=== PATIENT | female | born 1940 | race Caucasian/White ===

== ENCOUNTER 2020-01-09 12:31 | Emergency (ER) | payer MEDICARE, OTHER, SELFPAY ==
[2020-01-09 12:38] VITALS: BP 129/54; PULSE 81; RESP 16; TEMP 36.4; O2SAT 99
--- NOTE | 2020-01-09 12:51 | ED.NAVMDI ---
HPI - Nausea/Vomiting/Diarrhea General Chief complaint: Nausea/Vomiting/Diarrhea Stated complaint: diarrhea Time Seen by Provider: 01/09/20 12:38 Source: patient and RN notes reviewed Mode of arrival: ambulatory Limitations: no limitations History of Present Illness HPI Narrative: A 79 y/o female presents to the ED with 5 days of watery diarrhea for the past 5 days. She states that she has been having roughly 4-5 episodes a day. She reports associated sharp intermittent ABD pain. She notes that her symptoms are aggravated after she eats and that she has taken Imodium without relief. She denies any fevers, chills, N/V, or CP. MD elicited complaint: diarrhea Onset (ago): day(s) (5) Description of diarrhea: watery Associated nausea: No Associated abdominal pain: Yes Quality: sharp Exacerbating factors: eating Relieving factors: none Context: history of abdominal surgery Associated symptoms: denies other symptoms Treatment prior to arrival: immodium Related Data Home Medications Medication Instructions Recorded Confirmed acetaminophen 1,000 mg PO TID PRN 11/01/19 11/01/19 aspirin 325 mg PO DAILY 11/01/19 11/01/19 cyclobenzaprine 5 mg PO TID PRN 11/01/19 11/01/19 lisinopril 10 mg PO BID 11/01/19 11/01/19 pantoprazole 40 mg PO QAM 11/01/19 11/01/19 prednisone 20 mg PO DAILY 11/01/19 11/01/19 tramadol 50 mg PO TID PRN 11/01/19 11/01/19 aspirin [Aspir-Low] 01/09/20 citalopram mg 01/09/20 docusate sodium PO 01/09/20 metoprolol succinate PO 01/09/20 pantoprazole PO 01/09/20 rosuvastatin mg 01/09/20 Allergies Allergy/AdvReac Type Severity Reaction Status Date / Time felodipine Allergy Severe HEART Verified 01/09/20 12:51 BOUNDING metronidazole Allergy Severe Unknown Verified 01/09/20 12:51 Quinolones Allergy Severe Unknown Verified 01/09/20 12:51 atorvastatin Allergy Mild MUSCLE Verified 01/09/20 12:51 ACHES ciprofloxacin Allergy Unknown Unknown Verified 01/09/20 12:51 hydrocodone AdvReac Mild Nausea and Verified 01/09/20 12:51 Vomiting Review of Systems Review of Systems: All systems reviewed & are unremarkable except as noted in HPI and below Constitutional: Constitutional: Denies chills and Denies fever(s) Cardiovascular: Cardiovascular: Denies chest pain Gastrointestinal: Gastrointestinal: Reports abdominal pain, Reports diarrhea (watery), Denies nausea and Denies vomiting PMFSH Social History Social History Social History: She recently lost her cancer. She had 5 children. He lives home alone. She is retired from working in the school cafeteria Smoking status: Former smoker Tobacco type: cigarettes Second hand tobacco smoke exposure: No Smoking end date: 10/16/94 Alcohol intake: never Substance use: never Substance use type: does not use Gender identity (if verbalized by the patient): Female Spiritual care concerns: No Agree to blood products: Yes Exam Narrative: Exam Narrative: General appearance: Well-developed, well-nourished Skin: Normal color Head: Normocephalic, nontraumatic Eyes: Clear conjunctiva ENT: Oropharynx normal, ears normal, nose normal Neck: Supple, nontender Chest and respiratory: Airway patent, no respiratory distress, no accessory muscle use Heart: Regular rate/rhythm Abdomen: Soft, nontender, no organomegaly, quiet bowel sounds Vascular: Normal peripheral pulses, normal capillary refill. Musculoskeletal: Normal range of motion, nontender back Neurologic: Alert and oriented ?3, PRECONSTRUCTION MANAGER is normal as tested, no gross motor deficit Course Course Emergency Course: Stable Vital Signs Vital signs: Vital S
[2020-01-09 12:52] LABS: Basophils Absolute Auto 0.1 K/mm3 (0.0-0.1); Basophils Percent Auto 0.8 % (0.2-1.2); Eosinophils Absolute Auto 0.3 K/mm3 (0-0.3); Eosinophils Percent Auto 2.9 % (0-4.4); Hematocrit 33.7 % (37.0-47.0); Hemoglobin 9.8 g/dL (12.0-15.0); Immature Granulocyte Absolute 0.02 K/mm3 (0.00-0.031); Immature Granulocyte Percent A 0.2 % (0-0.5); Lymphocytes Absolute Auto 1.86 K/mm3 (0.9-3.2); Lymphocytes Percent Auto 21.3 % (18.3-44.2); Mean Corpuscular HGB Conc 29.1 g/dl (32-36); Mean Corpuscular Hemoglobin 27.1 pg (26-34); Mean Corpuscular Volume 93.4 fl (80-100); Mean Platelet Volume 10.5 fl (7.4-10.4); Monocytes Absolute Auto 0.8 K/mm3 (0.1-0.6); Monocytes Percent Auto 9.3 % (2.6-8.5); Neutrophils Absolute Auto 5.7 K/mm3 (1.3-6.7); Neutrophils Percent Auto 65.5 % (45.5-73.1); Platelet Count Result 438 k/mm3 (150-375); Red Blood Count 3.61 M/mm3 (4.2-5.4); White Blood Count 8.7 K/mm3 (4.5-10.0)
[2020-01-09 13:00] LABS: Hypochromasia 1+ (NORMAL); Ovalocytes 1+ (NORMAL); Platelet Estimate Increased (Adequate)
[2020-01-09 13:07] VITALS: BP 115/43; PULSE 69
[2020-01-09 13:07] LABS: Albumin Level 4.3 g/dL (3.5-5.1); Alkaline Phosphatase 86 U/L (38-126); Aspartate Amino Transferase 19 U/L (14-36); Bilirubin,Total 0.2 mg/dL (0.2-1.3); Blood Urea Nitrogen 21 mg/dL (7-17); Carbon Dioxide 24 mmol/L (22-30); Estimated CRCL calculation 26 ml/min; Estimated Glomerular Filt Rate 31; Glucose 96 mg/dL (65-105)
[2020-01-09 13:08] VITALS: BP 117/40; PULSE 71
[2020-01-09 13:10] VITALS: BP 90/37; PULSE 84
[2020-01-09 13:18] LABS: Alanine Aminotransferase 10 U/L (4-35); Calcium 8.7 mg/dL (8.4-10.2); Chloride 104 mmol/L (98-107); Lipase 141 U/L (23-300); Potassium 4.1 mmol/L (3.4-5.0); Sodium 137 mmol/L (137-145)
[2020-01-09] MEDS: SODIUM CHLORIDE 0.9% IV 1,000 ML 999 ML IV CONT (13:25)
[2020-01-09 13:36] LABS: Add Urine Microscopic? YES; Appearance Urine Clear (Clear); Bilirubin Urine Negative (Negative); Blood Urine 1+ (Negative); Color Urine Yellow (Yellow); Glucose Urine UA Negative (Negative); Hyaline Casts Urine 20-29 /lpf; Ketones Urine Negative (Negative); Leukocyte Esterase Ur 2+ LEU/UL (Negative); Mucus Urine Rare /lpf; Nitrate Urine Negative (Negative); Protein Urine 2+ mg/dL (Negative); Specific Grav Ur 1.014 (1.001-1.035); Squamous Epithelial Cell Urine Rare /hpf (Few); Urobilinogen Urine Negative mg/dL (<2.0)
[2020-01-09 14:13] VITALS: BP 147/56; PULSE 71; RESP 17; O2SAT 100
== END 2020-01-09 14:15 ==
PROVIDERS: Emergency Provider Emergency Medicine; PCP Internal Medicine
DX: N17.9 Acute kidney failure, unspecified (principal); R19.7 Diarrhea, unspecified; Z87.891 Personal history of nicotine dependence; R10.9 Unspecified abdominal pain
CPT/HCPCS: 36415; 80053; 81001; 83690; 85025; 87086; 87088; 96360; 99283; J7030

== ENCOUNTER 2020-09-24 14:27 | Outpatient (CLI) | payer MEDICARE, OTHER, SELFPAY ==
--- NOTE | ~2020-09-24 | MM_ITS ---
EXAMINATION: MM screening [facility] BI w cathy HISTORY: Screening TECHNIQUE: Craniocaudal and mediolateral oblique 3-D tomosynthesis images were obtained and synthetic 2-D images were generated. CAD analysis was submitted and interpreted. COMPARISON: Comparison to multiple prior studies sequentially, with oldest reviewed study dated 12/09. BREAST PARENCHYMAL COMPOSITION: There are scattered areas of fibroglandular density. FINDINGS: There is no evidence of suspicious mass, calcification, or architectural distortion to sugg est malignancy in either breast. There has been no suspicious interval change. IMPRESSION: 1. No mammographic evidence of malignancy. 2. Recommend routine screening mammography in one year. BI-RADS Category 1: Negative Reviewed, dictated and finalized at location A. WASHER
--- NOTE | ~2020-09-24 | DEXA_ITS ---
Bone Density Report Name: Debra Bueno Age: 79 Sex: Female Ethnicity: White Date of : 1940 Indication: osteopenia; monitoring treatment; parental hip fracture; prior fracture; hysterectomy; postmenopausal Referring Provider: BEBE, JACE Barros Study: Bone densitometry was performed. Exam Date: September 24, 2020 Accession number: [id number] Bone Density: Region BMD T-score Z-score Classification AP Spine (L1-L4) 0.867 -1.6 1.1 Osteopenia Femoral Neck (Right) 0.582 -2.4 -0.1 Osteopenia Total Hip (Right) 0.662 -2.3 -0.2 Osteopenia World Health Organization criteria for BMD impression classify patients as: Normal (T-score at or above -1.0), Osteopenia (T-score between -1.0 and -2.5), or Osteoporosis (T-score at or below -2.5). 10-year Fracture Risk: FRAX not reported because: Prior hip or vertebral fracture Treated for osteoporosis Previous Exams: Region Exam Age BMD T-score BMD Change BMD Change Date g/cm2 vs Baseline vs Previous AP Spine(L1-L4) 09/24/2020 79 0.867 -1.6 -0.017(-1.9%)# -0.038(-4.2%)* 01/10/2014 73 0.906 -1.3 0.021(2.4%)# 0.033(3.7%)* 10/27/2011 71 0.873 -1.6 -0.011(-1.3%)# -0.057(-6.1%)# 10/20/2009 69 0.930 -1.1 0.045(5.1%)* 0.045(5.1%)* 08/30/2007 66 0.885 -1.5 Total Hip(Right) 09/24/2020 79 0.662 -2.3 -0.095(-12.5%) -0.087(-11.6%) 01/10/2014 73 0.749 -1.6 -0.008(-1.1%)# -0.067(-8.2%)* 10/27/2011 71 0.816 -1.0 0.059(7.7%)# 0.073(9.8%)# 10/20/2009 69 0.743 -1.6 -0.014(-1.9%) -0.014(-1.9%) 08/30/2007 66 0.757 -1.5 *Denotes significance at 95% confidence level, LSC for AP Spine = 0.022 g/cm2, LSC for Total Hip = 0.027 g/cm2 Clinical Information Provided by Patient: Have had a previous hip or vertebral fracture Has had a low trauma fracture Parent has had a hip fracture Is being treated for osteoporosis Has the following medical conditions: Hysterectomy Patient maximum height was 69 No regular weight bearing exercise Drinks caffeinated beverages Onset of menses at age 13 Number of children 5 Impression: The patient has low bone mass, based on the Right Femoral Neck T-score. The patient has risk factors, including: parental hip fracture, previous fracture. The BMD for the AP Spine(L1-L4) decreased, changing by -4.2% since the last DXA exam. The BMD for the Total Hip(Right) decreased, changing by -11.6% since the last DXA exam. Discussion: SIGNIFICANT BONE LOSS OBSERVED. Adherence to therapy (including calcium and vitamin D inta
== END 2020-09-24 14:28 | disposition home or self-care (01) ==
PROVIDERS: PCP Nurse Practitioner; Visit Provider Physician Assistant
DX: Z12.31 Encounter for screening mammogram for malignant neoplasm of breast (principal); Z78.0 Asymptomatic menopausal state; M85.89 Other specified disorders of bone density and structure, multiple sites
CPT/HCPCS: 77063; 77067; 77080

== ENCOUNTER 2020-09-30 04:23 | Emergency (ER) | payer MEDICARE, OTHER, SELFPAY ==
--- NOTE | ~2020-09-30 | XR_ITS ---
EXAMINATION: XR chest 1V portable DATE: 09/30/2020 04:42 INDICATION: Shortness of breath. COVID-19 positive. TECHNIQUE: A single frontal view of the chest was obtained. COMPARISON: Chest 2 views 03/30/2018, CT abdomen and pelvis 11/04/2019 FINDINGS: There is mild scarring at the lung apices. Calcified left lung nodules and calcified left h ilar lymph nodes are consistent with old granulomatous disease. There is a diffuse interstitial patte rn in the lungs. No pleural effusion or pneumothorax. The heart size is normal. Surgical clips overli e left upper chest. IMPRESSION: 1. Diffuse interstitial pattern in the lungs, consistent with atypical pneumonia versus mild pulmonar y edema. Reviewed, dictated and finalized at location A. PING COMPOUND BLENDER IMPRESSION: 1. Diffuse interstitial pattern in the lungs, consistent with atypical pneumoni a versus mild pulmonary edema.
[2020-09-30 04:23] VITALS: BP 130/74; PULSE 81; RESP 18; TEMP 36.4; O2SAT 98
[2020-09-30 04:37] LABS: Basophils Percent Auto 0.2 % (0.2-1.2); Eosinophils Percent Auto 0.9 % (0-4.4); Hematocrit 37.4 % (37.0-47.0); Hemoglobin 11.9 g/dL (12.0-15.0); Immature Granulocyte Absolute 0.02 K/mm3 (0.00-0.031); Immature Granulocyte Percent A 0.5 % (0-0.5); Lymphocytes Absolute Auto 1.29 K/mm3 (0.9-3.2); Lymphocytes Percent Auto 29.9 % (18.3-44.2); Mean Corpuscular HGB Conc 31.8 g/dl (32-36); Mean Corpuscular Hemoglobin 29.4 pg (26-34); Mean Corpuscular Volume 92.3 fl (80-100); Mean Platelet Volume 9.9 fl (7.4-10.4); Monocytes Absolute Auto 0.7 K/mm3 (0.1-0.6); Monocytes Percent Auto 15.8 % (2.6-8.5); Neutrophils Absolute Auto 2.3 K/mm3 (1.3-6.7); Neutrophils Percent Auto 52.7 % (45.5-73.1); Platelet Count Result 286 k/mm3 (150-375); Red Blood Count 4.05 M/mm3 (4.2-5.4); Red Cell Distribution Width 13.1 % (11.5-14.5); White Blood Count 4.3 K/mm3 (4.5-10.0)
[2020-09-30 04:50] LABS: Alanine Aminotransferase 14 U/L (4-35); Albumin Level 3.6 g/dL (3.5-5.1); Alkaline Phosphatase 82 U/L (38-126); Anion Gap 8 mmol/L (8-16); Aspartate Amino Transferase 31 U/L (14-36); Bilirubin,Total 0.2 mg/dL (0.2-1.3); Blood Urea Nitrogen 25 mg/dL (7-17); Calcium 8.6 mg/dL (8.4-10.2); Carbon Dioxide 27 mmol/L (22-30); Chloride 101 mmol/L (98-107); Estimated CRCL calculation 26 ml/min; Estimated Glomerular Filt Rate 31; Glucose 109 mg/dL (65-105); Potassium 4.1 mmol/L (3.4-5.0); Sodium 136 mmol/L (137-145)
[2020-09-30] MEDS: ONDANSETRON INJ 4 MG/2 ML VIAL IV PUSH (04:55)
[2020-09-30] MEDS: SODIUM CHLORIDE 0.9% IV 1,000 ML 999 ML IV CONT (05:16)
--- NOTE | 2020-09-30 05:36 | ED.SOB ---
HPI - SOB/Dyspnea General Chief Complaint: Shortness of Breath/Dyspnea Stated Complaint: sob Time Seen by Provider: 09/30/20 04:34 History of Present Illness HPI Narrative: Patient is an 79-year-old female who presents ER with shortness of breath. She reports 2 hours prior to arrival she started to feel some mild shortness of breath. It was brief and she is no longer experiencing. Recently diagnosed with Covid. She is unsure if it is related to nerves. No racing heart or chest pain. She reports has been feeling fatigued for couple of days and not eating as well. She denies any productive cough or sinus congestion/sore throat. Patient does endorse mild nausea but no vomiting. Related Data Home Medications Medication Instructions Recorded Confirmed acetaminophen 1,000 mg PO TID PRN 11/01/19 04/16/20 cyclobenzaprine 5 mg PO TID PRN 11/01/19 04/16/20 lisinopril 10 mg PO BID 11/01/19 04/16/20 pantoprazole 40 mg PO QAM 11/01/19 04/16/20 aspirin [Aspir-Low] 01/09/20 04/16/20 citalopram mg 01/09/20 04/16/20 docusate sodium PO 01/09/20 04/16/20 metoprolol succinate PO 01/09/20 04/16/20 pantoprazole PO 01/09/20 04/16/20 rosuvastatin mg 01/09/20 04/16/20 apixaban 2.5 mg tablet 2.5 mg PO BID 04/16/20 04/16/20 Allergies Allergy/AdvReac Type Severity Reaction Status Date / Time felodipine Allergy Severe HEART Verified 01/09/20 12:51 BOUNDING metronidazole Allergy Severe Unknown Verified 01/09/20 12:51 Quinolones Allergy Severe Unknown Verified 01/09/20 12:51 atorvastatin Allergy Mild MUSCLE Verified 01/09/20 12:51 ACHES ciprofloxacin Allergy Unknown Unknown Verified 01/09/20 12:51 hydrocodone AdvReac Mild Nausea and Verified 01/09/20 12:51 Vomiting Review of Systems Review of Systems: All systems reviewed & are unremarkable except as noted in HPI and below Constitutional: Constitutional: Denies chills, Reports fatigue, Denies fever(s) and Reports weakness ENT: Denies nasal congestion and Denies sore throat Cardiovascular: Cardiovascular: Denies chest pain and Denies radiating jaw, neck or arm pain Respiratory: Respiratory: Denies cough, Reports dyspnea and Denies wheezing Gastrointestinal: Gastrointestinal: Denies abdominal pain, Reports nausea and Denies vomiting [facility] Past Medical History Medical History (Updated 09/30/20 @ 06:07 by Brando Phan MD) Abdominal aneurysm Anemia Arthritis Bilateral carpal tunnel syndrome Bronchitis Cataracts, bilateral Chronic GERD Clavicle fracture Depression Diverticulitis GERD (gastroesophageal reflux disease) H/O blood clots H/O: HTN (hypertension) History of pneumonia History of rectal polyps HTN (hypertension), malignant Hx of fracture of rib Hx: UTI (urinary tract infection) Hypercholesteremia Hypoglycemia Surgical History Surgical History AAA (abdominal aortic aneurysm) H/O bilateral cataract extraction H/O: hysterectomy History of appendectomy History of bilateral carpal tunnel release History of bladder surgery History of colon surgery History of hip replacement Left bipolar October 2019 History of left knee replacement History of local excision of skin lesion History of tonsillectomy History of total left knee replacement Hx of cardiac cath S/P carpal tunnel release S/P rotator cuff repair Bilaterally Family History Family History Mother Patient's mother is Dementia Father Patient's father is Blood clots in brain Sibling Cerebrovascular accident Social History Social History Social History: She recently lost her cancer. She had 5 children. He lives home alone. She is retired from working in the school cafeteria Smoking status: Former smoker Tobacco type: cigarettes Second hand tobacco smoke exposure: No
[2020-09-30 06:17] VITALS: BP 104/63; PULSE 91; RESP 18; TEMP 36.6; O2SAT 96
--- NOTE | 2020-09-30 09:31 | ECG_ITS ---
Measurements Intervals [place] Rate: 80 P: 84 [place]: 153 QRS: 59 QRSD: 85 T: 50 QT: 361 QTc: 416 Interpretive Statements SINUS RHYTHM BASELINE ARTIFACT- I, II, III, AVR, AVL, AVF, V1-V3 NORMAL ECG Electronically Signed On 09-30-2020 10:01:01 ASSISTANT MEDIA BUYER by Diaz Walsh D.O.
== END 2020-09-30 06:18 ==
PROVIDERS: Emergency Provider Emergency Medicine; PCP Physician Assistant
DX: U07.1 COVID-19 (principal); J12.89 Other viral pneumonia; D64.9 Anemia, unspecified; M19.90 Unspecified osteoarthritis, unspecified site; K21.9 Gastro-esophageal reflux disease without esophagitis; F32.9 Major depressive disorder, single episode, unspecified; I10 Essential (primary) hypertension; E78.5 Hyperlipidemia, unspecified
CPT/HCPCS: 36415; 71045; 80053; 85025; 93005; 96361; 96374; 99284; J2405; J7030

== ENCOUNTER 2020-10-06 04:45 | Emergency (ER) | payer MEDICARE, OTHER, SELFPAY ==
--- NOTE | ~2020-10-06 | XR_ITS ---
EXAMINATION: XR chest 1V portable INDICATION: Shortness of breath TECHNIQUE: Portable AP chest at 0512 hours COMPARISON: 09/30/2020 FINDINGS: There are surgical changes in the left upper lobe. Scarring is noted in the lung apices. A mild diffuse interstitial pattern persists without significant change. There is no pleural effusion o r pneumothorax. The cardiomediastinal silhouette is normal. IMPRESSION: 1. Mild diffuse interstitial pattern without significant change, consistent with pulmonary edema vers us atypical pneumonia. Reviewed, dictated and finalized at location A. FORM CONSULTANT IMPRESSION: 1. Mild diffuse interstitial pattern without significant change, consistent wit h pulmonary edema versus atypical pneumonia.
[2020-10-06 04:46] VITALS: BP 152/61; PULSE 81; RESP 18; TEMP 36.8; O2SAT 95
--- NOTE | 2020-10-06 04:56 | ECG_ITS ---
Measurements Intervals [place] Rate: 83 P: 75 [place]: 165 QRS: 61 QRSD: 90 T: 60 QT: 377 QTc: 444 Interpretive Statements SINUS RHYTHM BASELINE ARTIFACT- I, AVL NORMAL ECG Electronically Signed On 10-06-2020 7:48:14 IRON GUARDRAIL INSTALLER by Diaz Walsh D.O.
[2020-10-06 05:05] VITALS: PULSE 97; O2SAT 94
[2020-10-06 05:11] LABS: Basophils Percent Auto 0.1 % (0.2-1.2); Eosinophils Absolute Auto 0.1 K/mm3 (0-0.3); Eosinophils Percent Auto 0.9 % (0-4.4); Hematocrit 36.6 % (37.0-47.0); Hemoglobin 11.9 g/dL (12.0-15.0); Immature Granulocyte Absolute 0.03 K/mm3 (0.00-0.031); Immature Granulocyte Percent A 0.4 % (0-0.5); Lymphocytes Absolute Auto 1.13 K/mm3 (0.9-3.2); Lymphocytes Percent Auto 16.7 % (18.3-44.2); Mean Corpuscular HGB Conc 32.5 g/dl (32-36); Mean Corpuscular Hemoglobin 29.3 pg (26-34); Mean Corpuscular Volume 90.1 fl (80-100); Mean Platelet Volume 9.9 fl (7.4-10.4); Monocytes Absolute Auto 0.8 K/mm3 (0.1-0.6); Monocytes Percent Auto 11.5 % (2.6-8.5); Neutrophils Absolute Auto 4.8 K/mm3 (1.3-6.7); Neutrophils Percent Auto 70.4 % (45.5-73.1); Platelet Count Result 382 k/mm3 (150-375); Red Blood Count 4.06 M/mm3 (4.2-5.4); Red Cell Distribution Width 12.8 % (11.5-14.5); White Blood Count 6.8 K/mm3 (4.5-10.0)
[2020-10-06 05:24] LABS: Alanine Aminotransferase 13 U/L (4-35); Albumin Level 3.5 g/dL (3.5-5.1); Alkaline Phosphatase 95 U/L (38-126); Anion Gap 8 mmol/L (8-16); Aspartate Amino Transferase 23 U/L (14-36); Bilirubin,Total 0.4 mg/dL (0.2-1.3); Blood Urea Nitrogen 20 mg/dL (7-17); Calcium 8.7 mg/dL (8.4-10.2); Carbon Dioxide 28 mmol/L (22-30); Chloride 100 mmol/L (98-107); Estimated CRCL calculation 30 ml/min; Estimated Glomerular Filt Rate 36; Glucose 115 mg/dL (65-105); Potassium 3.8 mmol/L (3.4-5.0); Sodium 136 mmol/L (137-145)
[2020-10-06 05:32] LABS: NT Pro B Type Natriuretic Pept 657 PG/ML (5-100)
[2020-10-06 05:35] LABS: Troponin I < 0.012 ng/mL (0.000-0.034)
[2020-10-06] MEDS: SODIUM CHLORIDE 0.9% IV 1,000 ML 999 ML IV CONT (05:41)
[2020-10-06 05:45] LABS: Atypical Lymphocytes Present; Ovalocytes 1+ (NORMAL); Platelet Estimate Adequate (Adequate)
--- NOTE | 2020-10-06 05:52 | ED.GENADULT ---
HPI - General Adult General Chief complaint: Shortness of Breath/Dyspnea Stated complaint: SOB,covid + Time Seen by Provider: 10/06/20 04:56 History of Present Illness HPI narrative: Patient is a 79-year-old female who presents the emergency department with chief complaint of shortness of breath. Patient reports that she was recently diagnosed with COVID-19 and has been seen in the emergency department several times. Patient reports that tonight she was at home started getting short of breath EMS was called and by the time she arrived to the emergency department she is feeling back to normal. Patient states this time she has minimal shortness of breath denies chest pain denies fever reports has had a little bit of diarrhea with this as well. Related Data Home Medications Medication Instructions Recorded Confirmed acetaminophen 1,000 mg PO TID PRN 11/01/19 04/16/20 cyclobenzaprine 5 mg PO TID PRN 11/01/19 04/16/20 lisinopril 10 mg PO BID 11/01/19 04/16/20 pantoprazole 40 mg PO QAM 11/01/19 04/16/20 aspirin [Aspir-Low] 01/09/20 04/16/20 citalopram mg 01/09/20 04/16/20 docusate sodium PO 01/09/20 04/16/20 metoprolol succinate PO 01/09/20 04/16/20 pantoprazole PO 01/09/20 04/16/20 rosuvastatin mg 01/09/20 04/16/20 apixaban 2.5 mg tablet 2.5 mg PO BID 04/16/20 04/16/20 Allergies Allergy/AdvReac Type Severity Reaction Status Date / Time felodipine Allergy Severe HEART Verified 01/09/20 12:51 BOUNDING metronidazole Allergy Severe Unknown Verified 01/09/20 12:51 Quinolones Allergy Severe Unknown Verified 01/09/20 12:51 atorvastatin Allergy Mild MUSCLE Verified 01/09/20 12:51 ACHES ciprofloxacin Allergy Unknown Unknown Verified 01/09/20 12:51 hydrocodone AdvReac Mild Nausea and Verified 01/09/20 12:51 Vomiting Review of Systems Review of Systems: Narrative: A 10 system review of systems was completed on the patient and is negative except for what is stated in the HPI. Nursing and ancillary documentation was reviewed. REPLACED BY [facility] Past Medical History Medical History (Updated 10/06/20 @ 06:17 by Jorge Peguero MD) Abdominal aneurysm Anemia Arthritis Bilateral carpal tunnel syndrome Bronchitis Cataracts, bilateral Chronic GERD Clavicle fracture Depression Diverticulitis GERD (gastroesophageal reflux disease) H/O blood clots H/O: HTN (hypertension) History of pneumonia History of rectal polyps HTN (hypertension), malignant Hx of fracture of rib Hx: UTI (urinary tract infection) Hypercholesteremia Hypoglycemia Surgical History Surgical History AAA (abdominal aortic aneurysm) H/O bilateral cataract extraction H/O: hysterectomy History of appendectomy History of bilateral carpal tunnel release History of bladder surgery History of colon surgery History of hip replacement Left bipolar October 2019 History of left knee replacement History of local excision of skin lesion History of tonsillectomy History of total left knee replacement Hx of cardiac cath S/P carpal tunnel release S/P rotator cuff repair Bilaterally Family History Family History Mother Patient's mother is Dementia Father Patient's father is Blood clots in brain Sibling Cerebrovascular accident Social History Social History Social History: She recently lost her cancer. She had 5 children. He lives home alone. She is retired from working in the school cafeteria Smoking status: Former smoker Tobacco type: cigarettes Second hand tobacco smoke exposure: No Smoking end date: 10/16/94 Alcohol intake: never Substance use: never Substance use type: does not use Gender identity (if verbalized by the patient): Female Spiritual care concerns: No Agree to blood products:
[2020-10-06 05:53] LABS: Alveolar/Arterial O2 Gradient 49.9 mmHg; Base Excess ABG -0.2 mEq/l (+/-2.0); Fractional Inspired Oxygen 21 %; HCO3 ABG 23.2 mEq/l (22.0-26.0); Oxygen Content ABG 14.8 %vol (16.0-22.0); Oxygen Saturation ABG 92.3 % (95.0-100.0); Oxyhemoglobin 90.4 % THb (90.0-100.0); PCO2 ABG 33.6 mmHg (35.0-45.0); PO2 ABG 59.6 mmHg (80.0-100.0); PO2 FiO2 Ratio Arterial Blood 2.84 %; Total Hemoglobin 11.6 g/dL (12.0-18.0); pH ABG 7.457 (7.350-7.450)
[2020-10-06 05:54] LABS: Device ROOM AIR; Site Drawn RIGHT BRACHIAL
[2020-10-06 06:01] VITALS: BP 120/53; PULSE 81; RESP 16; O2SAT 95
--- NOTE | 2020-10-06 06:27 | PC.NURSE ---
Patient's son, Ruben, contacted for ride home.
[2020-10-06 06:36] VITALS: BP 131/60; PULSE 81; RESP 16; TEMP 36.6; O2SAT 95
== END 2020-10-06 06:59 ==
PROVIDERS: Emergency Provider Emergency Medicine; PCP Physician Assistant
DX: U07.1 COVID-19 (principal); D64.9 Anemia, unspecified; M19.90 Unspecified osteoarthritis, unspecified site; K21.9 Gastro-esophageal reflux disease without esophagitis; F32.9 Major depressive disorder, single episode, unspecified; I10 Essential (primary) hypertension; E78.5 Hyperlipidemia, unspecified
CPT/HCPCS: 36415; 36600; 71045; 80053; 82805; 83880; 84484; 85025; 93005; 96360; 99284; J7030

== ENCOUNTER 2022-06-22 12:59 | Emergency (ER) | payer MEDICARE, OTHER, SELFPAY ==
[2022-06-22] VITALS (15 sets, daily range): BP systolic 149–164; BP diastolic 76–84; PULSE 80–117; RESP 14–21; TEMP 36.7; O2SAT 96–100
--- NOTE | ~2022-06-22 | XR_ITS ---
EXAMINATION: XR chest 2V DATE: 06/22/2022 14:00 INDICATION: Chest pain. Shortness of breath. TECHNIQUE: Frontal and lateral views of the chest were obtained. COMPARISON: Chest single view 10/06/2020 FINDINGS: There is mild scarring at the lung apices. No pleural effusion or pneumothorax. The heart size is normal. There are prominent paracardial fat pads. Surgical clips overlie left chest. IMPRESSION: 1. Stable mild scarring at the lung apices. Reviewed, dictated and finalized at location A.
--- NOTE | 2022-06-22 13:20 | ECG_ITS ---
Measurements Intervals [place] Rate: 104 P: 72 NM: 166 QRS: 48 QRSD: 86 T: 27 QT: 322 QTc: 425 Interpretive Statements SINUS TACHYCARDIA POSSIBLE LEFT ATRIAL ENLARGEMENT BASELINE ARTIFACT- I, II, III, AVR, AVL, AVF BORDERLINE ECG COMPARED TO ECG 10/06/2020 04:55:30 SINUS TACHYCARDIA NOW PRESENT Electronically Signed On 06-22-2022 15:07:07 CDT by Diaz Walsh D.O.
[2022-06-22 13:43] LABS: Basophils Absolute Auto 0.1 K/mm3 (0.0-0.1); Basophils Percent Auto 0.9 % (0.2-1.2); Eosinophils Absolute Auto 0.1 K/mm3 (0-0.3); Eosinophils Percent Auto 1.3 % (0-4.4); Hematocrit 36.7 % (37.0-47.0); Hemoglobin 11.6 g/dL (12.0-15.0); Immature Granulocyte Absolute 0.14 K/mm3 (0.00-0.031); Lymphocytes Percent Auto 24.3 % (18.3-44.2); Mean Corpuscular HGB Conc 31.6 g/dl (32-36); Mean Corpuscular Hemoglobin 30.4 pg (26-34); Mean Corpuscular Volume 96.1 fl (80-100); Mean Platelet Volume 10.5 fl (7.4-10.4); Monocytes Absolute Auto 0.7 K/mm3 (0.1-0.6); Monocytes Percent Auto 9.4 % (2.6-8.5); Neutrophils Absolute Auto 4.4 K/mm3 (1.3-6.7); Neutrophils Percent Auto 62.1 % (45.5-73.1); Platelet Count Result 410 k/mm3 (150-375); Red Blood Count 3.82 M/mm3 (4.2-5.4); Red Cell Distribution Width 13.3 % (11.5-14.5)
[2022-06-22 13:52] LABS: Alanine Aminotransferase 15 U/L (6-35); Albumin Level 4.5 g/dL (3.5-5.1); Alkaline Phosphatase 89 U/L (38-126); Anion Gap 14 mmol/L (8-16); Aspartate Amino Transferase 21 U/L (14-36); Bilirubin,Total 0.2 mg/dL (0.2-1.3); Blood Urea Nitrogen 24 mg/dL (7-17); Calcium 9.6 mg/dL (8.4-10.2); Carbon Dioxide 26 mmol/L (22-30); Chloride 101 mmol/L (98-107); Estimated CRCL calculation 24 ml/min; Estimated Glomerular Filt Rate 29; Glucose 112 mg/dL (65-110); Lipase 253 U/L (23-300); Potassium 4.3 mmol/L (3.4-5.0); Sodium 141 mmol/L (137-145)
[2022-06-22 14:00] LABS: Prothrombin Time 12.3 Seconds (11.1-14.7)
[2022-06-22 14:03] LABS: Troponin I < 0.012 ng/mL (0.000-0.034)
--- NOTE | 2022-06-22 16:36 | ED.GENADULT ---
HPI - General Adult General Chief complaint: Arrhythmia/Palpitations Stated complaint: high BP, high heart rate Time Seen by Provider: 06/22/22 14:32 History of Present Illness HPI narrative: 81-year-old female presenting to the emergency department for evaluation of elevated heart rate and hypertension. Patient states Today she had a heart rate that went up to 117. Patient states that her blood pressure was 190 systolic. Upon arrival at level of anxiety. With rest patient's vitals improved. No additional medications were given. Patient was also concerned about boil on her left medial thigh that is resolving Related Data Home Medications Medication Instructions Recorded Confirmed acetaminophen 500 mg tablet 1,000 mg PO TID PRN Pain 11/01/19 04/16/20 cyclobenzaprine 5 mg tablet 5 mg PO TID PRN Muscle Spasm 11/01/19 04/16/20 lisinopril 10 mg tablet 10 mg PO BID 11/01/19 04/16/20 pantoprazole 40 mg tablet,delayed 40 mg PO QAM 11/01/19 04/16/20 release aspirin 81 mg tablet,delayed 01/09/20 04/16/20 release (Aspir-Low) citalopram 10 mg tablet mg 01/09/20 04/16/20 docusate sodium 100 mg capsule PO 01/09/20 04/16/20 metoprolol succinate 25 mg PO 01/09/20 04/16/20 tablet,extended release 24 hr pantoprazole 40 mg tablet,delayed PO 01/09/20 04/16/20 release rosuvastatin 10 mg tablet mg 01/09/20 04/16/20 apixaban 2.5 mg tablet (Eliquis) 2.5 mg PO BID 04/16/20 04/16/20 Allergies Allergy/AdvReac Type Severity Reaction Status Date / Time felodipine Allergy Severe HEART Verified 01/09/20 12:51 BOUNDING metronidazole Allergy Severe Unknown Verified 01/09/20 12:51 Quinolones Allergy Severe Unknown Verified 01/09/20 12:51 atorvastatin Allergy Mild MUSCLE Verified 01/09/20 12:51 ACHES ciprofloxacin Allergy Unknown Unknown Verified 01/09/20 12:51 clindamycin Allergy Fatigued Verified 06/22/22 13:19 doxycycline Allergy Fainting Verified 06/22/22 13:19 hydrocodone AdvReac Mild Nausea and Verified 01/09/20 12:51 Vomiting Review of Systems Review of Systems: CONSTITUTIONAL: Denies fever, chills, or sweats. EYES: Denies visual changes, redness, or discharge. ENT: Denies rhinorrhea, congestion, sore throat, or otalgia. CARDIOVASCULAR: Denies chest pain, palpitations, or edema. RESPIRATORY: Denies cough or dyspnea. GASTROINTESTINAL: Denies abdominal pain, nausea, vomiting, or diarrhea. GENITOURINARY: Denies dysuria or hematuria. SKIN: Resolving boil MUSCULOSKELETAL: Denies back pain, joint pain, or myalgia. NEUROLOGIC: Denies headache, numbness, or weakness. [facility] Past Medical History Medical History (Updated 06/23/22 @ 00:00 by Background Daemon) Abdominal aneurysm Anemia Arthritis Bilateral carpal tunnel syndrome Bronchitis Cataracts, bilateral Chronic GERD Clavicle fracture Depression Diverticulitis GERD (gastroesophageal reflux disease) H/O blood clots H/O: HTN (hypertension) History of pneumonia History of rectal polyps HTN (hypertension), malignant Hx of fracture of rib Hx: UTI (urinary tract infection) Hypercholesteremia Hypoglycemia Surgical History Surgical History AAA (abdominal aortic aneurysm) H/O bilateral cataract extraction H/O: hysterectomy History of appendectomy History of bilateral carpal tunnel release History of bladder surgery History of colon surgery History of hip replacement Left bipolar October 2019 History of left knee replacement History of local excision of skin lesion History of tonsillectomy History of total left knee replacement Hx of cardiac cath S/P carpal tunnel release S/P rotator cuff repair Bilaterally Family History Family History Mother Patient's mother is Dementia Father Patient's father is Blood clots in brain Sibling Cerebrovascular accident Social History Social Histo
[2022-06-22 17:10] LABS: Troponin I < 0.012 ng/mL (0.000-0.034)
== END 2022-06-22 16:50 | disposition home or self-care (01) ==
PROVIDERS: Emergency Provider Emergency Medicine; PCP Physician Assistant
DX: R00.0 Tachycardia, unspecified (principal); I10 Essential (primary) hypertension; L02.416 Cutaneous abscess of left lower limb; E78.00 Pure hypercholesterolemia, unspecified; D64.9 Anemia, unspecified; M19.90 Unspecified osteoarthritis, unspecified site; K21.9 Gastro-esophageal reflux disease without esophagitis; Z96.642 Presence of left artificial hip joint; Z96.652 Presence of left artificial knee joint; Z98.42 Cataract extraction status, left eye; Z98.41 Cataract extraction status, right eye; Z90.710 Acquired absence of both cervix and uterus; Z87.01 Personal history of pneumonia (recurrent); Z87.19 Personal history of other diseases of the digestive system; Z87.440 Personal history of urinary (tract) infections; Z87.891 Personal history of nicotine dependence; Z79.01 Long term (current) use of anticoagulants; R94.31 Abnormal electrocardiogram [ECG] [EKG]
CPT/HCPCS: 36415; 71046; 80053; 83690; 84484; 85025; 85610; 85730; 93005; 99284

== ENCOUNTER 2022-11-01 10:12 | Outpatient (CLI) | payer MEDICARE, OTHER, SELFPAY ==
--- NOTE | ~2022-11-01 | MM_ITS ---
EXAMINATION: MM screening [facility] BI w cathy HISTORY: Screening mammogram TECHNIQUE: Craniocaudal and mediolateral oblique 3-D tomosynthesis images were obtained and synthetic 2-D images were generated. CAD analysis was submitted and interpreted. COMPARISON: 09/24/2020, 03/21/2019, 02/26/2018 BREAST PARENCHYMAL COMPOSITION: There are scattered areas of fibroglandular density. FINDINGS: No suspicious mass, calcification, or architectural distortion are identified in either dora ast to suggest malignancy. There has been no suspicious interval change. IMPRESSION: 1. No mammographic evidence of malignancy. 2. Recommend routine screening mammography while the patient remains in good health. BI-RADS Category 1: Negative Reviewed, dictated and finalized at location A. C2 TACTICAL ANALYSIS TECHNICIAN IMPRESSION: 1. No mammographic evidence of malignancy. 2. Recommend routine screening mammography while the patient remains in good he alth. BI-RADS Category 1: Negative
--- NOTE | ~2022-11-01 | DEXA_ITS ---
Bone Density Report Name: KRISTAN VIERA Age: 82 Sex: Female Ethnicity: White Date of : 1940 Indication: osteopenia; end stage renal disease; rheumatoid arthritis; postmenopausal Referring Provider: BEBE, JACE Barros Study: Bone densitometry was performed. Exam Date: November 01, 2022 Accession number: [id number] Bone Density: Region BMD T-score Z-score Classification AP Spine(L1-L4) 0.939 -1.0 1.8 Normal Femoral Neck (Right) 0.641 -1.9 0.6 Osteopenia Total Hip (Right) 0.710 -1.9 0.3 Osteopenia World Health Organization criteria for BMD impression classify patients as: Normal (T-score at or above -1.0), Osteopenia (T-score between -1.0 and -2.5), or Osteoporosis (T-score at or below -2.5). 10-year Fracture Risk(1): Major Osteoporotic Fracture 19% Hip Fracture 6.3% Reported Risk Factors: [place] (), Neck BMD=0.641, BMI=24.8, rheumatoid arthritis (1) FRAX(R) Version 3.08. Fracture probability calculated for an untreated patient. Fracture probability may be lower if the patient has received treatment. Previous Exams: Region Exam Age BMD T-score BMD Change BMD Change Date g/cm2 vs Baseline vs Previous AP Spine (L1-L4) 11/01/2022 82 0.939 -1.0 0.071 (8.2%)# 0.071 (8.2%)# 09/24/2020 79 0.867 -1.6 Total Hip(Right) 11/01/2022 82 0.710 -1.9 0.048 (7.2%)# 0.048 (7.2%)# 09/24/2020 79 0.662 -2.3 *Denotes significance at 95% confidence level, LSC for AP Spine = 0.022 g/cm2, LSC for Total Hip = 0.027 g/cm2 # Denotes dissimilar scan types or analysis methods Clinical Information Provided by Patient: Has rheumatoid arthritis Has used the following medications: Vitamin D Has the following medical conditions: End stage renal disease Patient maximum height was 69 Drinks caffeinated beverages Onset of menses at age 14 Number of children 5 Impression: The patient has low bone mass, based on the Right Total Hip T-score. The patient has an estimated ten-year risk of hip fracture of 6.3% and an estimated ten-year risk of major fracture of 19%, based on the WHO FRAX algorithm. No significant bone loss was observed. Discussion: BONE DENSITY IS LOW AT ONE OR MORE SKELETAL SITES. THE PATIENT'S BMD AND CLINICAL RISK FACTORS CONTRIBUTE TO THIS PATIENT'S INCREASED RISK OF FRACTURE. This patient's lowest T-score is low at one or more skeletal sites. It meets the World Health Organization's (WHO) criteria for ?low bone mass? (T-score between -1.0 and -2.5). The patient's 10-year risk of hip fracture as calc
== END 2022-11-01 10:13 | disposition home or self-care (01) ==
PROVIDERS: PCP Physician Assistant; Visit Provider Physician Assistant
DX: Z12.31 Encounter for screening mammogram for malignant neoplasm of breast (principal); M81.6 Localized osteoporosis [Lequesne]; M85.851 Other specified disorders of bone density and structure, right thigh
CPT/HCPCS: 77063; 77067; 77080

== ENCOUNTER 2022-12-01 00:44 | Day surgery (SDC) | payer MEDICARE, OTHER, SELFPAY ==
[2022-11-21 13:40] VITALS: BMI 26.0
[2022-12-01 08:14] VITALS: BP 173/76; PULSE 117; RESP 20; TEMP 36.3; O2SAT 94
--- NOTE | 2022-12-01 08:17 | WPDANESEPPF ---
Anes - Initial Pre Proc Eval Procedure: Operation Date: 12/01/22 09:30 Proposed Procedures p Colonoscopy - Jaquan Serra MD Date/Time: 12/01/22 08:17 Surgeon: Jaquan Serra MD Pre Op Diagnosis: iron defic anemia, hx colon polyp Patient Data Age: 82 Gender: F Height: 1.75 m Weight: 75.8 kg Last Vital Signs Temp 36.3 C L 12/01/22 08:14 Pulse 117 H 12/01/22 08:14 Resp 20 12/01/22 08:14 BP 173/76 H 12/01/22 08:14 Pulse Ox 94 12/01/22 08:14 O2 Del Method Room Air 12/01/22 08:14 Allergies Allergy/AdvReac Type Severity Reaction Status Date / Time felodipine Allergy Severe HEART Verified 12/01/22 08:14 BOUNDING metronidazole Allergy Severe Unknown Verified 12/01/22 08:14 Quinolones Allergy Severe Unknown Verified 12/01/22 08:14 ciprofloxacin Allergy Unknown Unknown Verified 12/01/22 08:14 clindamycin Allergy Fatigued Verified 12/01/22 08:14 doxycycline Allergy Fainting Verified 12/01/22 08:14 atorvastatin AdvReac Mild MUSCLE Verified 12/01/22 08:14 ACHES hydrocodone AdvReac Mild Nausea and Verified 12/01/22 08:14 Vomiting Home Medications Medication Instructions Recorded Confirmed Type lisinopril 10 mg tablet 5 mg PO BID 11/01/19 11/21/22 History pantoprazole 40 mg tablet,delayed 40 mg PO QAM 11/01/19 11/21/22 History release aspirin 81 mg tablet,delayed 81 mg PO DAILY 01/09/20 11/21/22 History release (Aspir-Low) citalopram 10 mg tablet 5 mg PO DAILY 01/09/20 11/21/22 History allopurinol 100 mg tablet 100 mg PO DAILY 11/21/22 11/21/22 History buspirone 5 mg tablet 5 mg PO BID 11/21/22 11/21/22 History cholecalciferol (vitamin D3) 125 125 mcg PO BID 11/21/22 11/21/22 History mcg (5,000 unit) tablet (Vitamin D3) ferrous sulfate 325 mg (65 mg 325 mg PO DAILY 11/21/22 11/21/22 History iron) tablet mecobalamin (vitamin B12) 2,500 2,500 mcg PO DAILY 11/21/22 11/21/22 History mcg chewable tablet metoprolol succinate 25 mg 12.5 mg PO DAILY 11/21/22 11/21/22 History tablet,extended release 24 hr sodium,potassium,mag sulfates 17.5 See Rx Instructions .Route 11/24/22 Rx gram-3.13 gram-1.6 gram oral soln .COMPLEX #354 mL (Suprep Bowel Prep Kit) Patient hx anesthesia problems: none Family hx anesthesia problems: none Results Review: All pre-operative results and documents have been reviewed as part of the pre-operative evaluation. [facility] Past Medical History Medical History Abdominal aneurysm Anemia Arthritis Bilateral carpal tunnel syndrome Bronchitis Cataracts, bilateral Chronic GERD Clavicle fracture Depression Diverticulitis GERD (gastroesophageal reflux disease) H/O blood clots H/O: HTN (hypertension) History of pneumonia History of rectal polyps HTN (hypertension), malignant Hx of fracture of rib Hx: UTI (urinary tract infection) Hypercholesteremia Hypoglycemia Surgical History Surgical History AAA (abdominal aortic aneurysm) H/O bilateral cataract extraction H/O: hysterectomy History of appendectomy History of bilateral carpal tunnel release History of bladder surgery History of colon surgery History of hip replacement Left bipolar October 2019 History of left knee replacement History of local excision of skin lesion History of tonsillectomy History of total left knee replacement Hx of cardiac cath S/P carpal tunnel release S/P rotator cuff repair Bilaterally Family History Family History Mother Patient's mother is Dementia Father Patient's father is Blood clots in brain Sibling Cerebrovascular accident Social History Social History Social History: She recently lost her cancer. She had 5 children. He lives home alone. She is retired from
[2022-12-01] MEDS: LACTATED RINGERS 1,000 ML 150 ML IV CONT (08:36)
--- NOTE | 2022-12-01 08:47 | PM.HPGS ---
History of Present Illness History of Present Illness Consent: Risks, benefits, and alternatives have been discussed and questions answered. Patient agrees to proceed with procedure. Chief complaint: iron defic anemia, hx colon polyp Narrative: Debra Bueno is a 82 year old female Presents for colonoscopy. Patient has a history of chronic anemia. 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 reports her bowel habits are normal. She denies abdominal pain. No obvious bleeding has been reported. Because of chronic anemia follow-up colonoscopy advised. Previous colonoscopy 2016 was unremarkable. Review of Systems Review of Systems: Review of systems noncontributory. [facility] Past Medical History Medical History (Updated 12/01/22 @ 08:49 by Jaquan Serra MD) Abdominal aneurysm Anemia Arthritis Bilateral carpal tunnel syndrome Bronchitis Cataracts, bilateral Chronic GERD Clavicle fracture Depression Diverticulitis GERD (gastroesophageal reflux disease) H/O blood clots H/O: HTN (hypertension) History of pneumonia History of rectal polyps HTN (hypertension), malignant Hx of fracture of rib Hx: UTI (urinary tract infection) Hypercholesteremia Hypoglycemia Surgical History Surgical History AAA (abdominal aortic aneurysm) H/O bilateral cataract extraction H/O: hysterectomy History of appendectomy History of bilateral carpal tunnel release History of bladder surgery History of colon surgery History of hip replacement Left bipolar October 2019 History of left knee replacement History of local excision of skin lesion History of tonsillectomy History of total left knee replacement Hx of cardiac cath S/P carpal tunnel release S/P rotator cuff repair Bilaterally Family History Family History Mother Patient's mother is Dementia Father Patient's father is Blood clots in brain Sibling Cerebrovascular accident Social History Social History Social History: She recently lost her cancer. She had 5 children. He lives home alone. She is retired from working in the school cafeteria Smoking status: Former smoker Tobacco type: cigarettes Second hand tobacco smoke exposure: No Smoking end date: 10/16/94 Alcohol intake: never Substance use: never Substance use type: does not use Living arrangements: assisted living Occupation/Education: retired Gender identity (if verbalized by the patient): Female Spiritual care concerns: No Agree to blood products: Yes Meds Home Medications and Allergies Home Medications Medication Instructions Recorded Confirmed Type lisinopril 10 mg tablet 5 mg PO BID 11/01/19 11/21/22 History pantoprazole 40 mg tablet,delayed 40 mg PO QAM 11/01/19 11/21/22 History release aspirin 81 mg tablet,delayed 81 mg PO DAILY 01/09/20 11/21/22 History release (Aspir-Low) citalopram 10 mg tablet 5 mg PO DAILY 01/09/20 11/21/22 History allopurinol 100 mg tablet 100 mg PO DAILY 11/21/22 11/21/22 History buspirone 5 mg tablet 5 mg PO BID 11/21/22 11/21/22 History cholecalciferol (vitamin D3) 125 125 mcg PO BID 11/21/22 11/21/22 History mcg (5,000 unit) tablet (Vitamin D3) ferrous sulfate 325 mg (65 mg 325 mg PO DAILY 11/21/22 11/21/22 History iron) tablet mecobalamin (vitamin B12) 2,500 2,500 mcg PO DAILY 11/21/22 11/21/22 History mcg chewable tablet metoprolol succinate 25 mg 12.5 mg PO DAILY 11/21/22 11/21/22 History tablet,extended release 24 hr sodium,potassium,mag sulfates 17.5 See Rx Instructions .Route 11/24/22 Rx gram-3.13 gram-1.6 gram oral soln .COMPLEX #354 mL (Suprep Bowel Prep Kit) Allergies Allergy/AdvReac Type Severity Reaction Status Date / Time felodipine Fred
[2022-12-01 09:42] VITALS: BP 98/57; PULSE 95; RESP 24; O2SAT 96
[2022-12-01 09:52] VITALS: BP 120/69; PULSE 91; RESP 16; O2SAT 99
[2022-12-01 10:02] VITALS: BP 133/75; PULSE 90; RESP 17; O2SAT 99
== END 2022-12-01 10:08 | disposition home or self-care (01) ==
PROVIDERS: PCP Physician Assistant; Visit Provider Internal Medicine Gastroenterology
PROC: 0DJD8ZZ Inspection of Lower Intestinal Tract, Via Natural or Artificial Opening Endoscopic (ICD-10-PCS; CPT 45378; principal; 2022-12-01 09:30)
DX: D64.9 Anemia, unspecified (principal); D12.5 Benign neoplasm of sigmoid colon; K64.8 Other hemorrhoids; Z98.0 Intestinal bypass and anastomosis status; Z90.49 Acquired absence of other specified parts of digestive tract; K21.9 Gastro-esophageal reflux disease without esophagitis; F32.A Depression, unspecified; I10 Essential (primary) hypertension; E78.00 Pure hypercholesterolemia, unspecified; Z87.891 Personal history of nicotine dependence; Z79.82 Long term (current) use of aspirin
CPT/HCPCS: 45385; 88305; J2704; J7120

== ENCOUNTER 2023-01-13 11:37 | Emergency (ER) | payer MEDICARE, OTHER, SELFPAY ==
--- NOTE | ~2023-01-13 | XR_ITS ---
XR hip LT 2V w AP pelvis DATE: 01/13/2023 13:23 INDICATION: No left hip fracture. Generalized pain. TECHNIQUE: AP pelvis. AP and lateral views of left hip COMPARISON: 04/16/2020 pelvis and left hip FINDINGS: Again noted is aortic, biiliac endovascular stent. Osteopenia. Normal alignment at the pubic symphysis and sacroiliac joints. There is fracture of the left pubic bone since 04/16/2020 Initially, there is fracture of the lesser and greater trochanters, extending into the proximal left femoral shaft, new since 04/16/2020. Left bipolar hip prosthesis remains normally seated in the left acetabular fossa. Mild to moderate right hip osteoarthritis. IMPRESSION: Recent left lesser and greater trochanter and proximal left femoral shaft fracture Left pubic fractures since 04/16/2020 Left bipolar hip prosthesis Osteopenia Mild to moderate right hip osteoarthritis Aortobiiliac endovascular graft Reviewed, dictated and finalized at location B.
[2023-01-13 11:38] VITALS: BP 159/79; PULSE 106; RESP 18; TEMP 37.1; O2SAT 99
[2023-01-13] MEDS: KETOROLAC 30 MG/ML VIAL (*BKC) IM (12:42)
--- NOTE | 2023-01-13 13:24 | ED.GENADULT ---
HPI - General Adult General Chief complaint: Extremity Problem,Nontraumatic Stated complaint: bilat leg/pelvis pain Time Seen by Provider: 01/13/23 11:42 History of Present Illness HPI narrative: Patient is an 82-year-old female who presents ER with bilateral leg pain and pelvis pain. Patient reports 1 month ago she had a fall up in [place]. She had a periprosthetic fracture of her left femur. She is for transfer to [place] for further evaluation. It was decided that she would do nonoperative management and she is just now started physical therapy to bear weight again. Patient reports she rode in a transfer vehicle from her rehab to [facility] yesterday. She reports the roads were bad and she kept bouncing up and down. Today when she woke up her legs were more sore than typical. No fevers or chills or sweats. No chest pain or chest pressure. No lower extremity numbness or weakness. Pain was not controlled with her oxycodone so she thought she come here for further evaluation. Related Data Home Medications Medication Instructions Recorded Confirmed lisinopril 10 mg tablet 5 mg PO BID 11/01/19 11/21/22 pantoprazole 40 mg tablet,delayed 40 mg PO QAM 11/01/19 11/21/22 release aspirin 81 mg tablet,delayed 81 mg PO DAILY 01/09/20 11/21/22 release (Aspir-Low) citalopram 10 mg tablet 5 mg PO DAILY 01/09/20 11/21/22 allopurinol 100 mg tablet 100 mg PO DAILY 11/21/22 11/21/22 buspirone 5 mg tablet 5 mg PO BID 11/21/22 11/21/22 cholecalciferol (vitamin D3) 125 125 mcg PO BID 11/21/22 11/21/22 mcg (5,000 unit) tablet (Vitamin D3) ferrous sulfate 325 mg (65 mg 325 mg PO DAILY 11/21/22 11/21/22 iron) tablet mecobalamin (vitamin B12) 2,500 2,500 mcg PO DAILY 11/21/22 11/21/22 mcg chewable tablet metoprolol succinate 25 mg 12.5 mg PO DAILY 11/21/22 11/21/22 tablet,extended release 24 hr Allergies Allergy/AdvReac Type Severity Reaction Status Date / Time felodipine Allergy Severe HEART Verified 12/01/22 08:14 BOUNDING metronidazole Allergy Severe Unknown Verified 12/01/22 08:14 Quinolones Allergy Severe Unknown Verified 12/01/22 08:14 ciprofloxacin Allergy Unknown Unknown Verified 12/01/22 08:14 clindamycin Allergy Fatigued Verified 12/01/22 08:14 doxycycline Allergy Fainting Verified 12/01/22 08:14 atorvastatin AdvReac Mild MUSCLE Verified 12/01/22 08:14 ACHES hydrocodone AdvReac Mild Nausea and Verified 12/01/22 08:14 Vomiting Review of Systems Review of Systems: All systems reviewed & are unremarkable except as noted in HPI and below ENT: Denies nasal congestion and Denies sore throat Cardiovascular: Cardiovascular: Denies chest pain, Denies rapid heart rate and Denies radiating jaw, neck or arm pain Respiratory: Respiratory: Denies cough and Denies dyspnea Gastrointestinal: Gastrointestinal: Denies abdominal pain, Denies nausea and Denies vomiting Musculoskeletal: Musculoskeletal: Denies back pain, Reports arthralgias, Denies joint swelling and Denies muscle cramps Neurologic: Denies focal weakness and Denies numbness PMFSH Past Medical History Medical History (Updated 01/13/23 @ 14:59 by Brando Phan MD) Abdominal aneurysm Anemia Arthritis Bilateral carpal tunnel syndrome Bronchitis Cataracts, bilateral Chronic GERD Clavicle fracture Depression Diverticulitis GERD (gastroesophageal reflux disease) H/O blood clots H/O: HTN (hypertension) History of pneumonia History of rectal polyps HTN (hypertension), malignant Hx of fracture of rib Hx: UTI (urinary tract infection) Hypercholesteremia Hypoglycemia Surgical History Surgical History AAA (abdominal aortic aneurysm) H/O bilateral cataract extraction H/O: hysterectomy History of appendectomy History of bilateral carpal tunnel release History of bladder surgery History of colon surgery History of hip replacement Left bipolar October 2019 History of left knee replacemen
[2023-01-13 15:20] VITALS: BP 168/77; PULSE 98; RESP 14; O2SAT 99
[2023-01-13] MEDS: oxyCODONE/ACETAMINOPHEN (*CRX) 5-325 MG TABLET 1 TABLET PO (17:13)
== END 2023-01-13 17:25 ==
PROVIDERS: Emergency Provider Emergency Medicine; PCP Physician Assistant
DX: S72.092A Other fracture of head and neck of left femur, initial encounter for closed fracture (principal); M97.02XA Periprosthetic fracture around internal prosthetic left hip joint, initial encounter; M19.90 Unspecified osteoarthritis, unspecified site; D64.9 Anemia, unspecified; K21.9 Gastro-esophageal reflux disease without esophagitis; F32.A Depression, unspecified; I10 Essential (primary) hypertension; Z87.440 Personal history of urinary (tract) infections; W19.XXXA Unspecified fall, initial encounter
CPT/HCPCS: 73502; 96372; 99283; A9270; J1885

== ENCOUNTER 2023-01-14 09:59 | Emergency (ER) | payer MEDICARE, OTHER, SELFPAY ==
--- NOTE | ~2023-01-14 | US_ITS ---
EXAMINATION: US venous doppler [facility] DATE: 01/14/2023 12:09 INDICATION: Left lower limb pain. TECHNIQUE: Grayscale ultrasound images without and with compression and Doppler ultrasound images of the left lower extremity veins were obtained. COMPARISON: Ultrasound 04/04/2013 FINDINGS: The visualized portions of left common femoral vein, profunda (deep) femoral vein, femoral vein, popl iteal vein, peroneal veins, posterior tibial veins, and greater saphenous vein outflow are patent. IMPRESSION: 1. No deep venous thrombosis. Reviewed, dictated and finalized at location A.
[2023-01-14 10:03] VITALS: BP 106/68; PULSE 99; RESP 20; TEMP 36.4; O2SAT 98
--- NOTE | 2023-01-14 11:47 | ED.EXTPRO ---
HPI - Extremity Problem General Chief complaint: Extremity Problem,Nontraumatic Stated complaint: r/o dvt Time Seen by Provider: 01/14/23 10:18 Source: patient and old records reviewed Mode of arrival: EMS Limitations: no limitations History of Present Illness HPI Narrative: Patient is an 82-year-old female who presents the ED via EMS with report of left hip and leg pain. Patient reports she had a fall at the end of November and sustained a periprosthetic fracture of her left femur. She was seen at [facility] at that time. The fracture was determined to be nonoperative and patient is now undergoing physical therapy to begin to bear weight again as tolerated. She is mostly wheelchair-bound, but does use a walker at times. Patient states she rode in a transport vehicle to [place] for rehab 2 days ago and experienced increased discomfort in her lower extremities, particularly on the left, after the transport. She was seen in our ER yesterday and had repeat x-rays of her left hip and pelvis, which showed findings consistent with previous injuries. Patient was discharged back to custodial. Patient states she contacted her primary care doctor today and was referred to the ED for rule out of DVT. Patient does have a history of DVTs. She has been taking Eliquis 2.5 mg twice daily since her original fall in November, just over 1 month. She denies any chest pain or shortness of breath. She denies any numbness or tingling. No new injury. Patient takes [place] at home. Related Data Home Medications Medication Instructions Recorded Confirmed lisinopril 10 mg tablet 5 mg PO BID 11/01/19 11/21/22 pantoprazole 40 mg tablet,delayed 40 mg PO QAM 11/01/19 11/21/22 release aspirin 81 mg tablet,delayed 81 mg PO DAILY 01/09/20 11/21/22 release (Aspir-Low) citalopram 10 mg tablet 5 mg PO DAILY 01/09/20 11/21/22 allopurinol 100 mg tablet 100 mg PO DAILY 11/21/22 11/21/22 buspirone 5 mg tablet 5 mg PO BID 11/21/22 11/21/22 cholecalciferol (vitamin D3) 125 125 mcg PO BID 11/21/22 11/21/22 mcg (5,000 unit) tablet (Vitamin D3) ferrous sulfate 325 mg (65 mg 325 mg PO DAILY 11/21/22 11/21/22 iron) tablet mecobalamin (vitamin B12) 2,500 2,500 mcg PO DAILY 11/21/22 11/21/22 mcg chewable tablet metoprolol succinate 25 mg 12.5 mg PO DAILY 11/21/22 11/21/22 tablet,extended release 24 hr Allergies Allergy/AdvReac Type Severity Reaction Status Date / Time felodipine Allergy Severe HEART Verified 01/14/23 10:13 BOUNDING metronidazole Allergy Severe Unknown Verified 01/14/23 10:13 Quinolones Allergy Severe Unknown Verified 01/14/23 10:13 ciprofloxacin Allergy Unknown Unknown Verified 01/14/23 10:13 clindamycin Allergy Fatigued Verified 01/14/23 10:13 doxycycline Allergy Fainting Verified 01/14/23 10:13 atorvastatin AdvReac Mild MUSCLE Verified 01/14/23 10:13 ACHES hydrocodone AdvReac Mild Nausea and Verified 01/14/23 10:13 Vomiting Review of Systems Review of Systems: CONSTITUTIONAL: Denies fever, chills, or sweats. CARDIOVASCULAR: Denies chest pain, palpitations, or edema. RESPIRATORY: Denies cough or dyspnea. MUSCULOSKELETAL: See HPI. NEUROLOGIC: Denies tingling, numbness, or weakness. All systems reviewed & are unremarkable except as noted in HPI and below PMFSH Past Medical History Medical History (Updated 01/14/23 @ 13:03 by Lianna Colindres PA-C) Abdominal aneurysm Anemia Arthritis Bilateral carpal tunnel syndrome Bronchitis Cataracts, bilateral Chronic GERD Clavicle fracture Depression Diverticulitis GERD (gastroesophageal reflux disease) H/O blood clots H/O: HTN (hypertension) History of pneumonia History of rectal polyps HTN (hypertension), malignant Hx of fracture of rib Hx: UTI (urinary tract infection) Hypercholesteremia Hypoglycemia Surgical History Surgical History (Updated 01/14/23 @ 13:03 by Lianna Colindres PA-C) AAA (abdominal aortic aneurysm) H/O bilateral cataract extraction
--- NOTE | 2023-01-14 11:48 | PC.NURSE ---
pt taken to US
[2023-01-14 12:50] VITALS: BP 114/78; PULSE 89; RESP 20; O2SAT 99
[2023-01-14] MEDS: traMADol HCL (*CRX) 50 MG TABLET PO (13:11)
[2023-01-14 13:17] VITALS: BP 125/75; PULSE 92; RESP 18; O2SAT 98
[2023-01-14 14:17] VITALS: BP 129/79; PULSE 87; RESP 18; O2SAT 98
== END 2023-01-14 14:54 ==
PROVIDERS: Emergency Provider Physician Assistant; PCP Physician Assistant
DX: S72.302D Unspecified fracture of shaft of left femur, subsequent encounter for closed fracture with routine healing (principal); I10 Essential (primary) hypertension; Z87.891 Personal history of nicotine dependence; Z96.642 Presence of left artificial hip joint; W19.XXXD Unspecified fall, subsequent encounter
CPT/HCPCS: 93971; 99284; A9270

== ENCOUNTER 2023-02-09 17:08 | Emergency (ER) | payer MEDICARE, OTHER, SELFPAY ==
--- NOTE | ~2023-02-09 | CT_ITS ---
EXAMINATION: CT cervical spine wo con DATE: 02/09/2023 17:53 INDICATION: Head injury. TECHNIQUE: Computed tomography (CT) of the cervical spine was performed without intravenous contrast. Automated exposure control and iterative reconstruction technique were employed. The dose-length pro duct was 207.53 mGy-cm. COMPARISON: None FINDINGS: There is mild scarring at the lung apices. There is mild emphysema. There is mild kyphosis of cervical spine. There is mild chronic anterior wedging of C5 vertebral body. There is mildly decre ased disc height at C3-4, C4-C5, and C5-C6 and moderately decreased disc height at C6-C7. The followi ng disc levels are specifically discussed: C2-C3: There is mild bilateral uncovertebral joint osteoarthritis. There is severe right and mild lef t facet joint osteoarthritis. There is no neural foraminal stenosis. There is no central canal stenos is. C3-C4: There is mild bilateral uncovertebral joint osteoarthritis. There is severe bilateral facet meghan int osteoarthritis. There is mild right neural foraminal stenosis. There is mild central canal stenos is. C4-C5: There is mild right and severe left uncovertebral joint osteoarthritis. There is moderate righ t and severe left facet joint osteoarthritis. There is moderate left neural foraminal stenosis. There is mild central canal stenosis. C5-C6: There is moderate right and mild left uncovertebral joint osteoarthritis. There is severe bila teral facet joint osteoarthritis. There is mild bilateral neural foraminal stenosis. There is mild ce ntral canal stenosis. C6-C7: There is severe right and mild left uncovertebral joint osteoarthritis. There is severe bilate ral facet joint osteoarthritis. There is mild bilateral neural foraminal stenosis. There is mild cent ral canal stenosis. C7-T1: There is no uncovertebral joint osteoarthritis. There is moderate and severe left facet joint osteoarthritis. There is mild left neural foraminal stenosis. There is no central canal stenosis. IMPRESSION: 1. No fracture. 2. Moderate cervical spondylosis. Reviewed, dictated and finalized at location E.
--- NOTE | ~2023-02-09 | XR_ITS ---
EXAMINATION: XR elbow RT min 3V DATE: 02/09/2023 17:45 INDICATION: Right elbow pain. Fall. TECHNIQUE: 4 views of right elbow were obtained. COMPARISON: None. FINDINGS: Bone alignment is normal. No fracture. Joint spaces are well maintained. No elbow joint eff usion. IMPRESSION: 1. No fracture. Reviewed, dictated and finalized at location E. IMPRESSION: 1. No fracture.
--- NOTE | ~2023-02-09 | CT_ITS ---
EXAMINATION: CT brain wo con DATE: 02/09/2023 17:50 INDICATION: Head injury. TECHNIQUE: Computed tomography (CT) of the head was performed without intravenous contrast. The mA wa s adjusted according to patient size. Iterative reconstruction technique was employed. The dose-lengt h product was 681.00 mGy-cm. COMPARISON: None FINDINGS: There is no intracranial hemorrhage, acute infarction, or abnormal intracranial mass lesion . The ventricles are normal in size. There is mild mucosal thickening in the ethmoid sinuses. There a re likely changes of ocular lens replacement surgeries. There is mild right periorbital soft tissue s welling. The mastoid air cells are normal. IMPRESSION: 1. Normal brain. Reviewed, dictated and finalized at location E. IMPRESSION: 1. Normal brain.
[2023-02-09 17:13] VITALS: BP 159/73; PULSE 105; RESP 20; TEMP 36.4; O2SAT 100
--- NOTE | 2023-02-09 17:47 | ED.FALL ---
HPI - Fall General Chief Complaint: Fall Stated Complaint: Fall Time Seen by Provider: 02/09/23 17:21 Source: patient and old records reviewed Mode of arrival: EMS Limitations: no limitations History of Present Illness HPI Narrative: Patient is a 82-year-old female who presents to the ED via EMS with report of a fall. Per records, patient had a ground-level fall at the end of November and sustained a periprosthetic fracture of her left femur. She was seen in our ER at the beginning of this month for persistent pain in left hip. The fracture was initially thought to be nonoperative, but however since last visit here, patient has had left hip replacement surgery at [facility]. Patient is currently residing at [facility] for rehabilitation. She states she had just gotten back from therapy today and felt the need to have a bowel movement. She walked herself to the bathroom using her walker and had a normal bowel movement. While attempting to clean herself, patient leaned forward too much and fell off of the toilet, hitting her head on the ground. She denies any LOC. She sustained a contusion to her right eyebrow and did also sustain an injury to her right lateral elbow. Patient was unable to get off the ground by herself, EMS was called. She denies any injury to her hips. Denies any dizziness, lightheadedness, vision changes. She is on Eliquis. Related Data Home Medications Medication Instructions Recorded Confirmed pantoprazole 40 mg tablet,delayed 40 mg PO QAM 11/01/19 11/21/22 release aspirin 81 mg tablet,delayed 81 mg PO DAILY 01/09/20 11/21/22 release (Aspir-Low) citalopram 10 mg tablet 5 mg PO DAILY 01/09/20 11/21/22 allopurinol 100 mg tablet 100 mg PO DAILY 11/21/22 11/21/22 buspirone 5 mg tablet 5 mg PO BID 11/21/22 11/21/22 cholecalciferol (vitamin D3) 125 125 mcg PO BID 11/21/22 11/21/22 mcg (5,000 unit) tablet (Vitamin D3) ferrous sulfate 325 mg (65 mg 325 mg PO DAILY 11/21/22 11/21/22 iron) tablet mecobalamin (vitamin B12) 2,500 2,500 mcg PO DAILY 11/21/22 11/21/22 mcg chewable tablet metoprolol succinate 25 mg 12.5 mg PO DAILY 11/21/22 11/21/22 tablet,extended release 24 hr Allergies Allergy/AdvReac Type Severity Reaction Status Date / Time felodipine Allergy Severe HEART Verified 02/09/23 17:12 BOUNDING metronidazole Allergy Severe Unknown Verified 02/09/23 17:12 Quinolones Allergy Severe Unknown Verified 02/09/23 17:12 ciprofloxacin Allergy Unknown Unknown Verified 02/09/23 17:12 clindamycin Allergy Fatigued Verified 02/09/23 17:12 doxycycline Allergy Fainting Verified 02/09/23 17:12 atorvastatin AdvReac Mild MUSCLE Verified 02/09/23 17:12 ACHES hydrocodone AdvReac Mild Nausea and Verified 02/09/23 17:12 Vomiting Review of Systems Review of Systems: CONSTITUTIONAL: Denies fever, chills, or sweats. EYES: Denies visual changes. CARDIOVASCULAR: Denies chest pain. RESPIRATORY: Denies cough or dyspnea. GASTROINTESTINAL: Denies abdominal pain, nausea, vomiting. SKIN: See HPI. MUSCULOSKELETAL: See HPI. NEUROLOGIC: See HPI. All systems reviewed & are unremarkable except as noted in HPI and below PMFSH Past Medical History Medical History Abdominal aneurysm Anemia Arthritis Bilateral carpal tunnel syndrome Bronchitis Cataracts, bilateral Chronic GERD Clavicle fracture Depression Diverticulitis GERD (gastroesophageal reflux disease) H/O blood clots H/O: HTN (hypertension) History of pneumonia History of rectal polyps HTN (hypertension), malignant Hx of fracture of rib Hx: UTI (urinary tract infection) Hypercholesteremia Hypoglycemia Surgical History Surgical History AAA (abdominal aortic aneurysm) H/O bilateral cataract extraction H/O: hysterectomy History of appendectomy History of bilateral carpal tunnel release His
[2023-02-09] MEDS: ACETAMINOPHEN 500 MG TABLET 1000 MG PO (18:54)
[2023-02-09 19:26] VITALS: BP 162/79; PULSE 100; RESP 20; O2SAT 100
--- NOTE | 2023-02-09 19:28 | PC.NURSE ---
RN called Daphney to give an update on pt and to make aware pt will be returning soon. No answer by facility.
[2023-02-09 20:44] VITALS: BP 176/86; PULSE 101; RESP 15; TEMP 36.4; O2SAT 100
--- NOTE | 2023-02-09 20:47 | PC.NURSE ---
Called Katie and advised patient coming back with discharge packet.
== END 2023-02-09 20:48 ==
PROVIDERS: Emergency Provider Physician Assistant; PCP Physician Assistant
DX: S00.11XA Contusion of right eyelid and periocular area, initial encounter (principal); S50.01XA Contusion of right elbow, initial encounter; E78.00 Pure hypercholesterolemia, unspecified; I10 Essential (primary) hypertension; K21.9 Gastro-esophageal reflux disease without esophagitis; F32.A Depression, unspecified; Z96.642 Presence of left artificial hip joint; Z96.652 Presence of left artificial knee joint; Z87.19 Personal history of other diseases of the digestive system; Z87.01 Personal history of pneumonia (recurrent); Z87.440 Personal history of urinary (tract) infections; Z86.2 Personal history of diseases of the blood and blood-forming organs and certain disorders involving the immune mechanism; Z87.891 Personal history of nicotine dependence; Z98.42 Cataract extraction status, left eye; Z98.41 Cataract extraction status, right eye; Z90.710 Acquired absence of both cervix and uterus; Z79.82 Long term (current) use of aspirin; Z79.01 Long term (current) use of anticoagulants; M47.812 Spondylosis without myelopathy or radiculopathy, cervical region; W18.11XA Fall from or off toilet without subsequent striking against object, initial encounter
CPT/HCPCS: 70450; 72125; 73080; 99284; A9270

== ENCOUNTER 2023-02-14 05:28 | Emergency (ER) | payer MEDICARE, OTHER, SELFPAY ==
[2023-02-14] VITALS (31 sets, daily range): BP systolic 116–146; BP diastolic 55–79; PULSE 83–111; RESP 12–17; TEMP 36.7–37.1; O2SAT 98–100
--- NOTE | ~2023-02-14 | CT_ITS ---
CT Facial Bones and Cervical Spine Clinical Indication: Status post fall, anticoagulated Technique: Contiguous axial scans were obtained through the facial bones and cervical spine followed by coronal and sagittal reconstructions. Dose reduction technique was used on this scan by utilizing automated exposure control and iterative reconstruction technique. The dose-length product (DLP) was 271.55 mGy-cm. Findings: CT facial bones: No fractures are identified. The visualized paranasal sinuses are clear. Intraorbita l soft tissues appear normal. CT cervical spine: No fractures or subluxation. There are mild to moderate facet joint degenerative changes throughout the cervical spine. There is moderate to advanced degenerative changes reticulatio n the odontoid process with the anterior arch of C1. Intervertebral disc spaces are well preserved. T here is left neural foraminal narrowing at C4-C5. No prevertebral soft tissue swelling. Impression: No fracture is seen in the facial bones. No fracture or subluxation of the cervical spine. Mild overall degenerative spondylosis of the cervical spine, as noted above. Reviewed, dictated and finalized at [facility]. Impression: No fracture is seen in the facial bones. No fracture or subluxation of the cervical spine. Mild overall degenerative spondylosis of the cervical spine, as noted above.
--- NOTE | ~2023-02-14 | CT_ITS ---
Non-contrast Head CT History: Status post fall, anticoagulated COMPARISON: 02/09/2023 Technique: Axial non-contrast imaging of the brain was performed. Dose reduction technique was used on this scan by utilizing automated exposure control and iterative reconstruction technique. The dose -length product (DLP) was 681.00 mGy-cm. Findings: There is no evidence of intracranial hemorrhage, mass lesion, or acute infarct. Brain par enchyma appears normal. The ventricles and subarachnoid spaces are normal in size. The calvarium ap pears normal. The visualized paranasal sinuses and mastoid air cells are clear. Impression: No significant abnormality seen. Reviewed, dictated and finalized at location . Impression: No significant abnormality seen.
--- NOTE | 2023-02-14 05:40 | ECG_ITS ---
Measurements Intervals [place] Rate: 96 P: 70 MA: 170 QRS: 32 QRSD: 79 T: 14 QT: 343 QTc: 435 Interpretive Statements SINUS RHYTHM BASELINE ARTIFACT- I, III, AVR, AVL, AVF, V1-V6 NORMAL ECG COMPARED TO ECG 06/22/2022 13:25:22 SINUS RHYTHM NOW PRESENT Electronically Signed On 02-14-2023 6:45:04 CDT by Diaz Walsh D.O.
[2023-02-14 05:51] LABS: Basophils Absolute Auto 0.1 K/mm3 (0.0-0.1); Basophils Percent Auto 0.9 % (0.2-1.2); Eosinophils Absolute Auto 0.4 K/mm3 (0-0.3); Eosinophils Percent Auto 4.3 % (0-4.4); Hematocrit 29.7 % (37.0-47.0); Hemoglobin 8.8 g/dL (12.0-15.0); Immature Granulocyte Absolute 0.28 K/mm3 (0.00-0.031); Immature Granulocyte Percent A 3.2 % (0-0.5); Lymphocytes Absolute Auto 2.18 K/mm3 (0.9-3.2); Lymphocytes Percent Auto 25.1 % (18.3-44.2); Mean Corpuscular HGB Conc 29.6 g/dl (32-36); Mean Corpuscular Hemoglobin 28.1 pg (26-34); Mean Corpuscular Volume 94.9 fl (80-100); Mean Platelet Volume 10.2 fl (7.4-10.4); Monocytes Absolute Auto 1.6 K/mm3 (0.1-0.6); Monocytes Percent Auto 18.5 % (2.6-8.5); Neutrophils Absolute Auto 4.2 K/mm3 (1.3-6.7); Platelet Count Result 520 k/mm3 (150-375); Red Blood Count 3.13 M/mm3 (4.2-5.4); Red Cell Distribution Width 15.2 % (11.5-14.5); White Blood Count 8.7 K/mm3 (4.5-10.0)
[2023-02-14 06:01] LABS: Anion Gap 5 mmol/L (8-16); Blood Urea Nitrogen 26 mg/dL (7-17); Calcium 8.9 mg/dL (8.4-10.2); Carbon Dioxide 30 mmol/L (22-30); Chloride 107 mmol/L (98-107); Estimated Glomerular Filt Rate 31; Glucose 111 mg/dL (65-110); Magnesium 1.8 mg/dL (1.6-2.3); Potassium 4.2 mmol/L (3.4-5.0); Sodium 142 mmol/L (137-145)
[2023-02-14 06:03] LABS: Hypochromasia 1+ (NORMAL); Ovalocytes 1+ (NORMAL); Platelet Estimate Increased (Adequate); Schistocytes None Seen (NORMAL)
[2023-02-14] MEDS: SODIUM CHLORIDE 0.9% IV 1,000 ML 999 ML IV CONT (06:05)
[2023-02-14] MEDS: ACETAMINOPHEN 500 MG TABLET 1000 MG PO (06:05)
--- NOTE | 2023-02-14 06:50 | ED.GENADULT ---
HPI - General Adult General Chief complaint: Fall <Bj Soto MD - Last Filed: 02/14/23 06:57> Stated complaint: LEFT EYE LAC S/P FALL <Bj Soto MD - Last Filed: 02/14/23 06:57> Time Seen by Provider: 02/14/23 05:39 <Bj Soto MD - Last Filed: 02/14/23 06:57> History of Present Illness HPI narrative: This is an 82-year-old female on [facility] presenting ED after a fall snf. Patient says that she was sitting on the toilet she lost her balance and fell over and struck the left side of her face. EMS was then called who brought her to the hospital. Patient has laceration to the left side of her face. she denies any other injuries. she denies fever chills nausea vomiting diarrhea, chest pain difficulty breathing abdominal pain or urinary symptoms. <Bj Soto MD - Last Filed: 02/14/23 06:57> Related Data Home medications: Home Medications Medication Instructions Recorded Confirmed pantoprazole 40 mg tablet,delayed 40 mg PO QAM 11/01/19 11/21/22 release aspirin 81 mg tablet,delayed 81 mg PO DAILY 01/09/20 11/21/22 release (Aspir-Low) citalopram 10 mg tablet 5 mg PO DAILY 01/09/20 11/21/22 allopurinol 100 mg tablet 100 mg PO DAILY 11/21/22 11/21/22 buspirone 5 mg tablet 5 mg PO BID 11/21/22 11/21/22 cholecalciferol (vitamin D3) 125 125 mcg PO BID 11/21/22 11/21/22 mcg (5,000 unit) tablet (Vitamin D3) ferrous sulfate 325 mg (65 mg 325 mg PO DAILY 11/21/22 11/21/22 iron) tablet mecobalamin (vitamin B12) 2,500 2,500 mcg PO DAILY 11/21/22 11/21/22 mcg chewable tablet metoprolol succinate 25 mg 12.5 mg PO DAILY 11/21/22 11/21/22 tablet,extended release 24 hr <Bj Soto MD - Last Filed: 02/14/23 06:57> Allergies/adverse reactions: Allergies Allergy/AdvReac Type Severity Reaction Status Date / Time felodipine Allergy Severe HEART Verified 02/09/23 17:12 BOUNDING metronidazole Allergy Severe Unknown Verified 02/09/23 17:12 Quinolones Allergy Severe Unknown Verified 02/09/23 17:12 ciprofloxacin Allergy Unknown Unknown Verified 02/09/23 17:12 clindamycin Allergy Fatigued Verified 02/09/23 17:12 doxycycline Allergy Fainting Verified 02/09/23 17:12 atorvastatin AdvReac Mild MUSCLE Verified 02/09/23 17:12 ACHES hydrocodone AdvReac Mild Nausea and Verified 02/09/23 17:12 Vomiting <Bj Soto MD - Last Filed: 02/14/23 06:57> COUNT INCLUDES THE [facility] Past Medical History Medical History: Medical History (Updated 02/14/23 @ 06:57 by Bj Soto MD) Abdominal aneurysm Anemia Arthritis Bilateral carpal tunnel syndrome Bronchitis Cataracts, bilateral Chronic GERD Clavicle fracture Depression Diverticulitis GERD (gastroesophageal reflux disease) H/O blood clots H/O: HTN (hypertension) History of pneumonia History of rectal polyps HTN (hypertension), malignant Hx of fracture of rib Hx: UTI (urinary tract infection) Hypercholesteremia Hypoglycemia <Bj Soto MD - Last Filed: 02/14/23 06:57> Surgical History Surgical History: Surgical History AAA (abdominal aortic aneurysm) H/O bilateral cataract extraction H/O: hysterectomy History of appendectomy History of bilateral carpal tunnel release History of bladder surgery History of colon surgery History of hip replacement Left bipolar October 2019 History of left knee replacement History of local excision of skin lesion History of tonsillectomy History of total left knee replacement Hx of cardiac cath S/P carpal tunnel release S/P rotator cuff repair Bilaterally <Bj Soto MD - Last Filed: 02/14/23 06:57> Family History Family History: Family History Mother Patient's mother is Dementia Father Patient's father is Blood clots in brain Sibling Cerebrovascular accid
[2023-02-14 08:29] LABS: Appearance Urine Clear (Clear); Bacteria Urine None Seen /hpf; Bilirubin Urine Negative (Negative); Blood Urine Negative (Negative); Color Urine Yellow (Yellow); Glucose Urine UA Negative (Negative); Ketones Urine Negative (Negative); Leukocyte Esterase Ur Negative LEU/UL (Negative); Nitrate Urine Negative (Negative); Protein Urine 2+ mg/dL (Negative); RBC Urine 0-2 /hpf (0-2); Specific Grav Ur 1.013 (1.001-1.035); Squamous Epithelial Cell Urine None seen /hpf (Few); Urobilinogen Urine 0.2 mg/dL (<2.0); WBC Urine 0-5 /hpf
[2023-02-14 08:36] LABS: Add Urine Microscopic? YES
== END 2023-02-14 10:18 | disposition home or self-care (01) ==
PROVIDERS: Emergency Medicine; Emergency Provider Emergency Medicine; PCP Physician Assistant
DX: S01.81XA Laceration without foreign body of other part of head, initial encounter (principal); R29.6 Repeated falls; I10 Essential (primary) hypertension; E78.00 Pure hypercholesterolemia, unspecified; D64.9 Anemia, unspecified; M19.90 Unspecified osteoarthritis, unspecified site; K21.9 Gastro-esophageal reflux disease without esophagitis; Z87.01 Personal history of pneumonia (recurrent); Z87.19 Personal history of other diseases of the digestive system; Z87.440 Personal history of urinary (tract) infections; Z87.891 Personal history of nicotine dependence; Z98.42 Cataract extraction status, left eye; Z98.41 Cataract extraction status, right eye; Z96.642 Presence of left artificial hip joint; Z79.82 Long term (current) use of aspirin; Z79.01 Long term (current) use of anticoagulants; W18.11XA Fall from or off toilet without subsequent striking against object, initial encounter
CPT/HCPCS: 12011; 36415; 70450; 70486; 72125; 80048; 81001; 83735; 85025; 93005; 96360; 96361; 99284; A9270; J7030

== ENCOUNTER 2023-04-15 13:47 | Inpatient (IN) | payer MEDICARE, OTHER, SELFPAY ==
--- NOTE | ~2023-04-15 | US_ITS ---
EXAMINATION: US soft tissue head and neck DATE: 04/17/2023 15:36 INDICATION: Right parotid mass. TECHNIQUE: Multiple grayscale and Doppler ultrasound images of the head and neck were obtained. COMPARISON: Maxillofacial CT 02/14/2023 FINDINGS: There is a 1.1 x 0.8 x 1.0 cm mass in right parotid gland. IMPRESSION: 1. Small mass in right parotid gland, most likely a normal lymph node. Reviewed, dictated and finalized at location A.
--- NOTE | ~2023-04-15 | CT_ITS ---
EXAMINATION: CT abdomen pelvis wo con DATE: 04/16/2023 15:30 INDICATION: Abdominal pain and diarrhea. TECHNIQUE: Computed tomography (CT) of the abdomen and pelvis was performed without intravenous contr ast. Automated exposure control and iterative reconstruction technique were employed. The dose-length product was 463.46 mGy-cm. COMPARISON: 11/04/2019 FINDINGS: Mild bibasilar atelectasis. Heart size is normal. Small amount of atherosclerotic coronary artery bela cific location. No pericardial or pleural effusion. Couple small calcified gallstones at the neck of the otherwise normal-appearing gallbladder. Liver, spleen, pancreas, bilateral adrenal glands and lef t kidney are normal. 9 mm right renal cyst. Infrarenal IVC filter. Interval stenting of the previousl y seen infrarenal abdominal aortic aneurysm with significant decrease in size of the aneurysm which c urrently measures 4.1 x 3.7 cm in maximal transaxial dimensions. The stent begins at the level of the stented bilateral renal arteries and extends into the bilateral common iliac arteries to the bifurca tions. Postoperative change of prior partial right hemicolectomy with ileocolic anastomosis in the [facility] lower quadrant. No bowel obstruction. Bladder is normal. The uterus is not identified and has lik kishor been surgically resected. Small amount of free fluid at the deep pelvis. No abscess or free intra peritoneal gas. Bipolar type left hip hemiarthroplasty. Increased resorptive changes at a chronic per iprosthetic fracture at the visualized proximal left femur. The distal stem of the arthroplasty compo nent extends beyond the inferior margin of the [id number] and is unclear whether the femoral compo nent remains within the more distal nonvisualized femur. Healing minimally displaced fracture of the left pubic body. As well as increased sclerosis consistent with healing of bilateral sacral insuffici ency fractures. IMPRESSION: 1. Small amount of nonspecific free fluid in the deep pelvis. No abscess, free intraperitoneal gas or other acute intra-abdominal/pelvic process. 2. Interval stenting of an infrarenal abdominal 3. Abdominal aortic aneurysm which is decreased in size from 6.7 cm to 4.1 cm maximal diameter. 4. Status post proximal right hemicolectomy with ileocolic anastomosis. No bowel obstruction or abnor mal bowel wall thickening. 5. Increased resorptive changes at a periprosthetic fracture at the proximal femur about the femoral component of a bipolar type left hip hemiarthroplasty. Reviewed, dictated and finalized at location A. IMPRESSION: 1. Small amount of nonspecific free fluid in the deep pelvis. No abscess, free intraperitoneal gas or other acute intra-abdominal/pelvic process. 2. Interval stenting of an infrarenal abdominal 3. Abdominal aortic aneurysm which is decreased in size from 6.7 cm to 4.1 cm m aximal diameter. 4. Status post proximal right hemicolectomy with ileocolic anastomosis. No charles l obstruction or abnormal bowel wall thickening. 5. Increased resorptive changes at a periprosthetic fracture at the proximal fe mur about the femoral component of a bipolar type left hip hemiarthroplasty.
[2023-04-15 13:47] VITALS: BP 85/52; PULSE 79; RESP 22; TEMP 36.4; O2SAT 98
--- NOTE | 2023-04-15 14:08 | ED.NAVMDI ---
HPI - Nausea/Vomiting/Diarrhea General Chief complaint: Nausea/Vomiting/Diarrhea Stated complaint: episode of unresponsiveness Time Seen by Provider: 04/15/23 13:58 History of Present Illness HPI Narrative: Patient is an 82-year-old female presenting with syncope. Patient states that starting this morning she started having watery diarrhea. States that she had at least 3 episodes. States that she has been consistently nauseated and also had a large volume emesis. She then became lightheaded and was noted to have a syncopal episode at her nursing facility so EMS was called. Patient was found to be hypotensive in the low 80s over 40s. Fluids were started and Zofran was given. Currently, patient states that she still feels generally weak and a little bit nauseated. She denies chest pain, shortness of breath, cough, abdominal pain, dysuria. States that she was recently treated for a UTI. Related Data Home Medications Medication Instructions Recorded Confirmed pantoprazole 40 mg tablet,delayed 40 mg PO QAM 11/01/19 04/15/23 release citalopram 10 mg tablet 5 mg PO QAM 01/09/20 04/16/23 allopurinol 100 mg tablet 100 mg PO HS 11/21/22 04/15/23 buspirone 5 mg tablet 5 mg PO BID 11/21/22 04/15/23 cholecalciferol (vitamin D3) 125 125 mcg PO BID 11/21/22 04/15/23 mcg (5,000 unit) tablet (Vitamin D3) ferrous sulfate 325 mg (65 mg 325 mg PO EVERY OTHER DAY 11/21/22 04/15/23 iron) tablet metoprolol succinate 25 mg 12.5 mg PO QAM 11/21/22 04/15/23 tablet,extended release 24 hr acetaminophen 500 mg tablet 1,000 mg PO BID 04/15/23 04/15/23 apixaban 2.5 mg tablet (Eliquis) 2.5 mg PO BID 04/15/23 04/15/23 lisinopril 5 mg tablet 5 mg PO QAM 04/15/23 04/15/23 loratadine 10 mg tablet 10 mg PO DAILY 04/15/23 04/15/23 sennosides 8.6 mg-docusate sodium 8.6 - 50 tab-cap PO BID 07/01/23 07/01/23 50 mg tablet (Stimulant Laxative Plus) tramadol 50 mg tablet 50 mg PO Q8H PRN Pain 04/15/23 04/15/23 Allergies Allergy/AdvReac Type Severity Reaction Status Date / Time felodipine Allergy Severe HEART Verified 02/09/23 17:12 BOUNDING metronidazole Allergy Severe Unknown Verified 02/09/23 17:12 Quinolones Allergy Severe Unknown Verified 02/09/23 17:12 ciprofloxacin Allergy Unknown Unknown Verified 02/09/23 17:12 clindamycin Allergy Fatigued Verified 02/09/23 17:12 doxycycline Allergy Fainting Verified 02/09/23 17:12 atorvastatin AdvReac Mild MUSCLE Verified 02/09/23 17:12 ACHES hydrocodone AdvReac Mild Nausea and Verified 02/09/23 17:12 Vomiting Review of Systems Review of Systems: All systems reviewed & are unremarkable except as noted in HPI and below PMFSH Past Medical History Medical History (Updated 04/16/23 @ 14:39 by Angelica Elizabeth MD) Abdominal aneurysm Anemia Arthritis Bilateral carpal tunnel syndrome Bronchitis Cataracts, bilateral Chronic GERD Clavicle fracture Depression Diverticulitis GERD (gastroesophageal reflux disease) H/O blood clots H/O: HTN (hypertension) History of pneumonia History of rectal polyps HTN (hypertension), malignant Hx of fracture of rib Hx: UTI (urinary tract infection) Hypercholesteremia Hypoglycemia Surgical History Surgical History AAA (abdominal aortic aneurysm) H/O bilateral cataract extraction H/O: hysterectomy History of appendectomy History of bilateral carpal tunnel release History of bladder surgery History of colon surgery History of hip replacement Left bipolar October 2019 History of left knee replacement History of local excision of skin lesion History of tonsillectomy History of total left knee replacement Hx of cardiac cath S/P carpal tunnel release S/P rotator cuff repair Bilaterally Family History Family History Mother Patient's mother is Dementia Father Patient's father is Blood
[2023-04-15] MEDS: SODIUM CHLORIDE 0.9% IV 1,000 ML 999 ML IV CONT (14:26)
[2023-04-15 14:28] LABS: Basophils Absolute Auto 0.1 K/mm3 (0.0-0.1); Basophils Percent Auto 0.7 % (0.2-1.2); Eosinophils Absolute Auto 0.1 K/mm3 (0-0.3); Eosinophils Percent Auto 1.3 % (0-4.4); Hematocrit 30.4 % (37.0-47.0); Hemoglobin 9.6 g/dL (12.0-15.0); Immature Granulocyte Absolute 0.11 K/mm3 (0.00-0.031); Immature Granulocyte Percent A 1.3 % (0-0.5); Lymphocytes Absolute Auto 2.39 K/mm3 (0.9-3.2); Lymphocytes Percent Auto 27.5 % (18.3-44.2); Mean Corpuscular HGB Conc 31.6 g/dl (32-36); Mean Corpuscular Hemoglobin 28.6 pg (26-34); Mean Corpuscular Volume 90.5 fl (80-100); Mean Platelet Volume 10.4 fl (7.4-10.4); Monocytes Absolute Auto 0.9 K/mm3 (0.1-0.6); Monocytes Percent Auto 10.4 % (2.6-8.5); Neutrophils Absolute Auto 5.1 K/mm3 (1.3-6.7); Neutrophils Percent Auto 58.8 % (45.5-73.1); Platelet Count Result 359 k/mm3 (150-375); Red Blood Count 3.36 M/mm3 (4.2-5.4); Red Cell Distribution Width 15.9 % (11.5-14.5); White Blood Count 8.7 K/mm3 (4.5-10.0)
[2023-04-15 14:39] LABS: Alanine Aminotransferase 14 U/L (6-35); Albumin Level 3.5 g/dL (3.5-5.1); Alkaline Phosphatase 110 U/L (38-126); Anion Gap 8 mmol/L (8-16); Aspartate Amino Transferase 18 U/L (14-36); Bilirubin,Total 0.2 mg/dL (0.2-1.3); Blood Urea Nitrogen 34 mg/dL (7-17); Calcium 8.9 mg/dL (8.4-10.2); Carbon Dioxide 23 mmol/L (22-30); Chloride 106 mmol/L (98-107); Estimated CRCL calculation 22 ml/min; Estimated Glomerular Filt Rate 27; Glucose 118 mg/dL (65-110); Lactic Acid Reflex 1.9 mmol/L (0.7-2.0); Lipase 343 U/L (23-300); Potassium 4.2 mmol/L (3.4-5.0); Sodium 137 mmol/L (137-145)
--- NOTE | 2023-04-15 14:57 | ECG_ITS ---
Measurements Intervals [place] Rate: 86 P: 83 [place]: 156 QRS: 62 QRSD: 89 T: 59 QT: 371 QTc: 445 Interpretive Statements SINUS RHYTHM MINIMAL Q WAVES- ANTEROLAT/INF LEADS BASELINE ARTIFACT- I, II, III, AVR, AVL, AVF, V1 BORDERLINE ECG COMPARED TO ECG 02/14/2023 06:13:38 NO SIGNIFICANT CHANGES Electronically Signed On 04-15-2023 15:53:28 CDT by Diaz Walsh D.O.
[2023-04-15] MEDS: ONDANSETRON INJ 4 MG/2 ML VIAL IV PUSH (15:15)
[2023-04-15 15:22] LABS: Appearance Urine Clear (Clear); Bacteria Urine None Seen /hpf; Bilirubin Urine Negative (Negative); Blood Urine Negative (Negative); Color Urine Yellow (Yellow); Glucose Urine UA Negative (Negative); Hyaline Casts Urine Present /lpf; Ketones Urine Negative (Negative); Leukocyte Esterase Ur Negative LEU/UL (Negative); Nitrate Urine Negative (Negative); Protein Urine 2+ mg/dL (Negative); RBC Urine 0-2 /hpf (0-2); Specific Grav Ur 1.013 (1.001-1.035); Squamous Epithelial Cell Urine None seen /hpf (Few); Urobilinogen Urine 0.2 mg/dL (<2.0); WBC Urine 0-5 /hpf; pH Urine 5.5 (5.0-9.0)
[2023-04-15 15:24] LABS: Add Urine Microscopic? YES
[2023-04-15 16:07] VITALS: BP 119/59; PULSE 98; RESP 20; O2SAT 100
[2023-04-15 17:33] VITALS: BP 126/70; PULSE 100; RESP 23; O2SAT 100
[2023-04-15 18:45] LABS: IFOB Positive Control Positive; Immunochemical Fecal Occult Bl Negative (N)
[2023-04-15 19:20] VITALS: BP 130/73; PULSE 83; RESP 15; O2SAT 100
[2023-04-15 19:20] LABS: Toxigenic C. Diff NEGATIVE (NEGATIVE)
--- NOTE | 2023-04-15 19:21 | PM.IMHP ---
H&P: HPI History of Present Illness Date/Time: 04/15/23 19:30 Chief Complaint: Diarrhea. Narrative: This is a very pleasant 82-year-old female with hypertension, anemia, GERD, chronic anemia, and aortic aneurysm status post repair who presented to the emergency department for evaluation of diarrhea. The patient provides the following history. This morning she developed cramping in the lower abdomen followed by a massive amount of diarrhea of which she has had at least 6 episodes. With each trip to the bathroom she became increasingly more weak and she pressed her call light for staff to come help per as she was feeling lightheaded with her last bowel movement. At that time she also developed nausea and she reports having 1 large episode of emesis. Per patient report, she was told that her blood pressure was quite low and that she was nearly unconscious on their arrival. Blood pressures were reportedly in the 80s over 40s systolic. EMS was summoned and she received a 500 mL bolus of normal saline in route to the hospital with improvement her blood pressures. In the emergency department her white blood cell count was 8.7, hemoglobin 9.6, BUN 34, creatinine 1.80, lactic acid 1.9, lipase 343. She is being admitted in this setting for further hydration given ongoing diarrhea. At the time my evaluation she is feeling better after receiving IV fluids. She lives in independent living at [facility] and she reports that 1 of the residents had C diff a couple of weeks ago however they were quarantined and she had no exposure. The patient was on Macrobid last week for urinary tract infection and she completed that at least 5 days ago and she no longer has urinary symptoms. She denies recent travel. Review of Systems Review of Systems: Twelve systems were reviewed and are negative except for as per HPI. [facility] Past Medical History Medical History Abdominal aneurysm Anemia Arthritis Bilateral carpal tunnel syndrome Bronchitis Cataracts, bilateral Chronic GERD Clavicle fracture Depression Diverticulitis GERD (gastroesophageal reflux disease) H/O blood clots H/O: HTN (hypertension) History of pneumonia History of rectal polyps HTN (hypertension), malignant Hx of fracture of rib Hx: UTI (urinary tract infection) Hypercholesteremia Hypoglycemia Surgical History Surgical History AAA (abdominal aortic aneurysm) H/O bilateral cataract extraction H/O: hysterectomy History of appendectomy History of bilateral carpal tunnel release History of bladder surgery History of colon surgery History of hip replacement Left bipolar October 2019 History of left knee replacement History of local excision of skin lesion History of tonsillectomy History of total left knee replacement Hx of cardiac cath S/P carpal tunnel release S/P rotator cuff repair Bilaterally Family History Family History Mother Patient's mother is Dementia Father Patient's father is Blood clots in brain Sibling Cerebrovascular accident Social History Social History Social History: She recently lost her cancer. She had 5 children. He lives home alone. She is retired from working in the school cafeteria Smoking status: Former smoker Tobacco type: cigarettes Second hand tobacco smoke exposure: No Smoking end date: 10/16/94 Alcohol intake: former Substance use: never Substance use type: does not use Lack of Transportation: No Lack of Food: Never True Current Housing: I Have Housing Concerned About Future Housing: No Difficulty Paying Gas/Electric Bills: No Difficulty Paying for Meds: No Currently Unemployed: No Education: Don't Know Difficulty w/ Childcare o
[2023-04-15 20:00] VITALS: BMI 23.9
--- NOTE | 2023-04-15 20:54 | ADMGEN ---
This patient, Debra Bueno, was admitted to Medical Room 345-01. Patient/family oriented to hospital policies and general routines including ID bracelet, bed and alarms, visiting hours, pain management, procedures, bathroom and other care routines, personal items, smoking policy, room service/diet, and visiting hours. Information on how to activate the Rapid Response Team has been discussed. Patient/Family are encouraged to report perceived risks to care and to ask questions if they do not understand what they are told or what they should do.
[2023-04-15 22:00] VITALS: BP 124/64; PULSE 98; RESP 18; TEMP 36.2; O2SAT 95
[2023-04-16] VITALS (11 sets, daily range): BP systolic 102–151; BP diastolic 44–64; PULSE 81–132; RESP 18–20; TEMP 36–36.6; O2SAT 94–100
[2023-04-16] MEDS: ACETAMINOPHEN 500 MG TABLET 1000 MG PO ×3 (00:26→17:25)
[2023-04-16] MEDS: SODIUM CHLORIDE 0.9% IV 1,000 ML 80 ML IV CONT ×2 (00:28→15:50)
[2023-04-16] MEDS: allopurinoL 100 MG TABLET PO ×2 (01:10→21:08)
[2023-04-16] MEDS: busPIRone HCL 5 MG TABLET PO ×2 (01:10→08:43)
[2023-04-16] MEDS: CHOLECALCIFEROL 1,000 UNITS TABLET 5000 UNITS PO ×3 (01:10→17:25)
[2023-04-16 05:38] LABS: Hematocrit 29.6 % (37.0-47.0); Mean Corpuscular HGB Conc 30.4 g/dl (32-36); Mean Corpuscular Volume 91.9 fl (80-100); Mean Platelet Volume 10.3 fl (7.4-10.4); Platelet Count Result 299 k/mm3 (150-375); Red Blood Count 3.22 M/mm3 (4.2-5.4); Red Cell Distribution Width 16.1 % (11.5-14.5); White Blood Count 7.4 K/mm3 (4.5-10.0)
[2023-04-16 05:48] LABS: Anion Gap 6 mmol/L (8-16); Blood Urea Nitrogen 31 mg/dL (7-17); Calcium 8.6 mg/dL (8.4-10.2); Carbon Dioxide 26 mmol/L (22-30); Chloride 109 mmol/L (98-107); Estimated CRCL calculation 21 ml/min; Estimated Glomerular Filt Rate 25; Glucose 95 mg/dL (65-110); Magnesium 1.9 mg/dL (1.6-2.3); Potassium 4.4 mmol/L (3.4-5.0); Sodium 141 mmol/L (137-145)
[2023-04-16] MEDS: FERROUS SULFATE 324 MG TABLET PO (08:43)
[2023-04-16] MEDS: LORATADINE 10 MG TABLET PO (08:44)
[2023-04-16] MEDS: PANTOPRAZOLE 40 MG TABLET PO (08:45)
--- NOTE | 2023-04-16 09:17 | ECG_ITS ---
Measurements Intervals [place] Rate: 79 P: 79 [place]: 167 QRS: 49 QRSD: 85 T: 45 QT: 368 QTc: 422 Interpretive Statements SINUS RHYTHM BASELINE ARTIFACT- II, III AVF NORMAL ECG COMPARED TO ECG 04/15/2023 13:55:37 NO SIGNIFICANT CHANGES Electronically Signed On 04-16-2023 21:22:58 CDT by Diaz Walsh D.O.
--- NOTE | 2023-04-16 09:17 | PM.IMPN ---
Progress Note: A&P Assessment and Plan (1) Diarrhea: Code(s): R19.7 - Diarrhea, unspecified Status: Acute Assessment and Plan: -reports 6 large watery stools yesterday, none yet today -Stool culture sent and results are pending -C-diff essay was negative -Awaiting report from CT ABD/pelvis. (2) Hypotension: Code(s): I95.9 - Hypotension, unspecified Status: Acute Assessment and Plan: -BP this morning 100's/50' with HR 132. -Gave NS 1 L bolus and continue IV fluids at 80 ml per hour. -Holding home antihypertensives for now (3) Depression: Code(s): F32.9 - Major depressive disorder, single episode, unspecified Status: Acute Assessment and Plan: -continue home medications. Changed her buspiar from 5mg BID to 10mg once at night because she says it makes her drowsy during the day -restarted prn valium for anxiety. She admits that part of her tachycardic episode was likely related to a small panic attack. (4) HTN (hypertension), malignant: Code(s): I10 - Essential (primary) hypertension Status: Acute Assessment and Plan: -holding anti-hypertensives as she has had soft blood pressures. (5) Aftercare following left hip joint replacement surgery: Code(s): Z47.1 - Aftercare following joint replacement surgery; Z96.642 - Presence of left artificial hip joint Status: Acute Assessment and Plan: -WBAT. She has a left hip binder/renetta wrap that she has been wearing for comfort. (6) Dehydration: Code(s): E86.0 - Dehydration Status: Acute Assessment and Plan: Continue IV fluid and electrolyte replacement as necessary. Subjective Date/time seen: 04/16/23 09:17 Interval history: This is an 82 year old female patient with a PMH of HTN, anemia, GERD, depression, anxiety, and aortic aneurysm who presents to the ED with complaints of diarrhea. Yesterday she was having large amounts of watery stools, mild abdominal cramping, and nausea. The diarrhea was so bad that she had to come to the hospital for dehydration and weakness. She does not report eating anything new or unusual or eating out recently. There was a recent c-diff infection at her assisted living but c-diff assay was negative. She denies abdominal pain today as well as nausea and vomiting and has not had any diarrhea since admission. She also complains of a new nonproductive cough, rhinorrhea, and right neck swelling. She denies fever, chills, and body aches. Stool sent for culture and is pending. Will obtain CT of abdomen and pelvis today. She does have history of diverticulosis which is less commonly presents with diarrhea. Possibly could be a viral enteritis. She had an episode of tachycardia heart rate was in the 130s blood pressure was 102/53. I gave her a L of NS which resolved her heart rate. She continues on NS at 80 mL an hour. Review of Systems Review of Systems: All systems reviewed & are unremarkable except as noted in HPI and below Exam Narrative: General: well-nourished, well-appearing 82-year-old female, sitting up in chair, comfortable, NARD Neuro: awake, alert and oriented x4, speech clear, no focal neuro deficits noted HEENMT: normocephalic, atraumatic, EOMI, sclerae anicteric, moist oral mucosa. Subtle swelling to right neck without palpation of lymph nodes. Respiratory: Clear to auscultation bilaterally without crackles, rhonchi or wheezes, nonlabored breathing Cardio: regular rate, regular rhythm with S1-S2 Abdomen: nondistended, normoactive bowel sounds, soft, nontender to palpation Extremities: no edema, erythema, or tenderness to palpation, DP pulses 2+ bilaterally Skin: no rashes or lesions, warm and dry Psych: appropriate mood and affect, judgment and insight intact Objective Data Vital Signs Vital Signs: Vital Signs - 24 hr 04/15/23 13:47 04/15/23 16:07 04/15/23 17:33 Temperature 97.6 F Pulse Rate 79 98 100 Re
[2023-04-16] MEDS: CITALOPRAM HYDROBROMIDE 5 MG TABLET PO (09:43)
[2023-04-16] MEDS: SODIUM CHLORIDE 0.9% IV 1,000 ML 999 ML IV CONT (09:44)
[2023-04-16 10:10] LABS: Lactic Acid Reflex 1.1 mmol/L (0.7-2.0)
--- NOTE | 2023-04-16 16:48 | PC.NURSE ---
at approx 0905 DIGITAL PUBLISHING SPECIALIST informs this nurse that pt feels like her heart was pounding and she was SOB. DIGITAL PUBLISHING SPECIALIST takes a set of vitals and it was found that pt was 130s heart rate and b/p low, but O2 sats normal. pt tells nurse this all started when she was trying to use the bedpan. nurse asked pt if she was feeling any chest pressure, pain, any feelings of pain radiating, and any nausea or indigestion. pt denied all stated symptoms. pt states it feels like a panic attack. I called hospitalist at 0914 and was informed that she will be up to see pt. Hospitalist also asked nurse to give pt bolus of fluids and to be put on a tele monitor, which was then completed. Monitored pt and she did comment that the panic attack has subsided. Pt remains anxious in room but not having having symptoms of a panic attack. Will monitor for any further incidences.
[2023-04-16] MEDS: busPIRone HCL 5 MG TABLET 10 MG PO (21:07)
[2023-04-17] VITALS (14 sets, daily range): BP systolic 100–169; BP diastolic 52–82; PULSE 74–99; RESP 18–20; TEMP 36.4–36.8; O2SAT 94–100
[2023-04-17] MEDS: SODIUM CHLORIDE 0.9% IV 1,000 ML 80 ML IV CONT (05:07)
[2023-04-17 06:04] LABS: Basophils Absolute Auto 0.1 K/mm3 (0.0-0.1); Basophils Percent Auto 0.8 % (0.2-1.2); Eosinophils Absolute Auto 0.2 K/mm3 (0-0.3); Hematocrit 30.5 % (37.0-47.0); Hemoglobin 9.1 g/dL (12.0-15.0); Immature Granulocyte Absolute 0.12 K/mm3 (0.00-0.031); Immature Granulocyte Percent A 1.9 % (0-0.5); Lymphocytes Absolute Auto 1.58 K/mm3 (0.9-3.2); Lymphocytes Percent Auto 24.5 % (18.3-44.2); Mean Corpuscular HGB Conc 29.8 g/dl (32-36); Mean Corpuscular Hemoglobin 27.9 pg (26-34); Mean Corpuscular Volume 93.6 fl (80-100); Mean Platelet Volume 10.9 fl (7.4-10.4); Monocytes Absolute Auto 0.9 K/mm3 (0.1-0.6); Monocytes Percent Auto 14.4 % (2.6-8.5); Neutrophils Absolute Auto 3.6 K/mm3 (1.3-6.7); Neutrophils Percent Auto 55.4 % (45.5-73.1); Platelet Count Result 277 k/mm3 (150-375); Red Blood Count 3.26 M/mm3 (4.2-5.4); Red Cell Distribution Width 15.9 % (11.5-14.5); White Blood Count 6.4 K/mm3 (4.5-10.0)
[2023-04-17 06:20] LABS: Anion Gap 6 mmol/L (8-16); Blood Urea Nitrogen 24 mg/dL (7-17); Calcium 8.6 mg/dL (8.4-10.2); Carbon Dioxide 24 mmol/L (22-30); Chloride 113 mmol/L (98-107); Estimated CRCL calculation 24 ml/min; Estimated Glomerular Filt Rate 29; Glucose 87 mg/dL (65-110); Lipase 256 U/L (23-300); Magnesium 1.6 mg/dL (1.6-2.3); Potassium 3.6 mmol/L (3.4-5.0); Sodium 143 mmol/L (137-145)
[2023-04-17 07:05] LABS: Anisocytosis 1+ (NORMAL)
[2023-04-17 07:06] LABS: Ovalocytes 1+ (NORMAL); Schistocytes None Seen (NORMAL)
[2023-04-17] MEDS: LORATADINE 10 MG TABLET PO (08:24)
[2023-04-17] MEDS: PANTOPRAZOLE 40 MG TABLET PO (08:24)
[2023-04-17] MEDS: ACETAMINOPHEN 500 MG TABLET 1000 MG PO ×2 (08:24→16:34)
[2023-04-17] MEDS: CHOLECALCIFEROL 1,000 UNITS TABLET 5000 UNITS PO ×2 (08:25→16:35)
[2023-04-17 10:52] LABS: Platelet Estimate Adequate (Adequate)
[2023-04-17] MEDS: CITALOPRAM HYDROBROMIDE 5 MG TABLET PO (12:08)
--- NOTE | 2023-04-17 12:11 | PC.NURSE ---
Celexa 5mg 0900 dose would not scan giving message medication has been discontinued . Funeral Service Practitioner/Embalmer contacted pharmacy and they sent a new medication which still would not scan. Pharmacist, Ed, was at bedside and couldnt get medication to scan. He verified it was the correct medication and it was documented without a barcode.
--- NOTE | 2023-04-17 14:10 | PM.IMPN ---
Progress Note: A&P Assessment and Plan (1) Diarrhea: Code(s): R19.7 - Diarrhea, unspecified Status: Acute Assessment and Plan: Resolved. Initially she was having 5-6 bowel movements a day. Last bowel movement now was 7 1. She is rehydrated with IV fluids and her creatinine has returned to baseline of 1.7. Tolerating diet. Stool culture still pending. (2) Dehydration: Code(s): E86.0 - Dehydration Status: Acute (3) Swelling: Code(s): R60.9 - Edema, unspecified Status: Acute Assessment and Plan: - Swelling to her right neck was noted yesterday. No palpable lymph nodes. Today the swelling appears slightly worse and she is now reporting pain with chewing. There is some warmth and erythema noted. Will obtain ultrasound of her right neck to inspect parotid gland. Subjective Date/time seen: 04/17/23 14:10 Interval history: This is an 82 year old female patient with a PMH of HTN, anemia, GERD, depression, anxiety, and aortic aneurysm who presents to the ED with complaints of diarrhea. Yesterday she was having large amounts of watery stools, mild abdominal cramping, and nausea. The diarrhea was so bad that she had to come to the hospital for dehydration and weakness. She does not report eating anything new or unusual or eating out recently. There was a recent c-diff infection at her assisted living but c-diff assay was negative. She denies abdominal pain today as well as nausea and vomiting and has not had any diarrhea since admission. She also complains of a new nonproductive cough, rhinorrhea, and right neck swelling. She denies fever, chills, and body aches. Stool sent for culture and is pending. Will obtain CT of abdomen and pelvis today. She does have history of diverticulosis which is less commonly presents with diarrhea. Possibly could be a viral enteritis. She had an episode of tachycardia heart rate was in the 130s blood pressure was 102/53. I gave her a L of NS which resolved her heart rate. She continues on NS at 80 mL an hour. 04/17: Patient is seen today sitting up in chair looking well. She has not had any diarrhea since admission. Her biggest complaint today is continued right neck swelling, warmth and pain with chewing. The swelling does appear slightly more today than it was yesterday. she is concerned she has a sinus infection however she only has clear nasal drainage and sinus cavities are nontender to palpation. We did restart her allergy medicines so hoping that helps some. Will get an ultrasound of her right parotid gland to rule out stones. Her creatinine is 1.7 today which per her chart review is back to baseline. Will stop IV fluids as she is tolerating regular diet. Anticipate discharge back to facility tomorrow sssuming workup of parotid glands negative. Review of Systems Review of Systems: Twelve systems were reviewed and are negative except for as per HPI. All systems reviewed & are unremarkable except as noted in HPI and below Exam Narrative: General: well-nourished, well-appearing 82-year-old female, sitting up in chair, comfortable, NARD Neuro: awake, alert and oriented x4, speech clear, no focal neuro deficits noted HEENMT: normocephalic, atraumatic, EOMI, sclerae anicteric, moist oral mucosa. Subtle swelling to right neck without palpation of lymph nodes. Respiratory: Clear to auscultation bilaterally without crackles, rhonchi or wheezes, nonlabored breathing Cardio: regular rate, regular rhythm with S1-S2 Abdomen: nondistended, normoactive bowel sounds, soft, nontender to palpation Extremities: no edema, erythema, or tenderness to palpation, DP pulses 2+ bilaterally Skin: no rashes or lesions, warm and dry Psych: appropriate mood and affect, judgment and insight intact Objective Data Vital Signs Vital Signs: Vital Signs - 24 hr 04/16/23 16:00 04/16/23 20:00 04/16/23 20:41 Temperature 97.8 F 97.8 F Pulse Rate 8
[2023-04-17] MEDS: busPIRone HCL 5 MG TABLET 10 MG PO (20:44)
[2023-04-17] MEDS: allopurinoL 100 MG TABLET PO (20:44)
[2023-04-18] VITALS (7 sets, daily range): BP systolic 115–123; BP diastolic 53–57; PULSE 80–102; RESP 20; TEMP 36.5–36.6; O2SAT 99–100
[2023-04-18] MEDS: traMADol HCL (*CRX) 50 MG TABLET PO (01:17)
[2023-04-18 05:50] LABS: Basophils Absolute Auto 0.1 K/mm3 (0.0-0.1); Basophils Percent Auto 0.8 % (0.2-1.2); Eosinophils Absolute Auto 0.2 K/mm3 (0-0.3); Eosinophils Percent Auto 2.5 % (0-4.4); Hematocrit 30.5 % (37.0-47.0); Hemoglobin 9.3 g/dL (12.0-15.0); Immature Granulocyte Absolute 0.13 K/mm3 (0.00-0.031); Immature Granulocyte Percent A 1.8 % (0-0.5); Lymphocytes Absolute Auto 2.03 K/mm3 (0.9-3.2); Lymphocytes Percent Auto 27.9 % (18.3-44.2); Mean Corpuscular HGB Conc 30.5 g/dl (32-36); Mean Corpuscular Hemoglobin 27.6 pg (26-34); Mean Corpuscular Volume 90.5 fl (80-100); Mean Platelet Volume 11.1 fl (7.4-10.4); Monocytes Percent Auto 13.5 % (2.6-8.5); Neutrophils Absolute Auto 3.9 K/mm3 (1.3-6.7); Neutrophils Percent Auto 53.5 % (45.5-73.1); Platelet Count Result 314 k/mm3 (150-375); Red Blood Count 3.37 M/mm3 (4.2-5.4); Red Cell Distribution Width 15.8 % (11.5-14.5); White Blood Count 7.3 K/mm3 (4.5-10.0)
[2023-04-18 05:55] LABS: Anion Gap 7 mmol/L (8-16); Blood Urea Nitrogen 23 mg/dL (7-17); Calcium 8.8 mg/dL (8.4-10.2); Carbon Dioxide 26 mmol/L (22-30); Chloride 108 mmol/L (98-107); Estimated CRCL calculation 25 ml/min; Estimated Glomerular Filt Rate 31; Glucose 87 mg/dL (65-110); Potassium 3.6 mmol/L (3.4-5.0); Sodium 141 mmol/L (137-145)
[2023-04-18] MEDS: ACETAMINOPHEN 500 MG TABLET 1000 MG PO (08:09)
[2023-04-18] MEDS: FERROUS SULFATE 324 MG TABLET PO (08:09)
[2023-04-18] MEDS: PANTOPRAZOLE 40 MG TABLET PO (08:10)
[2023-04-18] MEDS: CITALOPRAM HYDROBROMIDE 5 MG TABLET PO (08:10)
[2023-04-18] MEDS: LORATADINE 10 MG TABLET PO (08:10)
[2023-04-18] MEDS: CHOLECALCIFEROL 1,000 UNITS TABLET 5000 UNITS PO (08:10)
--- NOTE | 2023-04-18 09:31 | PM.DS ---
DS: Admitting Diagnosis Discharge Date April 18 Admitting Diagnosis Dehydration DS: Discharge Diagnosis Discharge Diagnosis (1) Diarrhea: Code(s): R19.7 - Diarrhea, unspecified Status: Acute Assessment and Plan: Resolved. Initially she was having 5-6 bowel movements a day. Last bowel movement now was 7 1. She is rehydrated with IV fluids and her creatinine has returned to baseline of 1.7. Tolerating diet. Stool culture still pending. (2) Dehydration: Code(s): E86.0 - Dehydration Status: Acute (3) Swelling: Code(s): R60.9 - Edema, unspecified Status: Acute Assessment and Plan: - Swelling to her right neck was noted yesterday. No palpable lymph nodes. Today the swelling appears slightly worse and she is now reporting pain with chewing. There is some warmth and erythema noted. Will obtain ultrasound of her right neck to inspect parotid gland. 04/18: US just showed what looks to be a lymph node in the parotid gland. Today the swelling is much better. The swelling was not seen on her CT from a month ago. Expected this is likely reactive from recent viral illness which is what we think contributed to her diarrhea. DS: Summary Hospital Course Hospital Course: This is an 82 year old female patient with a PMH of HTN, anemia, GERD, depression, anxiety, and aortic aneurysm who presents to the ED with complaints of diarrhea. Yesterday she was having large amounts of watery stools, mild abdominal cramping, and nausea. The diarrhea was so bad that she had to come to the hospital for dehydration and weakness. She does not report eating anything new or unusual or eating out recently. There was a recent c-diff infection at her assisted living but c-diff assay was negative. She denies abdominal pain today as well as nausea and vomiting and has not had any diarrhea since admission.? She also complains of a new? nonproductive cough, rhinorrhea, and right neck swelling. She denies fever, chills, and body aches. ? Stool sent for culture and is pending.? Will obtain CT of abdomen and pelvis today. ? She does have history of diverticulosis? which is less commonly presents with diarrhea.? Possibly could be a viral enteritis. ? She had an episode of tachycardia heart rate was in the 130s blood pressure was 102/53.? I gave her a L of NS which resolved her heart rate.? She continues on NS at 80 mL an hour. 04/17: ? Patient is seen today sitting up in chair looking well.? She has not had any diarrhea since admission.? Her biggest complaint today is continued right neck swelling, warmth and pain with chewing.? The swelling does appear slightly more today than it was yesterday.? she is concerned she has a sinus infection however she only has clear nasal drainage and sinus cavities are nontender to palpation.? We did restart her allergy medicines so hoping that helps some. ? Will get an ultrasound of her right parotid gland to rule out stones. ? Her creatinine is 1.7 today which per her chart review is back to baseline.? Will stop IV fluids as she is tolerating regular diet. ? Anticipate discharge back to facility tomorrow sssuming workup of parotid glands negative. Time Spent with Patient Time attestation: Total time spent providing and/or coordinating discharge services:32 Exam Narrative: General: well-nourished, well-appearing 82-year-old female, sitting up in chair, comfortable, NARD Neuro: awake, alert and oriented x4, speech clear, no focal neuro deficits noted HEENMT: normocephalic, atraumatic, EOMI, sclerae anicteric, moist oral mucosa. Subtle swelling to right neck without palpation of lymph nodes. Respiratory: Clear to auscultation bilaterally without crackles, rhonchi or wheezes, nonlabored breathing Cardio: regular rate, regular rhythm with S1-S2 Abdomen: nondistended, normoactive bowel sounds, soft, nontender to palpation Extremities: no edema, erythema, or tenderness to palpation, POOJA baig
[2023-04-18 10:11] LABS: CRP 0.8 mg/dL (<1.0)
[2023-04-18 11:46] LABS: Erythrocyte Sedimentation Rate 55 mm/hr (0-20)
== END 2023-04-18 15:00 | disposition home or self-care (01) | DRG 641 ==
LOC: ANHED 14:28 → ANH3MED 19:40
PROVIDERS: Physician Assistant; Admitting Provider Chiropractor; Emergency Provider Emergency Medicine; PCP Physician Assistant; Visit Provider Nurse Practitioner Acute Care
DX: E86.0 Dehydration (principal); R19.7 Diarrhea, unspecified; I10 Essential (primary) hypertension; K21.9 Gastro-esophageal reflux disease without esophagitis; K57.30 Diverticulosis of large intestine without perforation or abscess without bleeding; E78.00 Pure hypercholesterolemia, unspecified; M19.90 Unspecified osteoarthritis, unspecified site; R22.1 Localized swelling, mass and lump, neck; F32.A Depression, unspecified; Z96.642 Presence of left artificial hip joint; Z96.652 Presence of left artificial knee joint; Z79.01 Long term (current) use of anticoagulants; Z87.19 Personal history of other diseases of the digestive system
CPT/HCPCS: 36415; 74176; 76536; 80048; 80053; 81001; 82274; 83605; 83690; 83735; 85025; 85027; 85652; 86140; 87045; 87177; 87209; 87269; 87272; 87427; 87493; 89055; 93005; 96361; 96374; 99285; A9270; G0378; J2405; J7030

== ENCOUNTER 2023-09-02 13:59 | Emergency (ER) | payer MEDICARE, OTHER, SELFPAY ==
[2023-09-02] VITALS (50 sets, daily range): BP systolic 79–193; BP diastolic 48–128; PULSE 70–112; RESP 13–31; TEMP 36.3–36.4; O2SAT 85–100
--- NOTE | ~2023-09-02 | XR_ITS ---
EXAM: XR hip LT 2V w AP pelvis DATE: 09/02/2023 14:44 HISTORY: heard a pop; + rotation . COMPARISON: None available. FINDINGS: IVC filter. Numerous arterial stents. Bipolar revision arthroplasty hardware on the left w hich is displaced superiorly, by at least 9 cm. Old lesser and greater trochanteric fracture fragment s remain at the level of the joint. Otherwise, there is likely significant femoral shortening. Old he aling/healed left pubic bone fracture. A left acetabular fracture is not definitively identified but certainly may be present. IMPRESSION: Superior dislocation of the left bipolar revision arthroplasty. Reviewed, dictated and finalized at location K. ETING COMMUNICATIONS MANAGER
--- NOTE | ~2023-09-02 | XR_ITS ---
EXAM: XR hip LT 1V DATE: 09/02/2023 17:25 HISTORY: reduction . COMPARISON: Same date at 2:25 PM. FINDINGS/IMPRESSION: The acetabular cup is situated at the level of the superior acetabular rim, julianne cating improving alignment, but with persistent superior dislocation. No intervening osseous fragment detected. Reviewed, dictated and finalized at location K. HER AIDE CLERICAL
--- NOTE | 2023-09-02 14:43 | ED.GENADULT ---
HPI - General Adult General Chief complaint: Unspecified Stated complaint: HIP DISLOCATION Time Seen by Provider: 09/02/23 14:04 History of Present Illness HPI narrative: Patient is an 82-year-old female who presents ER with left hip discomfort. Patient was going from sitting to standing using a walker after being on the phone when she felt a pop inset bite down into the sofa. She had sudden-onset pain. Did not strike her head or lose consciousness. She is no longer on Eliquis. She has no numbness or tingling to the leg. No additional injury. Related Data Home Medications Medication Instructions Recorded Confirmed pantoprazole 40 mg tablet,delayed 40 mg PO QAM 11/01/19 04/15/23 release citalopram 10 mg tablet 5 mg PO QAM 01/09/20 04/16/23 allopurinol 100 mg tablet 100 mg PO HS 11/21/22 04/15/23 buspirone 5 mg tablet 5 mg PO BID 11/21/22 04/15/23 cholecalciferol (vitamin D3) 125 125 mcg PO BID 11/21/22 04/15/23 mcg (5,000 unit) tablet (Vitamin D3) ferrous sulfate 325 mg (65 mg 325 mg PO EVERY OTHER DAY 11/21/22 04/15/23 iron) tablet metoprolol succinate 25 mg 12.5 mg PO QAM 11/21/22 04/15/23 tablet,extended release 24 hr acetaminophen 500 mg tablet 1,000 mg PO BID 04/15/23 04/15/23 apixaban 2.5 mg tablet (Eliquis) 2.5 mg PO BID 04/15/23 04/15/23 lisinopril 5 mg tablet 5 mg PO QAM 04/15/23 04/15/23 loratadine 10 mg tablet 10 mg PO DAILY 04/15/23 04/15/23 sennosides 8.6 mg-docusate sodium 8.6 - 50 tab-cap PO BID 04/15/23 04/15/23 50 mg tablet (Stimulant Laxative Plus) tramadol 50 mg tablet 50 mg PO Q8H PRN Pain 04/15/23 04/15/23 Allergies Allergy/AdvReac Type Severity Reaction Status Date / Time felodipine Allergy Severe HEART Verified 09/02/23 14:07 BOUNDING metronidazole Allergy Severe Unknown Verified 09/02/23 14:07 Quinolones Allergy Severe Unknown Verified 09/02/23 14:07 ciprofloxacin Allergy Unknown Unknown Verified 09/02/23 14:07 clindamycin Allergy Fatigued Verified 09/02/23 14:07 doxycycline Allergy Fainting Verified 09/02/23 14:07 atorvastatin AdvReac Mild MUSCLE Verified 09/02/23 14:07 ACHES hydrocodone AdvReac Mild Nausea and Verified 09/02/23 14:07 Vomiting Review of Systems Review of Systems: All systems reviewed & are unremarkable except as noted in HPI and below Cardiovascular: Cardiovascular: Reports no additional cardiovascular complaints Respiratory: Respiratory: Reports no additional respiratory complaints Gastrointestinal: Gastrointestinal: Reports no additional gastrointestinal complaints Musculoskeletal: Musculoskeletal: Reports arthralgias, Reports limited range of motion, Reports muscle cramps and Denies numbness Neurologic: Reports system reviewed and no additional complaints, except as documented PMF Past Medical History Medical History (Updated 09/02/23 @ 17:46 by Brando Phan MD) Abdominal aneurysm Anemia Arthritis Bilateral carpal tunnel syndrome Bronchitis Cataracts, bilateral Chronic GERD Clavicle fracture Depression Diverticulitis GERD (gastroesophageal reflux disease) H/O blood clots H/O: HTN (hypertension) History of pneumonia History of rectal polyps HTN (hypertension), malignant Hx of fracture of rib Hx: UTI (urinary tract infection) Hypercholesteremia Hypoglycemia Surgical History Surgical History AAA (abdominal aortic aneurysm) H/O bilateral cataract extraction H/O: hysterectomy History of appendectomy History of bilateral carpal tunnel release History of bladder surgery History of colon surgery History of hip replacement Left bipolar October 2019 History of left knee replacement History of local excision of skin lesion History of tonsillectomy History of total left knee replacement Hx of cardiac cath S/P carpal tunnel release S/P rotator cuff repair Bilaterally Family History Family History
[2023-09-02] MEDS: MORPHINE SULFATE (*CRX) 4 MG/ML INJ IV PUSH (14:57)
[2023-09-02] MEDS: HYDROmorphone HCL INJ (*CRX) 1 MG/ML SYR 0.5 MG IV PUSH (15:32)
--- NOTE | 2023-09-04 10:21 | PC.NURSE ---
Late entry; 09/02/23 1710 Propofol 50mg given for Mod sedation for left hip dislocation 09/02/23 1715 15mg of Propofol given 09/02/23 1716 15mg of Propofol given 09/02/23 1720 20 mg of Propofol given
== END 2023-09-02 18:44 | disposition short-term general hospital (02) ==
PROVIDERS: Emergency Provider Emergency Medicine; PCP Physician Assistant
DX: T84.021A Dislocation of internal left hip prosthesis, initial encounter (principal); I10 Essential (primary) hypertension; E78.00 Pure hypercholesterolemia, unspecified; K21.9 Gastro-esophageal reflux disease without esophagitis; F32.A Depression, unspecified; Z87.01 Personal history of pneumonia (recurrent); Z87.440 Personal history of urinary (tract) infections; Z86.2 Personal history of diseases of the blood and blood-forming organs and certain disorders involving the immune mechanism; Z98.42 Cataract extraction status, left eye; Z98.41 Cataract extraction status, right eye; Z96.642 Presence of left artificial hip joint; Z96.652 Presence of left artificial knee joint; Z87.891 Personal history of nicotine dependence; Z90.710 Acquired absence of both cervix and uterus; Y79.2 Prosthetic and other implants, materials and accessory orthopedic devices associated with adverse incidents
CPT/HCPCS: 27265; 73501; 73502; 96374; 96375; 99285; J1170; J2270; J2704

== ENCOUNTER 2023-11-04 10:05 | Inpatient (IN) | payer MEDICARE, OTHER, SELFPAY ==
[2023-11-04] VITALS (15 sets, daily range): BP systolic 128–176; BP diastolic 58–95; PULSE 83–108; RESP 13–40; TEMP 36.6–36.7; O2SAT 95–100
--- NOTE | ~2023-11-04 | US_ITS ---
US venous doppler [facility] DATE: 11/04/2023 11:52 INDICATION: Deep venous thrombosis TECHNIQUE: Real-time and color flow imaging and Doppler analysis of the veins of the left lower extre mity COMPARISON: None FINDINGS: There is intraluminal thrombus at the great saphenous vein at the junction with the common femoral vein and complete deep venous thrombosis of the left femoral and popliteal veins. The posteri or tibial and peroneal veins are not visualized. IMPRESSION: Virtually complete deep venous thrombosis of the left lower leg Reviewed, dictated and finalized at [facility]. Reviewed, dictated and finalized at location A. [employer]
--- NOTE | ~2023-11-04 | CT_ITS ---
EXAMINATION: CTA chest PE protocol DATE: 11/04/2023 13:27 INDICATION: Extensive deep venous thrombosis of left lower extremity TECHNIQUE: Computed tomography angiography (CTA) of the chest was performed with 100 mL Omnipaque-350 intravenous contrast timed to evaluate the pulmonary arteries. Coronal maximum intensity projection 3D-reconstructions were created by the technologist. Automated exposure control and iterative reconst ruction technique were employed. Exam dose: 405.13 mGy-cm total exam DLP. COMPARISON: 2 view chest FINDINGS: There is diagnostic contrast enhancement of the pulmonary arteries and no evidence of pulmo nary embolism. Heart size is within normal range. No pericardial or pleural effusion. There is thoracic aortic and great vessel and coronary artery calcification. No thoracic aortic aneur ysm or dissection. No hilar or mediastinal mass lesion or lymphadenopathy. Normal morphology of the adrenal glands. Mild bilateral apical scarring. Mild atelectasis at the dependent lower lung bases. Mild emphysemat ous changes. No pulmonary consolidation. No pleural effusion or pneumothorax. 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 IMPRESSION: No evidence of pulmonary embolism. Reviewed, dictated and finalized at [facility]. Reviewed, dictated and finalized at location A. [employer]
--- NOTE | 2023-11-04 11:37 | ED.EXTPRO ---
HPI - Extremity Problem General Chief complaint: Extremity Problem,Nontraumatic Stated complaint: DVT Time Seen by Provider: 11/04/23 10:17 History of Present Illness HPI Narrative: patient with extensive personal and family history of blood clots presents here after being diagnosed with left lower extremity blood clot 5 days ago, and despite being on blood thinners since then, has had increasing pain and swelling to the point where she is unable to wear her leg cast. She had had a recent hip injury and consequently has not been out of bed and thinks this may be why she developed a blood clot. Related Data Home Medications Medication Instructions Recorded Confirmed pantoprazole 40 mg tablet,delayed 40 mg PO QAM 11/01/19 10/04/23 release citalopram 10 mg tablet 5 mg PO QAM 01/09/20 10/04/23 allopurinol 100 mg tablet 100 mg PO HS 11/21/22 10/04/23 buspirone 5 mg tablet 5 mg PO BID 11/21/22 10/04/23 cholecalciferol (vitamin D3) 125 125 mcg PO BID 11/21/22 10/04/23 mcg (5,000 unit) tablet (Vitamin D3) ferrous sulfate 325 mg (65 mg 325 mg PO EVERY OTHER DAY 11/21/22 10/04/23 iron) tablet metoprolol succinate 25 mg 12.5 mg PO QAM 11/21/22 10/04/23 tablet,extended release 24 hr lisinopril 5 mg tablet 5 mg PO QAM 04/15/23 10/04/23 aspirin 81 mg tablet,delayed 81 mg PO DAILY 10/04/23 10/04/23 release (Adult Low Dose Aspirin) mecobalamin (vitamin B12) 2,500 mcg PO 10/04/23 10/04/23 mcg chewable tablet Allergies Allergy/AdvReac Type Severity Reaction Status Date / Time felodipine Allergy Severe HEART Verified 11/04/23 10:21 BOUNDING metronidazole Allergy Severe Unknown Verified 11/04/23 10:21 Quinolones Allergy Severe Unknown Verified 11/04/23 10:21 ciprofloxacin Allergy Unknown Unknown Verified 11/04/23 10:21 triamterene Allergy Unknown Unknown Verified 11/04/23 10:21 clindamycin Allergy Fatigued Verified 11/04/23 10:21 doxycycline Allergy Fainting Verified 11/04/23 10:21 atorvastatin AdvReac Mild MUSCLE Verified 11/04/23 10:21 ACHES hydrocodone AdvReac Mild Nausea and Verified 11/04/23 10:21 Vomiting Review of Systems Review of Systems: CONST: No fever. HEENT: No sore throat C/V: No chest pain RESP: No cough GI: Abdominal pain : No dysuria. M/S: left lower leg pain and swelling SKIN: thickened skin: Left lower extremity NEURO: [No headache or focal numbness or weakness] PSYCH: [No depression] [facility] Past Medical History Medical History (Updated 11/04/23 @ 14:12 by Dorie Castro MD) Abdominal aneurysm Anemia Arthritis Bilateral carpal tunnel syndrome Bronchitis Cataracts, bilateral Chronic GERD Clavicle fracture Depression Diverticulitis GERD (gastroesophageal reflux disease) H/O blood clots H/O: HTN (hypertension) History of pneumonia History of rectal polyps HTN (hypertension), malignant Hx of fracture of rib Hx: UTI (urinary tract infection) Hypercholesteremia Hypoglycemia Kidney disorder Surgical History Surgical History AAA (abdominal aortic aneurysm) H/O bilateral cataract extraction H/O: hysterectomy History of appendectomy History of bilateral carpal tunnel release History of bladder surgery History of colon surgery History of hip replacement Left bipolar October 2019 History of left knee replacement History of local excision of skin lesion History of tonsillectomy History of total left knee replacement Hx of cardiac cath S/P carpal tunnel release S/P rotator cuff repair Bilaterally Family History Family History Mother Patient's mother is Dementia Father Patient's father is Blood clots in brain Sibling Cerebrovascular accident Social History Social History (Updated 10/04/23 @ 09:20 by Ayaka Ordonez CMA) Social History: She recently lost her cancer. She dejesus
[2023-11-04 12:08] LABS: Basophils Percent Auto 0.6 % (0.2-1.2); Eosinophils Absolute Auto 0.1 K/mm3 (0-0.3); Eosinophils Percent Auto 1.7 % (0-4.4); Hematocrit 30.1 % (37.0-47.0); Hemoglobin 9.3 g/dL (12.0-15.0); Immature Granulocyte Absolute 0.37 K/mm3 (0.00-0.031); Immature Granulocyte Percent A 5.6 % (0-0.5); Lymphocytes Absolute Auto 1.11 K/mm3 (0.9-3.2); Lymphocytes Percent Auto 16.9 % (18.3-44.2); Mean Corpuscular HGB Conc 30.9 g/dl (32-36); Mean Corpuscular Volume 97.1 fl (80-100); Mean Platelet Volume 10.2 fl (7.4-10.4); Monocytes Absolute Auto 0.6 K/mm3 (0.1-0.6); Monocytes Percent Auto 9.8 % (2.6-8.5); Neutrophils Absolute Auto 4.3 K/mm3 (1.3-6.7); Neutrophils Percent Auto 65.4 % (45.5-73.1); Platelet Count Result 399 k/mm3 (150-375); Red Cell Distribution Width 13.6 % (11.5-14.5); White Blood Count 6.6 K/mm3 (4.5-10.0)
[2023-11-04 12:19] LABS: Anion Gap 5 mmol/L (8-16); Blood Urea Nitrogen 27 mg/dL (7-17); Calcium 9.8 mg/dL (8.4-10.2); Carbon Dioxide 28 mmol/L (22-30); Chloride 105 mmol/L (98-107); Estimated Glomerular Filt Rate 25; Glucose 99 mg/dL (65-110); Potassium 4.8 mmol/L (3.4-5.0); Sodium 138 mmol/L (137-145)
[2023-11-04] MEDS: HEPARIN SODIUM 5,000 UNITS/ML VIAL 6000 UNITS IV PUSH (12:35)
[2023-11-04] MEDS: HEPARIN SOD/D5W 100 UNITS/ML 25,000 UNITS/250 ML BAG 13 UNITS IV CONT (12:37)
[2023-11-04 13:06] LABS: INR 2.2; Prothrombin Time 25.5 Seconds (11.1-14.7)
[2023-11-04 13:36] LABS: Partial Thromboplastin Time > 200.0 SECONDS (22.3-36.8)
--- NOTE | 2023-11-04 14:13 | PC.NURSE ---
Pt son states pt claims to have kidney problems but there has not been any dx of this.
--- NOTE | 2023-11-04 14:15 | PC.NURSE ---
Pt states she is wearing a brace to keep her left hip from dislocating.
--- NOTE | 2023-11-04 15:41 | PM.IMHP ---
H&P: HPI History of Present Illness Date/Time: 11/04/23 15:41 Chief Complaint: Leg Pain and Swelling Narrative: 83 y/o F presents here with known DVT to her LLE with increased pressure and swelling with PMH of abdominal anuerysm, anemia, GERD, depression blood clots, HTN, hypercholesterolemia, and kidney disorder. Patient presents here with known DVT to her LLE that was diagnosed 5d ago by her PCP. Placed on Eliquis 10 mg BID. Patient has a personal history of blood clots and family history of blood clots (sons and father). Patient was recently evaluated at [place] ED for left hip discomfort on 09/02/2023, patient was going from sitting to standing when she felt a pop with subsequent sharp/sudden pain. XR of hip/pelvis showed superior dislocation of the left prepatellar revision arthroplasty. ED unsuccessful in closed reduction, patient transferred to [facility] ER for further orthopedic care. Reduced by orthopedic surgeon in ED, recommended posterior hip precautions with abduction brace to be worn at all times, WBAT LLE with brace only, and use of abduction pillow while in bed. Patient had outpatient follow-up on where repeat imaging showed good alignment and good position of the proximal femoral replacement. Plan to continue brace for 6 weeks. LLE was moderately swollen around time of follow-up on 10/04, symptom was deemed an expected finding. Did report some increased weakness to her LLE that she noticed this morning. Last blood clot was a PE in 2012 following hip replacement post-fall secondary to low blood pressure. Heparin gtt and transitioned Eliquis for 3 months, has not required medication again. No other complaints or concerns. [facility] Past Medical History Medical History (Updated 11/04/23 @ 16:55 by Claudette Britt APRN) Abdominal aneurysm Anemia Arthritis Bilateral carpal tunnel syndrome Bronchitis Cataracts, bilateral Chronic GERD Clavicle fracture Depression Diverticulitis GERD (gastroesophageal reflux disease) H/O blood clots H/O: HTN (hypertension) History of pneumonia History of rectal polyps HTN (hypertension), malignant Hx of fracture of rib Hx: UTI (urinary tract infection) Hypercholesteremia Hypoglycemia Kidney disorder Surgical History Surgical History AAA (abdominal aortic aneurysm) H/O bilateral cataract extraction H/O: hysterectomy History of appendectomy History of bilateral carpal tunnel release History of bladder surgery History of colon surgery History of hip replacement Left bipolar October 2019 History of left knee replacement History of local excision of skin lesion History of tonsillectomy History of total left knee replacement Hx of cardiac cath S/P carpal tunnel release S/P rotator cuff repair Bilaterally Family History Family History Mother Patient's mother is Dementia Father Patient's father is Blood clots in brain Sibling Cerebrovascular accident Social History Social History (Updated 10/04/23 @ 09:20 by Ayaka Ordonez CMA) Social History: She recently lost her cancer. She had 5 children. He lives home alone. She is retired from working in the school cafeteria Smoking status: Former smoker Second hand tobacco smoke exposure: No Alcohol intake: former Substance use: never Substance use type: does not use Do You Feel Safe in your Home?: Yes Lack of Transportation: No Lack of Food: Never True Current Housing: I Have Housing Concerned About Future Housing: No Difficulty Paying Gas/Electric Bills: No Difficulty Paying for Meds: No Currently Unemployed: No Education: High School Diploma/GED Difficulty w/ Childcare or Family Care: No Living arrangements: assisted living Additional living arrangements comments: currently living [facility] Occupation/Education
--- NOTE | 2023-11-04 15:59 | ADMGEN ---
This patient, Debra Bueno, was admitted to Medical Room 346-01. Patient/family oriented to hospital policies and general routines including ID bracelet, bed and alarms, visiting hours, pain management, procedures, bathroom and other care routines, personal items, smoking policy, room service/diet, and visiting hours. Information on how to activate the Rapid Response Team has been discussed. Patient/Family are encouraged to report perceived risks to care and to ask questions if they do not understand what they are told or what they should do.
[2023-11-04] MEDS: LACTATED RINGERS 1,000 ML 999 ML IV CONT (17:03)
[2023-11-04] MEDS: CHOLECALCIFEROL 1,000 UNITS TABLET 5000 UNITS PO (17:27)
[2023-11-04] MEDS: CYANOCOBALAMIN 1,000 MCG TABLET 1000 MCG PO (17:27)
[2023-11-04] MEDS: busPIRone HCL 5 MG TABLET PO (17:27)
[2023-11-04 18:40] LABS: Partial Thromboplastin Time 159.8 SECONDS (22.3-36.8)
[2023-11-04] MEDS: ACETAMINOPHEN 500 MG TABLET 1000 MG PO (20:39)
[2023-11-04] MEDS: allopurinoL 100 MG TABLET PO (20:40)
[2023-11-05 04:04] VITALS: BP 155/68; PULSE 91; RESP 18; TEMP 36.4; O2SAT 97
[2023-11-05 05:53] LABS: Hemoglobin 9.9 g/dL (12.0-15.0); Mean Corpuscular HGB Conc 30.9 g/dl (32-36); Mean Platelet Volume 10.6 fl (7.4-10.4); Platelet Count Result 437 k/mm3 (150-375); Red Cell Distribution Width 13.8 % (11.5-14.5); White Blood Count 7.1 K/mm3 (4.5-10.0)
[2023-11-05 06:03] LABS: Partial Thromboplastin Time 78.4 SECONDS (22.3-36.8)
[2023-11-05 06:08] LABS: Anion Gap 6 mmol/L (8-16); Blood Urea Nitrogen 25 mg/dL (7-17); Calcium 9.3 mg/dL (8.4-10.2); Carbon Dioxide 29 mmol/L (22-30); Chloride 105 mmol/L (98-107); Estimated Glomerular Filt Rate 29; Glucose 100 mg/dL (65-110); Potassium 4.2 mmol/L (3.4-5.0); Sodium 140 mmol/L (137-145)
[2023-11-05] MEDS: ACETAMINOPHEN 500 MG TABLET 1000 MG PO (06:38)
[2023-11-05] MEDS: CHOLECALCIFEROL 1,000 UNITS TABLET 5000 UNITS PO ×2 (09:02→17:46)
[2023-11-05] MEDS: CYANOCOBALAMIN 1,000 MCG TABLET 1000 MCG PO ×2 (09:02→17:47)
[2023-11-05] MEDS: busPIRone HCL 5 MG TABLET PO ×2 (09:02→17:46)
[2023-11-05 09:03] VITALS: PULSE 100
[2023-11-05] MEDS: PANTOPRAZOLE 40 MG TABLET PO (09:03)
[2023-11-05] MEDS: METOPROLOL SUCCINATE EXT REL 12.5 MG TABCR PO (09:03)
[2023-11-05] MEDS: FERROUS SULFATE 325 MG TABLET DR PO (09:03)
[2023-11-05] MEDS: ASPIRIN 81 MG ENTERIC TABLET PO (09:03)
[2023-11-05] MEDS: CITALOPRAM HYDROBROMIDE 5 MG TABLET PO (09:09)
[2023-11-05 11:46] LABS: Partial Thromboplastin Time 83.7 SECONDS (22.3-36.8)
--- NOTE | 2023-11-05 12:44 | PM.IMPN ---
Progress Note: A&P Assessment and Plan (1) DVT (deep venous thrombosis): Qualifiers: Affected thrombotic vein of extremity: other lower extremity vein Chronicity: acute DVT location: lower extremity Laterality: left Qualified Code(s): I82.492 - Acute embolism and thrombosis of other specified deep vein of left lower extremity Code(s): I82.409 - Acute embolism and thrombosis of unspecified deep veins of unspecified lower extremity Status: Acute Assessment and Plan: Patient sustained a left hip prosthetic dislocation that was reduced successfully. She is now wearing a brace. She noted left leg swelling and had doppler performed about 5 days ago showing LLE DVT. She was started on Eliquis. She has been compliant. Patient has hx of transient provoking risk factor (brace/immobilization of LLE) with no known persistent risk factors but consider family hx She has not elevated the leg at home much. She has been mostly in the wheel chair. Despite Eliquis, her left leg became more enlarged and firm prompting this ED visit. LLE Doppler showing virtually complete deep venous thrombosis of the left lower leg. CTA chest showing no PE. Heparin gtt started with protocol Continue neurovasc checks QShift Bedrest with bathroom privileges while wearing brace Continue brace with weight bearing/ambulation Heme/Onc consult Elevate LLE (2) Dislocation of internal left hip prosthesis: Qualifiers: Encounter type: sequela Qualified Code(s): T84.021S - Dislocation of internal left hip prosthesis, sequela Code(s): T84.021A - Dislocation of internal left hip prosthesis, initial encounter Status: Acute Assessment and Plan: As above. Continue posterior hip precautions with abduction brace to be worn at all times. WBAT LLE with brace only. Use of abduction pillow while in bed - patient does not like, requests to wear brace while in bed. plan as of 10/04 - continue brace for 6 weeks and f/u with ortho outpatient. PT/OT when able (3) CKD (chronic kidney disease): Code(s): N18.9 - Chronic kidney disease, unspecified Status: Acute Assessment and Plan: Baseline Cr 1.6-1.9. Creatinine within her baseline. Follow Plan Diet: Renal GI Prophylaxis: Continue home pantoprazole DVT Prophylaxis: SCD to right lower extremity, heparin drip Code Status: Full Code Subjective Date/time seen: 11/05/23 12:44 Interval history: 83yo female with HTN, CKD, hx of PE and recently diagnosed LLE DVT on Eliquis here for increasing LLE swelling. Left leg feels better. Pressure has decreased. She has had a PE in the past but no DVTs. Two of her sons with VTE. No CP or SOB. No n/v. Eating well. Exam Narrative: AF 97.6 155/68 100 18 97% ra Gen - NARD Chest - CTA bilaterally, nml RR CV - RRR S1/S2 Abd - Soft, NT/ND, Positive BS Ext - marked LLE pedal edema. Left hip brace in place Psych - Nml mood and affect Skin - Warm and dry Objective Data Vital Signs Vital Signs: Vital Signs - 24 hr 11/04/23 13:00 11/04/23 13:29 11/04/23 13:30 Temperature Pulse Rate 92 101 H 108 H Respiratory Rate 17 27 H 40 H Blood Pressure Pulse Oximetry 99 Oxygen Delivery 11/04/23 13:43 11/04/23 13:46 11/04/23 14:01 Temperature Pulse Rate 96 98 95 Respiratory Rate 22 H 16 13 Blood Pressure 176/75 H 164/80 H 172/80 H Pulse Oximetry Oxygen Delivery 11/04/23 15:00 11/04/23 18:09 11/04/23 20:05 Temperature 97.9 F Pulse Rate 105 H 94 Respiratory Rate 18 18 Blood Pressure 150/70 H Pulse Oximetry 95 97 Oxygen Delivery Room Air 11/04/23 20:50 11/05/23 04:04 11/05/23 09:03 Temperature 97.6 F Pulse Rate 91 100 Respiratory Rate 18 Blood Pressure 155/68 H Pulse Oximetry 97 Oxygen Delivery Room Air 11/05/23 08:00 Temperature Pulse Rate Respiratory Rate Blood Pressure Pulse Oximetry Oxygen Delivery Room Air Intake
[2023-11-05 14:00] VITALS: BP 140/58; PULSE 86; RESP 14; TEMP 37; O2SAT 99
[2023-11-05 16:21] VITALS: O2SAT 94
[2023-11-05] MEDS: HEPARIN SOD/D5W 100 UNITS/ML 25,000 UNITS/250 ML BAG 9 UNITS IV CONT (17:50)
[2023-11-05 20:00] VITALS: PULSE 89; RESP 18; O2SAT 96
[2023-11-05] MEDS: allopurinoL 100 MG TABLET PO (20:21)
[2023-11-05] MEDS: ACETAMINOPHEN 325 MG TABLET 650 MG PO (20:21)
[2023-11-05 20:31] VITALS: BP 125/48; PULSE 89; RESP 18; TEMP 36.7; O2SAT 96
[2023-11-06 04:52] VITALS: BP 141/55; PULSE 87; RESP 16; TEMP 36.6; O2SAT 94
[2023-11-06 05:32] LABS: Basophils Absolute Auto 0.1 K/mm3 (0.0-0.1); Basophils Percent Auto 0.8 % (0.2-1.2); Eosinophils Absolute Auto 0.3 K/mm3 (0-0.3); Eosinophils Percent Auto 4.4 % (0-4.4); Hematocrit 29.4 % (37.0-47.0); Hemoglobin 8.8 g/dL (12.0-15.0); Immature Granulocyte Absolute 0.21 K/mm3 (0.00-0.031); Immature Granulocyte Percent A 3.4 % (0-0.5); Lymphocytes Absolute Auto 1.37 K/mm3 (0.9-3.2); Lymphocytes Percent Auto 22.3 % (18.3-44.2); Mean Corpuscular HGB Conc 29.9 g/dl (32-36); Mean Corpuscular Hemoglobin 29.6 pg (26-34); Mean Platelet Volume 10.7 fl (7.4-10.4); Monocytes Absolute Auto 0.8 K/mm3 (0.1-0.6); Monocytes Percent Auto 12.5 % (2.6-8.5); Neutrophils Absolute Auto 3.5 K/mm3 (1.3-6.7); Neutrophils Percent Auto 56.6 % (45.5-73.1); Platelet Count Result 436 k/mm3 (150-375); Red Blood Count 2.97 M/mm3 (4.2-5.4); Red Cell Distribution Width 13.9 % (11.5-14.5); White Blood Count 6.1 K/mm3 (4.5-10.0)
[2023-11-06 05:44] LABS: Partial Thromboplastin Time 85.5 SECONDS (22.3-36.8)
[2023-11-06 05:45] LABS: Albumin Level 3.6 g/dL (3.5-5.1); Anion Gap 6 mmol/L (8-16); Blood Urea Nitrogen 22 mg/dL (7-17); Calcium 8.9 mg/dL (8.4-10.2); Carbon Dioxide 30 mmol/L (22-30); Chloride 104 mmol/L (98-107); Estimated Glomerular Filt Rate 27; Glucose 98 mg/dL (65-110); Phosphorus 4.2 mg/dL (2.5-4.5); Sodium 140 mmol/L (137-145)
[2023-11-06 07:32] LABS: Anisocytosis 1+ (NORMAL); Hypochromasia 1+ (NORMAL); Ovalocytes 1+ (NORMAL); Platelet Estimate Increased (Adequate); Schistocytes None Seen (NORMAL)
[2023-11-06] MEDS: ASPIRIN 81 MG ENTERIC TABLET PO (08:38)
[2023-11-06] MEDS: CYANOCOBALAMIN 1,000 MCG TABLET 1000 MCG PO ×2 (08:39→16:32)
[2023-11-06] MEDS: CHOLECALCIFEROL 1,000 UNITS TABLET 5000 UNITS PO ×2 (08:39→16:32)
[2023-11-06] MEDS: ACETAMINOPHEN 325 MG TABLET 650 MG PO ×2 (08:39→20:53)
[2023-11-06] MEDS: busPIRone HCL 5 MG TABLET PO ×2 (08:39→16:32)
[2023-11-06] MEDS: PANTOPRAZOLE 40 MG TABLET PO (08:39)
[2023-11-06] MEDS: CITALOPRAM HYDROBROMIDE 5 MG TABLET PO (08:39)
[2023-11-06 08:40] VITALS: PULSE 96
[2023-11-06] MEDS: METOPROLOL SUCCINATE EXT REL 12.5 MG TABCR PO (08:40)
[2023-11-06 13:34] VITALS: BP 133/62; PULSE 92; RESP 18; TEMP 37; O2SAT 95
--- NOTE | 2023-11-06 13:55 | PM.IMPN ---
Progress Note: A&P Assessment and Plan (1) DVT (deep venous thrombosis): Qualifiers: Affected thrombotic vein of extremity: other lower extremity vein Chronicity: acute DVT location: lower extremity Laterality: left Qualified Code(s): I82.492 - Acute embolism and thrombosis of other specified deep vein of left lower extremity Code(s): I82.409 - Acute embolism and thrombosis of unspecified deep veins of unspecified lower extremity Status: Acute Assessment and Plan: Patient sustained a left hip prosthetic dislocation that was reduced successfully. She is now wearing a brace. She noted left leg swelling and had doppler performed about 5 days ago showing LLE DVT. She was started on Eliquis. She has been compliant. Patient has hx of transient provoking risk factor (brace/immobilization of LLE) with no known persistent risk factors but consider family hx She has not elevated the leg at home much. She has been mostly in the wheel chair. Despite Eliquis, her left leg became more enlarged and firm prompting this ED visit. Brace may be contributing to the increased edema LLE Doppler showing virtually complete deep venous thrombosis of the left lower leg. CTA chest showing no PE. Heparin gtt started with protocol Continue neurovasc checks Bedrest with bathroom privileges while wearing brace Continue brace with weight bearing/ambulation Heme/Onc consult Elevate LLE (2) Dislocation of internal left hip prosthesis: Qualifiers: Encounter type: sequela Qualified Code(s): T84.021S - Dislocation of internal left hip prosthesis, sequela Code(s): T84.021A - Dislocation of internal left hip prosthesis, initial encounter Status: Acute Assessment and Plan: As above. Continue posterior hip precautions with abduction brace to be worn at all times. WBAT LLE with brace only. Use of abduction pillow while in bed - patient does not like, requests to wear brace while in bed. plan as of 10/04 - continue brace for 6 weeks and f/u with ortho outpatient. PT/OT when able (3) CKD (chronic kidney disease): Code(s): N18.9 - Chronic kidney disease, unspecified Status: Acute Assessment and Plan: Baseline Cr 1.6-1.9. Creatinine within her baseline. Follow Plan Diet: Renal GI Prophylaxis: Continue home pantoprazole DVT Prophylaxis: SCD to right lower extremity, heparin drip Code Status: Full Code Subjective Date/time seen: 11/06/23 13:55 Interval history: 83yo female with HTN, CKD, hx of PE and recently diagnosed LLE DVT on Eliquis here for increasing LLE swelling. Patient's left foot became numb yesterday she thinks was related to anxiety. Symptoms resolved on their own. No chest pain or shortness of breath. Left leg still feels ?heavy? without change. Exam Narrative: AF 98.6 133/62 92 18 95% ra Gen - NARD Chest - CTA bilaterally, nml RR CV - RRR S1/S2 Abd - Soft, NT/ND, Positive BS Ext - LLE leg edema improved. Left hip brace in place. 2+ DP Psych - Nml mood and affect Skin - LLE apepars flushed Objective Data Vital Signs Vital Signs: Vital Signs - 24 hr 11/05/23 14:00 11/05/23 16:21 11/05/23 20:31 Temperature 98.6 F 98.1 F Pulse Rate 86 89 Respiratory Rate 14 18 Blood Pressure 140/58 L 125/48 L Pulse Oximetry 99 94 96 Oxygen Delivery 11/05/23 20:00 11/06/23 04:52 11/06/23 08:40 Temperature 97.9 F Pulse Rate 89 87 96 Respiratory Rate 18 16 Blood Pressure 141/55 H Pulse Oximetry 96 94 Oxygen Delivery Room Air 11/06/23 08:00 11/06/23 13:34 Temperature 98.6 F Pulse Rate 92 Respiratory Rate 18 Blood Pressure 133/62 Pulse Oximetry 95 Oxygen Delivery Room Air Intake/Output Intake/Output: Intake & Output 11/03/23 11/04/23 11/05/23 11/06/23 23:59 23:59 23:59 23:59 Intake Total 1480 1410 510 Balance 1480 1410 510 Meds/Results Medications: Active Medications Generic Name Dose R
[2023-11-06 20:00] VITALS: PULSE 92; RESP 18; O2SAT 95
[2023-11-06] MEDS: allopurinoL 100 MG TABLET PO (20:53)
[2023-11-06] MEDS: HEPARIN SOD/D5W 100 UNITS/ML 25,000 UNITS/250 ML BAG 9 UNITS IV CONT (20:54)
[2023-11-06 22:03] VITALS: BP 135/51; PULSE 97; RESP 18; TEMP 36.9; O2SAT 96
[2023-11-07 05:48] LABS: Basophils Absolute Auto 0.1 K/mm3 (0.0-0.1); Basophils Percent Auto 0.7 % (0.2-1.2); Eosinophils Absolute Auto 0.3 K/mm3 (0-0.3); Eosinophils Percent Auto 3.5 % (0-4.4); Hematocrit 29.5 % (37.0-47.0); Hemoglobin 8.9 g/dL (12.0-15.0); Immature Granulocyte Absolute 0.56 K/mm3 (0.00-0.031); Immature Granulocyte Percent A 6.4 % (0-0.5); Lymphocytes Absolute Auto 1.26 K/mm3 (0.9-3.2); Lymphocytes Percent Auto 14.4 % (18.3-44.2); Mean Corpuscular HGB Conc 30.2 g/dl (32-36); Mean Corpuscular Hemoglobin 29.8 pg (26-34); Mean Corpuscular Volume 98.7 fl (80-100); Mean Platelet Volume 10.8 fl (7.4-10.4); Monocytes Absolute Auto 1.4 K/mm3 (0.1-0.6); Monocytes Percent Auto 15.4 % (2.6-8.5); Neutrophils Absolute Auto 5.2 K/mm3 (1.3-6.7); Neutrophils Percent Auto 59.6 % (45.5-73.1); Platelet Count Result 399 k/mm3 (150-375); Red Blood Count 2.99 M/mm3 (4.2-5.4); White Blood Count 8.7 K/mm3 (4.5-10.0)
[2023-11-07 05:58] LABS: Partial Thromboplastin Time 61.5 SECONDS (22.3-36.8)
[2023-11-07 06:00] VITALS: BP 150/60; PULSE 97; RESP 18; TEMP 36.7; O2SAT 95
[2023-11-07 06:00] LABS: Albumin Level 3.5 g/dL (3.5-5.1); Anion Gap 7 mmol/L (8-16); Blood Urea Nitrogen 21 mg/dL (7-17); Calcium 8.7 mg/dL (8.4-10.2); Carbon Dioxide 28 mmol/L (22-30); Chloride 104 mmol/L (98-107); Estimated Glomerular Filt Rate 29; Glucose 96 mg/dL (65-110); Magnesium 1.6 mg/dL (1.6-2.3); Phosphorus 3.7 mg/dL (2.5-4.5); Potassium 3.9 mmol/L (3.4-5.0); Sodium 139 mmol/L (137-145)
[2023-11-07] MEDS: HEPARIN SODIUM 5,000 UNITS/ML VIAL 3000 UNITS IV PUSH (06:12)
[2023-11-07 06:13] LABS: Iron 44 ug/dL (37-170)
[2023-11-07 06:23] LABS: Percent Iron Saturation 17 % (20-50)
[2023-11-07 07:10] LABS: Folic Acid 8.5 ng/mL (2.76->20); Vitamin B12 > 1000.0 pg/mL (239-931)
[2023-11-07] MEDS: FERROUS SULFATE 325 MG TABLET DR PO (09:01)
[2023-11-07] MEDS: busPIRone HCL 5 MG TABLET PO ×2 (09:01→17:18)
[2023-11-07] MEDS: ACETAMINOPHEN 325 MG TABLET 650 MG PO ×2 (09:01→20:04)
[2023-11-07] MEDS: SENNA/DOCUSATE SODIUM TABLET 1 TAB PO (09:01)
[2023-11-07] MEDS: CYANOCOBALAMIN 1,000 MCG TABLET 1000 MCG PO ×2 (09:01→17:19)
[2023-11-07] MEDS: ASPIRIN 81 MG ENTERIC TABLET PO (09:01)
[2023-11-07 09:02] VITALS: PULSE 99
[2023-11-07] MEDS: METOPROLOL SUCCINATE EXT REL 12.5 MG TABCR PO (09:02)
[2023-11-07] MEDS: CITALOPRAM HYDROBROMIDE 5 MG TABLET PO (09:02)
[2023-11-07] MEDS: CHOLECALCIFEROL 1,000 UNITS TABLET 5000 UNITS PO ×2 (09:02→17:18)
[2023-11-07] MEDS: PANTOPRAZOLE 40 MG TABLET PO (09:05)
--- NOTE | 2023-11-07 10:17 | PM.IMPN ---
Progress Note: A&P Assessment and Plan (1) DVT (deep venous thrombosis): Qualifiers: Affected thrombotic vein of extremity: other lower extremity vein Chronicity: acute DVT location: lower extremity Laterality: left Qualified Code(s): I82.492 - Acute embolism and thrombosis of other specified deep vein of left lower extremity Code(s): I82.409 - Acute embolism and thrombosis of unspecified deep veins of unspecified lower extremity Status: Acute Assessment and Plan: Patient sustained a left hip prosthetic dislocation that was reduced successfully. She is now wearing a brace. She noted left leg swelling and had doppler performed about 5 days ago showing LLE DVT. She was started on Eliquis. She has been compliant. Patient has hx of transient provoking risk factor (brace/immobilization of LLE) with no known persistent risk factors but consider family hx She has not elevated the leg at home much. She has been mostly in the wheel chair. Despite Eliquis, her left leg became more enlarged and firm prompting this ED visit. LLE Doppler showing virtually complete deep venous thrombosis of the left lower leg. CTA chest showing no PE. Heparin gtt started per protocol Okay to stop neurovasc checks Bedrest with bathroom privileges while wearing brace Continue brace with weight bearing/ambulation but off in bed to improve edema(might be acting like a tourniquet) Heme/Onc consulted Continue heparin drip with transition to oral medications when okay with heme Onc. Continue to elevate left lower extremity while bed Increase activity. Request old report of original doppler. (2) Dislocation of internal left hip prosthesis: Qualifiers: Encounter type: sequela Qualified Code(s): T84.021S - Dislocation of internal left hip prosthesis, sequela Code(s): T84.021A - Dislocation of internal left hip prosthesis, initial encounter Status: Acute Assessment and Plan: As above. Continue posterior hip precautions with abduction brace to be worn at all times. WBAT LLE with brace only. Use of abduction pillow while in bed - patient does not like, requests to wear brace while in bed. plan as of 10/04 - continue brace for 6 weeks and f/u with ortho outpatient. PT/OT when able (3) CKD (chronic kidney disease): Code(s): N18.9 - Chronic kidney disease, unspecified Status: Acute Assessment and Plan: Baseline Cr 1.6-1.9. Creatinine within her baseline. Follow (4) Anemia: Code(s): D64.9 - Anemia, unspecified Status: Acute Assessment and Plan: Patient has a chronic anemia with hgb running mostly in the 9 range last year. Hgb stable here in the 8-9 range. Iron studies consistent with mild iron deficiency. TSat 17%. Ferritin 137. B12/folate normal. Replace iron. Plan DVT Prophylaxis: heparin drip Code Status: Full Code Subjective Date/time seen: 11/07/23 10:17 Interval history: 83yo female with HTN, CKD, hx of PE and recently diagnosed LLE DVT on Eliquis here for increasing LLE swelling. Leg feels better. No CP or SOB. +BMs. No melena or hematochezia. Exam Narrative: AF 98.0 150/60 99 18 95% ra Gen - NARD Chest - CTA bilaterally, nml RR CV - RRR S1/S2 Abd - Soft, NT/ND, Positive BS Ext - decreased LLE edema. left hip brace in place but the left leg strap off. Psych - Nml mood and affect Skin - LLE still appears flushed but less so. Objective Data Vital Signs Vital Signs: Vital Signs - 24 hr 11/06/23 13:34 11/06/23 20:00 11/06/23 22:03 Temperature 98.6 F 98.4 F Pulse Rate 92 92 97 Respiratory Rate 18 18 18 Blood Pressure 133/62 135/51 L Pulse Oximetry 95 95 96 Oxygen Delivery Room Air 11/07/23 06:00 11/07/23 09:02 Temperature 98.0 F Pulse Rate 97 99 Respiratory Rate 18 Blood Pressure 150/60 H Pulse Oximetry 95 Oxygen Delivery Intake/Output Intake/Output: Intake & Output 11/04/23
[2023-11-07 12:32] LABS: Partial Thromboplastin Time 80.5 SECONDS (22.3-36.8)
[2023-11-07] MEDS: IRON SUCROSE COMPLEX 100 MG in SODIUM CHLORIDE 0.9% IV 50 ML 220 MG IVPB (13:04)
[2023-11-07 14:20] VITALS: BP 100/58; PULSE 88; RESP 18; TEMP 37; O2SAT 98
--- NOTE | 2023-11-07 18:37 | PDONCCN ---
HPI - Date of Consult Date/Time: 11/07/23 18:37 Requesting Physician: Kel Hernandez MD Primary Care Provider: Roopa Dover, PA - Consult Narrative Reason for consult: Hypercoagulable state and anemia Narrative: Debra Bueno is a 83 year old female with history of pulmonary embolism diagnosed 3 years ago as well as history of partial colon resection 24 years ago for precancerous condition came into the hospital with significant left lower extremity edema. She has the [place] assisted living resident. Patient has a family history of blood clot in father and 2 children's. Patient also has a history of fall is status post left hip fracture and arthroplasty. She felt a recent follow-up with sudden onset of pain was going to start physical therapy recently. Subsequently she developed left lower extremity edema. She was started on Eliquis 10 mg b.i.d. by the primary care physician 3-4 days prior to the admission to the hospital. Lower extremity Doppler study showed virtually complete DVT of the left lower extremity. CTA chest showed no evidence of pulmonary embolism. Labs showed anemia with hemoglobin of 8.9 with elevated platelet count. According the patient she always been anemic. She denies any previous gastric bypass surgery. She denies any bleeding including melena hematochezia. Her last colonoscopy was in November of 2022. Colonoscopy at that time showed sigmoid colon polyps and internal hemorrhoids. Complain of tiredness and fatigue. Review of Systems - Review of Systems All systems reviewed & are unremarkable except as noted in [facility] Medical History: Medical History (Last Updated 11/05/23 @ 12:57 by Jorge Bradford MD) Abdominal aneurysm Anemia Arthritis Bilateral carpal tunnel syndrome Bronchitis Cataracts, bilateral Chronic GERD CKD (chronic kidney disease) Clavicle fracture Depression Diverticulitis GERD (gastroesophageal reflux disease) H/O blood clots H/O: HTN (hypertension) History of pneumonia History of rectal polyps HTN (hypertension), malignant Hx of fracture of rib Hx: UTI (urinary tract infection) Hypercholesteremia Hypoglycemia Kidney disorder Surgical History: Surgical History (Last Reviewed 10/04/23 @ 09:19 by Ayaka Ordonez CMA) AAA (abdominal aortic aneurysm) H/O bilateral cataract extraction H/O: hysterectomy History of appendectomy History of bilateral carpal tunnel release History of bladder surgery History of colon surgery History of hip replacement Left bipolar October 2019 History of left knee replacement History of local excision of skin lesion History of tonsillectomy History of total left knee replacement Hx of cardiac cath S/P carpal tunnel release S/P rotator cuff repair Bilaterally Family History: Family History (Last Reviewed 10/04/23 @ 09:19 by Ayaka Ordonez CMA) Mother Patient's mother is Dementia Father Patient's father is Blood clots in brain Sibling Cerebrovascular accident - Social History Social History: Social History (Last Updated 10/04/23 @ 09:20 by Ayaka Ordonez CMA) Gender Identity: Gender identity (if verbalized by the patient): Female Alcohol Use: Alcohol intake: former Substance Use: Substance use: never Substance use type: does not use Others: Spiritual care concerns: Yes Spiritual care concerns comment: zoroastrian Agree to blood products: Yes Living Arrangements: Living arrangements: assisted living Oppucation/Education: Occupation/Education: retired Smoking Status: Smoking status: Former smoker Second hand tobacco smoke exposure: No Social Determinants of Health: Do You Feel Safe in your Home?: Yes Has the Lack of Transportation Kept You From Medical Appointments or From Getting Medications?: No Within the Past 12 Months, Were You Worried Whether Your F
[2023-11-07 19:33] LABS: Partial Thromboplastin Time 107.8 SECONDS (22.3-36.8)
[2023-11-07] MEDS: allopurinoL 100 MG TABLET PO (20:04)
[2023-11-07 21:45] VITALS: BP 132/46; PULSE 79; RESP 18; TEMP 36.9; O2SAT 97
[2023-11-07] MEDS: HEPARIN SOD/D5W 100 UNITS/ML 25,000 UNITS/250 ML BAG 9 UNITS IV CONT (23:29)
[2023-11-08 02:23] LABS: Hematocrit 28.8 % (37.0-47.0); Hemoglobin 8.9 g/dL (12.0-15.0); Mean Corpuscular HGB Conc 30.9 g/dl (32-36); Mean Corpuscular Hemoglobin 29.8 pg (26-34); Mean Corpuscular Volume 96.3 fl (80-100); Mean Platelet Volume 10.7 fl (7.4-10.4); Platelet Count Result 393 k/mm3 (150-375); Red Blood Count 2.99 M/mm3 (4.2-5.4); White Blood Count 7.1 K/mm3 (4.5-10.0)
[2023-11-08 02:41] LABS: Anion Gap 7 mmol/L (8-16); Blood Urea Nitrogen 23 mg/dL (7-17); Calcium 8.7 mg/dL (8.4-10.2); Carbon Dioxide 30 mmol/L (22-30); Chloride 102 mmol/L (98-107); Estimated Glomerular Filt Rate 27; Glucose 95 mg/dL (65-110); Potassium 3.8 mmol/L (3.4-5.0); Sodium 139 mmol/L (137-145)
[2023-11-08 02:44] LABS: Partial Thromboplastin Time 90.8 SECONDS (22.3-36.8)
[2023-11-08 03:57] VITALS: BP 154/69; PULSE 86; RESP 18; TEMP 36.4; O2SAT 96
--- NOTE | 2023-11-08 07:08 | PM.IMPN ---
Progress Note: A&P Assessment and Plan (1) DVT (deep venous thrombosis): Qualifiers: Affected thrombotic vein of extremity: other lower extremity vein Chronicity: acute DVT location: lower extremity Laterality: left Qualified Code(s): I82.492 - Acute embolism and thrombosis of other specified deep vein of left lower extremity Code(s): I82.409 - Acute embolism and thrombosis of unspecified deep veins of unspecified lower extremity Status: Acute Assessment and Plan: Patient sustained a left hip prosthetic dislocation that was reduced successfully. She is now wearing a brace. She noted left leg swelling and had doppler performed about 5 days ago showing LLE DVT. She was started on Eliquis. She has been compliant. Patient has hx of transient provoking risk factor (brace/immobilization of LLE) with no known persistent risk factors but consider family hx She has not elevated the leg at home much. She has been mostly in the wheel chair. Despite Eliquis, her left leg became more enlarged and firm prompting this ED visit. LLE Doppler showing virtually complete deep venous thrombosis of the left lower leg. CTA chest showing no PE. Heparin gtt started per protocol Bedrest with bathroom privileges while wearing brace Continue brace with weight bearing/ambulation but off in bed to improve edema(might be acting like a tourniquet) Heme/Onc consulted Continue heparin drip with transition to oral medications when okay with heme Onc. Continue to elevate left lower extremity while bed Increase activity. Request old report of original doppler. History of pulmonary embolism 3 years ago treated with Eliquis History blood clot in father and 2 children will switfch to eliquis full dose today (2) Dislocation of internal left hip prosthesis: Qualifiers: Encounter type: sequela Qualified Code(s): T84.021S - Dislocation of internal left hip prosthesis, sequela Code(s): T84.021A - Dislocation of internal left hip prosthesis, initial encounter Status: Acute Assessment and Plan: As above. Continue posterior hip precautions with abduction brace to be worn at all times. WBAT LLE with brace only. Use of abduction pillow while in bed - patient does not like, requests to wear brace while in bed. plan as of 10/04 - continue brace for 6 weeks and f/u with ortho outpatient. PT/OT when able (3) CKD (chronic kidney disease): Code(s): N18.9 - Chronic kidney disease, unspecified Status: Acute Assessment and Plan: Baseline Cr 1.6-1.9. Creatinine within her baseline. Follow (4) Anemia: Code(s): D64.9 - Anemia, unspecified Status: Acute Assessment and Plan: Patient has a chronic anemia with hgb running mostly in the 9 range last year. Hgb stable here in the 8-9 range. Iron studies consistent with mild iron deficiency. TSat 17%. Ferritin 137. B12/folate normal. Replace iron. Plan DVT Prophylaxis: heparin drip Code Status: Full Code Subjective Date/time seen: 11/08/23 07:08 Interval history: 83yo female with HTN, CKD, hx of PE and recently diagnosed LLE DVT on Eliquis here for increasing LLE swelling.leg swelling i smuch better. no fever, chils. pain is better Review of Systems Review of Systems: All systems reviewed & are unremarkable except as noted in HPI and below Exam Narrative: Gen - NARD Chest - CTA bilaterally, nml RR CV - RRR S1/S2 Abd - Soft, NT/ND, Positive BS Ext - decreased LLE edema. left hip brace in place but the left leg strap off. Psych - Nml mood and affect Skin - LLE still appears flushed but less so. Objective Data Vital Signs Vital Signs: Vital Signs - 24 hr 11/07/23 09:02 11/07/23 08:00 11/07/23 14:20 Temperature 98.6 F Pulse Rate 99 88 Respiratory Rate 18 Blood Pressure 100/58 L Pulse Oximetry 98 Oxygen Delivery Room Air 11/07/23 15:32 11/07/23 21:45 11/07/23 20:00 Gautam
[2023-11-08 08:03] LABS: Partial Thromboplastin Time 58.8 SECONDS (22.3-36.8)
[2023-11-08 09:38] VITALS: PULSE 86
[2023-11-08] MEDS: CITALOPRAM HYDROBROMIDE 5 MG TABLET PO (09:38)
[2023-11-08] MEDS: METOPROLOL SUCCINATE EXT REL 12.5 MG TABCR PO (09:38)
[2023-11-08] MEDS: PANTOPRAZOLE 40 MG TABLET PO (09:38)
[2023-11-08] MEDS: CYANOCOBALAMIN 1,000 MCG TABLET 1000 MCG PO ×2 (09:38→16:48)
[2023-11-08] MEDS: busPIRone HCL 5 MG TABLET PO ×2 (09:39→16:49)
[2023-11-08] MEDS: ACETAMINOPHEN 325 MG TABLET 650 MG PO ×2 (09:39→20:10)
[2023-11-08] MEDS: ASPIRIN 81 MG ENTERIC TABLET PO (09:39)
[2023-11-08] MEDS: CHOLECALCIFEROL 1,000 UNITS TABLET 5000 UNITS PO ×2 (09:39→16:48)
[2023-11-08] MEDS: SENNA/DOCUSATE SODIUM TABLET 1 TAB PO (09:39)
[2023-11-08] MEDS: IRON SUCROSE COMPLEX 100 MG in SODIUM CHLORIDE 0.9% IV 50 ML 220 MG IVPB (09:39)
[2023-11-08] MEDS: HEPARIN SODIUM 5,000 UNITS/ML VIAL 3000 UNITS IV PUSH (10:22)
[2023-11-08 14:00] VITALS: BP 126/71; PULSE 84; RESP 16; TEMP 36.6; O2SAT 96
[2023-11-08 15:34] LABS: Partial Thromboplastin Time 118.2 SECONDS (22.3-36.8)
[2023-11-08] MEDS: APIXABAN 5 MG TABLET 10 MG PO (16:49)
[2023-11-08 20:02] VITALS: BP 114/56; PULSE 86; RESP 18; TEMP 36.3; O2SAT 94
[2023-11-08] MEDS: allopurinoL 100 MG TABLET PO (20:10)
[2023-11-09 04:07] VITALS: BP 138/72; PULSE 90; RESP 18; TEMP 36.5; O2SAT 95
[2023-11-09 05:51] LABS: Basophils Percent Auto 0.6 % (0.2-1.2); Eosinophils Absolute Auto 0.3 K/mm3 (0-0.3); Hematocrit 31.1 % (37.0-47.0); Hemoglobin 9.7 g/dL (12.0-15.0); Immature Granulocyte Absolute 0.43 K/mm3 (0.00-0.031); Lymphocytes Absolute Auto 1.22 K/mm3 (0.9-3.2); Lymphocytes Percent Auto 16.9 % (18.3-44.2); Mean Corpuscular HGB Conc 31.2 g/dl (32-36); Mean Corpuscular Hemoglobin 30.4 pg (26-34); Mean Corpuscular Volume 97.5 fl (80-100); Mean Platelet Volume 10.4 fl (7.4-10.4); Monocytes Absolute Auto 1.2 K/mm3 (0.1-0.6); Monocytes Percent Auto 16.9 % (2.6-8.5); Neutrophils Percent Auto 55.6 % (45.5-73.1); Platelet Count Result 432 k/mm3 (150-375); Red Blood Count 3.19 M/mm3 (4.2-5.4); Red Cell Distribution Width 13.9 % (11.5-14.5); White Blood Count 7.2 K/mm3 (4.5-10.0)
[2023-11-09 06:05] LABS: Alanine Aminotransferase 15 U/L (6-35); Albumin Level 3.7 g/dL (3.5-5.1); Alkaline Phosphatase 109 U/L (38-126); Anion Gap 6 mmol/L (8-16); Aspartate Amino Transferase 22 U/L (14-36); Bilirubin,Total 0.3 mg/dL (0.2-1.3); Blood Urea Nitrogen 21 mg/dL (7-17); Calcium 9.1 mg/dL (8.4-10.2); Carbon Dioxide 30 mmol/L (22-30); Chloride 103 mmol/L (98-107); Estimated Glomerular Filt Rate 27; Glucose 98 mg/dL (65-110); Magnesium 1.8 mg/dL (1.6-2.3); Potassium 4.1 mmol/L (3.4-5.0); Sodium 139 mmol/L (137-145)
[2023-11-09 06:16] LABS: Platelet Estimate Adequate (Adequate)
[2023-11-09 06:17] LABS: Anisocytosis 1+ (NORMAL); Atypical Lymphocytes Present; Hypochromasia 1+ (NORMAL); Ovalocytes 1+ (NORMAL); Schistocytes Rare (NORMAL)
[2023-11-09 08:58] VITALS: O2SAT 98
[2023-11-09] MEDS: CHOLECALCIFEROL 1,000 UNITS TABLET 5000 UNITS PO (09:04)
[2023-11-09] MEDS: APIXABAN 5 MG TABLET 10 MG PO (09:04)
[2023-11-09] MEDS: PANTOPRAZOLE 40 MG TABLET PO (09:04)
[2023-11-09] MEDS: CYANOCOBALAMIN 1,000 MCG TABLET 1000 MCG PO (09:05)
[2023-11-09] MEDS: FERROUS SULFATE 325 MG TABLET DR PO (09:05)
[2023-11-09] MEDS: busPIRone HCL 5 MG TABLET PO (09:05)
[2023-11-09] MEDS: ACETAMINOPHEN 325 MG TABLET 650 MG PO (09:05)
[2023-11-09] MEDS: CITALOPRAM HYDROBROMIDE 5 MG TABLET PO (09:05)
[2023-11-09] MEDS: ASPIRIN 81 MG ENTERIC TABLET PO (09:05)
[2023-11-09 09:06] VITALS: PULSE 107
[2023-11-09] MEDS: METOPROLOL SUCCINATE EXT REL 12.5 MG TABCR PO (09:06)
[2023-11-09] MEDS: IRON SUCROSE COMPLEX 100 MG in SODIUM CHLORIDE 0.9% IV 50 ML 220 MG IVPB (09:19)
--- NOTE | 2023-11-09 12:15 | PM.DS ---
DS: Admitting Diagnosis Discharge Date 11/09/23 Admitting Diagnosis DVT DS: Discharge Diagnosis Discharge Diagnosis (1) DVT (deep venous thrombosis): Qualifiers: Affected thrombotic vein of extremity: other lower extremity vein Chronicity: acute DVT location: lower extremity Laterality: left Qualified Code(s): I82.492 - Acute embolism and thrombosis of other specified deep vein of left lower extremity Code(s): I82.409 - Acute embolism and thrombosis of unspecified deep veins of unspecified lower extremity Status: Acute (2) Dislocation of internal left hip prosthesis: Qualifiers: Encounter type: sequela Qualified Code(s): T84.021S - Dislocation of internal left hip prosthesis, sequela Code(s): T84.021A - Dislocation of internal left hip prosthesis, initial encounter Status: Acute DS: Summary Hospital Course Hospital Course: 83-year-old female with history of prior PE, recently diagnosed DVT to lower left extremity, abdominal aneurysm, iron deficiency anemia, GERD, depression, hypertension, hypercholesterolemia, CKD, presents with increasing left lower extremity edema. Approximately 1 month prior she had a dislocation of prior prosthesis to the left extremity. She presented to [facility] and was subsequently transferred to [facility] ER where there was a successful reduction of dislocation. She was sent back to her assisted living facility with an abduction brace. One week prior to admission she developed on and off swelling of the left lower extremity and it got worse enough for her to come in. She was diagnosed with DVT by outpatient physician and started on Eliquis 3 days prior to admission. During her admission her left lower extremity edema improved greatly and she is mobile with therapy. She did receive a course of heparin GTT. Oncology consulted and they recommended discharging on Eliquis for 10 mg b.i.d. for 7 days and then 5 mg b.i.d.. She has family history of clots and a prior PE herself. She may need to be on thinner indefinitely. The patient is amenable to this plan and will return to assisted living with weight-bearing as tolerated with the abduction brace and abduction pillow while in bed, continue therapy and follow-up with orthopedic outpatient. She understands to notify and nursing staff for further evaluation if she experiences significant pain or increased swelling or increased erythema in the left leg. The patient was DNR during her admission. Time Spent with Patient Time attestation: Total time spent providing and/or coordinating discharge services: Exam Const: General: comfortable and no acute distress Eyes: Pupils: Equal, round and reactive pupils present Neck: Neck: supple Resp: Effort & Inspection: normal respiratory effort Auscultation: clear to auscultation bilaterally, no crackles, no rales and no rhonchi Cardio: Rate: regular rate Rhythm: regular rhythm Heart sounds: no gallops, no murmurs and no rubs GI: GI Palp: Yes Soft to palpation and No Tenderness to palpation present (GI) Extrem: General: edema (Left lower extremity edematous and erythematous, improved. No TTP) DS: Data Data Completed and Pending Labs on day of discharge: Labs from last 24 hours 11/09/23 11/08/23 05:38 15:02 WBC 7.2 RBC 3.19 L Hgb 9.7 L Hct 31.1 L MCV 97.5 MCH 30.4 MCHC 31.2 L RDW 13.9 Plt Count 432 H MPV 10.4 Immature Gran % (Auto) 6.0 H Neut % (Auto) 55.6 Lymph % (Auto) 16.9 L [place] % (Auto) 16.9 H Eos % (Auto) 4.0 Baso % (Auto) 0.6 Lymph # (Auto) 1.22 [place] # (Auto) 1.2 H Eos # (Auto) 0.3 Baso # (Auto) 0.0 Abs Immat Gran (auto) 0.43 H Absolute Neuts (auto) 4.0 Absolute Nucleated RBC 0.0 Nucleated RBC % 0.0 Atypical Lymphocytes Present Platelet Estimate Adequate Hypochromasia 1+ Anisocytosis 1+ Ovalocytes 1+ Schistocytes Rare APTT 118.2 H Sodium 139 Potassium 4.1 C
--- NOTE | 2023-11-09 14:44 | PC.NURSE ---
Pt dc'ing on eliquis. Lengthy conversation had with pt on what dose and how long she needs to be on 10mg BID. Pt verbalizes understanding of when to switch over to 5mg BID. Pt understands to call if she has any questions.
== END 2023-11-09 14:35 | DRG 301 ==
LOC: ANHED 14:12 → ANH3MED 14:55
PROVIDERS: Internal Medicine; Student in an Organized Health Care Education/Training Program; Admitting Provider Hospitalist; Emergency Provider Emergency Medicine; PCP Physician Assistant; Visit Provider General Practice
DX: I82.492 Acute embolism and thrombosis of other specified deep vein of left lower extremity (principal); I12.9 Hypertensive chronic kidney disease with stage 1 through stage 4 chronic kidney disease, or unspecified chronic kidney disease; N18.9 Chronic kidney disease, unspecified; D64.9 Anemia, unspecified; K21.9 Gastro-esophageal reflux disease without esophagitis; K57.30 Diverticulosis of large intestine without perforation or abscess without bleeding; E78.00 Pure hypercholesterolemia, unspecified; M19.90 Unspecified osteoarthritis, unspecified site; F32.A Depression, unspecified; T84.021D Dislocation of internal left hip prosthesis, subsequent encounter; Z96.642 Presence of left artificial hip joint; Z96.652 Presence of left artificial knee joint; Z87.19 Personal history of other diseases of the digestive system; Z79.82 Long term (current) use of aspirin
CPT/HCPCS: 36415; 71275; 80048; 80053; 80069; 82607; 82728; 82746; 83540; 83550; 83735; 85025; 85027; 85610; 85730; 93971; 96365; 96366; 97161; 97165; 97530; 97535; 99285; A9270; G0378; J1644; J1756; J7120; Q9967

== ENCOUNTER 2024-01-02 14:18 | Outpatient (CLI) | payer MEDICARE, OTHER, SELFPAY ==
[2024-01-02 14:38] LABS: Hematocrit 32.1 % (37.0-47.0); Hemoglobin 9.9 g/dL (12.0-15.0); Mean Corpuscular HGB Conc 30.8 g/dl (32-36); Mean Corpuscular Hemoglobin 30.3 pg (26-34); Mean Corpuscular Volume 98.2 fl (80-100); Mean Platelet Volume 9.9 fl (7.4-10.4); Platelet Count Result 403 k/mm3 (150-375); Red Blood Count 3.27 M/mm3 (4.2-5.4); Red Cell Distribution Width 14.3 % (11.5-14.5); White Blood Count 8.7 K/mm3 (4.5-10.0)
[2024-01-02 16:47] LABS: Iron 55 ug/dL (37-170)
[2024-01-02 16:57] LABS: Percent Iron Saturation 18 % (20-50)
[2024-01-02 17:22] LABS: Anion Gap 8 mmol/L (8-16); Blood Urea Nitrogen 34 mg/dL (7-17); Calcium 9.7 mg/dL (8.4-10.2); Carbon Dioxide 28 mmol/L (22-30); Chloride 103 mmol/L (98-107); Estimated Glomerular Filt Rate 22; Glucose 100 mg/dL (65-110); Potassium 4.7 mmol/L (3.4-5.0); Sodium 139 mmol/L (137-145)
[2024-01-02 18:12] LABS: Vitamin B12 > 1000.0 pg/mL (239-931)
== END 2024-01-02 14:19 | disposition home or self-care (01) ==
LOC: ANHLAB 14:23
PROVIDERS: PCP Physician Assistant; Visit Provider Internal Medicine Hematology & Oncology
DX: D64.9 Anemia, unspecified (principal)
CPT/HCPCS: 36415; 80048; 82607; 82728; 83540; 83550; 85027

== ENCOUNTER 2024-01-09 13:06 | Outpatient (CLI) | payer MEDICARE, OTHER, SELFPAY ==
--- NOTE | ~2024-01-09 | US_ITS ---
EXAMINATION:US venous doppler LE LT INDICATION:Extensive DVT of the left lower extremity on prior examination TECHNIQUE: Multiple grayscale, color flow and Doppler images of the left lower extremity deep venous systems were obtained and reviewed. COMPARISON:11/04/2023 FINDINGS: There is persistent deep venous thrombosis of the left femoral, popliteal and gastrocnemius veins. The remainder of the left lower extremity veins are patent. IMPRESSION: 1: Persistent deep venous thrombosis of the left femoral, popliteal and gastrocnemius veins. Reviewed, dictated and finalized at location L. IMPRESSION: 1: Persistent deep venous thrombosis of the left femoral, popliteal and gastroc nemius veins.
== END 2024-01-09 13:07 | disposition home or self-care (01) ==
PROVIDERS: PCP Physician Assistant; Visit Provider Internal Medicine Hematology & Oncology
DX: I82.462 Acute embolism and thrombosis of left calf muscular vein (principal); I82.432 Acute embolism and thrombosis of left popliteal vein; I82.412 Acute embolism and thrombosis of left femoral vein
CPT/HCPCS: 93971

== ENCOUNTER 2024-04-23 14:33 | Outpatient (CLI) | payer MEDICARE, OTHER, SELFPAY ==
[2024-04-23 14:47] LABS: Basophils Percent Auto 0.4 % (0.2-1.2); Eosinophils Absolute Auto 0.2 K/mm3 (0-0.3); Eosinophils Percent Auto 2.4 % (0-4.4); Hematocrit 32.8 % (37.0-47.0); Hemoglobin 10.2 g/dL (12.0-15.0); Immature Granulocyte Absolute 0.28 K/mm3 (0.00-0.031); Immature Granulocyte Percent A 3.7 % (0-0.5); Lymphocytes Absolute Auto 1.86 K/mm3 (0.9-3.2); Lymphocytes Percent Auto 24.9 % (18.3-44.2); Mean Corpuscular HGB Conc 31.1 g/dl (32-36); Mean Corpuscular Hemoglobin 30.4 pg (26-34); Mean Corpuscular Volume 97.9 fl (80-100); Mean Platelet Volume 10.2 fl (7.4-10.4); Monocytes Percent Auto 13.2 % (2.6-8.5); Neutrophils Absolute Auto 4.1 K/mm3 (1.3-6.7); Neutrophils Percent Auto 55.4 % (45.5-73.1); Platelet Count Result 297 k/mm3 (150-375); Red Blood Count 3.35 M/mm3 (4.2-5.4); Red Cell Distribution Width 14.5 % (11.5-14.5); White Blood Count 7.5 K/mm3 (4.5-10.0)
[2024-04-23 16:50] LABS: Anion Gap 12 mmol/L (4-12); Blood Urea Nitrogen 35 mg/dL (7-17); Carbon Dioxide 25 mmol/L (22-30); Chloride 105 mmol/L (98-107); Estimated Glomerular Filt Rate 21; Glucose 120 mg/dL (65-110); Potassium 4.5 mmol/L (3.4-5.0); Sodium 142 mmol/L (137-145)
[2024-04-23 17:07] LABS: Iron 47 ug/dL (37-170)
[2024-04-23 17:16] LABS: Percent Iron Saturation 16 % (20-50)
[2024-04-23 17:38] LABS: Vitamin B12 > 1000.0 pg/mL (239-931)
== END 2024-04-23 14:34 | disposition home or self-care (01) ==
LOC: ANHLAB 14:36
PROVIDERS: Visit Provider Internal Medicine Hematology & Oncology
DX: D64.9 Anemia, unspecified (principal)
CPT/HCPCS: 36415; 80048; 82607; 82728; 83540; 83550; 85025

== ENCOUNTER 2024-05-12 19:23 | Emergency (ER) | payer MEDICARE, OTHER, SELFPAY ==
[2024-05-12] VITALS (17 sets, daily range): BP systolic 172–227; BP diastolic 80–113; PULSE 69–92; RESP 11–31; TEMP 36.6; O2SAT 93–100
--- NOTE | ~2024-05-12 | CT_ITS ---
CT brain wo con Ordering provider: Eric Nix APRN History: 83 years Female with . headache, HTN . Comparison: None. Technique: CT of the head without contrast. The dose-length product was 681 mGy-cm. FINDINGS: BRAIN PARENCHYMA AND CSF SPACES: Mild leukoaraiosis and diffuse cortical atrophy. Mild atheromatous d isease. No midline shift, mass effect or hemorrhage. The brain parenchyma and CSF spaces are otherwi se normal. VISUALIZED PARANASAL SINUSES: Well aerated. MASTOIDS: Well aerated. BONES: The bones appear intact. SOFT TISSUES: Visualized nasopharynx is normal. Superficial soft tissues are normal. IMPRESSION: No acute intracranial findings. Reviewed, dictated and finalized at location A.
--- NOTE | ~2024-05-12 | XR_ITS ---
XR chest 1V portable Ordering provider: Eric Nix APRN History: 83 years Female with . headache, htn . Comparison: June 22, 2022 FINDINGS: MEDIASTINUM: The cardiac silhouette is not enlarged. Prominent both wanda. LUNGS: No infiltrates, effusions or pneumothorax. Multiple granulomas in the left lung. Fibrotic changes of the lung bases. OTHER: No free air under the diaphragm. Degenerative changes of the spine. IMPRESSION: No acute cardiopulmonary pathology. Reviewed, dictated and finalized at location A.
--- NOTE | 2024-05-12 19:25 | ED.RECABL ---
HPI - Recheck/Abnormal Lab/Rx General Chief Complaint: Recheck/Abnormal Lab/Rx Stated Complaint: HTN Time Seen by Provider: 05/12/24 19:26 Source: patient Mode of arrival: ambulatory Limitations: no limitations History of Present Illness HPI narrative: Debra is an 83-year-old female patient presenting to the emergency room today with complaints of high blood pressure and dull headache for the past couple days. She reports that they have been checking her blood pressure at facility that she is staying at and today her blood pressure was systolic 180s over diastolic 100s. Patient denies any visual changes or dizziness. Does report some feeling at time that she cannot catch her breath. History of hypertension in the past but is not currently taking any medications for hypertension as her blood pressure has been fairly low so her primary care doctor discontinued her blood pressure medications. She was seen by Dr. Molina in prescribed prednisone 5 days ago for rotator cuff inflammation. States that her shoulders are now feeling better. Also reports that she is urinating frequently Related Data Home Medications Medication Instructions Recorded Confirmed pantoprazole 40 mg tablet,delayed 40 mg PO QAM 11/01/19 03/28/24 release citalopram 10 mg tablet 5 mg PO QAM 01/09/20 03/28/24 allopurinol 100 mg tablet 100 mg PO HS 11/21/22 03/28/24 buspirone 5 mg tablet 5 mg PO BID 11/21/22 03/28/24 cholecalciferol (vitamin D3) 125 125 mcg PO BID 11/21/22 03/28/24 mcg (5,000 unit) tablet (Vitamin D3) ferrous sulfate 325 mg (65 mg 325 mg PO EVERY OTHER DAY 11/21/22 03/28/24 iron) tablet metoprolol succinate 25 mg 12.5 mg PO QAM 11/21/22 03/28/24 tablet,extended release 24 hr aspirin 81 mg tablet,delayed 81 mg PO DAILY 10/04/23 03/28/24 release (Adult Low Dose Aspirin) mecobalamin (vitamin B12) 2,500 1,000 mcg PO BID 10/04/23 03/28/24 mcg chewable tablet sennosides 8.6 mg-docusate sodium 1 tab-cap PO QHS 11/14/23 03/28/24 50 mg capsule (Senna Plus) Allergies Allergy/AdvReac Type Severity Reaction Status Date / Time felodipine Allergy Severe HEART Verified 03/28/24 11:18 BOUNDING metronidazole Allergy Severe Unknown Verified 03/28/24 11:18 Quinolones Allergy Severe Unknown Verified 03/28/24 11:18 ciprofloxacin Allergy Unknown Unknown Verified 03/28/24 11:18 triamterene Allergy Unknown Unknown Verified 03/28/24 11:18 clindamycin Allergy Fatigued Verified 03/28/24 11:18 doxycycline Allergy Fainting Verified 03/28/24 11:18 atorvastatin AdvReac Mild MUSCLE Verified 03/28/24 11:18 ACHES hydrocodone AdvReac Mild Nausea and Verified 03/28/24 11:18 Vomiting Review of Systems Review of Systems: Pertinent positives per HPI. Patient denies any fever, chills, rash, headache, visual changes, dizziness, cough, runny nose, sore throat, shortness of breath, chest pain, palpitations, nausea, vomiting, diarrhea, constipation, abdominal pain, or any urinary issues. PMFSH Past Medical History Medical History Abdominal aneurysm Anemia Arthritis Bilateral carpal tunnel syndrome Bronchitis Cataracts, bilateral Chronic GERD CKD (chronic kidney disease) Clavicle fracture Depression Diverticulitis GERD (gastroesophageal reflux disease) H/O blood clots H/O: HTN (hypertension) History of pneumonia History of rectal polyps HTN (hypertension), malignant Hx of fracture of rib Hx: UTI (urinary tract infection) Hypercholesteremia Hypoglycemia Kidney disorder Surgical History Surgical History AAA (abdominal aortic aneurysm) H/O bilateral cataract extraction H/O: hysterectomy History of appendectomy History of bilateral carpal tunnel release History of bladder surgery History of colon surgery History of hip replacement Left bipolar October 2019 History of left knee replacement History of local e
--- NOTE | 2024-05-12 19:28 | ECG_ITS ---
Test Date: 2024-05-12 19:30:17 Measurements Intervals [place] Rate: 81 P: 60 NC: 173 QRS: 21 QRSD: 89 T: 30 QT: 363 QTc: 424 Interpretive Statements SINUS RHYTHM POSSIBLE LEFT ATRIAL ENLARGEMENT BASELINE ARTIFACT- I, II, III, AVR, AVL, AVF, V4-V6 BORDERLINE ECG No previous ECG available for comparison Electronically Signed On 05-12-2024 21:10:17 CDT by Diaz Walsh D.O.
[2024-05-12 19:45] LABS: Basophils Percent Auto 0.3 % (0.2-1.2); Eosinophils Percent Auto 0.2 % (0-4.4); Hematocrit 34.6 % (37.0-47.0); Hemoglobin 10.9 g/dL (12.0-15.0); Immature Granulocyte Absolute 0.56 K/mm3 (0.00-0.031); Immature Granulocyte Percent A 4.7 % (0-0.5); Lymphocytes Absolute Auto 1.87 K/mm3 (0.9-3.2); Lymphocytes Percent Auto 15.7 % (18.3-44.2); Mean Corpuscular HGB Conc 31.5 g/dl (32-36); Mean Corpuscular Hemoglobin 30.4 pg (26-34); Mean Corpuscular Volume 96.6 fl (80-100); Mean Platelet Volume 11.1 fl (7.4-10.4); Monocytes Absolute Auto 1.1 K/mm3 (0.1-0.6); Monocytes Percent Auto 9.1 % (2.6-8.5); Neutrophils Absolute Auto 8.3 K/mm3 (1.3-6.7); Platelet Count Result 412 k/mm3 (150-375); Red Blood Count 3.58 M/mm3 (4.2-5.4); Red Cell Distribution Width 14.2 % (11.5-14.5); White Blood Count 11.9 K/mm3 (4.5-10.0)
[2024-05-12 19:56] LABS: Prothrombin Time 13.4 Seconds (11.1-14.7)
[2024-05-12 19:57] LABS: Partial Thromboplastin Time 29.2 Seconds (22.3-36.8)
[2024-05-12 20:03] LABS: Alanine Aminotransferase 14 U/L (6-35); Albumin Level 4.5 g/dL (3.5-5.1); Alkaline Phosphatase 99 U/L (38-126); Anion Gap 11 mmol/L (4-12); Aspartate Amino Transferase 18 U/L (14-36); Bilirubin,Total 0.3 mg/dL (0.2-1.3); Blood Urea Nitrogen 48 mg/dL (7-17); Calcium 9.3 mg/dL (8.4-10.2); Carbon Dioxide 27 mmol/L (22-30); Chloride 101 mmol/L (98-107); Estimated CRCL calculation 19 ml/min; Estimated Glomerular Filt Rate 22; Glucose 117 mg/dL (65-110); Potassium 4.5 mmol/L (3.4-5.0); Sodium 139 mmol/L (137-145)
[2024-05-12 20:05] LABS: Appearance Urine Clear (Clear); Bacteria Urine None Seen /hpf; Bilirubin Urine Negative (Negative); Blood Urine Negative (Negative); Color Urine Yellow (Yellow); Glucose Urine UA Negative (Negative); Ketones Urine Negative (Negative); Leukocyte Esterase Ur Negative LEU/UL (Negative); Nitrate Urine Negative (Negative); Non Pathogenic Casts 0-2; Protein Urine 3+ mg/dL (Negative); RBC Urine 0-2 /hpf (0-2); Specific Grav Ur 1.007 (1.001-1.035); Squamous Epithelial Cell Urine None Seen /hpf (Few); Urobilinogen Urine 0.2 mg/dL (<2.0); WBC Urine 0-5 /hpf (0-3); pH Urine 6.5 (5.0-9.0)
[2024-05-12 20:07] LABS: Add Urine Microscopic? YES
[2024-05-12 20:18] LABS: NT Pro B Type Natriuretic Pept 2200 pg/mL (19.9-100); Troponin I < 0.012 ng/mL (0.000-0.034)
--- NOTE | 2024-05-12 20:52 | PC.NURSE ---
this rn spoke with Jayy pt son to give an update on patient condition.
[2024-05-12] MEDS: METOPROLOL TARTRATE INJ 5 MG/5 ML VIAL IV PUSH ×2 (21:52→22:55)
--- NOTE | 2024-05-12 22:42 | ECG_ITS ---
Test Date: 2024-05-12 22:49:08 Measurements Intervals [place] Rate: 78 P: 68 NM: 187 QRS: 28 QRSD: 84 T: 34 QT: 363 QTc: 414 Interpretive Statements SINUS RHYTHM MINIMAL Q WAVES- ANTEROLATERAL LEADS BASELINE ARTIFACT- I, II, III, AVR, AVL, AVF, 4-V6 BORDERLINE ECG Compared to ECG 05/12/2024 19:30:17 No significant changes Electronically Signed On 05-13-2024 06:11:11 CDT by Diaz Walsh D.O.
--- NOTE | 2024-05-12 22:49 | PC.NURSE ---
per edp Eric patient to receive an additional 5mg of metoprolol iv push. this rn used closed loop communication to confirm route/ dose/ time/ patient/ medication. DANAE Reyes confirmed.
[2024-05-12 23:23] LABS: Troponin I < 0.012 ng/mL (0.000-0.034)
[2024-05-13 00:01] VITALS: BP 179/57; PULSE 65; RESP 12; O2SAT 96
[2024-05-13 00:16] VITALS: BP 175/66; PULSE 68; RESP 11; O2SAT 96
== END 2024-05-13 01:20 ==
PROVIDERS: Emergency Provider Nurse Practitioner Family
DX: I12.9 Hypertensive chronic kidney disease with stage 1 through stage 4 chronic kidney disease, or unspecified chronic kidney disease (principal); N18.9 Chronic kidney disease, unspecified; I16.9 Hypertensive crisis, unspecified; R94.09 Abnormal results of other function studies of central nervous system; D64.9 Anemia, unspecified; M19.90 Unspecified osteoarthritis, unspecified site; K21.9 Gastro-esophageal reflux disease without esophagitis; Z87.440 Personal history of urinary (tract) infections; R06.02 Shortness of breath
CPT/HCPCS: 36415; 70450; 71045; 80053; 81001; 83880; 84484; 85025; 85610; 85730; 93005; 96374; 96376; 99284

== ENCOUNTER 2024-11-29 17:55 | Inpatient (IN) | payer MEDICARE, OTHER, SELFPAY ==
[2024-11-29] VITALS (9 sets, daily range): BP systolic 105–143; BP diastolic 7–61; PULSE 90–98; RESP 16–23; TEMP 36.6–37.1; O2SAT 92–100
--- NOTE | ~2024-11-29 | US_ITS ---
EXAMINATION: US renal BI DATE: 12/03/2024 08:34 INDICATION: Acute on chronic kidney disease. TECHNIQUE: Multiple ultrasound grayscale images of the kidneys were obtained. COMPARISON: CT abdomen and pelvis 04/16/2023 FINDINGS: The right kidney measures 8.8 x 4.9 x 5.2 cm. The left kidney measures 8.5 x 5.2 x 4.7 cm. The kidney s demonstrate normal parenchymal echogenicity. There are cysts in the kidneys measuring up to 16 mm o n the right. There is no hydronephrosis. The bladder is normal. IMPRESSION: 1. Mild atrophy of the kidneys. No hydronephrosis. Reviewed, dictated and finalized at location A. OR NET PROGRAMMER
--- NOTE | ~2024-11-29 | XR_ITS ---
CHEST RADIOGRAPH CLINICAL HISTORY: SOB . COMPARISON: 05/12/2024 TECHNIQUE: Single portable view of the chest. FINDINGS The cardiomediastinal silhouette is unremarkable. Multiple calcified granulomas within the left hemithorax. Postoperative change within the left upper lobe. The remainder of the lungs are clear. IMPRESSION: No focal infiltrate or effusion. Reviewed, dictated and finalized at location A. OR DIRECTOR OF GLOBAL [employer] TECH[employer]UT[employer]
--- OUTSIDE RECORDS SUMMARY | 2024-11-29 17:57 | XMS_ITS | Clinical Summary ---
Author Organization [facility] Address [address] [place] [address] Phone Care Team Providers Care Warehouse Supervisor Name Role Phone Unavailable Primary Care Provider Unavailabl e Allergies Active Allergy Reactions Criticality Noted Date Comments Atorvastatin Rash,Unknown Low 10/03/2019 Doxycycline Syncope High 04/09/2020 Felodipine Unknown 10/03/2019 Gemfibrozil Unknown 12/12/2019 Hydrocodone Unknown 10/03/2019 Hydrocodone-Acetaminophen Unknown 12/12/2019 Metronidazole Unknown 10/03/2019 Quinolones Unknown 10/03/2019 Sulfa (Sulfonamide Antibiotics) Nausea and Vomiting Low 11/02/2022 Medications allopurinoL (ZYLOPRIM) 100 mg tablet Take 1 Tablet by mouth daily. 11/20/2023 Active apixaban (ELIQUIS) 5 mg tablet Take 5 mg by mouth 2 times daily. 11/09/2023 Active aspirin (ECOTRIN EC) 81 mg Tablet, Delayed Release (E.C.) Take 81 mg by mouth daily. Active busPIRone (BUSPAR) 5 mg tablet Take 5 mg by mouth 2 times daily. 10/20/2023 Active cholecalciferol , Vitamin D3, 125 mcg (5,000 unit) Capsule Take 1 Capsule by mouth daily. 11/21/2023 Active citalopram (CeleXA) 10 mg tablet Take 10 mg by mouth daily. 11/16/2022 Active cyanocobalamin, vitamin B-12, 2,500 mcg Tablet, Chewable Take by mouth daily. Active metoprolol succinate (TOPROL XL) 25 mg Extended Release 24 hour tablet TAKE 1/2 TABLET(12.5 MG) BY MOUTH DAILY 02/03/2023 Active pantoprazole (PROTONIX) 40 mg Tablet, Delayed Release (E.C.) Take 40 mg by mouth daily. 10/20/2023 Active acetaminophen (TYLENOL) 500 mg Capsule Take 1,000 mg by mouth every 6 hours. 12/15/2022 Active ferrous sulfate 325 mg (65 mg iron) tablet Take 325 mg by mouth daily. Active sennosides/docu sate sodium (SENNA PLUS ORAL) Take by mouth. Active METOPROLOL TARTRATE ORAL Take 12.5 mg by mouth daily. Active Active Problems No known active problems Encounters Date Type Department Care Team Description 11/12/2024 External Device Data [facility] ABSTRACTION Provider, Abstract 11/06/2024 External Device Data [facility] ABSTRACTION Provider, Abstract 11/05/2024 External Device Data [facility] ABSTRACTION Provider, Abstract 09/03/2024 2:15 PM HEALTH EDUCATION ASSISTANT Office Visit [facility] Oncology and Hematology [facility] [address] [place] [address] Nilson Edmonds MD Chronic anemia (Primary Dx) 09/03/2024 Orders Only [facility] Oncology and Hematology [facility] [address] [place] [address] Scanning, Provider 09/02/2024 Telephone [facility] Oncology and Hematology [facility] [address] [place] [address] Nilson Edmonds MD blood work for appointment from Last 3 Months Family History Medical History Relation Name Comments Heart Disease Brother Diabetes Daughter Heart Disease Father Cancer Son 1 Diabetes Son 2 Diabetes Son 3 Relation Name Status Comments Brother Alive Daughter Alive Father Mother Son 1 Son 2 Alive Son 3 Alive Son 4 Alive Social History Tobacco Use Types Packs/Day Years Used Date Smoking Tobacco: Former Cigarettes Smokeless Tobacco: Never Alcohol Use Standard Drinks/Week Comments Not Currently 0 (1 standard drink = 0.6 oz pur e alcohol) Comments Unknown Sex and Gender Information Value Date Recorded Sex Assigned at Not on file Legal Sex Female 12:58 PM HEALTH EDUCATION ASSISTANT Gender Identity Not on file Sexual Orientation Not on file Last Filed Vital Signs Vital Sign Reading Time Taken Comments Blood Pressure 121/69 09/03/2024 2:04 PM HEALTH EDUCATION ASSISTANT Pulse 99 09/03/2024 2:04 PM HEALTH EDUCATION ASSISTANT Temperature 36.7 C (98 F) 09/03/2024 2:04 PM HEALTH EDUCATION ASSISTANT Respiratory Rate 14 09/03/2024 2:04 PM HEALTH EDUCATION ASSISTANT Oxygen Saturation 94% 09/03/2024 2:04 PM HEALTH EDUCATION ASSISTANT Inhaled Oxygen Concentration - - Weight 83.5 kg (184 lb) 09/03/2024 2:04 PM HEALTH EDUCATION ASSISTANT Height 175.3 cm (5' 9 ) 01/02/2024 1:23 PM CDT Body Mass Index 27.17 01/02/2024 1:23 PM CDT Plan of Treatment Upcoming Encounters Date Type Department Care Team (Late st Contact Info) Description 03/04/2025 1:15 PM CDT Office Visit [facility] Oncology and Hematology - [place] [address] [facility] [address] [place] [address] Nilson Edmonds MD [address] [facility] [address] [place] [address] Health Maintenance Due Date Last Done Comments DTAP/TDAP/TD VACCINES (1 - Tdap) 1959 ZOSTER VACCINE (1 of 2) 1959 RSV VACCINE (60+ or ) (1 - 1-dose 75+ series) 2014 PNEUMOCOCCAL VACCINE 65+ YEA RS (2 of 2 - PPSV23) 10/08/2020 08/13/2020 COVID-19 Vaccine (3 - Pfizer risk series) 01/12/2021 12/15/2020, 11/24/2020 INFLUENZA VACCINE (#1) 2024 07/12/2021, 2012 OSTEOPOROSIS SCREENING Completed 3, 11/01/2022, 11/01/2022, Additional history exists Insurance MEDICARE PART A AND B [facility] [id number]
--- OUTSIDE RECORDS SUMMARY | 2024-11-29 17:57 | XMS_ITS | Encounter Summary ---
Author Organization [facility] Address [facility] [place] [address] Care Team Providers Care Fishing Tool Operator Name Role Phone Malik Nieves MD Unavailable [phone] Roopa [place] Primary Care Provider [phone] Encounter Details Date Type Department Care Team (Late st Contact Info) Description 03/31/2023 Medication Management [facility] Family & Internal Medicine [facility] [address] [place] [address] [place] [address] [place] [address] Social History Tobacco Use Types Packs/Day Years Used Date Smoking Tobacco: Former Cigarettes 1 20 Smokeless Tobacco: Never Comments:quit 25 years ago Alcohol Use Standard Drinks/Week Comments No 0 (1 standard drink = 0.6 oz pur e alcohol) AUDIT-C Answer Date Recorded Frequency of Alcohol Consumption Never 10/03/2019 Average Number of Drinks Not on file 019 Frequency of Binge Drinking Not on file 09/15 PHQ-2 Answer Date Recorded Patient Health Questionnaire-2 Score 0 01/05/2023 Comments No Sex and Gender Information Value Date Recorded Sex Assigned at Not on file Legal Sex Female 6:13 PM CDT Gender Identity Not on file Sexual Orientation Not on file documented as of this encounter Functional Status * RETIRED Are you deaf or do you have serious difficulty hearing Answer Date of Assessment Author Status No 10/03/2019 7:03 PM MANAGER FOOD BEVERAGE Activ e documented as of this encounter Plan of Treatment Upcoming Encounters Date Type Department Care Team (Late st Contact Info) Description 12/12/2024 10:00 AM MANAGER FOOD BEVERAGE Appointment [facility] Ultrasound [address] [place] [address] Reema Rachel FNP [address] [facility] [address] [place] [address] 12/24/2024 10:00 AM CDT Office Visit [facility] Family & Internal Medicine - [place] [address] [place] [address] [place] [address] [place], [place] [id number] 01/30/2025 11:30 AM CDT Office Visit [facility] [address] [place] [phone] Malik Nieves MD Three [facility]. [address] [place] [address] 03/06/2025 2:00 PM CDT Office Visit [facility] - [facility] [address] [facility], [address] [place] [id number] Linus Conn MD 3 [facility], [address] [place] [address] documented as of this encounter Visit Diagnoses Diagnosis Acute cystitis without hematuria- Primary Acute cystitis documented in this encounter Additional Health Concerns Assessment Noted Time PHQ-9 Depression Total Score: 0 11/08/19 12:30 PM MANAGER FOOD BEVERAGE documented as of this encounter Care Teams Fishing Tool Operator Relationship Specialty [place] [address] [place], [place] [id number] PCP - General PHYSICIAN BUILDING CONSTRUCTION ENGINEER 08/13/20 Malik Nieves MD Three [facility]. [address] [address] [place] Manager Information CARDIOVASCULAR DISEASE 10/28/19 documented as of this encounter
--- OUTSIDE RECORDS SUMMARY | 2024-11-29 17:57 | XMS_ITS | Clinical Summary ---
Author Organization [facility] [place] [address] Address [address] [place] [address] Care Team Providers Care Acid Maker Name Role Phone Linus Conn MD Unavailable [phone] Roopa Dover Primary Care Provider Мария Palmer MD Unavailable [phone] Connor Baxter MD Unavailable [phone] Allergies Active Allergy Reactions Criticality Noted Date Comments Atorvastatin Ciprofloxacin Doxycycline Syncope High 04/09/2020 Gemfibrozil Unknown 12/12/2019 Hydrocodone Hydrocodone-Acetaminophen Unknown 12/12/2019 Metronidazole Felodipine Unknown 04/09/[address] (PROTONIX) 40 mg EC tablet pantoprazole 40 mg tablet,delayed release 0 Active citalopram (CeleXA) 10 mg tablet Take 0.5 tablets (5 mg total) by mouth daily Active busPIRone (BUSPAR) 5 mg tablet Take 1 tablet (5 mg total) by mouth nightly 1 Active cholecalciferol (VITAMIN D-3) 5,000 unit tablet Take 1 tablet (5,000 Units total) by mouth 2 (two) times a day Active allopurinoL (ZYLOPRIM) 100 mg tablet Take 1 tablet (100 mg total) by mouth nightly 2 Active traMADoL (ULTRAM) 50 mg tablet Take 1 tablet (50 mg total) by mouth every 8 (eight) hours as needed for pain 42 tablet 3 Active Additional Information Patient not taking.Reported on 06/26/2024 acetaminophen 500 mg capsuleIndicati ons:Pain Take 2 capsules (1,000 mg total) by mouth every 8 (eight) hours 90 tablet 3 Active cyanocobalamin (Vitamin B-12) 1,000 mcg tabletIndicatio ns:Prevention of Vitamin B12 Deficiency Take 2.5 tablets (2,500 mcg total) by mouth 2 (two) times a day Active aspirin 81 mg enteric coated tablet Take 1 tablet (81 mg total) by mouth daily Active cyclobenzaprine (FLEXERIL) 5 mg tablet Take 1 tablet (5 mg total) by mouth 2 (two) times a day as needed for muscle spasms 3 Active lidocaine (LIDODERM) 5 % Place 1 patch on the skin daily Remove & discard patch within 12 hours or as directed by MD. 3 Active Eliquis 5 mg tablet Take 1 tablet (5 mg total) by mouth every 12 (twelve) hours 4 Active Active Problems Problem Noted Date Diagnosed Date Hypoxia 09/04/2023 Assessment & Plan (09/05/2023 12:25 PM VICE PRESIDENT UNDERWRITING): Weaned to 2L NC since hypoxia during sedation for reduction. CXR w/ atelectasis and possible pulmonary edema. Appears euvolemic on exam. -pulmonary hygiene: OOBTC, IS -wean O2 as tolerated Dislocation of hip joint prosthesis, initial enc ounter 09/03/2023 Assessment & Plan (09/05/2023 12:23 PM VICE PRESIDENT UNDERWRITING): Hx of TANYA c/b periprosthetic fracture s/p revision 01/2023. Presented with non-traumatic hip dislocation s/p reduction in ED. CT showed inferior rotation w/o acute fracture -Ortho c/s: WBAT in brace, brace at all times, abduction pillow while in bed -PT/OT rec: inpatient rehab -Patient prefers to follow-up with local orthopedic surgeon she previously established with Acute on chronic kidney failure 09/03/2023 Assessment & Plan (09/05/2023 12:24 PM VICE PRESIDENT UNDERWRITING): Cr 2.38 on admit from [facility] ~1.3-1.8. F/b renal at [facility], attributed to chronic HTN/nsaid use Suspected hypovolemia; possible component of CKD progression; less likely related to AAA repair/renal stents. CXR suggestive of possible pulmonary edema but appears hypovolemic on exam and ED POCUS with collapsible IVC/hyperdynamic LVSF -s/p IVF in ED, trend Is/Os Cr 2.11 (09/03), Cr prior to admission 2.11 (08/31), likely at baseline of CKD4 -Most recent Cr 2.01 -Avoid renal toxins, renally dose meds High serum lactic acid 09/03/2023 Assessment & Plan (09/04/2023 5:19 PM VICE PRESIDENT UNDERWRITING): RESOVLED Mildly elevated at 2.3 with mildly low blood pressure initially, improved with IVF and repositioning cuff to R arm (lower on left per pt since AAA repair). Asymptomatic/no other acute symptoms, normalized on repeat after IVF Suspected component of hypovolemia -Low suspicion for sepsis/infection, hold further abx (s/p vanc/cefe in ED) -CTM BP Adjustment reaction with anxiety and depression 09/02/2023 Assessment & Plan (09/03/2023 3:42 AM VICE PRESIDENT UNDERWRITING): -Continue home buspar, celexa Periprosthetic hip fracture, sequela 01/16/2023 Critical polytrauma 12/11/2022 Agata-prosthetic subtrochanteric femur fracture 0 12/10/2022 Overview (12/11/2022): Added automatically from request for surgery [id number] Albuminuria 12/21/2021 CKD (chronic kidney disease) stage 4, GFR 15-29 ml/min ([facility]) 12/21/2021 [place]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 Plan: Continue Khann recommendations as per primary care provider. Assessment & Plan (01/14/2021 10:25 AM CDT): Impression: Stable chronic hyperlipidemia. Plan: Medications reviewed I recommend continuing daily statin regimen as directed by patient's primary care physician. Stage 3b chronic kidney disease 01/05/2021 Arthropathy of hand 12/12/2019 Acquired trigger finger 12/12/2019 Degenerative joint disease of hand 12/12/2019 Disorder of bursae of shoulder region 12/12/2019 Enthesopathy of hip region 12/12/2019 Hand joint pain 12/12/2019 Primary localized osteoarthrosis of shoulder reg ion 12/12/2019 Juxtarenal abdominal aortic aneurysm (AAA) witho ut rupture 12/09/2019 Assessment & Plan (06/26/2024 11:26 AM CDT): Impression: Status post EVAR with bilateral renal snorkel stents. She remains asymptomatic. Patent endograft repair with aneurysm sac measuring 4.0 cm and patent renal stents. No endoleaks seen. Plan: Continue ongoing risk factor modifications. - Continue ASA and eliquis - follow up in 1 year for re-evaluation with renal and abdominal aortic duplex. Assessment & Plan (06/15/2023 12:03 PM CDT): Impression: Patient is status post endovascular repair of an infrarenal abdominal aortic aneurysms with bilateral renal snorkel stents. She remains asymptomatic. Abdominal aortic aneurysms is stable measuring 4.6 cm with no endoleak seen. Endograft repair and bilateral renal stents are patent. Plan: Continue ongoing risk factor modifications. -patient to follow-up in 1 year for re-evaluation with repeat renal and aortic duplex. Assessment & Plan (01/14/2022 3:31 PM CDT): Impression: Patient is status post endovascular repair of an infrarenal abdominal aortic aneurysm. Patient is asymptomatic. Aortic duplex revealed a patent endo repair with no endoleak. Abdominal aortic aneurysm sac continues to decrease in size and is currently measuring approximately 4.6 cm from 4.9 cm. Plan: Recommend ongoing risk factor modifications. Patient to follow-up in 1 year for re-evaluation with repeat aortic duplex. Assessment & Plan (01/14/2021 11:08 AM CDT): Impression: Patient continues do well status post endovascular repair of a large infrarenal abdominal aortic aneurysm. Surveillance CTA abdomen pelvis revealed widely intact endo repair with no evidence of endoleak and a kenaitze aneurysm sac that continues to decrease in size. Plan: Recommend ongoing risk factor modifications and follow-up in 1 year for re-evaluation with aortic duplex surveillance. Assessment & Plan (12/17/2019 6:52 PM VICE PRESIDENT UNDERWRITING): Impression: Patient recovering well status post endovascular repair of her infrarenal AAA. She also had exposure of her left axillary artery during the procedure in which her surgical wound has healed well. Hunter removed in office without any complications, patient tolerated well. Plan: Patient follow-up in 1 month for re-evaluation. She is to have baseline CTA abdomen pelvis performed in the interim and will discussed test results during her next visit. Deep vein thrombosis (DVT) w ith pulmonary embolism present on admission ([facility]) 12/09/2019 Gastroesophageal reflux disease with stricture 0 12/09/2019 Assessment & Plan (09/03/2023 3:40 AM VICE PRESIDENT UNDERWRITING): -PPI History of removal of joint prosthesis of left hip due to infection 12/09/2019 Other acute postprocedural pain 12/09/2019 Renal insufficiency 12/09/2019 Sinus tachycardia 12/09/2019 Primary hypertension 12/09/2019 Assessment & Plan (06/26/2024 11:23 AM CDT): Impression: Elevated blood pressure this visit. She remains asymptomatic. Plan: Patient taken off of antihypertensive medications. Recommend monitoring blood pressure and notify PCP of elevated pressures for further recommendations. Assessment & Plan (09/05/2023 12:23 PM VICE PRESIDENT UNDERWRITING): -Hold lisinopril & metoprolol in setting of KAHLIL on CKD & soft BP Assessment & Plan (06/15/2023 12:03 PM CDT): Impression: Chronic and stable. Plan: Continue lisinopril and metoprolol Assessment & Plan (01/14/2022 3:34 PM CDT): Impression: Chronic stable hypertension, controlled medications. Blood pressure stable this office visit. Plan: Medications reviewed, no changes made. Continue blood pressure management as per primary care provider. Assessment & Plan (01/14/2021 10:24 AM CDT): Impression: Stable chronic hypertension. Plan: Medications reviewed and recommend continuing daily antihypertensive regimen as directed by patient's primary care physician. Resolved Problems Problem Noted Date Diagnosed Date Resolved Date Well child examination 12/09/201909/03 Immunizations Name Administration Dates Next Due Influenza, Trivalent, IM (MDV) 07/30/2013 Influenza, Unspecified 07/12/2021,08/21/2020, Pfizer SARS-CoV-2 Monovalent Vaccination (12+ Yrs) PURPLE 12/15/2020,11/24/2020 Pneumococcal Conjugate PCV 13 08/13/2020 Surgical History Surgery Date Site/Laterality Comments KNEE SURGERY 10/16/2006 - 10/15/2007 Left Knee Surgery ABDOMINAL AORTIC ANEURYSM REPAIR 11/18/2019 placement proximal endoprosthesis aortic extension; bilateral renal artery stent; IVC filter insertion COLONOSCOPY hx of polyps VAGINAL DELIVERY x 5 HYSTERECTOMY SHOULDER SURGERY FLUORO GUIDED ASPIRATION OR INJECTION LARGE JOINT LEFT 01/17/2023 Left Medical History Medical History Date Comments Hypertension Hypertension Anemia Anxiety Chronic kidney disease PONV (postoperative nausea and vomiting) Family History Medical History Relation Name Comments Heart attack Mother's Brother 1 1 Myocardia l Infarction; Cause of : Myocardial Infarction Heart attack Mother's Brother 2 2 Myocardia l Infarction; Cause of : Myocardial Infarction Heart attack Mother's Brother 3 3 Myocardia l Infarction; Cause of : Myocardial Infarction Heart attack Mother's Brother 4 4 Myocardia l Infarction; Cause of : Myocardial Infarction Anesthesia problems Neg Hx Relation Name Status Comments Mother's Brother 1 1 Mother's Brother 2 2 Mother's Brother 3 3 Mother's Brother 4 4 Social History Tobacco Use Types Packs/Day Years Used Date Smoking Tobacco: Former Cigarettes 0.5 50 1 1989 Smokeless Tobacco: Never Tobacco Cessation:Counseling Given: Not Answered Comments:Thirty-five pack-year history of tobacco use, quit several years ago Alcohol Use Standard Drinks/Week Comments No 0 (1 standard drink = 0.6 oz pur e alcohol) AUDIT-C Answer Date Recorded Q1: How often do you have a drink containing alc ohol? Never 01/21/2023 Average Number of Drinks Not on file 023 Frequency of Binge Drinking Not on file 05/2023 Personal Safety Answer Date Recorded Have you ever been in or are you currently in a harmful physical or emotional relationship or is someone making you feel afraid or unsafe? Denies 09/03/2023 Comments No Sex and Gender Information Value Date Recorded Sex Assigned at Not on file Legal Sex Female 2:56 AM VICE PRESIDENT UNDERWRITING Gender Identity Not on file Sexual Orientation Not on file Obstetrics History Last Filed Vital Signs Vital Sign Reading Time Taken Comments Blood Pressure 182/77 06/26/2024 9:35 AM CDT Pulse 98 06/26/2024 9:35 AM CDT Temperature 36.7 C (98.1 F) 09/05/2023 1:05 PM VICE PRESIDENT UNDERWRITING Respiratory Rate 18 09/05/2023 1:05 PM VICE PRESIDENT UNDERWRITING Oxygen Saturation 95% 09/05/2023 1:05 PM VICE PRESIDENT UNDERWRITING Inhaled Oxygen Concentration - - Weight 76.7 kg (169 lb) 06/26/2024 9:35 AM CDT Height 175.3 cm (5' 9 ) 06/26/2024 9:35 AM CDT Body Mass Index 24.96 06/26/2024 9:35 AM CDT Plan of Treatment Health Maintenance Due Date Last Done Comments Depression Screening 1940 Osteoporosis Screening-Bone Density Scan 1940 DTaP/Tdap/Td Vaccine (1 - Tdap) 1950 Hepatitis B Screening 1957 Zoster Vaccine (1 of 2) 1989 Well Visit 65+ 2004 Pneumococcal vaccine 65+ (2 of 2 - PPSV23 or PCV20) 08/13/2021 08/13/2020 Covid-19 Vaccine (3 - 2023-2 5 season) 2024 12/15/2020, 11/24/2020 Influenza Vaccine (#1) 2024 , 07/12/2021, 08/21/2020, Additional history exists Fall Risk Assessment 09/05/2024 09/05/2023 Medical Devices Implanted Type Area Engine Builder Device Identifier Shelf Expiration Date Model / Serial / Lot Ball Socket-Joint Left: Hip [employer] Gmrs 50mm Knee Extension Femoral Cocr 6495-6-050 - [id number] Implanted:Qty: 1 on 01/21/2023 by Ramon Mcknight MD at [facility] Left: Hip [employer] [id number] 09/08/2026 6495-6-05 0 / / [id number] [employer]/Or tho Prep-Im Plug [place] Sponge Suction Hip Kit Thr Latex Free [id number] - [id number] Implanted:Qty: 1 on 01/21/2023 by Ramon Mcknight MD at [facility] Left: Hip [employer]/Or tho [id number] 07/18/2032 [id number] / / [id number] [employer] Simplex P Full Dose Radiopaque Preblend Cement Bone Tobramycin 6197-9-001 - [id number] Implanted:Qty: 2 on 01/21/2023 by Ramon Mcknight MD at [facility] Left: Hip [employer] [id number] 07/15/2024 6197-9-00 1 / / [id number] [employer] Uhr 50mm 28mm Hip [place] Head Bipolar Cocr Uhmwpe Uh1-50-28 - [id number] Implanted:Qty: 1 on 01/21/2023 by Ramon Mcknight MD at [facility] Left: Hip [employer] [id number] 09/12/2026 UH1-50-28 / / [id number] [employer] Mrs 11mm 127mm Cemented Body Section Knee Standard Straight Stem 6485-3-011 - [id number] Implanted:Qty: 1 on 01/21/2023 by Ramon Mcknight MD at [facility] Left: Hip [employer] [id number] 11/07/2026 6485-3-01 1 / / [id number] [employer] V40 Lfit 28mm Hip +0mm Offset Head Femoral Cocr 6260-9-128 - [id number] Implanted:Qty: 1 on 01/21/2023 by Ramon Mcknight MD at [facility] Left: Hip [employer] [id number] 12/08/2026 6260-9-12 8 / [id number] [employer] Gmrs Hip Standard Neutral Component Femoral Cocr 6495-1-001 - [id number] Implanted:Qty: 1 on 01/21/2023 by Ramon Mcknight MD at [facility] Left: Hip [employer] [id number] 08/12/2027 6495-1-00 1 / / [id number] Explanted Type Area Engine Builder Device Identifier Shelf Expiration Date Model / Serial / Lot [employer] [facility] 2mm Set Hip Cable/Sleeve Orthopedic [employer] 6704-0-510 - [id number] Explanted:Qty: 2 on 01/21/2023 by Ramon Mcknight MD at [facility] Left: Hip [employer] [id number] 07/30/2026 6704-0-51 0 / [id number] [employer] Ringloc Bio-[place] Ii 50mm 28mm 2 Articulate Surface Lock - [id number] Explanted:Qty: 1 on 01/21/2023 by Ramon Mcknight MD at [facility] Left: Hip [employer] [id number] 08/24/2027 / [id number] [employer] G7 28mm Type 1 Hip Standard Offset Head Femoral Cocr [id number] - [id number] Explanted:Qty: 1 on 01/21/2023 by Ramon Mcknight MD at [facility] Left: Hip [employer] [id number] 09/22/2032 [id number] / / [id number] Insurance MEDICARE [facility] [employer] PLAN MEDICARE [facility] HEALTH PLAN MEDICARE [facility] PLAN [facility] HMO/PPO Address: [address] [place] [address] [facility] Advance Directives For more information, please contact: [phone] Documents on File Type Date Recorded Patient Glass Cut Off Tender Expl anation ADVANCE DIRECTIVE 12/11/2022 1:43 AM POWER OF SAFETY ADVISOR-MEDICAL * Full Code (Latest Code Status on File) Date Activated Date Inactivated Comments 09/03/2023 5:50 AM 09/05/2023 10:29 PM * Full Code Date Activated Date Inactivated Comments 01/21/2023 4:37 PM 01/25/2023 7:01 PM * Full Code Date Activated Date Inactivated Comments 01/16/2023 10:23 PM 01/21/2023 4:37 PM * LIMITED - No CPR Date Activated Date Inactivated Comments 12/11/2022 8:18 PM 12/15/2022 9:11 PM Question Answer Comments Provide aggressive medical m anagement before a full cardiopulmonary arrest occurs. Use antibiotics, IV Fluids, and medical treatment unless specifically selected below: No intubationNo cardioversionNo internal / external pacemaker Discussed with the following attending physician: Dr. Connor Hartman * Full Code Date Activated Date Inactivated Comments 12/11/2022 7:32 AM 12/11/2022 8:18 PM Care Teams Acid Maker Relationship Specialty Start Date End Date Roopa Dover PA PCP - General Physician Ink Maker 07/21/21 Linus Conn MD Consulting Physician Nephrology 06/30/21 Мария Palmer MD [address] [place] [address] Referring Physician Plastic Surgery 12/15/22 Connor Baxter MD [address] [facility] [address] [address] Surgeon Vascular Surgery 01/17/23
--- OUTSIDE RECORDS SUMMARY | 2024-11-29 17:57 | XMS_ITS | Clinical Summary ---
Author Organization [facility] Address [address] [place] [address] Care Team Providers Care Machine Baster Name Role Phone Malik Nieves MD Unavailable [phone] Roopa Dover Primary Care Provider [phone] Allergies Active Allergy Reactions Criticality Noted Date Comments Atorvastatin Unknown,Rash Low 10/03/2019 Ciprofloxacin Unknown 10/03/2019 Doxycycline Syncope High 04/09/2020 Felodipine Unknown 10/03/2019 Gemfibrozil Unknown 12/12/2019 Hydrocodone Unknown 10/03/2019 Metronidazole Unknown 10/03/2019 Quinolones Unknown 10/03/2019 Sulfa Antibiotics Nausea and Vomiting 3 Hydrocodone-Acetaminophen Unknown 09/08/2021 Medications ferrous sulfate CR 140 (45 Fe) MG tabletIndications :Iron deficiency anemia, unspecified iron deficiency anemia type Take 1 tablet (140 mg total) by mouth daily. 90 tablet 021 Active Additional Information Patient taking differently:140 mg OralEvery other day, Reported on 09/05/2024 mupirocin (BACTROBAN) 2 % ointment 022 Active Cyanocobalamin (HM SUPER VITAMIN B12) 2500 MCG Chew Tab Chew by mouth daily. Active Acetaminophen 500 MG Cap Take 1,000 mg by mouth every 6 (six) hours. 023 Active senna-docusate (SENOKOT-S) 8.6-50 MG tablet Take 2 tablets by mouth as needed. 023 Active Elastic Bandages & Supports (GNP SUPPORT STOCKINGS UNISEX) MiscIndications:G eneralized edema 1 Device by Does not apply route daily. Wear as much as possible when swollen 2 each 023 Active loratadine (CLARITIN) 10 MG tabletIndications :Seasonal allergies TAKE 1 TABLET BY MOUTH NEEDED 90 tablet 024 Active aspirin EC (ECOTRIN) 81 MG tablet Take 1 tablet (81 mg total) by mouth daily. Active benzonatate (TESSALON PERLES) 100 MG capsuleIndication s:Bronchitis Take 1 capsule (100 mg total) by mouth 3 (three) times daily as needed for Cough. 40 capsule 024 Active dextromethorphan ER (DELSYM) 30 MG/5ML liquidIndications :Acute cough Take 10 mLs (60 mg total) by mouth every 12 (twelve) hours as needed for Cough. 148 mL 024 Active Inositol Niacinate (EQL NIACIN FLUSH FREE) 500 MG CapIndications:Hy perlipidemia, unspecified hyperlipidemia type Take 1 capsule by mouth 2 (two) times daily. 180 capsule 024 Active allopurinol (ZYLOPRIM) 100 MG tabletIndications :Hyperuricemia TAKE 1 TABLET BY MOUTH DAILY 90 tablet 3 024 Active [place]-3 Fatty Acids (FISH OIL) 500 MG capsule Take 1,500 mg by mouth daily. Active pantoprazole EC (PROTONIX) 40 MG tabletIndications :Gastroesophageal reflux disease, unspecified whether esophagitis present TAKE 1 TABLET(40 MG) BY MOUTH DAILY 90 tablet 1 024 Active busPIRone (BUSPAR) 5 MG tabletIndications :Anxiety TAKE 1 TABLET(5 MG) BY MOUTH TWICE DAILY 180 tablet 024 Active dextromethorphan ER (DELSYM) 30 MG/5ML liquidIndications :Bronchitis Take 1.3 mLs (7.8 mg total) by mouth every 12 (twelve) hours as needed for Cough. 280 mL 025 Active metoprolol succinate ER (TOPROL-XL) 25 MG 24 hr tabletIndications :Essential hypertension TAKE 1/2 TABLET(12.5 MG) BY MOUTH DAILY 45 tablet 2 025 Active vitamin D3, cholecalciferol, 125 mcg capsuleIndication s:Vitamin D deficiency TAKE 1 CAPSULE BY MOUTH EVERY DAY 90 capsule 1 025 Active citalopram (CELEXA) 10 MG tabletIndications :Reactive depression TAKE 1 TABLET(10 MG) BY MOUTH DAILY 90 tablet 025 Active ELIQUIS 5 MG tabletIndications :DVT of deep femoral vein, left ([facility]) TAKE 1 TABLET BY MOUTH EVERY 12 HOURS 180 tablet 025 Active metoprolol succinate ER (TOPROL-XL) 25 MG 24 hr tabletIndications :Essential hypertension Take 0.5 tablets (12.5 mg total) by mouth daily. 45 tablet 2 024 2024 Discontinued vitamin D3, cholecalciferol, 125 mcg capsuleIndication s:Vitamin D deficiency take 1 capsule by mouth every day 90 capsule 1 024 2024 Discontinued citalopram (CELEXA) 10 MG tabletIndications :Reactive depression TAKE 1 TABLET(10 MG) BY MOUTH DAILY 90 tablet 024 2024 Discontinued ELIQUIS 5 MG tabletIndications :DVT of deep femoral vein, left ([facility]) TAKE 1 TABLET BY MOUTH EVERY 12 HOURS 180 tablet 024 2024 Discontinued Active Problems Problem Noted Date Diagnosed Date Adjustment reaction with anxiety and depression 09/02/2023 History of pulmonary embolism 02/23/2023 CKD (chronic kidney disease) stage 4, GFR 15-29 ml/min ([facility]) 12/21/2021 Albuminuria 12/21/2021 H/O proteinuria syndrome 06/23/2021 Enhaut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[facility]) 06/23/2021 Hyperkalemia 04/07/2021 Hyperuricemia 04/07/2021 Acquired trigger finger 12/12/2019 Arthropathy of hand 12/12/2019 Degenerative joint disease of hand 12/12/2019 Disorder of bursae of shoulder region 12/12/2019 Enthesopathy of hip region 12/12/2019 Hand joint pain 12/12/2019 Primary localized osteoarthrosis of shoulder reg ion 12/12/2019 History of removal of joint prosthesis of left hip due to infection 12/09/2019 Other acute postprocedural pain 12/09/2019 Renal insufficiency syndrome 12/09/2019 Sinus tachycardia 12/09/2019 Gastroesophageal reflux disease with stricture 0 12/09/2019 Abdominal aortic aneurysm (AAA) without rupture 12/09/2019 Overview (09/11/2020): Last Assessment & Plan: Impression: Patient recovering well status post endovascular [...] discussed test results during her next visit. Abdominal aortic aneurysm (AAA) without rupture 12/09/2019 Overview (03/09/2021): Last Assessment & Plan: Impression: Patient continues do well status post endovascular repair of a large infrarenal abdominal aortic aneurysm. Surveillance CTA abdomen pelvis revealed widely intact endo repair with no evidence of endoleak and a [place] aneurysm sac that continues to decrease in size. Plan: Recommend ongoing risk factor modifications and follow-up in 1 year for re-evaluation with aortic duplex surveillance. S/p left hip fracture 11/28/2019 Other constipation 11/15/2019 Anxiety 10/21/2019 Left hip pain 10/21/2019 Orthostatic hypotension 10/12/2019 Abdominal aortic aneurysm without rupture 2018 History of falling 10/10/2019 Essential hypertension 10/04/2019 Gastroesophageal reflux disease without esophagi tis 10/04/2019 Syncope and collapse 10/03/2019 Near syncope 10/03/2019 Resolved Problems Problem Noted Date Diagnosed Date Resolved Date Stage 3b chronic kidney dise ase ([facility]) 01/05/2021 05/11/2023 Well child examination 12/09/201906/26 Deep vein thrombosis (DVT) w ith pulmonary embolism present on admission ([facility]) 12/09/2019 05/24/2022 Uncontrolled stage 2 hypertension 12/09/2019 11/03/2022 Uncontrolled stage 2 hypertension 12/09/2019 11/03/2022 Overview (03/09/2021): Last Assessment & Plan: Impression: Stable chronic hypertension. Plan: Medications reviewed and recommend continuing daily antihypertensive regimen as directed by patient's primary care physician. Acute pulmonary embolism ([facility]) 11/28/2019 05/24/2022 Encounters Date Type Department Care Team Description 11/26/2024 Orders Only [facility] [address] [address] Roopa [place] 10/21/2024 Orders Only [facility] Internal [address] [address] [place]opa [place] 10/21/[address] [address] Roopa [place], [place] Advice 10/19/2024 Orders Only [facility] [address] [address] [place]opa [place] 09/24/2024 Scan [employer] INFO SRVCS Scanned, [facility] 09/05/2024 2:40 PM SHAFT REPAIRER Office Visit [facility] - [address] [address] Linus Conn MD Chronic Kidney Disease 09/02/2024 Telephone [facility] [address] [address] Linus Conn MD Orders from Last 3 Months Immunizations Name Administration Dates Next Due Fluzone High Dose - >Age 65 (Prefilled Syringe) 07/12/2021 Influenza (Generic) 07/12/2021,08/21/2020,2012 Influenza Adult (Generic) 08/30/2023,07/30/2013 PFIZER COVID-19 (ORIGINAL FO RMULATION, PURPLE CAP) mRNA, LNP-S, PF, 30 MCG/0.3 ML DOSE 12/15/2020,11/24/2020 Pneumococcal (Prevnar 13) 08/13/2020 Family History Medical History Relation Comments Aneurysm Father Pancreas Disease Son Relation Status Comments Father Son Social History Tobacco Use Types Packs/Day Years Used Date Smoking Tobacco: Former Cigarettes 1 20 Passive Smoke Exposure: Past Smokeless Tobacco: Never Tobacco Cessation:Counseling Given: No Comments:quit 25 years ago Alcohol Use Standard Drinks/Week Comments No 0 (1 standard drink = 0.6 oz pur e alcohol) AUDIT-C Answer Date Recorded Frequency of Alcohol Consumption Never 10/03/2019 Average Number of Drinks Not on file 019 Frequency of Binge Drinking Not on file 09/15 PHQ-2 Answer Date Recorded Patient Health Questionnaire-2 Score 1 03/07/2024 Comments No Sex and Gender Information Value Date Recorded Sex Assigned at Not on file Legal Sex Female 6:13 PM CDT Gender Identity Not on file Sexual Orientation Not on file Last Filed Vital Signs Vital Sign Reading Time Taken Comments Blood Pressure 158/77 09/05/2024 3:11 PM SHAFT REPAIRER Pulse 86 09/05/2024 3:11 PM SHAFT REPAIRER Temperature 36.2 C (97.2 F) 09/05/2024 3:11 PM SHAFT REPAIRER Respiratory Rate 18 07/23/2024 1:12 PM CDT Oxygen Saturation 96% 09/05/2024 3:11 PM SHAFT REPAIRER Inhaled Oxygen Concentration - - Weight 83.5 kg (184 lb) 09/05/2024 3:11 PM SHAFT REPAIRER Height 175.3 cm (5' 9 ) 09/05/2024 3:11 PM SHAFT REPAIRER Body Mass Index 27.17 09/05/2024 3:11 PM SHAFT REPAIRER Plan of Treatment Upcoming Encounters Date Type Department Care Team (Late st Contact Info) Description 12/12/2024 10:00 AM SHAFT REPAIRER Appointment [facility] [address] [place] [address] Reema Rachel FNP [address] [address] 12/24/2024 10:00 AM CDT Office Visit [facility] Family & Internal Medicine [facility] [address] [place] [phone] Roopa Dover, [place] [address] [place], [place] [phone] 01/30/2025 11:30 AM CDT Office Visit [facility] [address] [place] [phone] Malik Nieves MD [facility]. [address] [place] [address] 03/06/2025 2:00 PM CDT Office Visit [facility] Multispecialty Care - [facility] [address] [facility], [address] [place] [address] Linus Conn MD 3 [facility], [address] [place] [address] Health Maintenance Due Date Last Done Comments DTaP, Tdap and Td Vaccines (1 - Tdap) 1958 Zoster Vaccines (1 of 2) 1989 Annual Medicare Wellness Visit 2004 RSV Immunization or 60+ Years (1 - 1-dose 75+ series) 2014 Pneumococcal Vaccine: 65+ Years (2 of 2 - PPSV23 or PCV20) 10/08/2020 08/13/2020 COVID-19 Vaccine (3 - 2023- season) 2024 12/15/2020, 11/24/2020 Influenza Adult (#1) 2024 08/30/2023, 07/12/2021, 07/12/2021, Additional history exists PHQ-2 (Physician Stebbins) 10/16/2024 03/07/2024 Meningococcal B Vaccine Aged Out No l onger eligible based on patient's age to complete this topic Meningococcal Vaccine Aged Out No brian kendal eligible based on patient's age to complete this topic RSV Immunizations Under 20 Months Aged Out No longer eligible based on patient's age to complete this topic Insurance MEDICARE [facility] MEDICARE Advance Directives Documents on File Type Date Recorded Patient Ingredient Handler Expl anation Power of [place] 04/13/2023 9:52 AM MARLA ADAMS * Full Code (Latest Code Status on File) Date Activated Date Inactivated Comments 10/03/2019 9:15 PM 10/08/2019 4:04 PM Care Teams Machine Baster Relationship Specialty [place] [address] [place] [address] PCP - General PHYSICIAN DEPUTY DIRECTOR OF FINANCE 08/13/20 Malik Nieves MD [facility]. [address] [place] [address] [place] Site Identification Specialist CARDIOVASCULAR DISEASE 10/28/19
--- OUTSIDE RECORDS SUMMARY | 2024-11-29 17:57 | XMS_ITS | Referral Summary ---
Author Organization [facility] [place] [address] Address [address] [place] [address] Care Team Providers Care Striker Off Name Role Phone Linus Conn MD Unavailable [phone] Roopa Dover Primary Care Provider Мария Palmer MD Unavailable [phone] Connor Baxter MD Unavailable [phone] Allergies Active Allergy Reactions Criticality Noted Date [...] 09/04/2023 Assessment & Plan (09/05/2023 12:25 PM ENGINEER PROCESS): Weaned to 2L NC since hypoxia during sedation for reduction. CXR w/ atelectasis and possible pulmonary edema. Appears euvolemic on exam. -pulmonary hygiene: OOBTC, IS -wean O2 as tolerated Dislocation of hip joint prosthesis, initial enc ounter 09/03/2023 Assessment & Plan (09/05/2023 12:23 PM ENGINEER PROCESS): Hx of TANYA c/b periprosthetic fracture s/p [...] 09/03/2023 Assessment & Plan (09/05/2023 12:24 PM ENGINEER PROCESS): Cr 2.38 on admit from [facility] ~1.3-1.8. F/b renal at [facility], attributed to chronic HTN/nsaid use Suspected hypovolemia; [...] 09/03/2023 Assessment & Plan (09/04/2023 5:19 PM ENGINEER PROCESS): RESOVLED Mildly elevated at 2.3 with mildly [...] 09/02/2023 Assessment & Plan (09/03/2023 3:42 AM ENGINEER PROCESS): -Continue home buspar, celexa Periprosthetic hip fracture, sequela 01/16/2023 Critical polytrauma 12/11/2022 Agata-prosthetic subtrochanteric femur fracture 0 12/10/2022 Overview (12/11/2022): Added automatically from request for surgery [id number] Albuminuria 12/21/2021 CKD (chronic kidney disease) stage 4, GFR 15-29 ml/min ([facility]) 12/21/2021 [place]an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 07/09/2021 H/O proteinuria syndrome 06/23/2021 Hyperkalemia 04/07/2021 Assessment & Plan (09/05/2023 12:24 PM ENGINEER PROCESS): Mild, pt reports increased fruit intake recently [...] with no evidence of endoleak and a [place] aneurysm sac that continues to decrease in size. Plan: Recommend ongoing risk factor modifications and follow-up in 1 year for re-evaluation with aortic duplex surveillance. Assessment & Plan (12/17/2019 6:52 PM ENGINEER PROCESS): Impression: Patient recovering well status post endovascular [...] w ith pulmonary embolism present on admission ([facility]) 12/09/2019 Gastroesophageal reflux disease with stricture 0 12/09/2019 Assessment & Plan (09/03/2023 3:40 AM ENGINEER PROCESS): -PPI History of removal of joint prosthesis [...] recommendations. Assessment & Plan (09/05/2023 12:23 PM ENGINEER PROCESS): -Hold lisinopril & metoprolol in setting of [...] PURPLE 12/15/2020,11/24/2020 Pneumococcal Conjugate PCV 13 08/13/2020 Social History Tobacco Use Types Packs/Day Years Used Date Smoking Tobacco: Former Cigarettes 0.5 50 1 940 - 1990 Smokeless Tobacco: Never Tobacco Cessation:Counseling Given: Not [...] on file Legal Sex Female 2:56 AM ENGINEER PROCESS Gender Identity Not on file Sexual Orientation Not on file Last Filed Vital Signs Vital Sign Reading Time Taken Comments Blood Pressure 182/77 06/26/2024 9:35 AM CDT Pulse 98 06/26/2024 9:35 AM CDT Temperature 36.7 C (98.1 F) 09/05/2023 1:05 PM ENGINEER PROCESS Respiratory Rate 18 09/05/2023 1:05 PM ENGINEER PROCESS Oxygen Saturation 95% 09/05/2023 1:05 PM ENGINEER PROCESS Inhaled Oxygen Concentration - - Weight 76.7 kg (169 lb) 06/26/2024 9:35 AM CDT Height 175.3 cm (5' 9 ) 06/26/2024 9:35 AM CDT Body Mass Index 24.96 06/26/2024 9:35 AM CDT Plan of Treatment Not on file Medical Devices Implanted Type Area Retail Representative Device Identifier Shelf Expiration Date Model / Serial / Lot Ball Socket-Joint Left: Hip [employer] Gmrs 50mm Knee Extension Femoral Cocr 6495-6-050 - [id number] Implanted:Qty: 1 on 01/21/2023 by Ramon Mcknight MD at [facility] Left: Hip [employer] [id number] 09/08/2026 6495-6-05 0 / / [id number] [employer] Nep[employer]/Or tho Prep-Im Plug Kiana Sponge Suction Hip Kit Thr Latex Free 602423 - [id number] Implanted:Qty: 1 on 01/21/2023 by Ramon Mcknight MD at [facility] Left: Hip [employer]/Or tho [id number] 07/18/2032 633179 / / [id number] [employer] Simplex P Full Dose Radiopaque Preblend Cement Bone Tobramycin 6197-9-001 - [id number] Implanted:Qty: 2 on 01/21/2023 by Ramon Mcknight MD at [facility] Left: Hip [employer] [id number] 07/15/2024 6197-9-00 1 / / [id number] [employer] Uhr 50mm 28mm Hip [place] Head Bipolar Cocr Uhmwpe Uh1-50-28 - [id number] Implanted:Qty: 1 on 01/21/2023 by Ramon Mcknight MD at [facility] Left: Hip [employer] [id number] 09/12/2026 UH1-50-28 / / [id number] [employer] Mrs 11mm 127mm Cemented Body Section Knee Standard Straight Stem 6485-3-011 - [id number] Implanted:Qty: 1 on 01/21/2023 by Ramon Mcknight MD at [facility] Left: Hip [employer] [id number] 11/07/2026 6485-3-01 1 [id number] [employer] V40 Lfit 28mm Hip +0mm Offset Head Femoral Cocr 6260-9-128 - [id number] Implanted:Qty: 1 on 01/21/2023 by Ramon Mcknight MD at [facility] Left: Hip [employer] [id number] 12/08/2026 6260-9-12 8 [id number] [employer] Gmrs Hip Standard Neutral Component Femoral Cocr 6495-1-001 - [id number] Implanted:Qty: 1 on 01/21/2023 by Ramon Mcknight MD at [facility] Left: Hip [employer] [id number] 08/12/2027 6495-1-00 1 / / [id number] Explanted Type Area Retail Representative Device Identifier Shelf Expiration Date Model / Serial / Lot [employer] Freda-Lorenzo 2mm Set Hip Cable/Sleeve Orthopedic Vitallium 6704-0-510 - [id number] Explanted:Qty: 2 on 01/21/2023 by Ramon Mcknight MD at [facility] Left: Hip [employer] [id number] 07/30/2026 6704-0-51 0 / [id number] [employer] Ringloc Bio-[place] Ii 50mm 28mm 2 Articulate Surface Lock [id number] - [id number] Explanted:Qty: 1 on 01/21/2023 by Ramon Mcknight MD at [facility] Left: Hip [employer] [id number] 08/24/2027 [id number] / / [id number] [employer] G7 28mm Type 1 Hip Standard Offset Head Femoral Cocr [id number] - [id number] Explanted:Qty: 1 on 01/21/2023 by Ramon Mcknight MD at [facility] Left: Hip [employer] [id number] 09/22/2032 [id number] / / [id number] Insurance MEDICARE [facility]AN MEDICARE [facility]AN MEDICARE [facility] PLAN [facility] Advance Directives For more information, please contact: [phone] Documents on File Type Date Recorded Patient Dramatic Teacher Expl anation ADVANCE DIRECTIVE 12/11/2022 1:43 AM POWER OF COMMUNITY OUTREACH COORDINATOR-MEDICAL * Full Code (Latest Code Status on [...] 7:32 AM 12/11/2022 8:18 PM Care Teams Striker Off Relationship Specialty Start Date End Date Roopa Dover PA PCP - General Physician Rhia 07/21/21 Linus Conn MD Consulting Physician Nephrology 06/30/21 Мария Palmer MD [address] [place] [address] Referring Physician Plastic Surgery 12/15/22 Connor Baxter MD [facility] [address] [place] [address] [address] Surgeon Vascular Surgery 01/17/23
--- OUTSIDE RECORDS SUMMARY | 2024-11-29 17:57 | XMS_ITS | Data Portability ---
Author Organization [place] - [email or web address], Main Office Address [address] [place] [address] Care Team Providers Care Hearing Healthcare Practitioner Name Role Phone GROVER GOMEZ Primary Care Provider GROVER GOMEZ Referring Provider [phone] Assessment Encounter Date Assessment Date Assessment LastModified by Organization Details LastModified Time 03/09/2023 03/09/2023 Patient returns status post periprosthetic fracture left for sure which she has had a proximal femoral replacement. Overall she is doing okay. Told her she just needs to wait out the time before she can advance to full weight-bearing for her doctors recommendation. The overall alignment of the prosthesis looks good on x-ray. As far as her wrist fracture ago she is doing okay really not having much pain and moving it well. I told her I would like see her back in 6 weeks she is just to be careful in the interim and will progress her with weight-bearing as tolerated. [email or web address] Not available 03/09/2023 11:19:07 04/25/2023 04/25/2023 Patient returns status post proximal femoral replacement for a comminuted hip fracture left. The hip appears to be stable she is walking well. She states she can get out of the brace on April 22 and is out of the brace at this time her x-rays look good. She also at this I told her at this point she seems to be following a normal course and everything looks fine. I think she can be released at this point to more normal activity. If but she needs to check with [facility] to make sure and she needs does not need to do anything else. Patient is a wrist pain for the most part is resolved as well she had a comminuted fracture with mild displacement which is healed and she has to using it normally. [email or web address] Not available 04/25/2023 15:00:46 Plan of Treatment Reminders Order Date Submit Date Provider Last Modified By Organization Details Last Modified Time Details Appointments None recorded. Lab None recorded. Referral None recorded. Procedures None recorded. Surgeries None recorded. Imaging XR, hip + pelvis, unilateral, 2 or 3 view 2022 023 [email or web address] [facility] [place], [address], [place], [address], 3 15:51:04 XR, wrist 2022 023 [email or web address] [facility] [place], [address], [place], [address], 3 15:06:29 XR, hip, unilateral 2022 023 [email or web address] 158 [facility] [place], [address], [place], [address], 3 11:19:49 XR, wrist 2022 023 [email or web address] 158 [facility] [place], [address], [place], [address], 3 11:19:22 Medication Orders None recorded. Patient TargetsNo targets recorded. Patient InstructionsNo instructions recorded. Reason for Referral None Reported. Results Created Date Observation Date Name Description Value Unit Range Abnormal Flag Note LastModifiedBy Organization Detail LastModifiedTime 08/24/20 21 XR, shoul jessica No observ ation record ed. [id number] [facility] [place] [address], [place], [address], 12/14/2022 07:01:32 08/24/20 21 XR, knee, 3 view No observ ation record ed. [id number] [facility] [place] [address], [place], [address], 12/14/2022 07:01:32 08/24/20 21 XR, hip + pelvi s, unila teral , 2 or 3 view No observ ation record ed. [id number] [facility] [place] [address], [place], [address], 12/14/2022 07:01:32 03/09/20 23 XR, wrist No observ ation record ed. [email or web address] [facility] [place] [address], [place], [address], 03/09/2023 11:19:21 03/09/20 23 XR, hip, unila teral No observ ation record ed. [email or web address] [facility] [place] [address], [place], [address], 03/09/2023 11:19:48 04/25/20 23 XR, hip + pelvi s, unila teral , 2 or 3 view No observ ation record ed. [email or web address] [facility] [place] [address], [place], [address], 04/25/2023 15:51:04 04/25/20 23 XR, wrist No observ ation record ed. [email or web address] [facility] [place] [address], [place], [address], 04/25/2023 15:01:20 Result Notes None recorded. Problems Name Problem SNOMED Code Status Onset Date Resolution Date Notes Provider Name and Address Organization Details Recorded Time Disorder of shoulder 755913625 Active Not Available [facility] 3 06:56:57 Density outside reference range 816382859 Active Not Available [facility] 3 06:56:57 Acquired trigger finger 1221126 Active Not Available [facility] 3 06:56:57 Localized, primary osteoarthr itis of the shoulder region 767803766 Active Not Available [facility] 3 06:56:57 Hand joint pain 858964456 Active Not Available [facility] 3 06:56:57 Degenerati ve joint disease of hand 97919619 Active Not Available [facility] 3 06:56:57 Shoulder joint pain 577639593 Active Not Available [facility] 3 06:56:57 Enthesopat hy of hip region 92982417 Active Not Available [facility] 3 06:56:57 Arthropath y of joint of hand 901319467 Active Not Available [facility] 3 06:56:57 Disorder of bursa of shoulder region 51552837 Active Not Available [facility] 3 06:56:57 Pain of left wrist 8162981755583 02 Active 2022 WOLF [place] [facility] 3 10:35:30 Pain of left hip joint 9677257448080 00 Active 2022 WOLF [place] [facility] [employer] [facility] 3 10:35:41 Problem Notes None recorded. Procedures Surgical History Date Name Laterality Status Provider Name and Address Organization Details Recorded Time 3 Hip surgery completed Chayito Paiz [place] [employer] [facility] 03/09/2023 10:34:58 wrist repair completed Chayito Paiz CNA [place] [facility] 03/09/2023 10:35:10 Imaging Results Imaging Date Name Status [facility]Modified by [facility] Details LastModified Time 08/24/2021 XR, shoulder completed [id number] [facility] [place] [address], [place], [address], 12/14/2022 07:01:32 08/24/2021 XR, knee, 3 view completed [id number] [facility] [place] [address], [address], 12/14/2022 07:01:32 08/24/2021 XR, hip + pelvis, unilateral, 2 or 3 view completed [id number] [facility] [place] [address], [address], 12/14/2022 07:01:32 03/09/2023 XR, wrist completed [email or web address] [facility] [place] [address], [address], 03/09/2023 11:19:21 03/09/2023 XR, hip, unilateral completed [email or web address] [facility] [place] [address], [address], 03/09/2023 11:19:48 04/25/2023 XR, hip + pelvis, unilateral, 2 or 3 view completed [email or web address] [facility] [place] [address], [address], 04/25/2023 15:51:04 04/25/2023 XR, wrist completed [id number] [facility] [place] [address], [address], 04/25/2023 15:01:20 Procedure Notes None recorded. Medical Equipment None Reported. Allergies Allergen ID Allergen Name Allergen Category Reaction Reaction Severity Criticality Documentation Date Start Date Code Code System Note Provider Name and Address Organization Details Recorded Time 26507 acetamino phen / hydrocodo ne medicatio n Not available Not available Not available 12/14/2022 32083 2 RxNorm Not Available [facility] 07:01:25 65140 Lopid medicatio n Not available Not available Not available 12/14/2022 87567 9 RxNorm Not Available [facility] 3 07:01:25 29538 Lipitor medicatio n Not available Not available Not available 12/14/2022 57675 5 RxNorm Not Available [facility] 3 07:01:25 24552 Flagyl medicatio n Not available Not available Not available 12/14/2022 98165 6 RxNorm Not Available [facility] 3 07:01:25 90400 Cipro medicatio n Not available Not available Not available 12/14/202223392 3 RxNorm Not Available [facility] 3 07:01:25 Medications Name Sig Start Date Stop Date Status Note LastModified by Organization Details LastModified Time amoxicillin 500 mg capsule 02/18 completed Not Available Not Available Not Available methocarbam ol 500 mg tablet TAKE 1 TABLET BY MOUTH THREE TIMES DAILY active Not Available Not Available No t Available buspirone 5 mg tablet active Not Available Not Available No t Available carvedilol 6.25 mg tablet 02/10 completed Not Available Not Available Not Available prednisone 10 mg tablet 03/09 completed Not Available Not Available Not Available doxycycline hyclate 100 mg capsule 02/18 completed Not Available Not Available Not Available trazodone 50 mg tablet TAKE 1 TABLET BY MOUTH EVERY NIGHT AT BEDTIME 03/09 completed Not Available Not Available Not Available azithromyci n 250 mg tablet TK 2 TS PO ON DAY 1, THEN TK 1 T PO D FOR 4 DAYS 08/24 completed Not Available Not Available Not Available benzonatate 200 mg capsule 02/18 completed Not Available Not Available Not Available metoprolol succinate ER 50 mg tablet,exte nded release 24 hr TAKE 1/2 TABLET BY MOUTH DAILY 08/24 completed Not Available Not Available Not Available citalopram 10 mg tablet TAKE 1 TABLET BY MOUTH DAILY active Not Available Not Available No t Available lisinopril 20 mg tablet 08/24 completed Not Available Not Available Not Available prednisone 20 mg tablet 02/10 completed Not Available Not Available Not Available alendronate 70 mg tablet 02/10 completed Not Available Not Available Not Available allopurinol 100 mg tablet TAKE 1 TABLET BY MOUTH DAILY active Not Available Not Available No t Available sulfamethox azole 800 mg-trimetho prim 160 mg tablet TAKE 1 TABLET BY MOUTH TWICE DAILY FOR 5 DAYS 03/09 completed Not Available Not Available Not Available peg-electro lyte solution 420 gram oral solution 02/10 completed Not Available Not Available Not Available doxycycline monohydrate 100 mg tablet TK 1 T PO QD 08/24 completed Not Available Not Available Not Available tramadol 50 mg tablet TAKE 1 TABLET BY MOUTH 30 MINUTES BEFORE BONE MARROW BIOPSY. active Not Available Not Available No t Available amoxicillin 500 mg tablet TAKE 4 TABLETS BY MOUTH 1 HOUR PRIOR TO APPOINTME NT 08/24 completed Not Available Not Available Not Available prednisone 10 mg tablets in a dose pack Take 1 tab by mouth, 3 times a day for 3 daysTake 1 tab by mouth 2 times a day for 2 daysTake 1 tab by mouth once a day for 1 day 03/09 completed Not Available Not Available Not Available potassium chloride ER 20 mEq tablet,exte nded release(par t/cryst) 02/10 completed Not Available Not Available Not Available lorazepam 0.5 mg tablet TAKE 1 TABLET BY MOUTH 30 MINUTES BEFORE BONE MARROW BIOPSY. 08/24 completed Not Available Not Available Not Available Kenalog 10 mg/mL suspension for injection In office injection administe red by the provider 03/09 completed [facility] [place]: 0003- 0494- 20 Not Available Not Available Not Available meclizine 25 mg tablet 02/18 completed Not Available Not Available Not Available benzonatate 100 mg capsule 03/09 completed Not Available Not Available Not Available gemfibrozil 600 mg tablet 02/18 completed Not Available Not Available Not Available pantoprazol e 40 mg tablet,tarun yed release TK 1 T PO QD active Not Available Not Available No t Available neomycin-po lymyxin-dex ameth 3.5 mg/mL-10,00 0 unit/mL-0.1 % eye drops 08/24 completed Not Available Not Available Not Available lisinopril 10 mg tablet TAKE ONE-HALF TABLET BY MOUTH TWICE DAILY active Not Available Not Available No t Available montelukast 10 mg tablet 02/18 completed Not Available Not Available Not Available hydrocodone 5 mg-acetamin ophen 500 mg tablet 02/10 completed Not Available Not Available Not Available lisinopril 5 mg tablet TAKE 2 TABLETS BY MOUTH EVERY MORNING AND 1 TABLET BY MOUTH EVERY EVENING active Not Available Not Available No t Available mupirocin 2 % topical ointment APPLY TOPICALLY TO THE AFFECTED AREA THREE TIMES DAILY active Not Available Not Available No t Available furosemide 20 mg tablet 02/10 completed Not Available Not Available Not Available metoprolol succinate ER 25 mg tablet,exte nded release 24 hr active Not Available Not Available Not Available ergocalcife rol (vitamin D2) 1,250 mcg (50,000 unit) capsule 08/24 completed Not Available Not Available Not Available methylpredn isolone 4 mg tablets in a dose pack active Not Available Not Available Not Available albuterol sulfate HFA 90 mcg/actuati on aerosol inhaler INHALE 2 PUFFS BY MOUTH FOUR TIMES DAILY NEEDED FOR SHORTNESS OF BREATH OR WHEEZING active Not Available Not Available No t Available lisinopril 40 mg tablet 02/10 completed Not Available Not Available Not Available fluticasone propionate 50 mcg/actuati on nasal spray,suspe nsion 02/18 completed Not Available Not Available Not Available acetaminoph en 500 mg capsule Take 2 capsules every 8 hours by oral route. active Not Available Not Available No t Available cholecalcif niles (vitamin D3) 125 mcg (5,000 unit) capsule TAKE 1 TABLET BY MOUTH TWICE DAILY 03/09 completed Not Available Not Available Not Available loratadine 10 mg tablet TAKE 1 TABLET BY MOUTH DAILY NEEDED active Not Available Not Available No t Available diazepam 5 mg tablet TAKE 1 TABLET BY MOUTH EVERY 6 HOURS NEEDED FOR ANXIETY active Not Available Not Available No t Available amoxicillin 875 mg-potfaviolaiu m clavulanate 125 mg tablet 02/18 completed Not Available Not Available Not Available oxycodone 5 mg tablet TAKE 1 TABLET BY MOUTH EVERY 4 HOURS NEEDED FOR SEVERE PAIN 03/09 completed Not Available Not Available Not Available cyclobenzap rine 5 mg tablet TAKE 1 TABLET BY MOUTH TWICE DAILY NEEDED FOR MUSCLE SPASMS active Not Available Not Available No t Available rosuvastati n 10 mg tablet TK 1 T PO QD 08/24 completed Not Available Not Available Not Available nitrofurant oin monohydrate /macrocryst als 100 mg capsule active Not Available Not Available Not Available lidocaine (PF) 10 mg/mL (1 %) injection solution In office injection administe red by the provider 03/09 completed [facility] [place]: 0409- [phone]- 17 Not Available Not Available Not Available FeroSul 325 mg (65 mg iron) tablet TAKE 1 TABLET BY MOUTH EVERY OTHER DAY active Not Available Not Available No t Available cholecalcif niles (vitamin D3) 125 mcg (5,000 unit) tablet TAKE 1 TABLET BY MOUTH TWICE DAILY active Not Available Not Available No t Available Halflytely- Bisacodyl w-Flavor Pack 5 mg-210 gram oral kit active Not Available Not Available Not Available sodium,pota ssium,mag sulfates 17.5 gram-3.13 gram-1.6 gram oral soln TAKE BY MOUTH DIRECTED BY [employer]ORS [employer]I [employer]NS 03/09 completed Not Available Not Available Not Available Slow Release Iron 140 mg (45 mg iron) tablet,exte nded release 03/09 completed Not Available Not Available Not Available apixaban 2.5 mg tablet Take 1 tablet twice a day by oral route. active Not Available Not Available No t Available Stimulant Laxative Plus 8.6 mg-50 mg tablet TAKE 2 TABLETS BY MOUTH TWICE DAILY active Not Available Not Available No t Available oxycodone ER 10 mg tablet,parth h resistant,e xtended release 12 hr TAKE 1 TABLET BY MOUTH EVERY 12 HOURS 03/09 completed Not Available Not Available Not Available ascorbic acid (vitamin C) 1,000 mg capsule Take 1 capsule every day by oral route. active Not Available Not Available No t Available Vitals Date Recorded Body mass index (BMI) Body height Body weight Provider Name and Address Organization Details Last Updated DateTime 12/14/2022 25.1 kg/m2 175.26 cm 03701.7 g Not Available [employer] 12/14/2022 06:55:35 Date Recorded Body height Body mass index (BMI) Body weight Provider Name and Address Organization Details Last Updated DateTime 03/09/2023 175.26 cm 25.1 kg/m2 50083.7 g Chayito Paiz CNA [email or web address] [facility] 03/09/2023 10:27:05 Date Recorded Body height Provider Name an d Address Organization Details Last Updated DateTime 04/25/2023 175.26 cm [facility] 04/25/2023 14:13:46 Social History Question Answer Notes LastModified by Organizat ion Details LastModified Time Tobacco Smoking Status Never Smoker Not Available [facility] 12/14/2022 06:54:16 What Is Your Level Of Alcohol Consumption? None [email or web address] Information not available 03/09/2023 Sex: Unknown Functional Status None recorded. Mental Status None recorded. Family History Relationship Description Onset Age of this Age Resolved Age Notes LastModified by Organization Details LastModified Time Father Heart disease [email or web address] Not available 2022 10:34:19 Paternal Uncle Heart disease [email or web address] Not available 2022 10:34:19 Maternal Aunt Family history of malignant neoplasm [email or web address] Not available 2022 10:34:35 Son Family history of malignant neoplasm [email or web address] Not available 2022 10:34:35 Medical History Condition Response BLINDNESS N KIDNEY STONES N MRSA N CARPAL TUNNEL SYNDROME N LUNG DISEASE/DISORDER N HISTORY OF DRUG ABUSE N COPD N RADIATION / CHEMOTHERAPY N SPORTS INJURY N ANKLE PAIN N BLOOD DISEASES N SCHIZOPHRENIA N SHINGLES N BOWEL PROBLEMS N SHOULDER PAIN N DEPRESSION (INCLUDING POST ) N STROKE/TIA N KNEE PAIN N ULCERS N BENIGN PROSTATIC HYPERPLASIA N OBESITY N GERD/NAUSEA N ANEURYSM N URINARY/BLADDER/KIDNEY PROBLEMS N CORONARY ARTERY DISEASE (CAD) N ADDICTION CONCERNS N USE OF BLOOD THINNERS N SKIN PROBLEMS N EMPHYSEMA N MUSCLE,JOINT OR BONE PROBLEMS N DVT N STOMACH ULCERS N BLOOD CLOTS N USE OF NSAIDS N CONCUSSION OR SPINAL TRAUMA N NEUROPATHY N AIDS/HIV N FRACTURES N ELBOW PAIN N HYPERTENSION N TOURETTE'S N ANXIETY DISORDER N Metal allergy N BLOOD TRANSFUSION N ANEMIA/BLOOD DISORDER N BIPOLAR DISORDER N BRONCHITIS N OSTEOARTHRITIS N TUBERCULOSIS N FOOT PROBLEM N HEART VALVE DISORDERS N ALLERGIES/HAYFEVER N SOFT TISSUE INJURY N INFECTIOUS DISEASE N HEART ARRHYTHMIA N INSOMNIA N RHEUMATOID ARTHRITIS N HIGH CHOLESTEROL / HYPERLIPIDEMIA N EDEMA N CHRONIC PAIN SYNDROME N CAROTID BLOCKAGE N BACK / NECK PROBLEMS N HAVE YOU BEEN HOSPITALIZED OR SEEN IN [facility] IN THE PAST YEAR ? N BURSITIS N HERNIATED DISC N DIALYSIS N FIBROMYALGIA N OSTEOPOROSIS N ARTHRITIS N NO SIGNIFICANT PAST MEDICAL HISTORY N PERIPHERAL NEUROPATHY N DIABETES, TYPE N HEARTBURN / REFLUX N HEPATITIS / LIVER DISEASE N GOUT N SLEEP DISORDER N ALZHEIMER'S DISEASE N HERPES N SEIZURES/EPILEPSY N HEADACHES/MIGRAINES N VASCULAR DISEASE N HIP PAIN N Blood Disorder N DIZZINESS N HEAD TRAUMA OR INJURY N HEART DISEASE/HEART PROBLEMS N MULTIPLE SCLEROSIS N CARDIAC ARRHYTHMIA N CANCER: SPECIFY N ANESTHESIA COMPLICATIONS N ATRIAL FIBRILLATION N AUTOIMMUNE DISEASE N Gynecological HistoryNo gynecological history recorded. Obstetrics History GPAL:G 0 P 0 0 0 0 Past Encounters Encounter ID Performer Location Encounter Start Date Encounter Closed Date Diagnosis/Indication Diagnosis SNOMED-CT Code Diagnosis ICD10 Code Diagnosis Note [id number] [facility] [place] [address] [place] [address] 08/24/2021 00:00:00 08/24/2021 15:57:55 [id number] Phillip Molina MD [facility] [place] [address] [place] [address] 03/09/2023 10:15:53 03/09/2023 11:13:26 Pain of left wrist 6229414000 08830 M25.532 Pain of le ft hip joint 3019623615 93772 M25.552 History of total replacement of left hip joint 7095517853 455563 Z96.642 [id number] Phillip Molina MD [facility] [place] [address] [place] [address] 04/25/2023 14:06:41 04/25/2023 15:06:29 History of total replacement of left hip joint 3576405130 967644 Z96.642 Pain of left wrist 66205 86982 84618 M25.532 Health Concerns Section Related Observation LastModified by Organization Detai ls LastModified Time None Recorded Concern Status LastModified by Organization Details LastModified Time None Recorded Advance Directives Directive None Recorded Payers Encounter Date Sequence Insurance Name Policy Number Policy García Covered Member ID García Member ID Guarantor Name 03/09/2023 1 [place] Debra Bueno [id number] Debra Bueno 03/09/2023 2 [employer] HEALTH PLAN (MEDICARE SUPPLEMENT) [id number] Micheal Bueno [id number] Debra Bueno 04/25/2023 1 [place] Debra Bueno [id number] Debra Bueno 04/25/2023 2 [employer] HEALTH PLAN (MEDICARE SUPPLEMENT) [id number] Micheal Bueno [id number] Debra Bueno Notes Date Note Type Note Provider Name and Address Organization Details Recorded Time 03/09/2023 text/html Patient returns for status 0 postop after a fall. She had proximal femoral placement done because she had for periprosthetic fracture that apparently destroyed much of the proximal femur. She also had a wrist fracture she was treated conservatively for. This happened about 6 weeks ago and she is doing okay she has an abduction guide brace to make sure she does not dislocate her hip. She would like to follow-up here for most of this as she does not wish to go to [place]. Phillip Molina MD [address], [place], [address], [facility] 03/09/2023 11:21:03 04/25/2023 text/html Patient returns for status 0 postop after a fall. She had proximal femoral placement done because she had for periprosthetic fracture that apparently destroyed much of the proximal femur. She also had a wrist fracture she was treated conservatively for. This happened about 6 weeks ago and she is doing okay she has an abduction guide brace to make sure she does not dislocate her hip. She would like to follow-up here for most of this as she does not wish to go to [place]. Phillip Molina MD [address], [place], [address], [facility] 04/25/2023 15:51:15 OBGyn Episode No OBEpisode recorded.
--- OUTSIDE RECORDS SUMMARY | 2024-11-29 17:57 | XMS_ITS | Encounter Summary ---
Author Organization [facility] Address [facility] [place] [address] Care Team Providers Care Director Ship Name Role Phone Malik Nieves MD Unavailable [phone] Verena Allred NP Primary Care Provider Roopa Roque Primary Care Provider [phone] Encounter Details Date Type Department Care Team (Late st Contact Info) Description 06/09/2020 Abstract [facility], [address] [address] Baljit Brewster MA Social History Tobacco Use Types Packs/Day Years Used Date Smoking Tobacco: Former Cigarettes Smokeless Tobacco: Never Comments:quit 25 years ago Alcohol Use Standard Drinks/Week Comments No 0 (1 standard drink = 0.6 oz pur e alcohol) AUDIT-C Answer Date Recorded Frequency of Alcohol Consumption Never 10/03/2019 Average Number of Drinks Not on file 019 Frequency of Binge Drinking Not on file 09/15 Comments No Sex and Gender Information Value Date Recorded Sex Assigned at Not on file Legal Sex Female 6:13 PM CDT Gender Identity Not on file Sexual Orientation Not on file COVID-19 Exposure Response Date Recorded In the last month, have you been in contact with someone who was confirmed or suspected to have Coronavirus / COVID-19? Unable to assess 06/08/2020 2:04 PM CDT documented as of this encounter Functional Status * RETIRED Are you deaf or do you have serious difficulty hearing Answer Date of Assessment Author Status No 10/03/2019 7:03 PM INSULATION INSPECTOR Activ e documented as of this encounter Plan of Treatment Upcoming Encounters Date Type Department Care Team (Late st Contact Info) Description 12/12/2024 10:00 AM INSULATION INSPECTOR Appointment [facility] [address] [place] [address] Reema Rachel FNP [address] [facility] [address] [place] [address] 12/24/2024 10:00 AM CDT Office Visit [facility] [place] [address] [place] [address] [place] [address] [place], [place] [id number] 01/30/2025 11:30 AM CDT [facility] [address] [place] [id number] Malik Nieves MD [facility]. [address] [place] [address] 03/06/2025 2:00 PM CDT Office Visit [facility], [address] [place] [id number] Linus Conn MD [address] [facility] [address] [place] [address] documented as of this encounter Procedures Procedure Name Priority Date/Time Associated Diagnosis Comments CBC (OUTSIDE LAB) Routine 02/21/2020 BASIC METABOLIC PANEL Routine 02/21/2020 LIPID PANEL Routine 02/21/2020 documented in this encounter Results * CBC (OUTSIDE LAB) (02/21/2020) WBC 8.4 HGB 10.1 HCT 30.4 PLT 406 02/21/2020 us [facility] Abstract LAB-OUTSIDE/ABSTRACTED Final Result * LIPID PANEL (02/21/2020) Pathologist [facility] CHOLESTEROL 120 HDL 47.8 TRIGLYCERIDES 77 NON HDL CHOLESTEROL 72.2 LDL (CALCULATED) 57 02/21/2020 us [facility] Abstract LABORATORY Final Result * (ABNORMAL) BASIC METABOLIC PANEL (02/21/2020) Pathologist [facility] SODIUM S/P/B 138 POTASSIUM S/P/B 4.6 CO2 25.3 CHLORIDE S/P/B 103 GLUCOSE 99 mg/dL CALCIUM S/P/B 9.1 BUN 26 CREATININE S/P/B 1.4(A) 0.5 - 1.0 EGFR AFR. AMER. 44 <=90 EGFR NON-AFR. AMER. 36 <=90 02/21/2020 us Doc [facility] Abstract LABORATORY Final Result documented in this encounter Visit Diagnoses Not on filedocumented in this encounter Care Teams Director Ship Relationship Specialty Start Date End Date Verena Allred NP [facility]. [address] [address] PCP - General NURSE PRACTITIONER 04/21/20 08/12/20 [place] [address] [place] [address] PCP - General PHYSICIAN VERIFICATION REP 08/13/20 Malik Nieves MD [facility]. [facility] [address] [place] [address] Brent Scrap Carrier CARDIOVASCULAR DISEASE 10/28/19 documented as of this encounter
--- OUTSIDE RECORDS SUMMARY | 2024-11-29 17:57 | XMS_ITS | Continuity of Care Document ---
Author Organization [facility] Address [address] [place] [address] Phone Care Team Providers Care Traveling Construction Superintendent Name Role Phone Gerard Holder Unavailable Unavailable Procedures Procedure Date Office/outpatient Visit, Est Post-op Follow-up Visit Post-op Follow-up Visit Post-op Follow-up Visit Post-op Follow-up Visit Refraction Vision Svcs Frames Purchases BF Polycarb Sphcyl [place] To +/-4d .12-2d Frames Deluxe Scratch Resistant Coating Post-op Follow-up Visit Post-op Follow-up Visit Post-op Follow-up Visit Remove Cataract, Insert Lens PreOp Assessment Performed Post-op Follow-up Visit [facility] Post-op Follow-up Visit Remove Cataract, Insert Lens PreOp Assessment Performed Eye Exam, New Patient [facility] Advance Directives Directive Yes / No Effective Date File Name No Information Encounters Encounter Description Practice Location Reason(s) For Visit Diagnoses Date Provider Providers Copied on Encounter Office/outpat ient Visit, Est [facility], [address], [place], [place], [id number], [place] tel:[phone] [facility] No Information 8-201 0 Doisy Edward. [address], [place], [place], [place], [place]. tel:[phone] [facility] [place], [address], [place], [place], [address], [place] tel:[phone] [facility] [place] No Information May-0 2-201 0 Krishnasamy Stephen. [address], [place], [address], [place]. tel:[phone] [facility] [place], [address], [place], [place], [address], [place] tel:[phone] [facility] No Information 4-201 0 Doisy Edward. [address] , [address], [place], [place], [place], [place]. tel:[phone] [facility] [place], [address], [place], [place], [address], [place] tel:[phone] [facility] No Information 6-201 0 Li Palak. [address] , [address], [place], [place], [place]. tel:[phone] [facility] [place], [address], [place], [place], [address], [place] tel:[phone] [facility] No Information 6-201 0 Doisy Edward. [address] , [address], [place], [place], [place]. tel:[phone] [facility] [place], [address], [place], [place], [address], [place] tel:[phone] [facility] No Information 6-201 0 [facility]. [address] [facility], [address], [place], [place], [address], [place]. tel:[phone] Referring Provider: Gerard Balderas, [address], [place], [place], [place]. tel:[phone] [facility] [place], [address], [place], [place], [address], [place] tel:[phone] [facility] No Information Guille-0 2-201 0 Doilouis Edmichael. [address] , [address], [place], [place], [place], [place]. tel:[phone] [facility] [place], [address] [place] [address] [address], [place], [place], [address], [place] tel:[phone] [facility] No Information May-2 6-201 0 Gallo Gee. [address] [facility] , [address], [place], [place], [place]. tel:[phone] [facility] [place], [address], [place], [place], [address], [place] tel:[phone] [facility] No Information May-1 9-201 0 Gallo Gee. [address] , [address], [place], [place], [place]. tel:[phone] [facility], [address], [place], [place], [address], [place] tel:[phone] [facility] No Information May-1 8-201 0 Doisy Edmichael. [address] , [address], [place], [address], [place]. tel:[phone] [facility] [place], [address], [place], [place], [address], [place] tel:[phone] [facility] No Information Apr-2 8-201 0 Doilouis Edmichael. [address] , [address], [place], [place], . tel:[phone] Referring Provider: Inderjit Benavidez [address], [place], [place], [place]. tel:[phone] [facility] [place], [address] [facility] [address], [place], [place], [address], tel:[phone] [facility] No Information 4-201 0 Gallo Gee. [address] [place] [address] [address], [address], [place], [place], [place], . tel:[phone] [facility], [address] [place] [address] [address], [place], [place], [address], tel:[phone] [facility] No Information 3-201 0 Gallo Gee. [address] [place] [address] [address], [address], [place], [place], [place], . tel:[phone] [facility], [address] [place] [address] [address], [place], [place], [address], tel:[phone] [facility] No Information 5-201 0 Gallo Gee. [address] [place] [address] [address], [address], [place], [place], [place], . tel:[phone] Referring Provider: [facility] [address], [place], [place], [place]. tel:[phone] Family History Family Member Type Diagnosis Age At Onset No Information Payers Payer name Insurance type Covered republican ID Authoriza tion(s) [place] [id number] [facility] [id number] Social History Type Description Quantity Date Captured Comments Sex Female Smoking Status No Information Chief Complaint And Reason For Visit No Information Reason For Referral Reason For Referral No Information History Of Present Illness Encounter Date Complaint History Of Prese nt Illness No Information Functional Status Date Functional Assessmen t No Information Instructions Date Instruction Additional Infor mation No Information Assessments Type Assessment Date No Information Patient Care Teams Name Effective Dates (start - stop) Status Members No Information
--- NOTE | 2024-11-29 18:24 | ECG_ITS ---
Test Date: 2024-11-29 18:24:29 Measurements Intervals [place] Rate: 93 P: 65 NM: 167 QRS: 51 QRSD: 85 T: 52 QT: 348 QTc: 433 Interpretive Statements SINUS RHYTHM MINIMAL Q WAVES- INF/LAT LEADS BASELINE ARTIFACT- I, II, III, AVR, AVL BORDERLINE ECG Compared to ECG 05/12/2024 22:49:08 No significant changes Electronically Signed On 11-30-2024 07:50:[address] REPORTER by Diaz Walsh D.O.
--- NOTE | 2024-11-29 18:30 | ED.GENADULT ---
HPI - General Adult General Chief complaint: Weakness Stated complaint: flu like Time Seen by Provider: 11/29/24 18:27 History of Present Illness HPI narrative: 84-year-old female present to the emergency department for evaluation for cough congestion and diarrhea. Patient states she started developing cough and congestion yesterday developed the diarrhea today. Upon arrival emergency department patient did have a syncopal episode. Patient was brought back to the room and patient was alert appropriate at her baseline. Patient did have an O2 requirement and was saturating at 90% on room air. Patient was placed 2 L of oxygen by nasal cannula. Related Data Home Medications ?Medication ?Instructions ?Recorded ?Confirmed ?Last Taken ?Type pantoprazole 40 mg tablet,delayed 40 mg PO QAM 11/01/19 11/14/24 Unknown History release citalopram 10 mg tablet 5 mg PO QAM 01/09/20 11/14/24 Unknown History allopurinol 100 mg tablet 100 mg PO HS 11/21/22 11/14/24 Unknown History buspirone 5 mg tablet 5 mg PO BID 11/21/22 11/14/24 Unknown History cholecalciferol (vitamin D3) 125 125 mcg PO BID 11/21/22 11/14/24 Unknown History mcg (5,000 unit) tablet (Vitamin D3) ferrous sulfate 325 mg (65 mg 325 mg PO EVERY OTHER DAY 11/21/22 11/14/24 Unknown History iron) tablet metoprolol succinate 25 mg 12.5 mg PO QAM 11/21/22 11/14/24 Unknown History tablet,extended release 24 hr mecobalamin (vitamin B12) 2,500 1,000 mcg PO BID 10/04/23 11/14/24 Unknown History mcg chewable tablet sennosides 8.6 mg-docusate sodium 1 tab-cap PO QHS 11/14/23 07/09/24 Unknown History 50 mg capsule (Senna Plus) omega-3 fatty acids-fish oil 360 1 cap PO DAILY 11/14/24 11/14/24 Unknown History mg-1,200 mg capsule (Fish Oil) Allergies Allergy/AdvReac Type Severity Reaction Status Date / Time felodipine Allergy Severe HEART Verified 11/14/24 07:21 BOUNDING metronidazole Allergy Severe Unknown Verified 11/14/24 07:21 Quinolones Allergy Severe Unknown Verified 11/14/24 07:21 ciprofloxacin Allergy Unknown Unknown Verified 11/14/24 07:21 triamterene Allergy Unknown Unknown Verified 11/14/24 07:21 clindamycin Allergy Fatigued Verified 11/14/24 07:21 doxycycline Allergy Fainting Verified 11/14/24 07:21 atorvastatin AdvReac Mild MUSCLE Verified 11/14/24 07:21 ACHES hydrocodone AdvReac Mild Nausea and Verified 11/14/24 07:21 Vomiting prednisone Allergy Severe Hypertensio Uncoded 11/14/24 07:21 n Review of Systems Review of Systems: All systems reviewed & are unremarkable except as noted in HPI and below PMFSH Past Medical History Medical History CKD (chronic kidney disease) Kidney disorder Abdominal aneurysm H/O blood clots Anemia Hypoglycemia Hx of fracture of rib Bilateral carpal tunnel syndrome Hx: UTI (urinary tract infection) Arthritis GERD (gastroesophageal reflux disease) History of rectal polyps Diverticulitis History of pneumonia Bronchitis H/O: HTN (hypertension) Hypercholesteremia Cataracts, bilateral Clavicle fracture Chronic GERD Depression HTN (hypertension), malignant Surgical History Surgical History History of colon surgery History of local excision of skin lesion History of left knee replacement History of bilateral carpal tunnel release History of bladder surgery History of appendectomy Hx of cardiac cath History of tonsillectomy History of hip replacement Left bipolar October 2019 AAA (abdominal aortic aneurysm) H/O: hysterectomy S/P carpal tunnel release S/P rotator cuff repair Bilaterally H/O bilateral cataract extraction History of total left knee replacement Family History Family History Mother Patient's mother is Dementia Father Patient's father is Blood clots in brain Sibling Cerebrovascular accident Social History Social History Social History: She recently lost her cancer. She had 5 children. He lives home alone. She is retired from working in the school cafeteria Smoking status: Former smoker Second hand tobacco smoke exposure: No Alcohol intake: former Substance use: never Substance use type: does not use Do You Feel Safe in your Home?: Yes Lack of Transportation: No Lack of Food: Never True Current Housing: I Have Housing Concerned About Future Housing: No Difficulty Paying Gas/Electric Bills: No Difficulty Paying for Meds: No Currently Unemployed: No Education: High School Diploma/GED Difficulty w/ Childcare or Family Care: No Living arrangements: assisted living Additional living arrangements comments: currently living [place] Occupation/Education: retired 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 Gender identity (if verbalized by the patient): Female Spiritual care concerns: Yes (church) Agree to blood products: Yes Exam Narrative: APPEARANCE: Ill-appearing HEAD: normocephalic, atraumatic. EYES: PERRLA/EOMI, conjunctivae clear. NOSE: Normal no drainage EARS:TMS clear with good light reflex. THROAT: Pharynx clear, no exudate. NECK: Supple. No adenopathy, no masses. RESPIRATORY: Cough and congested lung sounds bowel CARDIOVASCULAR: Regular rate and rhythm without murmurs rubs or gallops. ABDOMINAL: Soft, nontender, nondistended, normal bowel sounds MUSCULOSKELETAL: Moves all extremities. Strength/ROM intact, No edema, No calf tenderness. NEURO: Alert. Cranial nerves II through XII intact. Good gait. Good coordination SKIN: Warm, dry. Normal Color Course Vital Signs Vital signs: Vital Signs Temperature 98.6 F 11/29/24 17:55 Pulse Rate 95 11/29/24 17:55 Respiratory Rate 16 11/29/24 17:55 Blood Pressure 143/61 H 11/29/24 17:55 Pulse Oximetry 96 11/29/24 17:55 Temperature 98.2 F 11/29/24 19:18 Pulse Rate 94 11/29/24 19:18 Respiratory Rate 23 H 11/29/24 19:18 Blood Pressure 122/55 L 11/29/24 19:18 Pulse Oximetry 99 11/29/24 19:19 Oxygen Delivery Nasal Cannula 11/29/24 19:19 Oxygen Flow Rate 3 11/29/24 19:19 Medical Decision Making [facility] Narrative Medical decision making narrative: 84-year-old female presented emergency department for evaluation for nausea vomiting and increased shortness of breath. Patient also had a near syncopal episode in the waiting room. Patient is afebrile but does have a leukocytosis of 22.8 with hemoglobin 11.4, patient does have history of chronic kidney disease and patient's creatinine today is 2.43 which is mildly elevated than her baseline. Patient's BUN is similar to her baseline. Patient was positive for RSV. Chest x-ray shows no acute cardiopulmonary abnormality. Patient does have a new O2 requirement and patient was saturating at 89% room air at rest. Patient did improve on 2 L of oxygenation and patient was treated nebulized albuterol. Differential Diagnosis Differential Diagnosis: COVID, RSV, influenza, pneumonia, aspiration pneumonia, dehydration, COPD Vital Signs Vital Signs: Vital Signs Temperature 98.6 F 11/29/24 17:55 Pulse Rate 95 11/29/24 17:55 Respiratory Rate 16 11/29/24 17:55 Blood Pressure 143/61 H 11/29/24 17:55 Pulse Oximetry 96 11/29/24 17:55 Temperature 98.2 F 11/29/24 19:18 Pulse Rate 94 11/29/24 19:18 Respiratory Rate 23 H 11/29/24 19:18 Blood Pressure 122/55 L 11/29/24 19:18 Pulse Oximetry 99 11/29/24 19:19 Oxygen Delivery Nasal Cannula 11/29/24 19:19 Oxygen Flow Rate 3 11/29/24 19:19 Lab Data Lab results reviewed: Yes I reviewed the patient's lab results. 11/29/24 18:32 11/29/24 18:32 Labs: Lab Results 11/29/24 11/29/24 11/29/24 Range/Units 18:31 18:32 19:32 WBC 22.8 H (4.5-10.0) K/mm3 RBC 3.61 L (4.2-5.4) M/mm3 Hgb 11.4 L (12.0-15.0) g/dL Hct 35.9 L (37.0-47.0) % MCV 99.4 (80-100) fl MCH 31.6 (26-34) pg MCHC 31.8 L (32-36) g/dl RDW 13.6 (11.5-14.5) % Plt Count 293 (150-375) k/mm3 MPV 11.4 H (7.4-10.4) fl Immature Gran % (Auto) Not Reportable Neut % (Auto) Not Reportable Lymph % (Auto) Not Reportable [place] % (Auto) Not Reportable Eos % (Auto) Not Reportable Baso % (Auto) Not Reportable Lymph # (Auto) Not Reportable [place] # (Auto) Not Reportable Eos # (Auto) Not Reportable Baso # (Auto) Not Reportable Abs Immat Gran (auto) Not Reportable Absolute Neuts (auto) Not Reportable Absolute Nucleated RBC Not Reportable Total Counted 100 Neutrophils % (Manual) 76 H (46-73) % Band Neutrophils % 6 (0-6) % Lymphocytes % (Manual) 10.0 L (18-44) % Monocytes % (Manual) 7 (3-9) % Basophils % (Manual) 1 (0-1) % Nucleated RBC % Not Reportable Abs Neuts (Manual) 18.69 H (1.7-7.2) K/mm3 Abs Lymphs (Manual) 2.28 (1.1-4.5) K/mm3 Abs Monocytes (Manual) 1.59 H (0.1-0.90) K/mm3 Abs Basophils (Manual) 0.22 H (0.0-0.1) K/mm3 Platelet Estimate Adequate (Adequate) Clumped Platelets Present Hypochromasia 1+ Schistocytes Rare PT 14.9 H (11.1-14.7) Seconds INR 1.1 APTT 31.5 (22.3-36.8) Seconds Sodium 139 (137-145) mmol/L Potassium 4.0 (3.4-5.0) mmol/L Chloride 103 (98-107) mmol/L Carbon Dioxide 22 (22-30) mmol/L Anion Gap 14 H (4-12) mmol/L BUN 39 H (7-17) mg/dL Creatinine 2.43 H (0.7-1.0) mg/dL Estim Creat Clear Calc 16 ml/min Estimated GFR 19 L (59 - ) Glucose 132 H (65-110) mg/dL Lactic Acid 1.4 (0.7-2.0) mmol/L Calcium 10.0 (8.4-10.2) mg/dL Magnesium 2.0 (1.6-2.3) mg/dL Total Bilirubin 0.4 (0.2-1.3) mg/dL AST 20 (14-36) U/L ALT 15 (6-35) U/L Alkaline Phosphatase 104 (38-126) U/L Total Protein 8.0 (6.3-8.2) g/dL Albumin 4.1 (3.5-5.1) g/dL Urine Color Yellow (Yellow) Urine Appearance Cloudy H (Clear) Urine pH 5.0 (5.0-9.0) Ur Specific [place] 1.023 (1.001-1.035) Urine Protein 4+ H (Negative) mg/dL Urine Glucose (UA) Negative (Negative) mg/dL Urine Ketones Trace H (Negative) mg/dL Ur Blood (Man) Negative (Negative) Urine Nitrate Negative (Negative) Urine Bilirubin Negative (Negative) Urine Urobilinogen 0.2 (<2.0) mg/dL Leukocyte Esterase Rfl Negative (Negative) BEN/UL Urine RBC 0-2 (0-2) /hpf Urine WBC 0-5 (0-3) /hpf Ur Squamous Epith Cells None seen (Few) /hpf Urine Bacteria 1+ H /hpf Urine Casts >20 Granular Casts Present (None) /lpf Urine Mucus Present /lpf Influenza A (RT-PCR) Negative (Negative) Influenza B (RT-PCR) Negative (Negative) RSV (RT-PCR) Positive A (Negative) SARS-CoV-2 RNA (RT-PCR) Negative (Negative) Imaging Data Radiologist's impression: Impressions Chest X-Ray 11/29/24 18:57 IMPRESSION: No focal infiltrate or effusion. Discharge Plan Discharge Clinical Impression: Hypoxia, RSV infection Patient Disposition: Still a Patient Condition: Serious
[2024-11-29] MEDS: ALBUTEROL SULFATE NEB 2.5 MG/3 ML INH INHALATION (18:35)
[2024-11-29 18:39] LABS: Hematocrit 35.9 % (37.0-47.0); Hemoglobin 11.4 g/dL (12.0-15.0); Mean Corpuscular HGB Conc 31.8 g/dl (32-36); Mean Corpuscular Hemoglobin 31.6 pg (26-34); Mean Corpuscular Volume 99.4 fl (80-100); Mean Platelet Volume 11.4 fl (7.4-10.4); Platelet Count Result 293 k/mm3 (150-375); Red Blood Count 3.61 M/mm3 (4.2-5.4); Red Cell Distribution Width 13.6 % (11.5-14.5); White Blood Count 22.8 K/mm3 (4.5-10.0)
--- OUTSIDE RECORDS SUMMARY | 2024-11-29 18:41 | XMS_ITS | Encounter Summary ---
Author Organization [facility] Address Formerly [facility] [place] [address] Care Team Providers Care Purchasing And Fiscal Clerk Name Role Phone Malik Nieves MD Unavailable [phone] Roopa Dover Primary Care Provider [phone] Encounter Details Date Type Department Care Team (Late st Contact Info) Description 03/31/2023 Medication Management [facility] Family & Internal Medicine [facility] [address] [place] [address] [place] [address] [place] [address] Social History Tobacco Use Types [...] Assessment Author Status No 10/03/2019 7:03 PM GASOLINE TRUCK CRANE OPERATOR Activ e documented as of this encounter Plan of Treatment Upcoming Encounters Date Type Department Care Team (Late st Contact Info) Description 12/12/2024 10:00 AM GASOLINE TRUCK CRANE OPERATOR Appointment [facility] Ultrasound [address] [place] [address] Reema Rachel FNP 3 [facility] [address] [place] [address] 12/24/2024 10:00 AM CDT Office Visit [facility] Family & Internal Medicine - [place] [address] [place] [address] [place] [address] [place], [place] [phone] 01/30/2025 11:30 AM CDT Office Visit [facility] [address] [place] [address] Malik Nieves MD Three [facility]. [address] [place] [address] 03/06/2025 2:00 PM CDT Office Visit [facility] 3 [facility], [address] [place] [address] Linus Conn MD 3 [facility], [address] [place] [address] documented as of this encounter Visit Diagnoses Diagnosis Acute cystitis without hematuria- Primary Acute cystitis documented in this encounter Additional Health Concerns Assessment Noted Time PHQ-9 Depression Total Score: 0 11/08/19 12:30 PM GASOLINE TRUCK CRANE OPERATOR documented as of this encounter Care Teams Purchasing And Fiscal Clerk Relationship Specialty [place] [address] [place], [place] [id number] PCP - General PHYSICIAN BLACK TOP SPREADER MACHINE OPERATOR 08/13/20 Malik Nieves MD [facility]. [address] [address] Brent Metal Pattern Maker CARDIOVASCULAR DISEASE 10/28/19 documented as of this encounter
--- OUTSIDE RECORDS SUMMARY | 2024-11-29 18:41 | XMS_ITS | Encounter Summary ---
Author Organization [facility] Address Formerly [facility] [place] [address] Care Team Providers Care Card Grader Name Role Phone Malik Nieves MD Unavailable [phone] Verena Allred NP Primary Care Provider Roopa Roque Primary Care Provider [phone] Encounter Details Date Type Department Care Team (Late st Contact Info) Description 06/09/2020 Abstract [facility], [address] [address] Baljit Brewster MA Social History Tobacco Use [...] Assessment Author Status No 10/03/2019 7:03 PM TRANSPORTATION MAINTENANCE OPERATOR Activ e documented as of this encounter Plan of Treatment Upcoming Encounters Date Type Department Care Team (Late st Contact Info) Description 12/12/2024 10:00 AM TRANSPORTATION MAINTENANCE OPERATOR Appointment [facility] [address] [place] [address] Reema Rachel FNP [address] [facility] [address] [place] [address] 12/24/2024 10:00 AM CDT Office Visit [facility] Medicine - [place] [address] [place] [address] [place] [address] [place], [place] [phone] 01/30/2025 11:30 AM CDT [facility] [address] [place] [address] Malik Nieves MD Three [facility]. [address] [place] [address] 03/06/2025 2:00 PM CDT Office Visit [facility], [address] [place] [address] Linus Conn MD [address] [facility] [address] [place] [address] documented as of this encounter Procedures Procedure Name Priority Date/Time Associated Diagnosis Comments CBC (OUTSIDE LAB) Routine 02/21/2020 BASIC METABOLIC PANEL Routine 02/21/2020 LIPID PANEL Routine 02/21/2020 documented in this encounter Results * CBC (OUTSIDE LAB) (02/21/2020) WBC 8.4 HGB 10.1 HCT 30.4 PLT 406 02/21/2020 us Doc [facility] Abstract LAB-OUTSIDE/ABSTRACTED Final Result * LIPID PANEL (02/21/2020) Pathologist [facility] CHOLESTEROL 120 HDL 47.8 TRIGLYCERIDES 77 NON HDL CHOLESTEROL 72.2 LDL (CALCULATED) 57 02/21/2020 us Doc [facility] Abstract LABORATORY Final Result * (ABNORMAL) BASIC METABOLIC PANEL (02/21/2020) Pathologist [facility] SODIUM S/P/B 138 POTASSIUM S/P/B 4.6 CO2 25.3 CHLORIDE S/P/B 103 GLUCOSE 99 mg/dL CALCIUM S/P/B 9.1 BUN 26 CREATININE S/P/B 1.4(A) 0.5 - 1.0 EGFR AFR. AMER. 44 <=90 EGFR NON-AFR. AMER. 36 <=90 02/21/2020 us Doc [facility] Abstract LABORATORY Final Result documented in this encounter Visit Diagnoses Not on filedocumented in this encounter Care Teams Card Grader Relationship Specialty Start Date End Date Verena Allred NP [facility]. [address] [address] PCP - General NURSE PRACTITIONER 04/21/20 08/12/20 [place] [address] [place] [address] PCP - General PHYSICIAN GREY IRON MOLDER 08/13/20 Malik Nieves MD [facility]. [facility] [address] [place] [address] Brent Associate Relations Specialist CARDIOVASCULAR DISEASE 10/28/19 documented as of this encounter
--- OUTSIDE RECORDS SUMMARY | 2024-11-29 18:42 | XMS_ITS | Clinical Summary ---
Author Organization [facility] Address [address] [place] [address] Phone Care Team Providers Care Special Education Supervisor Name Role Phone Unavailable Primary Care [...] STL ABSTRACTION Provider, Abstract 09/03/2024 2:15 PM SITE SURVEYOR Office Visit [facility] Oncology and Hematology [facility] [address] [place] [address] Nilson Edmonds MD Chronic anemia (Primary Dx) 09/03/2024 Orders Only [facility] Oncology and Hematology [facility] [address] [place] [address] Scanning, Provider 09/02/2024 Telephone [facility] Oncology and Hematology [facility] [address] [place] [address] Nilson Edmonds MD blood work for appointment [...] on file Legal Sex Female 12:58 PM SITE SURVEYOR Gender Identity Not on file Sexual Orientation Not on file Last Filed Vital Signs Vital Sign Reading Time Taken Comments Blood Pressure 121/69 09/03/2024 2:04 PM SITE SURVEYOR Pulse 99 09/03/2024 2:04 PM SITE SURVEYOR Temperature 36.7 C (98 F) 09/03/2024 2:04 PM SITE SURVEYOR Respiratory Rate 14 09/03/2024 2:04 PM SITE SURVEYOR Oxygen Saturation 94% 09/03/2024 2:04 PM SITE SURVEYOR Inhaled Oxygen Concentration - - Weight 83.5 kg (184 lb) 09/03/2024 2:04 PM SITE SURVEYOR Height 175.3 cm (5' 9 ) 01/02/2024 1:23 PM CDT Body Mass Index 27.17 01/02/2024 1:23 PM CDT Plan of Treatment Upcoming Encounters Date Type Department Care Team (Late st Contact Info) Description 03/04/2025 1:15 PM CDT Office Visit [facility] Oncology and Hematology - [place] [address] [facility] [address] [place] [address] Nilson Edmonds MD [address] [facility] [address] [place] [address] Health Maintenance Due Date Last [...] exists Insurance MEDICARE PART A AND B [facility] [id number]
--- OUTSIDE RECORDS SUMMARY | 2024-11-29 18:42 | XMS_ITS | Clinical Summary ---
Author Organization [facility] [address] Address [address] [place] [address] Care Team Providers Care Assistant Broker Name Role Phone Linus Conn MD Unavailable [phone] Roopa Dover Primary Care Provider Мария Palmer MD Unavailable [phone] Connor Baxter MD Unavailable [phone] Allergies Active Allergy Reactions Criticality Noted Date [...] 09/04/2023 Assessment & Plan (09/05/2023 12:25 PM CLEAN UP SUPERVISOR): Weaned to 2L NC since hypoxia during sedation for reduction. CXR w/ atelectasis and possible pulmonary edema. Appears euvolemic on exam. -pulmonary hygiene: OOBTC, IS -wean O2 as tolerated Dislocation of hip joint prosthesis, initial enc ounter 09/03/2023 Assessment & Plan (09/05/2023 12:23 PM CLEAN UP SUPERVISOR): Hx of TANYA c/b periprosthetic fracture s/p [...] 09/03/2023 Assessment & Plan (09/05/2023 12:24 PM CLEAN UP SUPERVISOR): Cr 2.38 on admit from [facility] ~1.3-1.8. F/b renal at [facility], attributed to chronic HTN/nsaid use Suspected hypovolemia; [...] 09/03/2023 Assessment & Plan (09/04/2023 5:19 PM CLEAN UP SUPERVISOR): RESOVLED Mildly elevated at 2.3 with mildly [...] 09/02/2023 Assessment & Plan (09/03/2023 3:42 AM CLEAN UP SUPERVISOR): -Continue home buspar, celexa Periprosthetic hip fracture, sequela 01/16/2023 Critical polytrauma 12/11/2022 Agata-prosthetic subtrochanteric femur fracture 0 12/10/2022 Overview (12/11/2022): Added automatically from request for surgery [id number] Albuminuria 12/21/2021 CKD (chronic kidney disease) stage 4, GFR 15-29 ml/min ([facility]) 12/21/2021 [place]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 Plan: Recommend ongoing risk factor modifications and follow-up in 1 year for re-evaluation with aortic duplex surveillance. Assessment & Plan (12/17/2019 6:52 PM CLEAN UP SUPERVISOR): Impression: Patient recovering well status post endovascular [...] w ith pulmonary embolism present on admission ([facility]) 12/09/2019 Gastroesophageal reflux disease with stricture 0 12/09/2019 Assessment & Plan (09/03/2023 3:40 AM CLEAN UP SUPERVISOR): -PPI History of removal of joint prosthesis [...] recommendations. Assessment & Plan (09/05/2023 12:23 PM CLEAN UP SUPERVISOR): -Hold lisinopril & metoprolol in setting of [...] on file Legal Sex Female 2:56 AM CLEAN UP SUPERVISOR Gender Identity Not on file Sexual Orientation Not on file Obstetrics History Last Filed Vital Signs Vital Sign Reading Time Taken Comments Blood Pressure 182/77 06/26/2024 9:35 AM CDT Pulse 98 06/26/2024 9:35 AM CDT Temperature 36.7 C (98.1 F) 09/05/2023 1:05 PM CLEAN UP SUPERVISOR Respiratory Rate 18 09/05/2023 1:05 PM CLEAN UP SUPERVISOR Oxygen Saturation 95% 09/05/2023 1:05 PM CLEAN UP SUPERVISOR Inhaled Oxygen Concentration - - Weight 76.7 [...] 09/05/2024 09/05/2023 Medical Devices Implanted Type Area Hand Tube Winder Device Identifier Shelf Expiration Date Model / Serial / Lot Ball Socket-Joint Left: Hip [employer] Gmrs 50mm Knee Extension Femoral Cocr 6495-6-050 - [id number] Implanted:Qty: 1 on 01/21/2023 by Ramon Mcknight MD at [facility] Left: Hip [employer] [id number] 09/08/2026 6495-6-05 0 / / [id number] Cm [employer] Nephew/Rich[employer]/Or tho Prep-Im Plug [place] Sponge Suction Hip Kit Thr Latex Free 874857 - [id number] Implanted:Qty: 1 on 01/21/2023 by Ramon Mcknight MD at [facility] Left: Hip [employer]/Rich[employer]/Or tho [id number] 07/18/2032 080619 / / [id number] [employer] Simplex P Full Dose Radiopaque Preblend Cement Bone Tobramycin 6197-9-001 - [id number] Implanted:Qty: 2 on 01/21/2023 by Ramon Mcknight MD at [facility] Left: Hip [employer] [id number] 07/15/2024 6197-9-00 1 / / [id number] [employer] Uhr 50mm 28mm Hip [place] Head Bipolar Cocr Uhmwpe Uh1-50-28 - [id number] Implanted:Qty: 1 on 01/21/2023 by Ramon Mcknight MD at [facility] Left: Hip [employer] [id number] 09/12/2026 UH1-50-28 / / [id number] [employer] Mrs 11mm 127mm Cemented Body Section Knee Standard Straight Stem 6485-3-011 - [id number] Implanted:Qty: 1 on 01/21/2023 by Ramon Mcknight MD at [facility] Left: Hip [employer] [id number] 11/07/2026 6485-3-01 1 / / [id number] [employer] V40 Lfit 28mm Hip +0mm Offset Head Femoral Cocr 6260-9-128 - [id number] Implanted:Qty: 1 on 01/21/2023 by Ramon Mcknight MD at [facility] Left: Hip [employer] [id number] 12/08/2026 6260-9-12 8 / [id number] [employer] Gmrs Hip Standard Neutral Component Femoral Cocr 6495-1-001 - [id number] Implanted:Qty: 1 on 01/21/2023 by Ramon Mcknight MD at [facility] Left: Hip [employer] [id number] 08/12/2027 6495-1-00 1 / / [id number] Explanted Type Area Hand Tube Winder Device Identifier Shelf Expiration Date Model / Serial / Lot [employer] [facility] 2mm Set Hip Cable/Sleeve Orthopedic Vit[employer]ium 6704-0-510 - [id number] Explanted:Qty: 2 on 01/21/2023 by Ramon Mcknight MD at [facility] Left: Hip [employer] [id number] 07/30/2026 6704-0-51 0 / [id number] [employer] Ringloc Bio-Badillo Ii 50mm 28mm 2 Articulate Surface Lock - [id number] Explanted:Qty: 1 on 01/21/2023 by Ramon Mcknight MD at [facility] Left: Hip [employer] [id number] 08/24/2027 / [id number] [employer] G7 28mm Type 1 Hip Standard Offset Head Femoral Cocr 468302 - [id number] Explanted:Qty: 1 on 01/21/2023 by Ramon Mcknight MD at [facility] Left: Hip [employer] [id number] 09/22/2032 260082 / / [id number] Insurance MEDICARE [facility] [employer] PLAN MEDICARE [facility] HEALTH PLAN MEDICARE [facility] PLAN [facility] HMO/PPO Address: [address] [place] [address] [facility] Advance Directives For more information, please contact: [phone] Documents on File Type Date Recorded Patient New Product Trainer Expl anation ADVANCE DIRECTIVE 12/11/2022 1:43 AM POWER OF INSPECTOR WIRE PRODUCTS-MEDICAL * Full Code (Latest Code Status on [...] 7:32 AM 12/11/2022 8:18 PM Care Teams Assistant Broker Relationship Specialty Start Date End Date Roopa Dover PA PCP - General Physician Tripe Washer 07/21/21 Linus Conn MD Consulting Physician Nephrology 06/30/21 Мария Palmer MD [address] [place] [address] Referring Physician Plastic Surgery 12/15/22 Connor Baxter MD [address] [facility] [address] [address] Surgeon Vascular Surgery 01/17/23
--- OUTSIDE RECORDS SUMMARY | 2024-11-29 18:42 | XMS_ITS | Referral Summary ---
Author Organization [facility] [address] Address [address] [place] [address] Care Team Providers Care Public Address System Mechanic Name Role Phone Linus Conn MD Unavailable [phone] Roopa Dover Primary Care Provider Мария Palmer MD Unavailable [phone] Connor Baxter MD Unavailable [phone] Allergies Active Allergy Reactions Criticality Noted Date [...] 09/04/2023 Assessment & Plan (09/05/2023 12:25 PM FLARE BREAKER): Weaned to 2L NC since hypoxia during sedation for reduction. CXR w/ atelectasis and possible pulmonary edema. Appears euvolemic on exam. -pulmonary hygiene: OOBTC, IS -wean O2 as tolerated Dislocation of hip joint prosthesis, initial enc ounter 09/03/2023 Assessment & Plan (09/05/2023 12:23 PM FLARE BREAKER): Hx of TANYA c/b periprosthetic fracture s/p [...] 09/03/2023 Assessment & Plan (09/05/2023 12:24 PM FLARE BREAKER): Cr 2.38 on admit from [facility] ~1.3-1.8. F/b renal at [facility], attributed to chronic HTN/nsaid use [...] 09/03/2023 Assessment & Plan (09/04/2023 5:19 PM FLARE BREAKER): RESOVLED Mildly elevated at 2.3 with mildly [...] 09/02/2023 Assessment & Plan (09/03/2023 3:42 AM FLARE BREAKER): -Continue home buspar, celexa Periprosthetic hip fracture, sequela 01/16/2023 Critical polytrauma 12/11/2022 Agata-prosthetic subtrochanteric femur fracture 0 12/10/2022 Overview (12/11/2022): Added automatically from request for surgery [id number] Albuminuria 12/21/2021 CKD (chronic kidney disease) stage 4, GFR 15-29 ml/min (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 Plan: Recommend ongoing risk factor modifications and follow-up in 1 year for re-evaluation with aortic duplex surveillance. Assessment & Plan (12/17/2019 6:52 PM FLARE BREAKER): Impression: Patient recovering well status post endovascular [...] w ith pulmonary embolism present on admission ([facility]) 12/09/2019 Gastroesophageal reflux disease with stricture 0 12/09/2019 Assessment & Plan (09/03/2023 3:40 AM FLARE BREAKER): -PPI History of removal of joint prosthesis [...] recommendations. Assessment & Plan (09/05/2023 12:23 PM FLARE BREAKER): -Hold lisinopril & metoprolol in setting of [...] on file Legal Sex Female 2:56 AM FLARE BREAKER Gender Identity Not on file Sexual Orientation Not on file Last Filed Vital Signs Vital Sign Reading Time Taken Comments Blood Pressure 182/77 06/26/2024 9:35 AM CDT Pulse 98 06/26/2024 9:35 AM CDT Temperature 36.7 C (98.1 F) 09/05/2023 1:05 PM FLARE BREAKER Respiratory Rate 18 09/05/2023 1:05 PM FLARE BREAKER Oxygen Saturation 95% 09/05/2023 1:05 PM FLARE BREAKER Inhaled Oxygen Concentration - - Weight 76.7 kg (169 lb) 06/26/2024 9:35 AM CDT Height 175.3 cm (5' 9 ) 06/26/2024 9:35 AM CDT Body Mass Index 24.96 06/26/2024 9:35 AM CDT Plan of Treatment Not on file Medical Devices Implanted Type Area Emergency Response Officer Device Identifier Shelf Expiration Date Model / Serial / Lot Ball Socket-Joint Left: Hip [employer] Gmrs 50mm Knee Extension Femoral Cocr 6495-6-050 - [id number] Implanted:Qty: 1 on 01/21/2023 by Ramon Mcknight MD at [facility] Left: Hip [employer] [id number] 09/08/2026 6495-6-05 0 / / [id number] [employer]/Or tho Prep-Im Plug [place] Sponge Suction Hip Kit Thr Latex Free 118024 - [id number] Implanted:Qty: 1 on 01/21/2023 by Ramon Mcknight MD at [facility] Left: Hip [employer]/Or tho [id number] 07/18/2032 122090 / / [id number] [employer] Simplex P Full Dose Radiopaque Preblend Cement Bone Tobramycin 6197-9-001 - [id number] Implanted:Qty: 2 on 01/21/2023 by Ramon Mcknight MD at [facility] Left: Hip [employer] [id number] 07/15/2024 6197-9-00 1 / / [id number] [employer] Uhr 50mm 28mm Hip [place] Head Bipolar Cocr Uhmwpe Uh1-50-28 - [id number] Implanted:Qty: 1 on 01/21/2023 by Ramon Mcknight MD at [facility] Left: Hip [employer] [id number] 09/12/2026 UH1-50-28 / / [id number] [employer] Mrs 11mm 127mm Cemented Body Section Knee Standard Straight Stem 6485-3-011 - [id number] Implanted:Qty: 1 on 01/21/2023 by Ramon Mcknight MD at [facility] Left: Hip [employer] [id number] 11/07/2026 6485-3-01 1 [id number] [employer] V40 Lfit 28mm Hip +0mm Offset Head Femoral Cocr 6260-9-128 - [id number] Implanted:Qty: 1 on 01/21/2023 by Ramon Mcknight MD at [facility] Left: Hip [employer] [id number] 12/08/2026 6260-9-12 8 [id number] [employer] Gmrs Hip Standard Neutral Component Femoral Cocr 6495-1-001 - [id number] Implanted:Qty: 1 on 01/21/2023 by Ramon Mcknight MD at [facility] Left: Hip [employer] [id number] 08/12/2027 6495-1-00 1 / / [id number] Explanted Type Area Emergency Response Officer Device Identifier Shelf Expiration Date Model / Serial / Lot [employer] Freda-Lorenzo 2mm Set Hip Cable/Sleeve [employer] 6704-0-510 - [id number] Explanted:Qty: 2 on 01/21/2023 by Ramon Mcknight MD at [facility] Left: Hip [employer] [id number] 07/30/2026 6704-0-51 0 / [id number] [employer] Ringloc Bio-Badillo Ii 50mm 28mm 2 Articulate Surface Lock 11-561110 - [id number] Explanted:Qty: 1 on 01/21/2023 by Ramon Mcknight MD at [facility] Left: Hip [employer] [id number] 08/24/2027 [facility]901089 / / [id number] [employer] G7 28mm Type 1 Hip Standard Offset Head Femoral Cocr 015122 - [id number] Explanted:Qty: 1 on 01/21/2023 by Ramon Mcknight MD at [facility] Left: Hip [employer] [id number] 09/22/2032 975624 / / [id number] Insurance MEDICARE [facility] MEDICARE [facility] PL[facility] MEDICARE [facility] PLAN [facility] HMO/PPO Address: [facility] [address] [place] [address] Advance Directives For more information, please contact: [phone] Documents on File Type Date Recorded Patient Car Whacker Expl anation ADVANCE DIRECTIVE 12/11/2022 1:43 AM POWER OF COMPUTER LABORATORY TECHNICIAN-MEDICAL * Full Code (Latest Code Status on [...] 7:32 AM 12/11/2022 8:18 PM Care Teams Public Address System Mechanic Relationship Specialty Start Date End Date Roopa Dover PA PCP - General Physician Special Education Classroom Aide 07/21/21 Linus Conn MD Consulting Physician Nephrology 06/30/21 Мария Palmer MD [address] [place] [address] Referring Physician Plastic Surgery 12/15/22 Connor Baxter MD [facility] [address] [place] [address] [address] Surgeon Vascular Surgery 01/17/23
--- OUTSIDE RECORDS SUMMARY | 2024-11-29 18:42 | XMS_ITS | Continuity of Care Document ---
Author Organization [facility] Address [address] [place] [address] Phone Care Team Providers Care Resident Surgeon Name Role Phone Gerard Holder Unavailable Unavailable Procedures Procedure Date Office/outpatient Visit, Est Post-op Follow-up Visit Post-op Follow-up Visit Post-op Follow-up Visit Post-op Follow-up Visit Refraction Vision Svcs Frames Purchases BF Polycarb Sphcyl Corinne To +/-4d .12-2d Frames Deluxe Scratch Resistant [...] Copied on Encounter Office/outpat ient Visit, Est [facility], [address], [place], [place], [address], [place] tel:[phone] [facility] No Information 8-201 0 Doisy Edward. [address], [place], [place], [facility], [place]. tel:[phone] [facility], [address], [place], [place], [address], [place] tel:[phone] SEC [facility] [place] No Information May-0 2-201 0 Krishnasamy Stephen. [address], [place], [address], [place]. tel:[phone] [facility], [address], [place], [place], [address], [place] tel:[phone] [facility] No Information 4-201 0 Doisy Edward. [address] , [address], [place], [facility], [place]. tel:[phone] [facility], [address], [place], [place], [address], [place] tel:[phone] [facility] No Information 6-201 0 Li Palak. [address] , [address], [place], [facility], [place]. tel:[phone] [facility], [address], [place], [place], [address], [place] tel:[phone] [facility] No Information 6-201 0 Doisy Edward. [address] , [address], [place], [facility], [place]. tel:[phone] [facility], [address], [place], [place], [address], [place] tel:[phone] [facility] No Information 6-201 0 [employer]. [address], [address], [place], [place], [address], [place]. tel:[phone] Referring Provider: Gerard Balderas, [address], [place], [facility]. tel:[phone] [facility], [address], [place], [place], [address], [place] tel:[phone] [facility] No Information Guille-0 2-201 0 Doilouis Edmichael. [address] , [address], [place], [facility], [place]. tel:[phone] [facility], [address] [place] [address] [address], [place], [place], [address], [place] tel:[phone] [facility] No Information May-2 6-201 0 Gallo Gee. [address] [facility] , [address], [place], [facility], [place]. tel:[phone] [facility], [address], [place], [place], [address], [place] tel:[phone] [facility] No Information May-1 9-201 0 Gallo Gee. [address], [place], [facility], [place]. tel:[phone] [facility], [address], [place], [place], [address], [place] tel:[phone] [facility] No Information May-1 8-201 0 Doisy Edmichael. [address] , [address], [place], [address], [place]. tel:[phone] [facility], [address], [place], [place], [address], [place] tel:[phone] [facility] No Information Apr-2 8-201 0 Doilouis Edmichael. [address], [place], [facility], . tel:[phone] Referring Provider: Inderjit Benavidez [facility] [address], [place], [facility]. tel:[phone] [facility], [address] [facility] [place] [address], [place], [place], [address], tel:[phone] [facility] No Information 4-201 0 Gallo Gee. [address] [place] [address] [address], [address], [place], [facility], . tel:[phone] [facility], [address] [place] [address] [address], [place], [place], [address], tel:[phone] [facility] No Information 3-201 0 Gallo Gee. [address] [place] [address] [address], [address], [place], [facility], . tel:[phone] [facility], [address] [place] [address] [address], [place], [place], [address], tel:[phone] [facility] No Information 5-201 0 Gallo Gee. [address] [place] [address] [address], [address], [place], [facility], . tel:[phone] Referring Provider: [facility]as [facility] [address], [place], [facility]. tel:[phone] Family History Family Member Type Diagnosis Age At Onset No Information Payers Payer name Insurance type Covered alliance party ID Authoriza tion(s) [place] [id number] [facility] [id number] Social History Type Description Quantity Date Captured [...]
--- OUTSIDE RECORDS SUMMARY | 2024-11-29 18:42 | XMS_ITS | Clinical Summary ---
Author Organization [facility] Address [address] [place] [address] Care Team Providers Care Deaf/Hard Of Hearing Specialist Name Role Phone Malik Nieves MD Unavailable [phone] Roopa Dover Primary Care Provider [phone] Allergies Active Allergy Reactions Criticality Noted Date [...] MOUTH DAILY 90 tablet 3 024 Active Bayard-3 Fatty Acids (FISH OIL) 500 MG capsule [...] tabletIndications :DVT of deep femoral vein, left ([facility]) TAKE 1 TABLET BY MOUTH EVERY 12 [...] tabletIndications :DVT of deep femoral vein, left ([facility]) TAKE 1 TABLET BY MOUTH EVERY 12 HOURS 180 tablet 024 2024 Discontinued Active Problems Problem Noted Date Diagnosed Date Adjustment reaction with anxiety and depression 09/02/2023 History of pulmonary embolism 02/23/2023 CKD (chronic kidney disease) stage 4, GFR 15-29 ml/min ([facility]) 12/21/2021 Albuminuria 12/21/2021 H/O proteinuria syndrome 06/23/2021 [place]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[facility]) 06/23/2021 Hyperkalemia 04/07/2021 Hyperuricemia 04/07/2021 Acquired trigger [...] with no evidence of endoleak and a redding aneurysm sac that continues to decrease in [...] Date Stage 3b chronic kidney dise ase ([facility]) 01/05/2021 05/11/2023 Well child examination 12/09/201906/26 Deep vein thrombosis (DVT) w ith pulmonary embolism present on admission ([facility]) 12/09/2019 05/24/2022 Uncontrolled stage 2 hypertension 12/09/2019 11/03/2022 Uncontrolled stage 2 hypertension 12/09/2019 11/03/2022 Overview (03/09/2021): Last Assessment & Plan: Impression: Stable chronic hypertension. Plan: Medications reviewed and recommend continuing daily antihypertensive regimen as directed by patient's primary care physician. Acute pulmonary embolism ([facility]) 11/28/2019 05/24/2022 Encounters Date Type Department Care Team Description 11/26/2024 Orders Only [facility] Family & Internal [address] [address] Roopa [place] 10/21/2024 Orders Only [facility] Internal [address] [address] [place] 10/21/[address] [address] Ro[place] Advice 10/19/2024 Orders Only [facility] Internal [address] [address] [place]opa [place] 09/24/2024 Scan [employer] INFO SRVCS Scanned, [facility] 09/05/2024 2:40 PM TRANSFER AGENT Office Visit [facility] Multispecialty Care - [address] [address] Linus Conn MD Chronic Kidney Disease 09/02/2024 Telephone [facility] [address] [address] Linus Conn MD Orders [...] Comments Blood Pressure 158/77 09/05/2024 3:11 PM TRANSFER AGENT Pulse 86 09/05/2024 3:11 PM TRANSFER AGENT Temperature 36.2 C (97.2 F) 09/05/2024 3:11 PM TRANSFER AGENT Respiratory Rate 18 07/23/2024 1:12 PM CDT Oxygen Saturation 96% 09/05/2024 3:11 PM TRANSFER AGENT Inhaled Oxygen Concentration - - Weight 83.5 kg (184 lb) 09/05/2024 3:11 PM TRANSFER AGENT Height 175.3 cm (5' 9 ) 09/05/2024 3:11 PM TRANSFER AGENT Body Mass Index 27.17 09/05/2024 3:11 PM TRANSFER AGENT Plan of Treatment Upcoming Encounters Date Type Department Care Team (Late st Contact Info) Description 12/12/2024 10:00 AM TRANSFER AGENT Appointment [facility] [address] [place] [address] Reema Rachel FNP [address] [address] 12/24/2024 10:00 AM CDT Office Visit [facility] Family & Internal Medicine [facility] [address] [place] [phone] Ropoa [place], [place] [address] [place], [place] [phone] 01/30/2025 11:30 AM CDT Office Visit [facility] [address] [place] [phone] Malik Nieves MD [facility]. [address] [place] [address] 03/06/2025 2:00 PM CDT Office Visit [facility] Multispecialty Care - [facility], [address] [place] [address] Linus Conn MD 3 [facility], [address] [place] [address] Health Maintenance Due Date Last Done Comments [...] 07/12/2021, 07/12/2021, Additional history exists PHQ-2 (Physician [place]) 10/16/2024 03/07/2024 Meningococcal B Vaccine Aged Out No l onger eligible based on patient's age to complete this topic Meningococcal Vaccine Aged Out No brian kendal eligible based on patient's age to complete this topic RSV Immunizations Under 20 Months Aged Out No longer eligible based on patient's age to complete this topic Insurance MEDICARE [facility] MEDICARE Advance Directives Documents on File Type Date Recorded Patient Vertical Roll Operator Expl anation Power of Winding Inspector And Tester 04/13/2023 9:52 AM MARLA ADAMS * Full Code (Latest Code Status on File) Date Activated Date Inactivated Comments 10/03/2019 9:15 PM 10/08/2019 4:04 PM Care Teams Deaf/Hard Of Hearing Specialist Relationship Specialty [place] [address] [place] [address] PCP - General PHYSICIAN CLOTH CALENDER 08/13/20 Malik Nieves MD [facility]. [address] [place] [address] [place] Card Game Operator CARDIOVASCULAR DISEASE 10/28/19
[2024-11-29 18:48] LABS: Alanine Aminotransferase 15 U/L (6-35); Albumin Level 4.1 g/dL (3.5-5.1); Alkaline Phosphatase 104 U/L (38-126); Anion Gap 14 mmol/L (4-12); Aspartate Amino Transferase 20 U/L (14-36); Bilirubin,Total 0.4 mg/dL (0.2-1.3); Blood Urea Nitrogen 39 mg/dL (7-17); Carbon Dioxide 22 mmol/L (22-30); Chloride 103 mmol/L (98-107); Estimated CRCL calculation 16 ml/min; Estimated Glomerular Filt Rate 19; Glucose 132 mg/dL (65-110); Sodium 139 mmol/L (137-145)
[2024-11-29 18:50] LABS: Lactic Acid Reflex 1.4 mmol/L (0.7-2.0)
[2024-11-29 18:53] LABS: INR 1.1; Prothrombin Time 14.9 Seconds (11.1-14.7)
[2024-11-29] MEDS: ONDANSETRON INJ 4 MG/2 ML VIAL IV PUSH (18:53)
[2024-11-29 18:54] LABS: Partial Thromboplastin Time 31.5 Seconds (22.3-36.8)
[2024-11-29 19:03] LABS: Band Neutrophils Percent 6 % (0-6); Basophils Absolute Manual 0.22 K/mm3 (0.0-0.1); Basophils Percent Manual 1 % (0-1); Lymphocytes Absolute Manual 2.28 K/mm3 (1.1-4.5); Monocytes Absolute Manual 1.59 K/mm3 (0.1-0.90); Monocytes Percent Manual 7 % (3-9); Neutrophils Absolute Manual 18.69 K/mm3 (1.7-7.2); Neutrophils Percent Manual 76 % (46-73); Platelet Clumps Present; Platelet Estimate Adequate (Adequate); Total Cells Counted 100
[2024-11-29 19:04] LABS: Hypochromasia 1+
[2024-11-29 19:05] LABS: Schistocytes Rare
[2024-11-29 19:15] LABS: Influenza A QL RT-PCR Negative (Negative); Influenza B QL RT-PCR Negative (Negative); RSV RNA, RT-PCR Positive (Negative); SARS-CoV-2 RNA PCR Negative (Negative)
[2024-11-29] MEDS: SODIUM CHLORIDE 0.9% IV 1,000 ML 999 ML IV CONT (19:36)
--- NOTE | 2024-11-29 19:49 | PC.NURSE ---
Upon entering the patient's room the patient was on oxygen at 2L/min via NC. Patient states that she normally does not wear oxygen. A room air SPO2 was obtained of low 80s. Patient placed on 3 L/min via NC and a new SPO2 of 99% was obtained.
[2024-11-29 19:51] LABS: Add Urine Microscopic? YES; Appearance Urine Cloudy (Clear); Bacteria Urine 1+ /hpf; Bilirubin Urine Negative (Negative); Blood Urine Negative (Negative); Color Urine Yellow (Yellow); Glucose Urine UA Negative (Negative); Granular Casts Urine Present /lpf; Ketones Urine Trace mg/dL (Negative); Leukocyte Esterase Ur Negative LEU/UL (Negative); Mucus Urine Present /lpf; Nitrate Urine Negative (Negative); Non Pathogenic Casts >20; Protein Urine 4+ mg/dL (Negative); RBC Urine 0-2 /hpf (0-2); Specific Grav Ur 1.023 (1.001-1.035); Squamous Epithelial Cell Urine None Seen /hpf (Few); Urobilinogen Urine 0.2 mg/dL (<2.0); WBC Urine 0-5 /hpf (0-3)
[2024-11-29] MEDS: AZITHROMYCIN 500 MG/NS 250 ML 500 MG/250 ML BAG 250 MG IVPB (20:53)
--- OUTSIDE RECORDS SUMMARY | 2024-11-29 23:51 | XMS_ITS | Clinical Summary ---
Author Organization [facility] [address] Address [address] [place] [address] Care Team Providers Care Professor Of Environmental Engineering Name Role Phone Linus Conn MD Unavailable [phone] Roopa [place] Primary Care Provider [phone] Мария Palmer MD Unavailable [phone] Connor Baxter MD Unavailable [phone] Allergies Active Allergy Reactions Criticality Noted Date [...] 09/04/2023 Assessment & Plan (09/05/2023 12:25 PM SUPERVISOR SANDBLASTER): Weaned to 2L NC since hypoxia during sedation for reduction. CXR w/ atelectasis and possible pulmonary edema. Appears euvolemic on exam. -pulmonary hygiene: OOBTC, IS -wean O2 as tolerated Dislocation of hip joint prosthesis, initial enc ounter 09/03/2023 Assessment & Plan (09/05/2023 12:23 PM SUPERVISOR SANDBLASTER): Hx of TANYA c/b periprosthetic fracture s/p [...] 09/03/2023 Assessment & Plan (09/05/2023 12:24 PM SUPERVISOR SANDBLASTER): Cr 2.38 on admit from [facility] ~1.3-1.8. F/b renal at [facility], attributed to chronic HTN/nsaid use [...] 09/03/2023 Assessment & Plan (09/04/2023 5:19 PM SUPERVISOR SANDBLASTER): RESOVLED Mildly elevated at 2.3 with mildly [...] 09/02/2023 Assessment & Plan (09/03/2023 3:42 AM SUPERVISOR SANDBLASTER): -Continue home buspar, celexa Periprosthetic hip fracture, sequela 01/16/2023 Critical polytrauma 12/11/2022 Agata-prosthetic subtrochanteric femur fracture 0 12/10/2022 Overview (12/11/2022): Added automatically from request for surgery [id number] Albuminuria 12/21/2021 CKD (chronic kidney disease) stage 4, GFR 15-29 ml/min (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 Plan: Recommend ongoing risk factor modifications and follow-up in 1 year for re-evaluation with aortic duplex surveillance. Assessment & Plan (12/17/2019 6:52 PM SUPERVISOR SANDBLASTER): Impression: Patient recovering well status post endovascular [...] w ith pulmonary embolism present on admission ([facility]) 12/09/2019 Gastroesophageal reflux disease with stricture 0 12/09/2019 Assessment & Plan (09/03/2023 3:40 AM SUPERVISOR SANDBLASTER): -PPI History of removal of joint prosthesis [...] recommendations. Assessment & Plan (09/05/2023 12:23 PM SUPERVISOR SANDBLASTER): -Hold lisinopril & metoprolol in setting of [...] on file Legal Sex Female 2:56 AM SUPERVISOR SANDBLASTER Gender Identity Not on file Sexual Orientation Not on file Obstetrics History Last Filed Vital Signs Vital Sign Reading Time Taken Comments Blood Pressure 182/77 06/26/2024 9:35 AM CDT Pulse 98 06/26/2024 9:35 AM CDT Temperature 36.7 C (98.1 F) 09/05/2023 1:05 PM SUPERVISOR SANDBLASTER Respiratory Rate 18 09/05/2023 1:05 PM SUPERVISOR SANDBLASTER Oxygen Saturation 95% 09/05/2023 1:05 PM SUPERVISOR SANDBLASTER Inhaled Oxygen Concentration - - Weight 76.7 [...] 09/05/2024 09/05/2023 Medical Devices Implanted Type Area Risk Management Intern Device Identifier Shelf Expiration Date Model / Serial / Lot Ball Socket-Joint Left: Hip [employer] Gmrs 50mm Knee Extension Femoral Cocr 6495-6-050 - [id number] Implanted:Qty: 1 on 01/21/2023 by Ramon Mcknight MD at [facility] Left: Hip [employer] [id number] 09/08/2026 6495-6-05 0 / / [id number] Cm [employer] Nephew[employer]/Or tho Prep-Im Plug [place] [employer] Sponge Suction Hip Kit Thr Latex Free [id number] - [id number] Implanted:Qty: 1 on 01/21/2023 by Ramon Mcknight MD at [facility] Left: Hip [employer]/Or tho [id number] 07/18/2032 [id number] / / [id number] [employer] Simplex P Full Dose Radiopaque Preblend Cement Bone Tobramycin 6197-9-001 - [id number] Implanted:Qty: 2 on 01/21/2023 by Ramon Mcknight MD at [facility] Left: Hip [employer] [id number] 07/15/2024 6197-9-00 1 / / [id number] [employer] Uhr 50mm 28mm Hip [place] Head Bipolar Cocr Uhmwpe Uh1-50-28 - [id number] Implanted:Qty: 1 on 01/21/2023 by Ramon Mcknight MD at [facility] Left: Hip [employer] [id number] 09/12/2026 UH1-50-28 / / [id number] [employer] Mrs 11mm 127mm Cemented Body Section Knee Standard Straight Stem 6485-3-011 - [id number] Implanted:Qty: 1 on 01/21/2023 by Ramon Mcknight MD at [facility] Left: Hip [employer] [id number] 11/07/2026 6485-3-01 1 / / [id number] [employer] V40 Lfit 28mm Hip +0mm Offset Head Femoral Cocr 6260-9-128 - [id number] Implanted:Qty: 1 on 01/21/2023 by Ramon Mcknight MD at [facility] Left: Hip [employer] [id number] 12/08/2026 6260-9-12 8 / [id number] [employer] Gmrs Hip Standard Neutral Component Femoral Cocr 6495-1-001 - [id number] Implanted:Qty: 1 on 01/21/2023 by Ramon Mcknight MD at [facility] Left: Hip [employer] [id number] 08/12/2027 6495-1-00 1 / / [id number] Explanted Type Area Risk Management Intern Device Identifier Shelf Expiration Date Model / Serial / Lot [employer] [facility] 2mm Set Hip Cable/Sleeve Orthopedic Vitallium 6704-0-510 - [id number] Explanted:Qty: 2 on 01/21/2023 by Ramon Mcknight MD at [facility] Left: Hip [employer] [id number] 07/30/2026 6704-0-51 0 / [id number] [employer] Ring[employer] Bio-[place] Ii 50mm 28mm 2 Articulate Surface Lock - [id number] Explanted:Qty: 1 on 01/21/2023 by Ramon Mcknight MD at [facility] Left: Hip [employer] [id number] 08/24/2027 / [id number] [employer] G7 28mm Type 1 Hip Standard Offset Head Femoral Cocr 825978 - [id number] Explanted:Qty: 1 on 01/21/2023 by Ramon Mcknight MD at [facility] Left: Hip [employer] [id number] 09/22/2032 671644 / / [id number] Insurance MEDICARE [facility] [employer] PLAN MEDICARE [facility] HEALTH PLAN MEDICARE [facility] PLAN [facility] Advance Directives For more information, please contact: [phone] Documents on File Type Date Recorded Patient Cake Icer Expl anation ADVANCE DIRECTIVE 12/11/2022 1:43 AM POWER OF HARDENER HELPER-MEDICAL * Full Code (Latest Code Status on [...] 7:32 AM 12/11/2022 8:18 PM Care Teams Professor Of Environmental Engineering Relationship Specialty Start Date End Date Roopa Dover PA PCP - General Physician Melt Room Operator 07/21/21 Linus Conn MD Consulting Physician Nephrology 06/30/21 Мария Palmer MD [address] [place] [address] Referring Physician Plastic Surgery 12/15/22 Connor Baxter MD [address] [facility] [address] [address] Surgeon Vascular Surgery 01/17/23
--- OUTSIDE RECORDS SUMMARY | 2024-11-29 23:51 | XMS_ITS | Referral Summary ---
Author Organization [facility] [address] Address [address] [place] [address] Care Team Providers Care Director Of Strategic Alliances Name Role Phone Linus Conn MD Unavailable [phone] Roopa Dover Primary Care Provider Мария Palmer MD Unavailable [phone] Connor Baxter MD Unavailable [phone] Allergies Active Allergy Reactions Criticality Noted Date [...] 09/04/2023 Assessment & Plan (09/05/2023 12:25 PM CARE PROGRAM DIRECTOR): Weaned to 2L NC since hypoxia during sedation for reduction. CXR w/ atelectasis and possible pulmonary edema. Appears euvolemic on exam. -pulmonary hygiene: OOBTC, IS -wean O2 as tolerated Dislocation of hip joint prosthesis, initial enc ounter 09/03/2023 Assessment & Plan (09/05/2023 12:23 PM CARE PROGRAM DIRECTOR): Hx of TANYA c/b periprosthetic fracture s/p [...] 09/03/2023 Assessment & Plan (09/05/2023 12:24 PM CARE PROGRAM DIRECTOR): Cr 2.38 on admit from [facility] ~1.3-1.8. F/b renal at [facility], attributed to chronic HTN/nsaid use Suspected [...] 09/03/2023 Assessment & Plan (09/04/2023 5:19 PM CARE PROGRAM DIRECTOR): RESOVLED Mildly elevated at 2.3 with mildly [...] 09/02/2023 Assessment & Plan (09/03/2023 3:42 AM CARE PROGRAM DIRECTOR): -Continue home buspar, celexa Periprosthetic hip fracture, sequela 01/16/2023 Critical polytrauma 12/11/2022 Agata-prosthetic subtrochanteric femur fracture 0 12/10/2022 Overview (12/11/2022): Added automatically from request for surgery [id number] Albuminuria 12/21/2021 CKD (chronic kidney disease) stage 4, GFR 15-29 ml/min (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 Plan: Recommend ongoing risk factor modifications and follow-up in 1 year for re-evaluation with aortic duplex surveillance. Assessment & Plan (12/17/2019 6:52 PM CARE PROGRAM DIRECTOR): Impression: Patient recovering well status post endovascular [...] w ith pulmonary embolism present on admission ([facility]) 12/09/2019 Gastroesophageal reflux disease with stricture 0 12/09/2019 Assessment & Plan (09/03/2023 3:40 AM CARE PROGRAM DIRECTOR): -PPI History of removal of joint prosthesis [...] recommendations. Assessment & Plan (09/05/2023 12:23 PM CARE PROGRAM DIRECTOR): -Hold lisinopril & metoprolol in setting of [...] on file Legal Sex Female 2:56 AM CARE PROGRAM DIRECTOR Gender Identity Not on file Sexual Orientation Not on file Last Filed Vital Signs Vital Sign Reading Time Taken Comments Blood Pressure 182/77 06/26/2024 9:35 AM CDT Pulse 98 06/26/2024 9:35 AM CDT Temperature 36.7 C (98.1 F) 09/05/2023 1:05 PM CARE PROGRAM DIRECTOR Respiratory Rate 18 09/05/2023 1:05 PM CARE PROGRAM DIRECTOR Oxygen Saturation 95% 09/05/2023 1:05 PM CARE PROGRAM DIRECTOR Inhaled Oxygen Concentration - - Weight 76.7 kg (169 lb) 06/26/2024 9:35 AM CDT Height 175.3 cm (5' 9 ) 06/26/2024 9:35 AM CDT Body Mass Index 24.96 06/26/2024 9:35 AM CDT Plan of Treatment Not on file Medical Devices Implanted Type Area Marketing Liaison Device Identifier Shelf Expiration Date Model / Serial / Lot Ball Socket-Joint Left: Hip [employer] Gmrs 50mm Knee Extension Femoral Cocr 6495-6-050 - [id number] Implanted:Qty: 1 on 01/21/2023 by Ramon Mcknight MD at [facility] Left: Hip [employer] [id number] 09/08/2026 6495-6-05 0 / / [id number] Cm [employer] Nephew/Rich[employer]/Or tho Prep-Im Plug Tobias Sponge Suction Hip Kit Thr Latex Free [id number] - [id number] Implanted:Qty: 1 on 01/21/2023 by Ramon Mcknight MD at [facility] Left: Hip [employer]/Or tho [id number] 07/18/2032 [id number] / / [id number] [employer] Simplex P Full Dose Radiopaque Preblend Cement Bone Tobramycin 6197-9-001 - [id number] Implanted:Qty: 2 on 01/21/2023 by Ramon Mcknight MD at [facility] Left: Hip [employer] [id number] 07/15/2024 6197-9-00 1 / / [id number] [employer] Uhr 50mm 28mm Hip [place] Head Bipolar Cocr Uhmwpe Uh1-50-28 - [id number] Implanted:Qty: 1 on 01/21/2023 by Ramon Mcknight MD at [facility] Left: Hip [employer] [id number] 09/12/2026 UH1-50-28 / / [id number] [employer] Mrs 11mm 127mm Cemented Body Section Knee Standard Straight Stem 6485-3-011 - [id number] Implanted:Qty: 1 on 01/21/2023 by Ramon Mcknight MD at [facility] Left: Hip [employer] [id number] 11/07/2026 6485-3-01 1 [id number] [employer] V40 Lfit 28mm Hip +0mm Offset Head Femoral Cocr 6260-9-128 - [id number] Implanted:Qty: 1 on 01/21/2023 by Ramon Mcknight MD at [facility] Left: Hip [employer] [id number] 12/08/2026 6260-9-12 8 [id number] [employer] Gmrs Hip Standard Neutral Component Femoral Cocr 6495-1-001 - [id number] Implanted:Qty: 1 on 01/21/2023 by Ramon Mcknight MD at [facility] Left: Hip [employer] [id number] 08/12/2027 6495-1-00 1 / / [id number] Explanted Type Area Marketing Liaison Device Identifier Shelf Expiration Date Model / Serial / Lot [employer] Freda-Lorenzo 2mm Set Hip Cable/Sleeve Orthopedic Vitallium 6704-0-510 - [id number] Explanted:Qty: 2 on 01/21/2023 by Ramon Mcknight MD at [facility] Left: Hip [employer] [id number] 07/30/2026 6704-0-51 0 / [id number] [employer] Ringloc Bio-Badillo Ii 50mm 28mm 2 Articulate Surface Lock 11-181712 - [id number] Explanted:Qty: 1 on 01/21/2023 by Ramon Mcknight MD at [facility] Left: Hip [employer] [id number] 08/24/2027 [facility]443689 / / [id number] [employer] G7 28mm Type 1 Hip Standard Offset Head Femoral Cocr 237881 - [id number] Explanted:Qty: 1 on 01/21/2023 by Ramon Mcknight MD at [facility] Left: Hip [employer] [id number] 09/22/2032 627033 / / [id number] Insurance MEDICARE [facility] HMO/PPO Address: [facility] [address] [place] [address] Advance Directives For more information, please contact: [phone] Documents on File Type Date Recorded Patient Miner Helper Expl anation ADVANCE DIRECTIVE 12/11/2022 1:43 AM POWER OF UNDERWATER TRAPPER-MEDICAL * Full Code (Latest Code Status on [...] 7:32 AM 12/11/2022 8:18 PM Care Teams Director Of Strategic Alliances Relationship Specialty Start Date End Date Roopa Dover PA PCP - General Physician Department Traffic Freight Router 07/21/21 Linus Conn MD Consulting Physician Nephrology 06/30/21 Мария Palmer MD [address] [place] [address] Referring Physician Plastic Surgery 12/15/22 Connor Baxter MD [facility] [address] [place] [address] [address] Surgeon Vascular Surgery 01/17/23
--- OUTSIDE RECORDS SUMMARY | 2024-11-29 23:51 | XMS_ITS | Clinical Summary ---
Author Organization [facility] Address [address] [place] [address] Phone Care Team Providers Care Predictive Maintenance Specialist Name Role Phone Unavailable Primary Care Provider [...] STL ABSTRACTION Provider, Abstract 09/03/2024 2:15 PM SAND CUTTER Office Visit [facility] Oncology and Hematology [facility] [address] [place] [address] Nilson Edmonds MD Chronic anemia (Primary Dx) 09/03/2024 Orders Only [facility] Oncology and Hematology [facility] [address] [place] [address] Scanning, Provider 09/02/2024 Telephone [facility] Oncology and Hematology [facility] [address] [place] [address] Nilson Edmonds MD blood work for appointment [...] on file Legal Sex Female 12:58 PM SAND CUTTER Gender Identity Not on file Sexual Orientation Not on file Last Filed Vital Signs Vital Sign Reading Time Taken Comments Blood Pressure 121/69 09/03/2024 2:04 PM SAND CUTTER Pulse 99 09/03/2024 2:04 PM SAND CUTTER Temperature 36.7 C (98 F) 09/03/2024 2:04 PM SAND CUTTER Respiratory Rate 14 09/03/2024 2:04 PM SAND CUTTER Oxygen Saturation 94% 09/03/2024 2:04 PM SAND CUTTER Inhaled Oxygen Concentration - - Weight 83.5 kg (184 lb) 09/03/2024 2:04 PM SAND CUTTER Height 175.3 cm (5' 9 ) 01/02/2024 1:23 PM CDT Body Mass Index 27.17 01/02/2024 1:23 PM CDT Plan of Treatment Upcoming Encounters Date Type Department Care Team (Late st Contact Info) Description 03/04/2025 1:15 PM CDT Office Visit [facility] Oncology and Hematology - [place] [address] [facility] [address] [place] [address] Nilson Edmonds MD [address] [facility] [address] [place] [address] Health Maintenance Due Date Last [...] exists Insurance [facility] [id number]
--- OUTSIDE RECORDS SUMMARY | 2024-11-29 23:51 | XMS_ITS | Clinical Summary ---
Author Organization [facility] Address [address] [place] [address] Care Team Providers Care Drapery Inspector Name Role Phone Malik Nieves MD Unavailable [phone] Roopa Dover Primary Care Provider [phone] Allergies Active Allergy Reactions Criticality Noted Date [...] MOUTH DAILY 90 tablet 3 024 Active Aultman-3 Fatty Acids (FISH OIL) 500 MG capsule [...] [facility]) TAKE 1 TABLET BY MOUTH EVERY [...] tabletIndications :DVT of deep femoral vein, left ([facility]) TAKE 1 TABLET BY MOUTH EVERY 12 HOURS 180 tablet 024 2024 Discontinued Active Problems Problem Noted Date Diagnosed Date Adjustment reaction with anxiety and depression 09/02/2023 History of pulmonary embolism 02/23/2023 CKD (chronic kidney disease) stage 4, GFR 15-29 ml/min ([facility]) 12/21/2021 Albuminuria 12/21/2021 H/O proteinuria syndrome 06/23/2021 [place]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[facility]) 06/23/2021 Hyperkalemia 04/07/2021 Hyperuricemia 04/07/2021 Acquired [...] with no evidence of endoleak and a ekuk aneurysm sac that 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 Plan: Medications reviewed and recommend continuing daily antihypertensive regimen as directed by patient's primary care physician. Acute pulmonary embolism ([facility]) 11/28/2019 05/24/2022 Encounters Date Type Department Care Team Description 11/26/2024 Orders Only [facility] Family & Internal [address] [address] Roopa Dover, [place] 10/21/2024 Orders Only [facility] Internal [address] [address] Roopa [place], [place] 10/21/[address] [address] Roopa [place], [place] Advice 10/19/2024 Orders Only [facility] Internal [address] [address] Roopa [place], [place] 09/24/2024 Scan [employer] INFO SRVCS Scanned, [facility] 09/05/2024 2:40 PM FIELD ARTILLERY CANNONEER Office Visit [facility] Multispecialty Care - [address] [address] Linus Conn MD Chronic Kidney Disease 09/02/2024 Telephone [facility] [address] [address] Linus Conn MD Orders from [...] Comments Blood Pressure 158/77 09/05/2024 3:11 PM FIELD ARTILLERY CANNONEER Pulse 86 09/05/2024 3:11 PM FIELD ARTILLERY CANNONEER Temperature 36.2 C (97.2 F) 09/05/2024 3:11 PM FIELD ARTILLERY CANNONEER Respiratory Rate 18 07/23/2024 1:12 PM CDT Oxygen Saturation 96% 09/05/2024 3:11 PM FIELD ARTILLERY CANNONEER Inhaled Oxygen Concentration - - Weight 83.5 kg (184 lb) 09/05/2024 3:11 PM FIELD ARTILLERY CANNONEER Height 175.3 cm (5' 9 ) 09/05/2024 3:11 PM FIELD ARTILLERY CANNONEER Body Mass Index 27.17 09/05/2024 3:11 PM FIELD ARTILLERY CANNONEER Plan of Treatment Upcoming Encounters Date Type Department Care Team (Late st Contact Info) Description 12/12/2024 10:00 AM FIELD ARTILLERY CANNONEER Appointment [facility] [address] [place] [address] Reema Rachel FNP [address] [address] 12/24/2024 10:00 AM CDT Office Visit [facility] Family & Internal Medicine [facility] [address] [place] [phone] Roopa Dover, [place] [address] [place], [place] [phone] 01/30/2025 11:30 AM CDT Office Visit [facility] [address] [place] [address] Malik Nieves MD Three [facility]. [address] [place] [address] 03/06/2025 2:00 PM CDT Office Visit [facility] Group Multispecialty Care - [facility] 3 [facility], [address] [place] [address] Linus Conn MD 3 [facility], [address] [place] [address] Health Maintenance Due Date Last Done Comments [...] 07/12/2021, 07/12/2021, Additional history exists PHQ-2 (Physician [place]) 10/16/2024 03/07/2024 Meningococcal B Vaccine Aged Out No l onger eligible based on patient's age to complete this topic Meningococcal Vaccine Aged Out No brian kendal eligible based on patient's age to complete this topic RSV Immunizations Under 20 Months Aged Out No longer eligible based on patient's age to complete this topic Insurance MEDICARE [facility] MEDICARE Advance Directives Documents on File Type Date Recorded Patient Valuation Manager Expl anation Power of Talent Development Analyst 04/13/2023 9:52 AM MARLA ADAMS * Full Code (Latest Code Status on File) Date Activated Date Inactivated Comments 10/03/2019 9:15 PM 10/08/2019 4:04 PM Care Teams Drapery Inspector Relationship Specialty [place] [address] [place] [address] PCP - General PHYSICIAN WASTE DISPOSAL LEAKAGE TESTER 08/13/20 Malik Nieves MD [facility]. [address] [place] [address] [place] Pharmaceutical Operator CARDIOVASCULAR DISEASE 10/28/19
--- OUTSIDE RECORDS SUMMARY | 2024-11-29 23:51 | XMS_ITS | Encounter Summary ---
Author Organization [facility] Address [facility] [place] [address] Care Team Providers Care Director Of Securities And Real Estate Name Role Phone Malik Nieves MD Unavailable Verena Allred NP Primary Care Provider Roopa Roque Primary Care Provider [phone] Encounter Details Date Type Department Care Team (Late st Contact Info) Description 06/09/2020 Abstract [facility], [address] [address] Baljit Brewster MA Social History Tobacco Use [...] Assessment Author Status No 10/03/2019 7:03 PM ANGER CONTROL COUNSELOR Activ e documented as of this encounter Plan of Treatment Upcoming Encounters Date Type Department Care Team (Late st Contact Info) Description 12/12/2024 10:00 AM ANGER CONTROL COUNSELOR Appointment [facility] [address] [place] [address] Reema Rachel FNP [facility] [address] [place] [address] 12/24/2024 10:00 AM CDT Office Visit [facility] Family & Internal Medicine - [place] [address] [place] [address] [place] [address] [place], [place] [phone] 01/30/2025 11:30 AM CDT [facility] [address] [place] [address] Malik Nieves MD Three [facility]. [address] [place] [address] 03/06/2025 2:00 PM CDT Office Visit [facility] Mult[facility]pecialty Care - [place] [address] [facility], [address] [place] [address] Linus Conn MD 3 [facility] [address] [place] [address] documented as of this encounter Procedures Procedure Name Priority Date/Time Associated Diagnosis Comments CBC (OUTSIDE LAB) Routine 02/21/2020 BASIC METABOLIC PANEL Routine 02/21/2020 LIPID PANEL Routine 02/21/2020 documented in this encounter Results * CBC (OUTSIDE LAB) (02/21/2020) WBC 8.4 HGB 10.1 HCT 30.4 PLT 406 02/21/2020 us Doc [facility] Abstract LAB-OUTSIDE/ABSTRACTED Final Result * LIPID PANEL (02/21/2020) Pathologist [facility] CHOLESTEROL 120 HDL 47.8 TRIGLYCERIDES 77 NON HDL CHOLESTEROL 72.2 LDL (CALCULATED) 57 02/21/2020 us Doc [facility] Abstract LABORATORY Final Result * (ABNORMAL) BASIC METABOLIC PANEL (02/21/2020) Pathologist [facility] SODIUM S/P/B 138 POTASSIUM S/P/B 4.6 CO2 25.3 CHLORIDE S/P/B 103 GLUCOSE 99 mg/dL CALCIUM S/P/B 9.1 BUN 26 CREATININE S/P/B 1.4(A) 0.5 - 1.0 EGFR AFR. AMER. 44 <=90 EGFR NON-AFR. AMER. 36 <=90 02/21/2020 us Doc [facility] Abstract LABORATORY Final Result documented in this encounter Visit Diagnoses Not on filedocumented in this encounter Care Teams Director Of Securities And Real Estate Relationship Specialty Start Date End Date Verena Allred NP [facility]. [address] [address] PCP - General NURSE PRACTITIONER 04/21/20 08/12/20 [place] [address] [place] [address] PCP - General PHYSICIAN AIR TURNING MACHINE FEEDER 08/13/20 Malik Nieves MD [facility]. [address] [place] [address] [place] Human Resources Training Manager CARDIOVASCULAR DISEASE 10/28/19 documented as of this encounter
--- OUTSIDE RECORDS SUMMARY | 2024-11-29 23:51 | XMS_ITS | Encounter Summary ---
Author Organization [facility] Address [facility] [place] [address] Care Team Providers Care Jumpbasting Machine Operator Name Role Phone Malik Nieves MD Unavailable [phone] Roopa Dover Primary Care Provider [phone] Encounter Details Date Type Department Care Team (Late st Contact Info) Description 03/31/2023 Medication Management [facility] Family & Internal Medicine [facility] [address] [place] [address] [place] [address] [place] [address] Social History Tobacco Use Types [...] Assessment Author Status No 10/03/2019 7:03 PM COMMUNITY ASSISTANT Activ e documented as of this encounter Plan of Treatment Upcoming Encounters Date Type Department Care Team (Late st Contact Info) Description 12/12/2024 10:00 AM COMMUNITY ASSISTANT Appointment [facility] [address] [place] [address] Reema Rachel FNP 3 [facility] [address] [place] [address] 12/24/2024 10:00 AM CDT Office Visit [facility] Family & [facility] [place] [address] [place] [address] [place] [address] [place], [place] [phone] 01/30/2025 11:30 AM CDT Office Visit [facility] [address] [place] [address] Malik Nieves MD Three [facility]. [address] [place] [address] 03/06/2025 2:00 PM CDT Office Visit [facility] Multispecialty Care - [facility] 3 [facility], [address] [place] [address] Linus Conn MD 3 [facility], [address] [place] [address] documented as of this encounter Visit Diagnoses Diagnosis Acute cystitis without hematuria- Primary Acute cystitis documented in this encounter Additional Health Concerns Assessment Noted Time PHQ-9 Depression Total Score: 0 11/08/19 12:30 PM COMMUNITY ASSISTANT documented as of this encounter Care Teams Jumpbasting Machine Operator Relationship Specialty [place] [address] [place], [place] [id number] PCP - General PHYSICIAN CSR 08/13/20 Malik Nieves MD Three [facility]. [address] [address] [place] Bench Press Operator CARDIOVASCULAR DISEASE 10/28/19 documented as of this encounter
--- OUTSIDE RECORDS SUMMARY | 2024-11-29 23:51 | XMS_ITS | Continuity of Care Document ---
Author Organization [facility] Address [address] [place] [address] Phone Care Team Providers Care Metal Spray Operator Name Role Phone Gerard Holder Unavailable Unavailable Procedures Procedure Date Office/outpatient Visit, Est Post-op Follow-up Visit Post-op Follow-up Visit Post-op Follow-up Visit Post-op Follow-up Visit Refraction Vision Svcs Frames Purchases BF Polycarb Sphcyl [place] To +/-4d .12-2d Frames Deluxe Scratch Resistant [...] Copied on Encounter Office/outpat ient Visit, Est [facility], [address], [place], [place], [address], [place] tel:[phone] [facility] No Information 8-201 0 Doisy Edward. [address] , [address], [place], [place], [facility], [place]. tel:[phone] [facility], [address], [place], [place], [address], [place] tel:[phone] [facility] No Information May-0 2-201 0 Krishnasamy Stephen. [address], [place], [address], [place]. tel:[phone] [facility], [address], [place], [place], [address], [place] tel:[phone] [facility] No Information 4-201 0 Doisy Edward. [address] , [address], [place], [facility], [place]. tel:[phone] [facility], [address], [place], [place], [address], [place] tel:[phone] [facility] No Information 6-201 0 Li Palak. [address] , [address], [place], [facility], [place]. tel:[phone] [facility], [address], [place], [place], [address], [place] tel:[phone] [facility] No Information 6-201 0 Doisy Edward. [address] , [address], [place], [facility], [place]. tel:[phone] [facility], [address], [place], [place], [address], [place] tel:[phone] [facility] No Information 6-201 0 [employer]. [address] [facility], [address], [place], [place], [address], [place]. tel:[phone] Referring Provider: Gerard Balderas, [address], [place], [facility]. tel:[phone] [facility], [address], [place], [place], [address], [place] tel:[phone] [facility] No Information Guille-0 2-201 0 Doilouis Edmichael. [address] , [address], [place], [facility], [place]. tel:[phone] [facility], [address] [place] [address] [address], [place], [place], [address], [place] tel:[phone] [facility] No Information May-2 6-201 0 Gallo Gee. [address] [facility] , [address], [place], [facility], [place]. tel:[phone] [facility], [address], [place], [place], [address], [place] tel:[phone] [facility] No Information May-1 9-201 0 Gallo Gee. [address] , [address], [place], [facility], [place]. tel:[phone] [facility], [address], [place], [place], [address], [place] tel:[phone] [facility] No Information May-1 8-201 0 Doisy Edmichael. [address] , [address], [place], [address], [place]. tel:[phone] [facility], [address], [place], [place], [address], [place] tel:[phone] [facility] No Information Apr-2 8-201 0 Doilouis Edmichael. [address] , [address], [place], [facility], . tel:[phone] Referring Provider: Inderjit Benavidez [facility] [address], [place], [facility]. tel:[phone] [facility], [address], [place], [place], [address], tel:[phone] [facility] No Information 4-201 0 Gallo Gee. [address] [place] [address] [address], [address], [place], [facility], . tel:[phone] [facility], [address] [place] [address] [address], [place], [place], [address], tel:[phone] [facility] No Information 3-201 0 Gallo Gee. [address] [place] [address] [address], [address], [place], [facility], . tel:[phone] [facility], [address] [place] [address] [address], [place], [place], [address], tel:[phone] [facility] No Information 5-201 0 Gallo Gee. [address] [place] [address] [address], [address], [place], [facility], . tel:[phone] Referring Provider: [facility]as [facility] [address], [place], [facility]. tel:[phone] Family History Family Member Type Diagnosis Age At Onset No Information Payers Payer name Insurance type Covered constitution party ID Authoriza tion(s) [place] [id number] [facility] [id number] Social History Type Description Quantity Date Captured [...]
[2024-11-30] VITALS (16 sets, daily range): BP systolic 105–135; BP diastolic 48–60; PULSE 94–107; RESP 16–20; TEMP 36.6–37.1; O2SAT 94–99; BMI 27.3
--- NOTE | 2024-11-30 00:11 | PC.NURSE ---
This nurse now aware that patient has a bed
--- NOTE | 2024-11-30 06:42 | PCRCNOTE ---
Window of time for administration has passed. See next scheduled administration.
[2024-11-30 09:44] LABS: Basophils Percent Auto 0.3 % (0.2-1.2); Eosinophils Absolute Auto 0.1 K/mm3 (0-0.3); Eosinophils Percent Auto 0.8 % (0-4.4); Hematocrit 34.8 % (37.0-47.0); Hemoglobin 10.6 g/dL (12.0-15.0); Immature Granulocyte Absolute 0.51 K/mm3 (0.00-0.031); Immature Granulocyte Percent A 5.5 % (0-0.5); Lymphocytes Absolute Auto 0.66 K/mm3 (0.9-3.2); Lymphocytes Percent Auto 7.1 % (18.3-44.2); Mean Corpuscular HGB Conc 30.5 g/dl (32-36); Mean Corpuscular Volume 101.8 fl (80-100); Mean Platelet Volume 11.8 fl (7.4-10.4); Monocytes Absolute Auto 0.7 K/mm3 (0.1-0.6); Monocytes Percent Auto 7.8 % (2.6-8.5); Neutrophils Absolute Auto 7.3 K/mm3 (1.3-6.7); Neutrophils Percent Auto 78.5 % (45.5-73.1); Platelet Count Result 260 k/mm3 (150-375); Red Blood Count 3.42 M/mm3 (4.2-5.4); Red Cell Distribution Width 13.7 % (11.5-14.5); White Blood Count 9.3 K/mm3 (4.5-10.0)
[2024-11-30] MEDS: APIXABAN 5 MG TABLET PO ×2 (09:45→20:19)
[2024-11-30] MEDS: CHOLECALCIFEROL 5,000 UNITS TABLET 5000 UNITS BY MOUTH ×2 (09:45→16:39)
[2024-11-30] MEDS: ASPIRIN 81 MG ENTERIC TABLET PO (09:45)
[2024-11-30] MEDS: busPIRone HCL 5 MG TABLET PO ×2 (09:45→16:39)
[2024-11-30 09:46] LABS: Alanine Aminotransferase 15 U/L (6-35); Albumin Level 3.9 g/dL (3.5-5.1); Alkaline Phosphatase 91 U/L (38-126); Anion Gap 10 mmol/L (4-12); Aspartate Amino Transferase 21 U/L (14-36); Bilirubin,Total 0.3 mg/dL (0.2-1.3); Blood Urea Nitrogen 34 mg/dL (7-17); Carbon Dioxide 25 mmol/L (22-30); Chloride 108 mmol/L (98-107); Estimated CRCL calculation 16 ml/min; Estimated Glomerular Filt Rate 19; Glucose 114 mg/dL (65-110); Magnesium 1.7 mg/dL (1.6-2.3); Potassium 4.4 mmol/L (3.4-5.0); Sodium 143 mmol/L (137-145)
[2024-11-30] MEDS: CITALOPRAM HYDROBROMIDE 5 MG TABLET PO (09:46)
[2024-11-30] MEDS: ALBUTEROL SULFATE NEB 2.5 MG/3 ML INH INHALATION ×2 (10:10→14:48)
[2024-11-30] MEDS: IPRATROPIUM BR 0.02% INH SOLN 0.5 MG/2.5 ML VIAL INHALATION ×2 (10:10→14:48)
--- NOTE | 2024-11-30 10:54 | P.HP_ITS ---
H&P: HPI History of Present Illness Date/Time: 11/30/24 10:54 Chief Complaint: Weakness Narrative: Patient is an 84 year old female that presented to the ER with weakness and flu like symptoms. Patient reports not feeling well with a cough, congestion, and diarrhea. Patient has been having lower back pain for about a week that she rates a 4 , frequent, and aching. Respiratory panel showed patient was positive for RSV. Patient did have an O2 requirement and was saturating at 90% on room air in the emergency department. Patient was placed 2 L of oxygen by nasal cannula. WBC 22.8, Creatinine 2.43. Urine cloudy, 4+ protein, Trace ketones, 1+ bacteria. Emergency department noted that patient had a near syncopal episode in the waiting room. EKG SR 93 with QTc 433. Chest X-ray: FINDINGS The cardiomediastinal silhouette is unremarkable. Multiple calcified granulomas within the left hemithorax. Postoperative change within the left upper lobe. The remainder of the lungs are clear. IMPRESSION: No focal infiltrate or effusion Review of Systems Review of Systems: All systems reviewed & are unremarkable except as noted in HPI and below PMFSH Past Medical History Medical History CKD (chronic kidney disease) Kidney disorder Abdominal aneurysm H/O blood clots Anemia Hypoglycemia Hx of fracture of rib Bilateral carpal tunnel syndrome Hx: UTI (urinary tract infection) Arthritis GERD (gastroesophageal reflux disease) History of rectal polyps Diverticulitis History of pneumonia Bronchitis H/O: HTN (hypertension) Hypercholesteremia Cataracts, bilateral Clavicle fracture Chronic GERD Depression HTN (hypertension), malignant Surgical History Surgical History History of colon surgery History of local excision of skin lesion History of left knee replacement History of bilateral carpal tunnel release History of bladder surgery History of appendectomy Hx of cardiac cath History of tonsillectomy History of hip replacement Left bipolar October 2019 AAA (abdominal aortic aneurysm) H/O: hysterectomy S/P carpal tunnel release S/P rotator cuff repair Bilaterally H/O bilateral cataract extraction History of total left knee replacement Family History Family History Mother Patient's mother is Dementia Father Patient's father is Blood clots in brain Sibling Cerebrovascular accident Social History Social History Social History: She recently lost her cancer. She had 5 children. He lives home alone. She is retired from working in the school cafeteria Smoking status: Former smoker Second hand tobacco smoke exposure: No Alcohol intake: never Substance use: never Substance use type: does not use Do You Feel Safe in your Home?: Yes Lack of Transportation: No Lack of Food: Never True Current Housing: I Have Housing Concerned About Future Housing: No Difficulty Paying Gas/Electric Bills: No Difficulty Paying for Meds: No Currently Unemployed: No Education: High School Diploma/GED Difficulty w/ Childcare or Family Care: No Living arrangements: assisted living Additional living arrangements comments: currently living [place] Occupation/Education: retired 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 Gender identity (if verbalized by the patient): Female Spiritual care concerns: No Agree to blood products: Yes Meds Home Medications and Allergies Home Medications ?Medication ?Instructions ?Recorded ?Confirmed ?Type citalopram 10 mg tablet 5 mg PO QAM 01/09/20 11/30/24 History allopurinol 100 mg tablet 100 mg PO HS 11/21/22 11/30/24 History buspirone 5 mg tablet 5 mg PO BID 11/21/22 11/30/24 History cholecalciferol (vitamin D3) 125 125 mcg PO BID 11/21/22 11/30/24 History mcg (5,000 unit) tablet (Vitamin D3) apixaban 5 mg tablet (Eliquis) 5 mg PO Q12HR #180 tabs 11/09/23 11/30/24 Rx aspirin 81 mg tablet,delayed 81 mg PO DAILY 11/30/24 11/30/24 History release (Adult Low Dose Aspirin) metoprolol succinate 25 mg 12.5 mg PO DAILY 11/30/24 11/30/24 History tablet,extended release 24 hr pantoprazole 40 mg tablet,delayed 40 mg PO DAILY 11/30/24 11/30/24 History release Allergies Allergy/AdvReac Type Severity Reaction Status Date / Time felodipine Allergy Severe HEART Verified 11/14/24 07:21 BOUNDING metronidazole Allergy Severe Unknown Verified 11/14/24 07:21 Quinolones Allergy Severe Unknown Verified 11/14/24 07:21 ciprofloxacin Allergy Unknown Unknown Verified 11/14/24 07:21 triamterene Allergy Unknown Unknown Verified 11/14/24 07:21 clindamycin Allergy Fatigued Verified 11/14/24 07:21 doxycycline Allergy Fainting Verified 11/14/24 07:21 atorvastatin AdvReac Mild MUSCLE Verified 11/14/24 07:21 ACHES hydrocodone AdvReac Mild Nausea and Verified 11/14/24 07:21 Vomiting prednisone Allergy Severe Hypertensio Uncoded 11/14/24 07:21 n Vital Signs Vital Signs - 24 hr 11/29/24 17:55 11/29/24 18:36 11/29/24 18:44 Temperature 98.6 F Pulse Rate 95 90 94 Respiratory Rate 16 20 18 Blood Pressure 143/61 H Pulse Oximetry 96 Oxygen Delivery Oxygen Flow Rate 11/29/24 19:17 11/29/24 19:18 11/29/24 19:18 Temperature 98.2 F Pulse Rate 92 94 Respiratory Rate 23 H Blood Pressure 122/55 L Pulse Oximetry 92 99 Oxygen Delivery Nasal Cannula Oxygen Flow Rate 2 11/29/24 19:19 11/29/24 20:30 11/29/24 21:00 Temperature 98.7 F Pulse Rate 98 Respiratory Rate 17 Blood Pressure 105/52 L Pulse Oximetry 99 96 100 Oxygen Delivery Nasal Cannula Nasal Cannula Oxygen Flow Rate 3 3 11/29/24 23:00 11/30/24 00:46 11/30/24 00:50 Temperature 97.8 F 98.3 F Pulse Rate 98 102 H Respiratory Rate 16 20 Blood Pressure 113/7 L 105/48 L Pulse Oximetry 100 94 94 Oxygen Delivery Nasal Cannula Oxygen Flow Rate 3 11/30/24 04:00 11/30/24 05:25 11/30/24 10:10 Temperature 98.0 F Pulse Rate 102 H 104 H 94 Respiratory Rate 16 18 Blood Pressure 123/50 L Pulse Oximetry 99 Oxygen Delivery Oxygen Flow Rate 11/30/24 10:10 11/30/24 10:23 Temperature Pulse Rate 99 Respiratory Rate 18 Blood Pressure Pulse Oximetry 94 Oxygen Delivery Nasal Cannula Oxygen Flow Rate 3 Exam 2 Const: General: no acute distress and uncomfortable Eyes: Sclera: sclerae normal Pupils: Equal, round and reactive pupils present Neck: Neck: supple Resp: Effort & Inspection: normal respiratory effort Auscultation: diminished lung sounds Cardio: Rate: regular rate Rhythm: regular rhythm Other: Telemetry SR 99. GI: GI Palp: Yes Soft to palpation Auscultation: normal bowel sounds Skin: General skin exam: no rashes or lesions noted Neuro: Speech: normal speech Extrem: General: no pedal edema Psych: Mental Status: mental status grossly normal Affect: normal affect H&P: Results Labs Labs: Short CBC 11/29/24 11/30/24 Range/Units 18:32 09:04 WBC 22.8 H 9.3 (4.5-10.0) K/mm3 Hgb 11.4 L 10.6 L (12.0-15.0) g/dL Hct 35.9 L 34.8 L (37.0-47.0) % Plt Count 293 260 (150-375) k/mm3 BMP 11/29/24 11/30/24 18:32 09:03 Sodium 139 143 Potassium 4.0 4.4 Chloride 103 108 H Carbon Dioxide 22 25 BUN 39 H 34 H Creatinine 2.43 H 2.39 H Glucose 132 H 114 H Calcium 10.0 9.0 Liver Function 11/29/24 11/30/24 Range/Units 18:32 09:03 Total Bilirubin 0.4 0.3 (0.2-1.3) mg/dL AST 20 21 (14-36) U/L ALT 15 15 (6-35) U/L Alkaline Phosphatase 104 91 (38-126) U/L Albumin 4.1 3.9 (3.5-5.1) g/dL Urine 11/29/24 Range/Units 19:32 Urine Color Yellow (Yellow) Urine Appearance Cloudy H (Clear) Urine pH 5.0 (5.0-9.0) Ur Specific Rudd 1.023 (1.001-1.035) Urine Protein 4+ H (Negative) mg/dL Urine Glucose (UA) Negative (Negative) mg/dL Assessment and Plan Assessment and plan (1) RSV infection: Code(s): B33.8 - Other specified viral diseases Status: Acute Assessment and Plan: * RSV positive * Supportive care. * NS @ 75 ml/hr. * 02@3LNC Sa02 94%. * Encourage water intake. (2) Acute kidney injury superimposed on CKD: Code(s): N17.9 - Acute kidney failure, unspecified; N18.9 - Chronic kidney disease, unspecified Status: Acute Assessment and Plan: * 11/30/24: Creatinine 2.43, BUN 39, GFR 19. * 11/29/24: Creatinine 2.39, BUN 34, GFR 19. * NS @ 75 ml/hr. * Monitor labs. (3) Pneumonia due to respiratory syncytial virus (RSV): Code(s): J12.1 - Respiratory syncytial virus pneumonia Status: Acute Assessment and Plan: * WBC 22.8>9.3. * Azithromycin 500 mg IVPB daily and Ceftriaxone 1 gram IVPB daily. * Albuterol 2.5 mg inhalation q 6 and Ipratropium 0.5 mg inhalation q 6. * 02@3LNC Sa02 94%. * Incentive spirometer. * Blood cultures obtained. * Guaifenesin 600 mg PO q 12. (4) DVT (deep venous thrombosis): Qualifiers: Affected thrombotic vein of extremity: other lower extremity vein Chronicity: acute DVT location: lower extremity Laterality: left Qualified Code(s): I82.492 - Acute embolism and thrombosis of other specified deep vein of left lower extremity Code(s): I82.409 - Acute embolism and thrombosis of unspecified deep veins of unspecified lower extremity Status: Acute Assessment and Plan: * Eliquis 5 mg PO BID. (5) HTN (hypertension), malignant: Code(s): I10 - Essential (primary) hypertension Status: Acute Assessment and Plan: * Current blood pressure 123/50. * Metoprolol Succinate 12.5 mg PO daily. (6) Back pain: Code(s): M54.9 - Dorsalgia, unspecified Status: Acute Assessment and Plan: * Acetaminophen 650 mg PO q 4 PRN. * Urine culture ordered. (7) Chronic GERD: Code(s): K21.9 - Gastro-esophageal reflux disease without esophagitis Status: Acute Assessment and Plan: * Pantoprazole 40 mg PO daily. (8) Weakness: Code(s): R53.1 - Weakness Status: Acute Assessment and Plan: * PT/OT Quality VTE Prophylaxis VTE prophylaxis: pharmacologic ordered Hospitalist MIPS Advance Care Plan I have confirmed that the patient's Advanced Care Plan is present, code status is documented, or surrogate decision maker is listed in patient medical record.: Yes Medication Reconciliation I have utilized all available resources to obtain, update and review the patients current medications (includes all prescriptions, OTC, herbals, cannabis, and nutritional supplements).: Yes
[2024-11-30] MEDS: PANTOPRAZOLE 40 MG TABLET PO (11:18)
[2024-11-30] MEDS: METOPROLOL SUCCINATE EXT REL 12.5 MG TABCR PO (11:18)
[2024-11-30] MEDS: SODIUM CHLORIDE 0.9% IV 1,000 ML 75 ML IV CONT (11:55)
[2024-11-30] MEDS: guaiFENesin 12 HR 600 MG TABCR PO ×2 (16:39→20:19)
[2024-11-30] MEDS: ACETAMINOPHEN 325 MG TABLET 650 MG PO (20:19)
[2024-11-30] MEDS: allopurinoL 100 MG TABLET PO (20:19)
[2024-11-30] MEDS: AZITHROMYCIN 500 MG/NS 250 ML 500 MG/250 ML BAG 250 MG IVPB (21:15)
[2024-12-01] VITALS (16 sets, daily range): BP systolic 132–166; BP diastolic 48–69; PULSE 93–121; RESP 16–20; TEMP 36.5–36.7; O2SAT 95–98
[2024-12-01] MEDS: ALBUTEROL SULFATE NEB 2.5 MG/3 ML INH INHALATION ×3 (00:56→19:41)
[2024-12-01] MEDS: IPRATROPIUM BR 0.02% INH SOLN 0.5 MG/2.5 ML VIAL INHALATION ×4 (00:56→19:41)
[2024-12-01 06:08] LABS: Hematocrit 31.5 % (37.0-47.0); Hemoglobin 9.4 g/dL (12.0-15.0); Mean Corpuscular HGB Conc 29.8 g/dl (32-36); Mean Corpuscular Hemoglobin 31.4 pg (26-34); Mean Corpuscular Volume 105.4 fl (80-100); Mean Platelet Volume 11.8 fl (7.4-10.4); Platelet Count Result 221 k/mm3 (150-375); Red Blood Count 2.99 M/mm3 (4.2-5.4); Red Cell Distribution Width 13.9 % (11.5-14.5); White Blood Count 6.7 K/mm3 (4.5-10.0)
[2024-12-01 06:25] LABS: Alanine Aminotransferase 13 U/L (6-35); Albumin Level 3.5 g/dL (3.5-5.1); Alkaline Phosphatase 85 U/L (38-126); Anion Gap 7 mmol/L (4-12); Aspartate Amino Transferase 22 U/L (14-36); Bilirubin,Total 0.3 mg/dL (0.2-1.3); Blood Urea Nitrogen 29 mg/dL (7-17); Calcium 8.7 mg/dL (8.4-10.2); Carbon Dioxide 25 mmol/L (22-30); Chloride 111 mmol/L (98-107); Estimated CRCL calculation 16 ml/min; Estimated Glomerular Filt Rate 19; Glucose 92 mg/dL (65-110); Magnesium 1.6 mg/dL (1.6-2.3); Potassium 4.5 mmol/L (3.4-5.0); Sodium 143 mmol/L (137-145)
[2024-12-01 06:40] LABS: Band Neutrophils Percent 2 % (0-6); Basophils Absolute Manual 0.13 K/mm3 (0.0-0.1); Basophils Percent Manual 2 % (0-1); Eosinophils Absolute Manual 0.06 K/mm3 (0.02-0.50); Eosinophils Percent Manual 1 % (0-4); Lymphocytes Percent Manual 9 % (18-44); Monocytes Percent Manual 9 % (3-9); Neutrophils Absolute Manual 5.29 K/mm3 (1.7-7.2); Neutrophils Percent Manual 77 % (46-73); Total Cells Counted 100
[2024-12-01 06:41] LABS: Macrocytosis 1+ (NORMAL); Platelet Estimate Adequate (Adequate); Schistocytes None Seen
[2024-12-01] MEDS: busPIRone HCL 5 MG TABLET PO ×2 (08:28→17:04)
[2024-12-01] MEDS: CHOLECALCIFEROL 5,000 UNITS TABLET 5000 UNITS BY MOUTH ×2 (08:28→17:17)
[2024-12-01] MEDS: PANTOPRAZOLE 40 MG TABLET PO (08:29)
[2024-12-01] MEDS: guaiFENesin 12 HR 600 MG TABCR PO ×2 (08:29→21:37)
[2024-12-01] MEDS: APIXABAN 5 MG TABLET PO ×2 (08:29→21:37)
[2024-12-01] MEDS: METOPROLOL SUCCINATE EXT REL 12.5 MG TABCR PO (08:29)
[2024-12-01] MEDS: ASPIRIN 81 MG ENTERIC TABLET PO (08:29)
[2024-12-01] MEDS: CITALOPRAM HYDROBROMIDE 5 MG TABLET PO (08:29)
[2024-12-01] MEDS: ACETAMINOPHEN 325 MG TABLET 650 MG PO (08:32)
--- NOTE | 2024-12-01 12:56 | P.PNIM_ITS ---
Progress Note: A&P Assessment and Plan (1) RSV infection: Code(s): B33.8 - Other specified viral diseases Status: Acute Assessment and Plan: * RSV positive * Supportive care. * 02@[address] [place], [place] [id number] 94%. (2) Acute kidney injury superimposed on CKD: Code(s): N17.9 - Acute kidney failure, unspecified; N18.9 - Chronic kidney disease, unspecified Status: Acute Assessment and Plan: * 12/01/24: Creatinine 2.41, BUN 29, GFR 19. * 11/30/24: Creatinine 2.43, BUN 39, GFR 19. * 11/29/24: Creatinine 2.39, BUN 34, GFR 19. * Monitor labs. (3) Pneumonia due to respiratory syncytial virus (RSV): Code(s): J12.1 - Respiratory syncytial virus pneumonia Status: Acute Assessment and Plan: * WBC 22.8>9.3>6.7. * Azithromycin 500 mg IVPB daily and Ceftriaxone 1 gram IVPB daily. * Albuterol 2.5 mg inhalation q 6 and Ipratropium 0.5 mg inhalation q 6. * 02@[facility] Sa02 95%. * Incentive spirometer. * Blood cultures no growth to date. * Guaifenesin 600 mg PO q 12. (4) DVT (deep venous thrombosis): Qualifiers: Affected thrombotic vein of extremity: other lower extremity vein Chronicity: acute DVT location: lower extremity Laterality: left Qualified Code(s): I82.492 - Acute embolism and thrombosis of other specified deep vein of left lower extremity Code(s): I82.409 - Acute embolism and thrombosis of unspecified deep veins of unspecified lower extremity Status: Acute Assessment and Plan: * Eliquis 5 mg PO BID. (5) Elevated brain natriuretic peptide (BNP) level: Code(s): R79.89 - Other specified abnormal findings of blood chemistry Status: Inactive Assessment and Plan: * BNP 3150 * stop iv fluids * Furosemide 40 mg PO x1. (6) HTN (hypertension), malignant: Code(s): I10 - Essential (primary) hypertension Status: Acute Assessment and Plan: * Current blood pressure 123/50. * Metoprolol Succinate 12.5 mg PO daily. (7) Back pain: Code(s): M54.9 - Dorsalgia, unspecified Status: Acute Assessment and Plan: * Acetaminophen 650 mg PO q 4 PRN. * Urine culture ordered. (8) Chronic GERD: Code(s): K21.9 - Gastro-esophageal reflux disease without esophagitis Status: Acute Assessment and Plan: * Pantoprazole 40 mg PO daily. (9) Weakness: Code(s): R53.1 - Weakness Status: Acute Assessment and Plan: * PT/OT (10) Constipation: Code(s): K59.00 - Constipation, unspecified Status: Acute Assessment and Plan: * add Docusate 100 mg PO q 12. * Continue Miralax 17 gram PO daily. Subjective Date/time seen: 12/01/24 12:56 Interval history: Patient reports that her breathing is improved today but she is very fatigued. Patient asking for a stool softener and that she has not had a bowel movement in a couple of days. Patient denies chest pain, palpitations, headache, dizziness, nausea, or vomiting. Reports that appetite is fair. Review of Systems Review of Systems: All systems reviewed & are unremarkable except as noted in HPI and below Exam Const: General: comfortable and no acute distress Resp: Effort & Inspection: normal respiratory effort Auscultation: diminished lung sounds Cardio: Rate: regular rate Rhythm: regular rhythm Other: Telemetry SR 100 GI: GI Palp: Yes Soft to palpation Auscultation: normal bowel sounds Neuro: Speech: normal speech Extrem: General: no pedal edema Psych: Mental Status: mental status grossly normal Affect: normal affect Objective Data Vital Signs Vital Signs: Vital Signs - 24 hr 11/30/24 13:34 11/30/24 14:49 11/30/24 15:02 Temperature 97.8 F Pulse Rate 104 H 100 107 H Respiratory Rate 18 18 18 Blood Pressure 135/60 Pulse Oximetry 99 Oxygen Delivery Oxygen Flow Rate Fraction of Inspired Oxygen 11/30/24 16:00 11/30/24 20:00 11/30/24 20:29 Temperature Pulse Rate 107 H 100 Respiratory Rate Blood Pressure Pulse Oximetry 98 Oxygen Delivery Nasal Cannula Oxygen Flow Rate 3 Fraction of Inspired Oxygen 11/30/24 21:28 12/01/24 00:57 12/01/24 01:10 Temperature 98.7 F Pulse Rate 102 H 99 96 Respiratory Rate 16 18 18 Blood Pressure 135/50 L Pulse Oximetry 94 Oxygen Delivery Oxygen Flow Rate Fraction of Inspired Oxygen 12/01/24 04:00 02/16/25 05:47 12/01/24 08:00 Temperature 97.7 F Pulse Rate 93 110 H 97 Respiratory Rate 20 16 Blood Pressure 141/67 H Pulse Oximetry 96 98 Oxygen Delivery Nasal Cannula Oxygen Flow Rate 2 Fraction of Inspired Oxygen 12/01/24 08:00 12/01/24 08:29 12/01/24 09:35 Temperature Pulse Rate 97 110 H Respiratory Rate Blood Pressure Pulse Oximetry 96 Oxygen Delivery Nasal Cannula Oxygen Flow Rate 2 Fraction of Inspired Oxygen 28 12/01/24 09:35 12/01/24 09:55 12/01/24 12:00 Temperature Pulse Rate 108 H 102 H 104 H Respiratory Rate 20 20 Blood Pressure Pulse Oximetry Oxygen Delivery Oxygen Flow Rate Fraction of Inspired Oxygen Intake/Output Intake/Output: Intake & Output 11/28/24 11/29/24 11/30/24 12/01/24 23:59 23:59 23:59 23:59 Intake Total 1300 1460 740 Output Total 50 600 740 Balance 1250 860 0 Meds/Results Medications: Active Medications Generic Name Dose Route Start Last Admin Trade Name Freq PRN Reason Stop Dose Admin Acetaminophen 650 mg 11/30/24 08:34 12/01/24 08:32 Acetaminophen 325 Mg Tablet PO 650 mg Q4H PRN Administration Headache Albuterol 2.5 mg 11/30/24 02:00 12/01/24 09:35 Albuterol Sulfate Neb 2.5 Mg/3 Ml Inh INHALATION 2.5 mg Q6HRT [place] Administration Allopurinol 100 mg 11/30/24 21:00 11/30/24 20:19 Allopurinol 100 Mg Tablet PO 100 mg HS [place] Administration Apixaban 5 mg 11/30/24 09:00 12/01/24 08:29 Apixaban 5 Mg Tablet PO 5 mg Q12HR [place] Administration Aspirin 81 mg 11/30/24 09:00 12/01/24 08:29 Aspirin 81 Mg Enteric Tablet PO 81 mg DAILY [place] Administration Buspirone HCl 5 mg 11/30/24 09:00 12/01/24 08:28 Buspirone Hcl 5 Mg Tablet PO 5 mg BID [place] Administration Citalopram Hydrobromide 5 mg 11/30/24 09:00 12/01/24 08:29 Citalopram Hydrobromide 5 Mg Tablet PO 5 mg QAM [place] Administration Guaifenesin 600 mg 11/30/24 13:30 12/01/24 08:29 Guaifenesin 12 Hr 600 Mg Tabcr PO 12/07/24 13:29 600 mg Q12HR [place] Administration Ceftriaxone Sodium 1 gm in 50 mls @ 100 mls/hr 11/30/24 20:00 11/30/24 20:48 Rocephin 1 Gm/Ns 50 Ml IVPB Infused Q24H [place] Infusion Azithromycin 500 mg in 250 mls @ 250 mls/hr 11/30/24 21:00 11/30/24 22:15 Zithromax IVPB Infused Q24H [place] Infusion Sodium Chloride 1,000 mls @ 75 mls/hr 11/30/24 10:55 11/30/24 11:55 Normal Saline Iv IV CONT 75 mls/hr .[id number] [place] Administration Ipratropium [place] 0.5 mg 11/30/24 02:00 12/01/24 09:35 Ipratropium Br 0.02% Inh Soln 0.5 Mg/2.5 Ml Vial INHALATION 0.5 mg Q6HRT [place] Administration Metoprolol Succinate 12.5 mg 11/30/24 11:00 12/01/24 08:29 Metoprolol Succinate Ext Rel 12.5 Mg Tabcr PO 12.5 mg QAM [place] Administration Pantoprazole Sodium 40 mg 12/01/24 09:00 12/01/24 08:29 Pantoprazole 40 Mg Tablet PO 40 mg DAILY [place] Administration Polyethylene Glycol 17 gm 11/30/24 08:34 Polyethylene Glycol 3350 17 Gm Powd.Pack PO QAM PRN Constipation Prochlorperazine Edisylate 10 mg 11/30/24 08:34 Prochlorperazine Edisylate 10 Mg/2 Ml Vial IV PUSH Q6H PRN Nausea And Vomiting Vitamin D 5,000 units 11/30/24 09:00 12/01/24 08:28 Cholecalciferol 5,000 Units Tablet BY MOUTH 5,000 units BID [place] Administration Radiology Results: ITS Impressions Chest X-Ray 11/29/24 18:57 IMPRESSION: No focal infiltrate or effusion. Labs Labs: Laboratory Results - last 24 hr 12/01/24 05:14 WBC 6.7 RBC 2.99 L Hgb 9.4 L Hct 31.5 L MCV 105.4 H MCH 31.4 MCHC 29.8 L RDW 13.9 Plt Count 221 MPV 11.8 H Immature Gran % (Auto) Not Reportable Neut % (Auto) Not Reportable Lymph % (Auto) Not Reportable Spink % (Auto) Not Reportable Eos % (Auto) Not Reportable Baso % (Auto) Not Reportable Lymph # (Auto) Not Reportable Spink # (Auto) Not Reportable Eos # (Auto) Not Reportable Baso # (Auto) Not Reportable Abs Immat Gran (auto) Not Reportable Absolute Neuts (auto) Not Reportable Absolute Nucleated RBC Not Reportable Total Counted 100 Neutrophils % (Manual) 77 H Band Neutrophils % 2 Lymphocytes % (Manual) 9 L Monocytes % (Manual) 9 Eosinophils % (Manual) 1 Basophils % (Manual) 2 H Nucleated RBC % Not Reportable Abs Neuts (Manual) 5.29 Abs Lymphs (Manual) 0.60 L Abs Monocytes (Manual) 0.60 Absolute Eos (Manual) 0.06 Abs Basophils (Manual) 0.13 H Platelet Estimate Adequate Macrocytosis 1+ Schistocytes None seen Sodium 143 Potassium 4.5 Chloride 111 H Carbon Dioxide 25 Anion Gap 7 BUN 29 H Creatinine 2.41 H Estim Creat Clear Calc 16 Estimated GFR 19 L Glucose 92 Calcium 8.7 Magnesium 1.6 Total Bilirubin 0.3 AST 22 ALT 13 Alkaline Phosphatase 85 Total Protein 6.0 L Albumin 3.5 Quality VTE Prophylaxis VTE prophylaxis: pharmacologic ordered
[2024-12-01] MEDS: DOCUSATE SODIUM 100 MG CAPSULE PO ×2 (13:14→21:37)
[2024-12-01 15:34] LABS: NT Pro B Type Natriuretic Pept 3150 pg/mL (19.9-100)
[2024-12-01] MEDS: FUROSEMIDE 40 MG TABLET PO (17:04)
[2024-12-01] MEDS: allopurinoL 100 MG TABLET PO (21:37)
[2024-12-01] MEDS: AZITHROMYCIN 500 MG/NS 250 ML 500 MG/250 ML BAG 250 MG IVPB (21:38)
[2024-12-02] VITALS (18 sets, daily range): BP systolic 131–134; BP diastolic 50–57; PULSE 89–109; RESP 16–20; TEMP 36.4–36.8; O2SAT 92–99
[2024-12-02] MEDS: ALBUTEROL SULFATE NEB 2.5 MG/3 ML INH INHALATION ×4 (01:40→19:30)
[2024-12-02] MEDS: IPRATROPIUM BR 0.02% INH SOLN 0.5 MG/2.5 ML VIAL INHALATION ×4 (01:40→19:30)
[2024-12-02 06:44] LABS: Hemoglobin 9.1 g/dL (12.0-15.0); Mean Corpuscular HGB Conc 30.3 g/dl (32-36); Mean Corpuscular Hemoglobin 30.6 pg (26-34); Mean Platelet Volume 11.7 fl (7.4-10.4); Platelet Count Result 231 k/mm3 (150-375); Red Blood Count 2.97 M/mm3 (4.2-5.4); Red Cell Distribution Width 13.8 % (11.5-14.5); White Blood Count 6.9 K/mm3 (4.5-10.0)
[2024-12-02 06:53] LABS: Alanine Aminotransferase 14 U/L (6-35); Albumin Level 3.3 g/dL (3.5-5.1); Alkaline Phosphatase 80 U/L (38-126); Anion Gap 10 mmol/L (4-12); Aspartate Amino Transferase 21 U/L (14-36); Bilirubin,Total 0.3 mg/dL (0.2-1.3); Blood Urea Nitrogen 27 mg/dL (7-17); Calcium 8.4 mg/dL (8.4-10.2); Carbon Dioxide 27 mmol/L (22-30); Chloride 105 mmol/L (98-107); Estimated CRCL calculation 17 ml/min; Estimated Glomerular Filt Rate 20; Glucose 98 mg/dL (65-110); Magnesium 1.5 mg/dL (1.6-2.3); Potassium 3.9 mmol/L (3.4-5.0); Sodium 142 mmol/L (137-145)
[2024-12-02 07:56] LABS: Platelet Estimate Adequate (Adequate)
[2024-12-02 07:57] LABS: Anisocytosis 1+
[2024-12-02 07:58] LABS: Ovalocytes 1+; Schistocytes None Seen
[2024-12-02] MEDS: MAGNESIUM SULF 2 GM/WATER 50ML 2 GM/50 ML BAG IVPB (08:37)
[2024-12-02] MEDS: APIXABAN 5 MG TABLET PO ×2 (08:41→20:57)
[2024-12-02] MEDS: DOCUSATE SODIUM 100 MG CAPSULE PO ×2 (08:41→20:57)
[2024-12-02] MEDS: PANTOPRAZOLE 40 MG TABLET PO (08:41)
[2024-12-02] MEDS: METOPROLOL SUCCINATE EXT REL 12.5 MG TABCR PO (08:41)
[2024-12-02] MEDS: guaiFENesin 12 HR 600 MG TABCR PO ×2 (08:41→20:57)
[2024-12-02] MEDS: busPIRone HCL 5 MG TABLET PO ×2 (08:41→16:56)
[2024-12-02] MEDS: CHOLECALCIFEROL 5,000 UNITS TABLET 5000 UNITS BY MOUTH ×2 (08:42→16:55)
[2024-12-02] MEDS: CITALOPRAM HYDROBROMIDE 5 MG TABLET PO (08:43)
--- NOTE | 2024-12-02 11:17 | PM.CNNEP ---
Assessment and Plan Assessment and plan (1) KAHLIL (acute kidney injury): Code(s): N17.9 - Acute kidney failure, unspecified Status: Acute Assessment and Plan: slightly above baseline on admission (2.43mg/dl on admission) slow improvement noted suspect rise in creatinine related to: RSV infection pneumonia mild hypoxia urinary retention check urine studies, CPK, and renal ultrasound follow trend of repeat labs and UOP (2) Chronic kidney disease, stage IV (severe): Code(s): N18.4 - Chronic kidney disease, stage 4 (severe) Status: Chronic Assessment and Plan: baseline creatinine has been running ~ 1.6 - 2.3mg/dl since 2020 more recently, running closer to 1.8 - 2.3mg/dl per review of outpatient records ([facility] and [facility]) due to hypertension, vascular disease, and age-related change follows with Dr. Conn for management for her CKD (3) Pneumonia due to respiratory syncytial virus (RSV): Code(s): J12.1 - Respiratory syncytial virus pneumonia Status: Acute Assessment and Plan: viral testing in ER positive for RSV admission imaging noted oxygen requirement noted in ER on antibiotics, nebulizer treatments as supplemental oxygen cultures negative to date continue supportive therapy (4) Urinary retention: Code(s): R33.9 - Retention of urine, unspecified Status: Acute Assessment and Plan: noted by bladder scans straight cath PRN (5) HTN (hypertension), malignant: Code(s): I10 - Essential (primary) hypertension Status: Acute Assessment and Plan: reasonable control at this time follow tend of hemodynamics (6) Anemia: Code(s): D64.9 - Anemia, unspecified Status: Acute Assessment and Plan: related to KAHLIL, CKD, and acute illness follow trend of H/H (particularly since on chronic anticoagulation) consider TIM while hospitalized Will continue to follow. History of Present Illness Reason for Consult Consult date: 12/04/24 Reason for consult: acute renal failure (on chronic kidney disease) Chief Complaint Chief complaint: RSV, pneumonia Review of Systems Review of Systems: As per HPI. [facility], [facility] Past Medical History Medical History CKD (chronic kidney disease) Kidney disorder Abdominal aneurysm H/O blood clots Anemia Hypoglycemia Hx of fracture of rib Bilateral carpal tunnel syndrome Hx: UTI (urinary tract infection) Arthritis GERD (gastroesophageal reflux disease) History of rectal polyps Diverticulitis History of pneumonia Bronchitis H/O: HTN (hypertension) Hypercholesteremia Cataracts, bilateral Clavicle fracture Chronic GERD Depression HTN (hypertension), malignant Surgical History Surgical History History of colon surgery History of local excision of skin lesion History of left knee replacement History of bilateral carpal tunnel release History of bladder surgery History of appendectomy Hx of cardiac cath History of tonsillectomy History of hip replacement Left bipolar October 2019 AAA (abdominal aortic aneurysm) H/O: hysterectomy S/P carpal tunnel release S/P rotator cuff repair Bilaterally H/O bilateral cataract extraction History of total left knee replacement Family History Family History Mother Patient's mother is Dementia Father Patient's father is Blood clots in brain Sibling Cerebrovascular accident Social History Social History Social History: She recently lost her cancer. She had 5 children. He lives home alone. She is retired from working in the school cafeteria Smoking status: Former smoker Second hand tobacco smoke exposure: No Alcohol intake: never Substance use: never Substance use type: does not use Do You Feel Safe in your Home?: Yes Lack of Transportation: No Lack of Food: Never True Current Housing: I Have Housing Concerned About Future Housing: No Difficulty Paying Gas/Electric Bills: No Difficulty Paying for Meds: No Currently Unemployed: No Education: High School Diploma/GED Difficulty w/ Childcare or Family Care: No Living arrangements: assisted living Additional living arrangements comments: currently living [place] Occupation/Education: retired 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 Gender identity (if verbalized by the patient): Female Spiritual care concerns: No Agree to blood products: Yes Meds Home Medications and Allergies Home Medications ?Medication ?Instructions ?Recorded ?Confirmed ?Type citalopram 10 mg tablet 5 mg PO QAM 01/09/20 11/30/24 History allopurinol 100 mg tablet 100 mg PO HS 11/21/22 11/30/24 History buspirone 5 mg tablet 5 mg PO BID 11/21/22 11/30/24 History cholecalciferol (vitamin D3) 125 125 mcg PO BID 11/21/22 11/30/24 History mcg (5,000 unit) tablet (Vitamin D3) apixaban 5 mg tablet (Eliquis) 5 mg PO Q12HR #180 tabs 11/09/23 11/30/24 Rx aspirin 81 mg tablet,delayed 81 mg PO DAILY 11/30/24 11/30/24 History release (Adult Low Dose Aspirin) metoprolol succinate 25 mg 12.5 mg PO DAILY 11/30/24 11/30/24 History tablet,extended release 24 hr pantoprazole 40 mg tablet,delayed 40 mg PO DAILY 11/30/24 11/30/24 History release Allergies Allergy/AdvReac Type Severity Reaction Status Date / Time felodipine Allergy Severe HEART Verified 11/14/24 07:21 BOUNDING metronidazole Allergy Severe Unknown Verified 11/14/24 07:21 Quinolones Allergy Severe Unknown Verified 11/14/24 07:21 ciprofloxacin Allergy Unknown Unknown Verified 11/14/24 07:21 triamterene Allergy Unknown Unknown Verified 11/14/24 07:21 clindamycin Allergy Fatigued Verified 11/14/24 07:21 doxycycline Allergy Fainting Verified 11/14/24 07:21 atorvastatin AdvReac Mild MUSCLE Verified 11/14/24 07:21 ACHES hydrocodone AdvReac Mild Nausea and Verified 11/14/24 07:21 Vomiting prednisone Allergy Severe Hypertensio Uncoded 11/14/24 07:21 n Vital Signs Vital Signs Temp Pulse Resp BP Pulse Ox O2 Del Method O2 Flow Rate 12/02/24 11:01 90 12/02/24 08:42 20 95 Nasal Cannula 2 12/02/24 08:41 109 H 12/02/24 08:11 91 20 12/02/24 08:04 96 12/02/24 08:01 94 20 12/02/24 08:01 95 Nasal Cannula 2.5 12/02/24 04:20 97.5 F L 100 16 134/57 L 99 12/02/24 04:00 100 12/02/24 01:59 98 17 12/02/24 01:40 103 H 17 12/02/24 00:00 97 12/01/24 20:00 121 H 12/01/24 20:00 Nasal Cannula 3 12/01/24 19:55 100 20 12/01/24 19:41 105 H 20 12/01/24 19:41 97 Nasal Cannula 3 12/01/24 19:41 98.0 F 105 H 20 166/69 H 97 Exam Narrative: GENERAL APPEARANCE: elderly but well developed well nourished female in no acute distress HEENT: normocephalic, atraumatic, normal conjunctiva and sclera, nares patient NECK: no lymphadenopathy, thyromegaly, or JVD MOUTH: normal lips, teeth, and gums CARDIOVASCULAR: RRR, normal S1 and S2, no rub RESPIRATORY: coarse breath sounds; diminshed at bases ABDOMEN: soft, nontender, nondistended, positive bowel sounds present EXTREMITIES: no evidence of cyanosis, clubbing, or edema NEUROLOGICAL: alert and oriented x 3; CN II - XII intact bilaterally; no focal deficits noted Results Lab Results 12/04/24 05:43 12/04/24 05:43 Lab results: Most recent lab results Calcium 8.4 mg/dL (8.4-10.2) 12/02/24 05:40 Magnesium 1.5 mg/dL (1.6-2.3) L 12/02/24 05:40
--- NOTE | 2024-12-02 12:25 | P.PNIM_ITS ---
Progress Note: A&P Assessment and Plan (1) RSV infection: Code(s): B33.8 - Other specified viral diseases Status: Acute Assessment and Plan: * RSV positive * Supportive care. * 02@2LNJ Sa02 95%. (2) Acute kidney injury superimposed on CKD: Code(s): N17.9 - Acute kidney failure, unspecified; N18.9 - Chronic kidney disease, unspecified Status: Acute Assessment and Plan: * 12/02/24: Creatinine 2.34, BUN 27, GFR 20. * 12/01/24: Creatinine 2.41, BUN 29, GFR 19. * 11/30/24: Creatinine 2.43, BUN 39, GFR 19. * 11/29/24: Creatinine 2.39, BUN 34, GFR 19. * Nephrology consult. * Monitor labs. (3) Pneumonia due to respiratory syncytial virus (RSV): Code(s): J12.1 - Respiratory syncytial virus pneumonia Status: Acute Assessment and Plan: * WBC 22.8>9.3>6.7>6.9. * Azithromycin 500 mg IVPB daily and Ceftriaxone 1 gram IVPB daily. * Albuterol 2.5 mg inhalation q 6 and Ipratropium 0.5 mg inhalation q 6. * 02@3LN Sa02 95%. * Incentive spirometer. * Blood cultures no growth to date. * Guaifenesin 600 mg PO q 12. (4) DVT (deep venous thrombosis): Qualifiers: Affected thrombotic vein of extremity: other lower extremity vein Chronicity: acute DVT location: lower extremity Laterality: left Qualified Code(s): I82.492 - Acute embolism and thrombosis of other specified deep vein of left lower extremity Code(s): I82.409 - Acute embolism and thrombosis of unspecified deep veins of unspecified lower extremity Status: Acute Assessment and Plan: * Eliquis 5 mg PO BID. (5) Urinary retention: Code(s): R33.9 - Retention of urine, unspecified Status: Acute Assessment and Plan: * Straight cath PRN * Nephrology consult. (6) Hypomagnesemia: Code(s): E83.42 - Hypomagnesemia Status: Acute Assessment and Plan: * Magnesium 1.5. * Magnesium Sulfate 2 gram IVPB x 1. * Monitor labs. (7) Elevated brain natriuretic peptide (BNP) level: Code(s): R79.89 - Other specified abnormal findings of blood chemistry Status: Inactive Assessment and Plan: * BNP 3150 * Furosemide 40 mg PO x1 given 12/01/24. (8) HTN (hypertension), malignant: Code(s): I10 - Essential (primary) hypertension Status: Acute Assessment and Plan: * Current blood pressure 134/57. * Metoprolol Succinate 12.5 mg PO daily. (9) Back pain: Code(s): M54.9 - Dorsalgia, unspecified Status: Acute Assessment and Plan: * Acetaminophen 650 mg PO q 4 PRN. * Urine culture negative. (10) Chronic GERD: Code(s): K21.9 - Gastro-esophageal reflux disease without esophagitis Status: Acute Assessment and Plan: * Pantoprazole 40 mg PO daily. (11) Weakness: Code(s): R53.1 - Weakness Status: Acute Assessment and Plan: * PT/OT (12) Constipation: Code(s): K59.00 - Constipation, unspecified Status: Acute Assessment and Plan: * Docusate 100 mg PO q 12. * Continue Miralax 17 gram PO daily. Subjective Date/time seen: 12/02/24 12:25 Interval history: Patient denies chest pain, palpitations, headache, dizziness, nausea, or vomiting. Patient having difficulty urinating and required straight cath with 500 out per nursing. Review of Systems Review of Systems: All systems reviewed & are unremarkable except as noted in HPI and below Exam Const: General: comfortable and no acute distress Resp: Effort & Inspection: normal respiratory effort Auscultation: diminished lung sounds Cardio: Rate: regular rate Rhythm: regular rhythm Other: Telemetry SR 88. GI: GI Palp: Yes Soft to palpation Auscultation: normal bowel sounds Skin: General skin exam: no rashes or lesions noted Neuro: Speech: normal speech Extrem: General: no pedal edema Psych: Mental Status: mental status grossly normal Affect: normal affect Objective Data Vital Signs Vital Signs: Vital Signs - 24 hr 12/01/24 14:00 12/01/24 14:29 12/01/24 14:59 Temperature 97.8 F Pulse Rate 104 H Respiratory Rate 18 Blood Pressure 132/48 L Pulse Oximetry 96 95 Oxygen Delivery Nasal Cannula Nasal Cannula Oxygen Flow Rate 3 3 Fraction of Inspired Oxygen 32 12/01/24 14:59 12/01/24 15:14 12/01/24 16:00 Temperature Pulse Rate 99 106 H 105 H Respiratory Rate 20 20 Blood Pressure Pulse Oximetry Oxygen Delivery Oxygen Flow Rate Fraction of Inspired Oxygen 12/01/24 19:41 12/01/24 19:41 12/01/24 19:41 Temperature 98.0 F Pulse Rate 105 H 105 H Respiratory Rate 20 20 Blood Pressure 166/69 H Pulse Oximetry 97 97 Oxygen Delivery Nasal Cannula Oxygen Flow Rate 3 Fraction of Inspired Oxygen 32 12/01/24 19:55 12/01/24 20:00 12/01/24 20:00 Temperature Pulse Rate 100 121 H Respiratory Rate 20 Blood Pressure Pulse Oximetry Oxygen Delivery Nasal Cannula Oxygen Flow Rate 3 Fraction of Inspired Oxygen 12/02/24 00:00 12/02/24 01:40 12/02/24 01:59 Temperature Pulse Rate 97 103 H 98 Respiratory Rate 17 17 Blood Pressure Pulse Oximetry Oxygen Delivery Oxygen Flow Rate Fraction of Inspired Oxygen 12/02/24 04:00 12/02/24 04:20 12/02/24 08:01 Temperature 97.5 F L Pulse Rate 100 100 Respiratory Rate 16 Blood Pressure 134/57 L Pulse Oximetry 99 95 Oxygen Delivery Nasal Cannula Oxygen Flow Rate 2.5 Fraction of Inspired Oxygen 12/02/24 08:01 12/02/24 08:11 12/02/24 08:41 Temperature Pulse Rate 94 91 109 H Respiratory Rate 20 20 Blood Pressure Pulse Oximetry Oxygen Delivery Oxygen Flow Rate Fraction of Inspired Oxygen Intake/Output Intake/Output: Intake & Output 11/29/24 11/30/24 12/01/24 12/02/24 23:59 23:59 23:59 23:59 Intake Total 1300 1460 2750.0 790 Output Total 50 600 2290 700 Balance 1250 860 460.0 90 Meds/Results Medications: Active Medications Generic Name Dose Route Start Last Admin Trade Name Freq PRN Reason Stop Dose Admin Acetaminophen 650 mg 11/30/24 08:34 12/01/24 08:32 Acetaminophen 325 Mg Tablet PO 650 mg Q4H PRN Administration Headache Albuterol 2.5 mg 11/30/24 02:00 12/02/24 07:57 Albuterol Sulfate Neb 2.5 Mg/3 Ml Inh INHALATION 2.5 mg Q6HRT [place] Administration Allopurinol 100 mg 11/30/24 21:00 12/01/24 21:37 Allopurinol 100 Mg Tablet PO 100 mg HS [place] Administration Apixaban 5 mg 11/30/24 09:00 12/02/24 08:41 Apixaban 5 Mg Tablet PO 5 mg Q12HR [place] Administration Buspirone HCl 5 mg 11/30/24 09:00 12/02/24 08:41 Buspirone Hcl 5 Mg Tablet PO 5 mg BID [place] Administration Citalopram Hydrobromide 5 mg 11/30/24 09:00 12/02/24 08:43 Citalopram Hydrobromide 5 Mg Tablet PO 5 mg QAM [place] Administration Docusate Sodium 100 mg 12/01/24 13:00 12/02/24 08:41 Docusate Sodium 100 Mg Capsule PO 100 mg Q12HR [place] Administration Guaifenesin 600 mg 11/30/24 13:30 12/02/24 08:41 Guaifenesin 12 Hr 600 Mg Tabcr PO 12/07/24 13:29 600 mg Q12HR [place] Administration Ceftriaxone Sodium 1 gm in 50 mls @ 100 mls/hr 11/30/24 20:00 12/01/24 22:07 Rocephin 1 Gm/Ns 50 Ml IVPB Infused Q24H [place] Infusion Azithromycin 500 mg in 250 mls @ 250 mls/hr 11/30/24 21:00 12/01/24 23:36 Zithromax IVPB Infused Q24H [place] Infusion Ipratropium Worth 0.5 mg 11/30/24 02:00 12/02/24 07:58 Ipratropium Br 0.02% Inh Soln 0.5 Mg/2.5 Ml Vial INHALATION 0.5 mg Q6HRT [place] Administration Metoprolol Succinate 12.5 mg 11/30/24 11:00 12/02/24 08:41 Metoprolol Succinate Ext Rel 12.5 Mg Tabcr PO 12.5 mg QAM [place] Administration Pantoprazole Sodium 40 mg 12/01/24 09:00 12/02/24 08:41 Pantoprazole 40 Mg Tablet PO 40 mg DAILY [place] Administration Polyethylene Glycol 17 gm 11/30/24 08:34 Polyethylene Glycol 3350 17 Gm Powd.Pack PO QAM PRN Constipation Prochlorperazine Edisylate 10 mg 11/30/24 08:34 Prochlorperazine Edisylate 10 Mg/2 Ml Vial IV PUSH Q6H PRN Nausea And Vomiting Vitamin D 5,000 units 11/30/24 09:00 12/02/24 08:42 Cholecalciferol 5,000 Units Tablet BY MOUTH 5,000 units BID [place] Administration Radiology Results: ITS Impressions Chest X-Ray 11/29/24 18:57 IMPRESSION: No focal infiltrate or effusion. Labs Labs: Laboratory Results - last 24 hr 12/01/24 12/02/24 05:14 05:40 WBC 6.9 RBC 2.97 L Hgb 9.1 L Hct 30.0 L MCV 101.0 H MCH 30.6 MCHC 30.3 L RDW 13.8 Plt Count 231 MPV 11.7 H Immature Gran % (Auto) Not Reportable Neut % (Auto) Not Reportable Lymph % (Auto) Not Reportable [place] % (Auto) Not Reportable Eos % (Auto) Not Reportable Baso % (Auto) Not Reportable Lymph # (Auto) Not Reportable [place] # (Auto) Not Reportable Eos # (Auto) Not Reportable Baso # (Auto) Not Reportable Abs Immat Gran (auto) Not Reportable Absolute Neuts (auto) Not Reportable Absolute Nucleated RBC Not Reportable Nucleated RBC % Not Reportable Platelet Estimate Adequate Anisocytosis 1+ Ovalocytes 1+ Schistocytes None seen Sodium 142 Potassium 3.9 Chloride 105 Carbon Dioxide 27 Anion Gap 10 BUN 27 H Creatinine 2.34 H Estim Creat Clear Calc 17 Estimated GFR 20 L Glucose 98 Calcium 8.4 Magnesium 1.5 L Total Bilirubin 0.3 AST 21 ALT 14 Alkaline Phosphatase 80 NT-Pro-B Natriuret Pep 3150 H Total Protein 6.0 L Albumin 3.3 L Quality VTE Prophylaxis VTE prophylaxis: pharmacologic ordered
[2024-12-02] MEDS: polyethylene glycoL 3350 17 GM POWD.PACK PO (12:39)
[2024-12-02] MEDS: allopurinoL 100 MG TABLET PO (20:57)
[2024-12-02] MEDS: AZITHROMYCIN 500 MG/NS 250 ML 500 MG/250 ML BAG 150 MG IVPB (21:59)
[2024-12-02] MEDS: ACETAMINOPHEN 325 MG TABLET 650 MG PO (22:00)
[2024-12-03] VITALS (19 sets, daily range): BP systolic 128–149; BP diastolic 56–68; PULSE 82–105; RESP 14–20; TEMP 36.3–36.8; O2SAT 93–99
[2024-12-03] MEDS: IPRATROPIUM BR 0.02% INH SOLN 0.5 MG/2.5 ML VIAL INHALATION (01:41)
[2024-12-03] MEDS: ALBUTEROL SULFATE NEB 2.5 MG/3 ML INH INHALATION (01:41)
[2024-12-03 06:06] LABS: Hematocrit 29.1 % (37.0-47.0); Hemoglobin 9.1 g/dL (12.0-15.0); Mean Corpuscular HGB Conc 31.3 g/dl (32-36); Mean Corpuscular Hemoglobin 31.2 pg (26-34); Mean Corpuscular Volume 99.7 fl (80-100); Mean Platelet Volume 11.6 fl (7.4-10.4); Platelet Count Result 233 k/mm3 (150-375); Red Blood Count 2.92 M/mm3 (4.2-5.4); Red Cell Distribution Width 13.6 % (11.5-14.5); White Blood Count 5.8 K/mm3 (4.5-10.0)
[2024-12-03 06:20] LABS: Alanine Aminotransferase 16 U/L (6-35); Albumin Level 3.4 g/dL (3.5-5.1); Alkaline Phosphatase 84 U/L (38-126); Anion Gap 7 mmol/L (4-12); Aspartate Amino Transferase 23 U/L (14-36); Bilirubin,Total 0.3 mg/dL (0.2-1.3); Blood Urea Nitrogen 27 mg/dL (7-17); Calcium 8.8 mg/dL (8.4-10.2); Carbon Dioxide 28 mmol/L (22-30); Chloride 104 mmol/L (98-107); Estimated CRCL calculation 18 ml/min; Estimated Glomerular Filt Rate 22; Glucose 93 mg/dL (65-110); Magnesium 1.8 mg/dL (1.6-2.3); Potassium 3.9 mmol/L (3.4-5.0); Sodium 139 mmol/L (137-145)
[2024-12-03 07:05] LABS: Band Neutrophils Percent 7 % (0-6); Basophils Absolute Manual 0.05 K/mm3 (0.0-0.1); Basophils Percent Manual 1 % (0-1); Eosinophils Absolute Manual 0.05 K/mm3 (0.02-0.50); Eosinophils Percent Manual 1 % (0-4); Lymphocytes Absolute Manual 0.98 K/mm3 (1.1-4.5); Lymphocytes Percent Manual 17 % (18-44); Monocytes Absolute Manual 0.81 K/mm3 (0.1-0.90); Monocytes Percent Manual 14 % (3-9); Neutrophils Absolute Manual 3.88 K/mm3 (1.7-7.2); Neutrophils Percent Manual 60 % (46-73); Ovalocytes 1+; Platelet Estimate Adequate (Adequate); Schistocytes None Seen; Total Cells Counted 100
[2024-12-03 07:48] LABS: Creatine Kinase 118 U/L (30-135)
[2024-12-03] MEDS: IPRATROPIUM 0.5 MG/ALBUTEROL SULFATE 2.5 MG AMPUL.NEB 3 ML INHALATION ×3 (08:31→20:31)
[2024-12-03 09:25] LABS: Eosinophil Urine None Seen % (None Seen); Urine Eos QC 2nd Tech Confirmed
[2024-12-03] MEDS: APIXABAN 5 MG TABLET PO ×2 (09:31→21:22)
[2024-12-03] MEDS: guaiFENesin 12 HR 600 MG TABCR PO ×2 (09:31→21:22)
[2024-12-03] MEDS: DOCUSATE SODIUM 100 MG CAPSULE PO ×2 (09:31→21:22)
[2024-12-03] MEDS: METOPROLOL SUCCINATE EXT REL 12.5 MG TABCR PO (09:31)
[2024-12-03] MEDS: PANTOPRAZOLE 40 MG TABLET PO (09:31)
[2024-12-03] MEDS: busPIRone HCL 5 MG TABLET PO ×2 (09:31→16:29)
[2024-12-03] MEDS: CHOLECALCIFEROL 5,000 UNITS TABLET 5000 UNITS BY MOUTH ×2 (09:31→16:28)
[2024-12-03] MEDS: CITALOPRAM HYDROBROMIDE 5 MG TABLET PO (09:33)
[2024-12-03] MEDS: polyethylene glycoL 3350 17 GM POWD.PACK PO (09:33)
[2024-12-03 09:45] LABS: Creatinine Urine 37.9 mg/dL; Sodium Urine Random 78 meq/L; Total Protein Urine Random 175 mg/dL; Urea Random Urine 243 MG/DL
[2024-12-03 09:47] LABS: Creatinine Urine 38.8 mg/dL; Total Protein Urine Random 175 mg/dL; Ur Ttl Prot Creatinine Ratio 4.51 mg/mg (0-0.20)
--- NOTE | 2024-12-03 10:04 | P.PNNP_ITS ---
Progress Note: A&P Assessment and Plan (1) KAHLIL (acute kidney injury): Code(s): N17.9 - Acute kidney failure, unspecified Status: Acute Assessment and Plan: * improvement noted * slightly above baseline on admission (2.43mg/dl on admission) * suspect rise in creatinine related to: * RSV infection * pneumonia * mild hypoxia * urinary retention * evaluation to date: * renal ultrasound consistent with CKD * urine electrolytes non-prerenal * urine eosinophils negative * proteinuria noted * CPK normal * follow trend of repeat labs and UOP (2) Chronic kidney disease, stage IV (severe): Code(s): N18.4 - Chronic kidney disease, stage 4 (severe) Status: Chronic Assessment and Plan: * baseline creatinine has been running ~ 1.6 - 2.3mg/dl since 2020 * more recently, running closer to 1.8 - 2.3mg/dl per review of outpatient records ([facility] and [facility]) * due to hypertension, vascular disease, and age-related change based on extensive outpatient evaluation * follows with Dr. Conn for management for her known CKD (3) Pneumonia due to respiratory syncytial virus (RSV): Code(s): J12.1 - Respiratory syncytial virus pneumonia Status: Acute Assessment and Plan: * viral testing in ER positive for RSV * admission imaging noted * oxygen requirement noted in ER * on antibiotics, nebulizer treatments as supplemental oxygen * cultures negative to date * continue supportive therapy (4) Urinary retention: Code(s): R33.9 - Retention of urine, unspecified Status: Acute Assessment and Plan: * noted by bladder scans * straight cath PRN (5) HTN (hypertension), malignant: Code(s): I10 - Essential (primary) hypertension Status: Acute Assessment and Plan: * reasonable control at this time * follow tend of hemodynamics (6) Anemia: Code(s): D64.9 - Anemia, unspecified Status: Acute Assessment and Plan: * related to KAHLIL, CKD, and acute illness * follow trend of H/H (particularly since on chronic anticoagulation) * consider TIM while hospitalized Will continue to follow. L Subjective Date/time seen: 12/03/24 10:04 Interval history: Follow-up for acute kidney injury/acute renal failure on chronic kidney disease. Appears to be doing reasonably well since I last saw her; sitting up in chair watch TV at the time of my visit; no apparent distress noted; no other issues/events overnight or earlier this morning; renal function/creatinine improving with adequate urine output; no other complaints voiced. Exam 2 Narrative: General: elderly but WD/WN female in NAD Heart: normal S1 and S2; no rub Lungs: coarse breath sounds; decreased at bases Abdomen: soft, nontender, nondistended, positive bowel sounds Extremities: no cyanosis or clubbing; no edema Skin: warm and dry Objective Data Vital Signs Vital Signs: Vital Signs Temp Pulse Resp BP Pulse Ox O2 Del Method O2 Flow Rate 12/03/24 09:33 20 96 Nasal Cannula 2 12/03/24 09:31 105 H 12/03/24 08:49 82 20 12/03/24 08:32 85 20 12/03/24 08:32 96 Nasal Cannula 3 12/03/24 08:03 87 12/03/24 04:39 98.3 F 96 20 149/68 H 93 12/03/24 04:00 87 12/03/24 01:47 93 16 12/03/24 01:31 91 16 12/03/24 00:00 83 12/02/24 20:00 100 12/02/24 20:00 Nasal Cannula 3 12/02/24 19:35 98.3 F 91 16 131/50 L 93 12/02/24 19:30 92 20 12/02/24 19:21 90 20 12/02/24 19:21 92 Nasal Cannula 2.5 12/02/24 16:00 100 12/02/24 15:20 Nasal Cannula 2 12/02/24 14:51 89 20 12/02/24 14:00 97.6 F 99 17 132/53 L 98 Intake/Output Intake/Output: Intake & Output 11/30/24 12/01/24 12/02/24 12/03/24 23:59 23:59 23:59 23:59 Intake Total 1460 2750.0 1570.0 980 Output Total 600 2290 1800 500 Balance 860 460.0 -230.0 480 Meds/Results Medications: Active Medications Generic Name Dose Route Start Last Admin Trade Name Freq PRN Reason Stop Dose Admin Acetaminophen 650 mg 11/30/24 08:34 12/02/24 22:00 Acetaminophen 325 Mg Tablet PO 650 mg Q4H PRN Administration Headache Albuterol/Ipratropium 3 ml 02/18/25 08:00 12/03/24 08:31 Ipratropium 0.5 Mg/Albuterol Sulfate 2.5 Mg Ampul.Neb 3 Ml INHALATION 3 ml Q6HRT [place] Administration Allopurinol 100 mg 11/30/24 21:00 12/02/24 20:57 Allopurinol 100 Mg Tablet PO 100 mg HS [place] Administration Apixaban 5 mg 11/30/24 09:00 12/03/24 09:31 Apixaban 5 Mg Tablet PO 5 mg Q12HR [place] Administration Azithromycin 500 mg 12/03/24 21:00 Azithromycin 250 Mg Tablet PO 12/03/24 21:01 ONCE ONE Buspirone HCl 5 mg 11/30/24 09:00 12/03/24 09:31 Buspirone Hcl 5 Mg Tablet PO 5 mg BID [place] Administration Citalopram Hydrobromide 5 mg 11/30/24 09:00 12/03/24 09:33 Citalopram Hydrobromide 5 Mg Tablet PO 5 mg QAM [place] Administration Docusate Sodium 100 mg 12/01/24 13:00 12/03/24 09:31 Docusate Sodium 100 Mg Capsule PO 100 mg Q12HR [place] Administration Guaifenesin 600 mg 11/30/24 13:30 12/03/24 09:31 Guaifenesin 12 Hr 600 Mg Tabcr PO 12/07/24 13:29 600 mg Q12HR [place] Administration Ceftriaxone Sodium 1 gm in 50 mls @ 100 mls/hr 11/30/24 20:00 12/02/24 21:28 Rocephin 1 Gm/Ns 50 Ml IVPB Infused Q24H [place] Infusion Metoprolol Succinate 12.5 mg 11/30/24 11:00 12/03/24 09:31 Metoprolol Succinate Ext Rel 12.5 Mg Tabcr PO 12.5 mg QAM [place] Administration Pantoprazole Sodium 40 mg 12/01/24 09:00 12/03/24 09:31 Pantoprazole 40 Mg Tablet PO 40 mg DAILY [place] Administration Polyethylene Glycol 17 gm 11/30/24 08:34 12/03/24 09:33 Polyethylene Glycol 3350 17 Gm Powd.Pack PO 17 gm QAM PRN Administration Constipation Prochlorperazine Edisylate 10 mg 11/30/24 08:34 Prochlorperazine Edisylate 10 Mg/2 Ml Vial IV PUSH Q6H PRN Nausea And Vomiting Vitamin D 5,000 units 11/30/24 09:00 12/03/24 09:31 Cholecalciferol 5,000 Units Tablet BY MOUTH 5,000 units BID [place] Administration Radiology Results: ITS Impressions Chest X-Ray 11/29/24 18:57 IMPRESSION: No focal infiltrate or effusion. Renal Ultrasound 12/03/24 08:48 IMPRESSION: 1. Mild atrophy of the kidneys. No hydronephrosis. Labs Labs: Laboratory Tests 12/03/24 05:21 12/03/24 05:21 Calcium 8.8 Magnesium 1.8 Total Bilirubin 0.3 AST 23 ALT 16 Alkaline Phosphatase 84 Total Creatine Kinase 118 Total Protein 6.0 L Albumin 3.4 L
--- NOTE | 2024-12-03 12:53 | P.PNIM_ITS ---
Progress Note: A&P Assessment and Plan (1) RSV infection: Code(s): B33.8 - Other specified viral diseases Status: Acute Assessment and Plan: * RSV positive * Supportive care. * 02@2LNC Sa02 96%. (2) Acute kidney injury superimposed on CKD: Code(s): N17.9 - Acute kidney failure, unspecified; N18.9 - Chronic kidney disease, unspecified Status: Acute Assessment and Plan: * 12/03/24: Creatinine 2.16, BUN 27, GFR 22. * 12/02/24: Creatinine 2.34, BUN 27, GFR 20. * 12/01/24: Creatinine 2.41, BUN 29, GFR 19. * 11/30/24: Creatinine 2.43, BUN 39, GFR 19. * 11/29/24: Creatinine 2.39, BUN 34, GFR 19. * Nephrology consulted, appreciate recommendations. * Renal ultrasound showed: FINDINGS: The right kidney measures 8.8 x 4.9 x 5.2 cm. The left kidney measures 8.5 x 5.2 x 4.7 cm. The kidneys demonstrate normal parenchymal echogenicity. There are cysts in the kidneys measuring up to 16 mm on the right. There is no hydronephrosis. The bladder is normal. IMPRESSION: 1. Mild atrophy of the kidneys. No hydronephrosis. * Monitor labs. (3) Pneumonia due to respiratory syncytial virus (RSV): Code(s): J12.1 - Respiratory syncytial virus pneumonia Status: Acute Assessment and Plan: * WBC 22.8>9.3>6.7>6.9>5.8. * Azithromycin 500 mg IVPB daily and Ceftriaxone 1 gram IVPB daily. * Albuterol 2.5 mg inhalation q 6 and Ipratropium 0.5 mg inhalation q 6. * 02@2LNC Sa02 96%. * Incentive spirometer. * Blood cultures no growth to date. * Guaifenesin 600 mg PO q 12. (4) DVT (deep venous thrombosis): Qualifiers: Affected thrombotic vein of extremity: other lower extremity vein Chronicity: acute DVT location: lower extremity Laterality: left Qualified Code(s): I82.492 - Acute embolism and thrombosis of other specified deep vein of left lower extremity Code(s): I82.409 - Acute embolism and thrombosis of unspecified deep veins of unspecified lower extremity Status: Acute Assessment and Plan: * Eliquis 5 mg PO BID. (5) Urinary retention: Code(s): R33.9 - Retention of urine, unspecified Status: Acute Assessment and Plan: * Straight cath PRN * Nephrology consult. (6) Hypomagnesemia: Code(s): E83.42 - Hypomagnesemia Status: Acute Assessment and Plan: * Magnesium 1.8 today, improved. * Monitor labs. (7) Elevated brain natriuretic peptide (BNP) level: Code(s): R79.89 - Other specified abnormal findings of blood chemistry Status: Inactive Assessment and Plan: * BNP 3150 * Furosemide 40 mg PO x1 given 12/01/24. (8) HTN (hypertension), malignant: Code(s): I10 - Essential (primary) hypertension Status: Acute Assessment and Plan: * Current blood pressure 135/59. * Metoprolol Succinate 12.5 mg PO daily. (9) Back pain: Code(s): M54.9 - Dorsalgia, unspecified Status: Acute Assessment and Plan: * Acetaminophen 650 mg PO q 4 PRN. * Urine culture negative. (10) Chronic GERD: Code(s): K21.9 - Gastro-esophageal reflux disease without esophagitis Status: Acute Assessment and Plan: * Pantoprazole 40 mg PO daily. (11) Weakness: Code(s): R53.1 - Weakness Status: Acute Assessment and Plan: * PT/OT (12) Constipation: Code(s): K59.00 - Constipation, unspecified Status: Acute Assessment and Plan: * Docusate 100 mg PO q 12. * Continue Miralax 17 gram PO daily. * Add Bisacodyl 10 mg [place] daily PRN. Subjective Date/time seen: 12/03/24 12:53 Interval history: Patient reports feeling a little better today. Patient still has not had a good bowel movement, patient report taking Miralax along with Colace this morning. Patient reports occasional shortness of breath. Patient denies chest pain, palpitations, headache, dizziness, nausea, or vomiting. Review of Systems Review of Systems: All systems reviewed & are unremarkable except as noted in HPI and below Exam Const: General: comfortable and no acute distress Resp: Effort & Inspection: normal respiratory effort Auscultation: diminished lung sounds Cardio: Rate: regular rate Rhythm: regular rhythm Other: Telemetry SR 98 GI: GI Palp: Yes Soft to palpation Auscultation: normal bowel sounds Skin: General skin exam: no rashes or lesions noted Neuro: Speech: normal speech Extrem: General: no pedal edema Psych: Mental Status: mental status grossly normal Affect: normal affect Objective Data Vital Signs Vital Signs: Vital Signs - 24 hr 12/02/24 14:00 12/02/24 14:51 12/02/24 15:20 Temperature 97.6 F Pulse Rate 99 89 Respiratory Rate 17 20 Blood Pressure 132/53 L Pulse Oximetry 98 Oxygen Delivery Nasal Cannula Oxygen Flow Rate 2 Fraction of Inspired Oxygen 12/02/24 16:00 12/02/24 19:21 12/02/24 19:21 Temperature Pulse Rate 100 90 Respiratory Rate 20 Blood Pressure Pulse Oximetry 92 Oxygen Delivery Nasal Cannula Oxygen Flow Rate 2.5 Fraction of Inspired Oxygen 30 12/02/24 19:30 12/02/24 19:35 12/02/24 20:00 Temperature 98.3 F Pulse Rate 92 91 Respiratory Rate 20 16 Blood Pressure 131/50 L Pulse Oximetry 93 Oxygen Delivery Nasal Cannula Oxygen Flow Rate 3 Fraction of Inspired Oxygen 12/02/24 20:00 12/03/24 00:00 12/03/24 01:31 Temperature Pulse Rate 100 83 91 Respiratory Rate 16 Blood Pressure Pulse Oximetry Oxygen Delivery Oxygen Flow Rate Fraction of Inspired Oxygen 12/03/24 01:47 12/03/24 04:00 12/03/24 04:39 Temperature 98.3 F Pulse Rate 93 87 96 Respiratory Rate 16 20 Blood Pressure 149/68 H Pulse Oximetry 93 Oxygen Delivery Oxygen Flow Rate Fraction of Inspired Oxygen 12/03/24 08:03 12/03/24 08:32 12/03/24 08:32 Temperature Pulse Rate 87 85 Respiratory Rate 20 Blood Pressure Pulse Oximetry 96 Oxygen Delivery Nasal Cannula Oxygen Flow Rate 3 Fraction of Inspired Oxygen 12/03/24 08:49 12/03/24 09:31 12/03/24 09:33 Temperature Pulse Rate 82 105 H Respiratory Rate 20 20 Blood Pressure Pulse Oximetry 96 Oxygen Delivery Nasal Cannula Oxygen Flow Rate 2 Fraction of Inspired Oxygen Intake/Output Intake/Output: Intake & Output 11/30/24 12/01/24 12/02/24 12/03/24 23:59 23:59 23:59 23:59 Intake Total 1460 2750.0 1570.0 980 Output Total 600 2290 1800 500 Balance 860 460.0 -230.0 480 Meds/Results Medications: Active Medications Generic Name Dose Route Start Last Admin Trade Name Freq PRN Reason Stop Dose Admin Acetaminophen 650 mg 11/30/24 08:34 12/02/24 22:00 Acetaminophen 325 Mg Tablet PO 650 mg Q4H PRN Administration Headache Albuterol/Ipratropium 3 ml 12/03/24 08:00 12/03/24 08:31 Ipratropium 0.5 Mg/Albuterol Sulfate 2.5 Mg Ampul.Neb 3 Ml INHALATION 3 ml Q6HRT [place] Administration Allopurinol 100 mg 11/30/24 21:00 12/02/24 20:57 Allopurinol 100 Mg Tablet PO 100 mg HS [place] Administration Apixaban 5 mg 11/30/24 09:00 12/03/24 09:31 Apixaban 5 Mg Tablet PO 5 mg Q12HR [place] Administration Azithromycin 500 mg 12/03/24 21:00 Azithromycin 250 Mg Tablet PO 12/03/24 21:01 ONCE ONE Buspirone HCl 5 mg 11/30/24 09:00 12/03/24 09:31 Buspirone Hcl 5 Mg Tablet PO 5 mg BID [place] Administration Citalopram Hydrobromide 5 mg 11/30/24 09:00 12/03/24 09:33 Citalopram Hydrobromide 5 Mg Tablet PO 5 mg QAM [place] Administration Docusate Sodium 100 mg 12/01/24 13:00 12/03/24 09:31 Docusate Sodium 100 Mg Capsule PO 100 mg Q12HR [place] Administration Guaifenesin 600 mg 11/30/24 13:30 12/03/24 09:31 Guaifenesin 12 Hr 600 Mg Tabcr PO 12/07/24 13:29 600 mg Q12HR [place] Administration Ceftriaxone Sodium 1 gm in 50 mls @ 100 mls/hr 11/30/24 20:00 12/02/24 21:28 Rocephin 1 Gm/Ns 50 Ml IVPB Infused Q24H [place] Infusion Metoprolol Succinate 12.5 mg 11/30/24 11:00 12/03/24 09:31 Metoprolol Succinate Ext Rel 12.5 Mg Tabcr PO 12.5 mg QAM [place] Administration Pantoprazole Sodium 40 mg 12/01/24 09:00 12/03/24 09:31 Pantoprazole 40 Mg Tablet PO 40 mg DAILY [place] Administration Polyethylene Glycol 17 gm 11/30/24 08:34 12/03/24 09:33 Polyethylene Glycol 3350 17 Gm Powd.Pack PO 17 gm QAM PRN Administration Constipation Prochlorperazine Edisylate 10 mg 11/30/24 08:34 Prochlorperazine Edisylate 10 Mg/2 Ml Vial IV PUSH Q6H PRN Nausea And Vomiting Vitamin D 5,000 units 11/30/24 09:00 12/03/24 09:31 Cholecalciferol 5,000 Units Tablet BY MOUTH 5,000 units BID [place] Administration Radiology Results: ITS Impressions Chest X-Ray 11/29/24 18:57 IMPRESSION: No focal infiltrate or effusion. Renal Ultrasound 12/03/24 08:48 IMPRESSION: 1. Mild atrophy of the kidneys. No hydronephrosis. Labs Labs: Laboratory Results - last 24 hr 12/03/24 12/03/24 12/03/24 05:17 05:21 07:52 WBC 5.8 RBC 2.92 L Hgb 9.1 L Hct 29.1 L MCV 99.7 MCH 31.2 MCHC 31.3 L RDW 13.6 Plt Count 233 MPV 11.6 H Immature Gran % (Auto) Not Reportable Neut % (Auto) Not Reportable Lymph % (Auto) Not Reportable [place] % (Auto) Not Reportable Eos % (Auto) Not Reportable Baso % (Auto) Not Reportable Lymph # (Auto) Not Reportable [place] # (Auto) Not Reportable Eos # (Auto) Not Reportable Baso # (Auto) Not Reportable Abs Immat Gran (auto) Not Reportable Absolute Neuts (auto) Not Reportable Absolute Nucleated RBC Not Reportable Total Counted 100 Neutrophils % (Manual) 60 Band Neutrophils % 7 H Lymphocytes % (Manual) 17 L Monocytes % (Manual) 14 H Eosinophils % (Manual) 1 Basophils % (Manual) 1 Nucleated RBC % Not Reportable Abs Neuts (Manual) 3.88 Abs Lymphs (Manual) 0.98 L Abs Monocytes (Manual) 0.81 Absolute Eos (Manual) 0.05 Abs Basophils (Manual) 0.05 Platelet Estimate Adequate Ovalocytes 1+ Schistocytes None seen Sodium 139 Potassium 3.9 Chloride 104 Carbon Dioxide 28 Anion Gap 7 BUN 27 H Creatinine 2.16 H Estim Creat Clear Calc 18 Estimated GFR 22 L Glucose 93 Calcium 8.8 Magnesium 1.8 Total Bilirubin 0.3 AST 23 ALT 16 Alkaline Phosphatase 84 Total Creatine Kinase 118 Total Protein 6.0 L Albumin 3.4 L Urine Eosinophils None seen U Random Total Protein 175 Ur Random Sodium Ur Random Urea Urine Creatinine Protein/Creat Ratio 2 12/03/24 12/03/24 07:52 07:52 WBC RBC Hgb Hct MCV MCH MCHC RDW Plt Count MPV Immature Gran % (Auto) Neut % (Auto) Lymph % (Auto) [place] % (Auto) Eos % (Auto) Baso % (Auto) Lymph # (Auto) [place] # (Auto) Eos # (Auto) Baso # (Auto) Abs Immat Gran (auto) Absolute Neuts (auto) Absolute Nucleated RBC Total Counted Neutrophils % (Manual) Band Neutrophils % Lymphocytes % (Manual) Monocytes % (Manual) Eosinophils % (Manual) Basophils % (Manual) Nucleated RBC % Abs Neuts (Manual) Abs Lymphs (Manual) Abs Monocytes (Manual) Absolute Eos (Manual) Abs Basophils (Manual) Platelet Estimate Ovalocytes Schistocytes Sodium Potassium Chloride Carbon Dioxide Anion Gap BUN Creatinine Estim Creat Clear Calc Estimated GFR Glucose Calcium Magnesium Total Bilirubin AST ALT Alkaline Phosphatase Total Creatine Kinase Total Protein Albumin Urine Eosinophils U Random Total Protein 175 Ur Random Sodium 78 Ur Random Urea 243 Urine Creatinine 38.8 37.9 Protein/Creat Ratio 2 4.51 H Quality VTE Prophylaxis VTE prophylaxis: pharmacologic ordered
[2024-12-03 13:05] LABS: Band Neutrophils Percent 0 % (0-6); Eosinophils Absolute Manual 0.41 K/mm3 (0.02-0.50); Eosinophils Percent Manual 6 % (0-4); Lymphocytes Absolute Manual 0.27 K/mm3 (1.1-4.5); Lymphocytes Percent Manual 4 % (18-44); Monocytes Absolute Manual 0.82 K/mm3 (0.1-0.90); Monocytes Percent Manual 12 % (3-9); Neutrophils Absolute Manual 5.38 K/mm3 (1.7-7.2); Neutrophils Percent Manual 78 % (46-73); Total Cells Counted 100
[2024-12-03] MEDS: AZITHROMYCIN 250 MG TABLET 500 MG PO (21:21)
[2024-12-03] MEDS: allopurinoL 100 MG TABLET PO (21:22)
[2024-12-03] MEDS: ACETAMINOPHEN 325 MG TABLET 650 MG PO (21:25)
[2024-12-04] VITALS (25 sets, daily range): BP systolic 135–153; BP diastolic 59–68; PULSE 87–133; RESP 14–20; TEMP 36.3–36.6; O2SAT 87–96
[2024-12-04] MEDS: IPRATROPIUM 0.5 MG/ALBUTEROL SULFATE 2.5 MG AMPUL.NEB 3 ML INHALATION ×4 (02:03→20:56)
[2024-12-04 06:25] LABS: Basophils Percent Auto 0.6 % (0.2-1.2); Eosinophils Absolute Auto 0.1 K/mm3 (0-0.3); Eosinophils Percent Auto 1.8 % (0-4.4); Hematocrit 34.5 % (37.0-47.0); Hemoglobin 10.4 g/dL (12.0-15.0); Immature Granulocyte Absolute 0.12 K/mm3 (0.00-0.031); Immature Granulocyte Percent A 1.8 % (0-0.5); Lymphocytes Absolute Auto 1.35 K/mm3 (0.9-3.2); Lymphocytes Percent Auto 20.4 % (18.3-44.2); Mean Corpuscular HGB Conc 30.1 g/dl (32-36); Mean Corpuscular Hemoglobin 30.7 pg (26-34); Mean Corpuscular Volume 101.8 fl (80-100); Mean Platelet Volume 11.6 fl (7.4-10.4); Monocytes Percent Auto 14.8 % (2.6-8.5); Neutrophils Percent Auto 60.6 % (45.5-73.1); Platelet Count Result 309 k/mm3 (150-375); Red Blood Count 3.39 M/mm3 (4.2-5.4); Red Cell Distribution Width 13.5 % (11.5-14.5); White Blood Count 6.6 K/mm3 (4.5-10.0)
[2024-12-04 06:35] LABS: Alanine Aminotransferase 29 U/L (6-35); Alkaline Phosphatase 102 U/L (38-126); Anion Gap 10 mmol/L (4-12); Aspartate Amino Transferase 31 U/L (14-36); Bilirubin,Total 0.4 mg/dL (0.2-1.3); Blood Urea Nitrogen 31 mg/dL (7-17); Calcium 9.6 mg/dL (8.4-10.2); Carbon Dioxide 29 mmol/L (22-30); Chloride 102 mmol/L (98-107); Estimated CRCL calculation 17 ml/min; Estimated Glomerular Filt Rate 20; Glucose 101 mg/dL (65-110); Magnesium 2.1 mg/dL (1.6-2.3); Potassium 4.4 mmol/L (3.4-5.0); Sodium 141 mmol/L (137-145)
[2024-12-04 07:23] LABS: Creatinine, Random Urine 42 mg/dL (20-275); Total Prot/Creat ratio mg/mg 3.357 (0.024-0.184); Total Protein/Creatinine Ratio 3357 mg/g creat (24-184)
--- NOTE | 2024-12-04 07:38 | P.PNIM_ITS ---
Progress Note: A&P Assessment and Plan (1) RSV infection: Code(s): B33.8 - Other specified viral diseases Status: Acute Assessment and Plan: * RSV positive * Supportive care. * Wean oxygen as able (2) Acute kidney injury superimposed on CKD: Code(s): N17.9 - Acute kidney failure, unspecified; N18.9 - Chronic kidney disease, unspecified Status: Acute Assessment and Plan: * Nephrology consulted, appreciate recommendations. * Renal ultrasound showed: FINDINGS: The right kidney measures 8.8 x 4.9 x 5.2 cm. The left kidney measures 8.5 x 5.2 x 4.7 cm. The kidneys demonstrate normal parenchymal echogenicity. There are cysts in the kidneys measuring up to 16 mm on the right. There is no hydronephrosis. The bladder is normal. Mild atrophy of the kidneys. No hydronephrosis. Creatinine increasing this morning Daily labs (3) Pneumonia due to respiratory syncytial virus (RSV): Code(s): J12.1 - Respiratory syncytial virus pneumonia Status: Acute Assessment and Plan: * Azithromycin 500 mg IVPB daily and Ceftriaxone 1 gram IVPB daily. * Albuterol 2.5 mg inhalation q 6 and Ipratropium 0.5 mg inhalation q 6. * 02@[address] [place], [place] [id number] 96%. * Incentive spirometer. * Blood cultures no growth to date. * Guaifenesin 600 mg PO q 12. (4) DVT (deep venous thrombosis): Qualifiers: Affected thrombotic vein of extremity: other lower extremity vein Chronicity: acute DVT location: lower extremity Laterality: left Qualified Code(s): I82.492 - Acute embolism and thrombosis of other specified deep vein of left lower extremity Code(s): I82.409 - Acute embolism and thrombosis of unspecified deep veins of unspecified lower extremity Status: Acute Assessment and Plan: * Eliquis 5 mg PO BID. (5) Urinary retention: Code(s): R33.9 - Retention of urine, unspecified Status: Acute Assessment and Plan: * Straight cath PRN * Nephrology consult. * Added Flomax (6) Hypomagnesemia: Code(s): E83.42 - Hypomagnesemia Status: Acute Assessment and Plan: improved. * Monitor labs. (7) Elevated brain natriuretic peptide (BNP) level: Code(s): R79.89 - Other specified abnormal findings of blood chemistry Status: Inactive Assessment and Plan: * BNP 3150 * Furosemide 40 mg PO x1 given 12/01/24. (8) HTN (hypertension), malignant: Code(s): I10 - Essential (primary) hypertension Status: Acute Assessment and Plan: * Current blood pressure 135/59. * Metoprolol Succinate 12.5 mg PO daily. (9) Back pain: Code(s): M54.9 - Dorsalgia, unspecified Status: Acute Assessment and Plan: * Acetaminophen 650 mg PO q 4 PRN. * Urine culture negative. (10) Chronic GERD: Code(s): K21.9 - Gastro-esophageal reflux disease without esophagitis Status: Acute Assessment and Plan: * Pantoprazole 40 mg PO daily. (11) Weakness: Code(s): R53.1 - Weakness Status: Acute Assessment and Plan: * PT/OT (12) Constipation: Code(s): K59.00 - Constipation, unspecified Status: Acute Assessment and Plan: * Docusate 100 mg PO q 12. * Continue Miralax 17 gram PO daily. * Add Bisacodyl 10 mg [place] daily PRN. Time Spent With Patient Time with patient: Greater than 35 minutes Subjective Date/time seen: 12/04/24 07:38 Interval history: 84 year old female that presented to the ER with weakness and flu like symptoms found RSV. Review of Systems Review of Systems: All systems reviewed & are unremarkable except as noted in HPI and below Exam Narrative: General: well appearing, appears stated age. HEENT: normocephalic, atraumatic. Mucous membranes moist. EOMI, PERRLA, bilateral sclera anicteric, no conjunctival injection. Neck supple without JVD, lymphadenopathy, or bruit. Respiratory: clear to ascultation bilaterally. No rales/rhonic/wheezes. Cardiovascular: Regular rate and rhythm, normal S1-S2 upon ascultation. No murmurs, rubs, or clicks. PMI is nondisplaced, capillary refill less than 3 second. Abdomen: Soft, round, no pulsatile masses, nondistended and nontender. No rebound, no guarding. No CVA tenderness, no hepatosplenomegaly. Bowel sounds present to all four quadrants. No high pitch or tinkling sounds, resonant to pe rcussion. Extremities: No cyanosis, clubbing, or edema present. Pulses are palpable 2/2. Active ROM to all four extremities. Neuro: Alert and orientated x 4. PERRLA. Cranial nerves 2-12 intact without focal deficit. Skin: Warm, dry, and intact, without rash, erythema, or lesion. Psych: pleasant, cooperative, normal speech, normal affect, no hallucinations, no dysarthia Objective Data Vital Signs Vital Signs: Vital Signs - 24 hr 12/03/24 08:03 12/03/24 08:32 12/03/24 08:32 Temperature Pulse Rate 87 85 Respiratory Rate 20 Blood Pressure Pulse Oximetry 96 Oxygen Delivery Nasal Cannula Oxygen Flow Rate 3 12/03/24 08:49 12/03/24 09:31 12/03/24 09:33 Temperature Pulse Rate 82 105 H Respiratory Rate 20 20 Blood Pressure Pulse Oximetry 96 Oxygen Delivery Nasal Cannula Oxygen Flow Rate 2 12/03/24 12:01 12/03/24 14:29 12/03/24 14:55 Temperature 97.3 F L Pulse Rate 104 H 89 84 Respiratory Rate 16 20 Blood Pressure 135/59 L Pulse Oximetry 99 Oxygen Delivery Oxygen Flow Rate 12/03/24 15:04 12/03/24 16:03 12/03/24 19:47 Temperature 98.0 F Pulse Rate 88 103 H 93 Respiratory Rate 20 16 Blood Pressure 128/56 L Pulse Oximetry 95 Oxygen Delivery Oxygen Flow Rate 12/03/24 20:00 12/03/24 20:00 12/03/24 20:32 Temperature Pulse Rate 96 Respiratory Rate Blood Pressure Pulse Oximetry 94 Oxygen Delivery Nasal Cannula Nasal Cannula Oxygen Flow Rate 3 3 12/03/24 20:32 12/03/24 20:43 12/04/24 00:00 Temperature Pulse Rate 90 86 93 Respiratory Rate 14 14 Blood Pressure Pulse Oximetry Oxygen Delivery Oxygen Flow Rate 12/04/24 02:03 12/04/24 02:11 12/04/24 04:00 Temperature Pulse Rate 95 90 87 Respiratory Rate 16 16 Blood Pressure Pulse Oximetry Oxygen Delivery Oxygen Flow Rate 12/04/24 04:26 12/04/24 07:20 12/04/24 07:21 Temperature 97.4 F L Pulse Rate 99 90 Respiratory Rate 16 16 Blood Pressure 153/68 H Pulse Oximetry 96 96 Oxygen Delivery Nasal Cannula Oxygen Flow Rate 3 12/04/24 07:30 Temperature Pulse Rate 93 Respiratory Rate 14 Blood Pressure Pulse Oximetry Oxygen Delivery Oxygen Flow Rate Intake/Output Intake/Output: Intake & Output 12/01/24 12/02/24 12/03/24 12/04/24 23:59 23:59 23:59 23:59 Intake Total 2750.0 1570.0 2040 550 Output Total 2290 1800 1200 400 Balance 460.0 -230.0 840 150 Meds/Results Medications: Active Medications Generic Name Dose Route Start Last Admin Trade Name Freq PRN Reason Stop Dose Admin Acetaminophen 650 mg 11/30/24 08:34 12/03/24 21:25 Acetaminophen 325 Mg Tablet PO 650 mg Q4H PRN Administration Headache Albuterol/Ipratropium 3 ml 12/03/24 08:00 12/04/24 07:20 Ipratropium 0.5 Mg/Albuterol Sulfate 2.5 Mg Ampul.Neb 3 Ml INHALATION 3 ml Q6HRT [place] Administration Allopurinol 100 mg 11/30/24 21:00 12/03/24 21:22 Allopurinol 100 Mg Tablet PO 100 mg HS [place] Administration Apixaban 5 mg 11/30/24 09:00 12/03/24 21:22 Apixaban 5 Mg Tablet PO 5 mg Q12HR [place] Administration Bisacodyl 10 mg 12/03/24 13:53 Bisacodyl 10 Mg Suppository RECTAL DAILY PRN Constipation Buspirone HCl 5 mg 11/30/24 09:00 12/03/24 16:29 Buspirone Hcl 5 Mg Tablet PO 5 mg BID [place] Administration Citalopram Hydrobromide 5 mg 11/30/24 09:00 12/03/24 09:33 Citalopram Hydrobromide 5 Mg Tablet PO 5 mg QAM [place] Administration Docusate Sodium 100 mg 12/01/24 13:00 12/03/24 21:22 Docusate Sodium 100 Mg Capsule PO 100 mg Q12HR [place] Administration Guaifenesin 600 mg 11/30/24 13:30 12/03/24 21:22 Guaifenesin 12 Hr 600 Mg Tabcr PO 12/07/24 13:29 600 mg Q12HR [place] Administration Ceftriaxone Sodium 1 gm in 50 mls @ 100 mls/hr 11/30/24 20:00 12/03/24 21:51 Rocephin 1 Gm/Ns 50 Ml IVPB Infused Q24H [place] Infusion Metoprolol Succinate 12.5 mg 11/30/24 11:00 12/03/24 09:31 Metoprolol Succinate Ext Rel 12.5 Mg Tabcr PO 12.5 mg QAM [place] Administration Pantoprazole Sodium 40 mg 12/01/24 09:00 12/03/24 09:31 Pantoprazole 40 Mg Tablet PO 40 mg DAILY [place] Administration Polyethylene Glycol 17 gm 11/30/24 08:34 12/03/24 09:33 Polyethylene Glycol 3350 17 Gm Powd.Pack PO 17 gm QAM PRN Administration Constipation Prochlorperazine Edisylate 10 mg 11/30/24 08:34 Prochlorperazine Edisylate 10 Mg/2 Ml Vial IV PUSH Q6H PRN Nausea And Vomiting Vitamin D 5,000 units 11/30/24 09:00 12/03/24 16:28 Cholecalciferol 5,000 Units Tablet BY MOUTH 5,000 units BID [place] Administration Radiology Results: ITS Impressions Chest X-Ray 11/29/24 18:57 IMPRESSION: No focal infiltrate or effusion. Renal Ultrasound 12/03/24 08:48 IMPRESSION: 1. Mild atrophy of the kidneys. No hydronephrosis. Labs Labs: Laboratory Results - last 24 hr 12/02/24 12/03/24 12/03/24 05:40 05:17 07:52 WBC RBC Hgb Hct MCV MCH MCHC RDW Plt Count MPV Immature Gran % (Auto) Neut % (Auto) Lymph % (Auto) [place] % (Auto) Eos % (Auto) Baso % (Auto) Lymph # (Auto) [place] # (Auto) Eos # (Auto) Baso # (Auto) Abs Immat Gran (auto) Absolute Neuts (auto) Absolute Nucleated RBC Total Counted 100 Neutrophils % (Manual) 78 H Band Neutrophils % 0 Lymphocytes % (Manual) 4 L Monocytes % (Manual) 12 H Eosinophils % (Manual) 6 H Nucleated RBC % Abs Neuts (Manual) 5.38 Abs Lymphs (Manual) 0.27 L Abs Monocytes (Manual) 0.82 Absolute Eos (Manual) 0.41 Sodium Potassium Chloride Carbon Dioxide Anion Gap BUN Creatinine Estim Creat Clear Calc Estimated GFR Glucose Calcium Magnesium Total Bilirubin AST ALT Alkaline Phosphatase Total Creatine Kinase 118 Total Protein Albumin Urine Eosinophils None seen Ur Random Creatinine 42 U Random Total Protein 175 Ur Random Sodium Ur Random Urea Urine Creatinine Protein/Creatinin Ratio Protein/Creat Ratio 2 12/03/24 12/03/24 12/03/24 07:52 07:52 07:52 WBC RBC Hgb Hct MCV MCH MCHC RDW Plt Count MPV Immature Gran % (Auto) Neut % (Auto) Lymph % (Auto) [place] % (Auto) Eos % (Auto) Baso % (Auto) Lymph # (Auto) [place] # (Auto) Eos # (Auto) Baso # (Auto) Abs Immat Gran (auto) Absolute Neuts (auto) Absolute Nucleated RBC Total Counted Neutrophils % (Manual) Band Neutrophils % Lymphocytes % (Manual) Monocytes % (Manual) Eosinophils % (Manual) Nucleated RBC % Abs Neuts (Manual) Abs Lymphs (Manual) Abs Monocytes (Manual) Absolute Eos (Manual) Sodium Potassium Chloride Carbon Dioxide Anion Gap BUN Creatinine Estim Creat Clear Calc Estimated GFR Glucose Calcium Magnesium Total Bilirubin AST ALT Alkaline Phosphatase Total Creatine Kinase Total Protein Albumin Urine Eosinophils Ur Random Creatinine U Random Total Protein 175 141 H Ur Random Sodium 78 Ur Random Urea 243 Urine Creatinine 38.8 37.9 Protein/Creatinin Ratio 3357 H Protein/Creat Ratio 2 4.51 H 12/04/24 05:43 WBC 6.6 RBC 3.39 L Hgb 10.4 L Hct 34.5 L MCV 101.8 H MCH 30.7 MCHC 30.1 L RDW 13.5 Plt Count 309 MPV 11.6 H Immature Gran % (Auto) 1.8 H Neut % (Auto) 60.6 Lymph % (Auto) 20.4 [place] % (Auto) 14.8 H Eos % (Auto) 1.8 Baso % (Auto) 0.6 Lymph # (Auto) 1.35 [place] # (Auto) 1.0 H Eos # (Auto) 0.1 Baso # (Auto) 0.0 Abs Immat Gran (auto) 0.12 H Absolute Neuts (auto) 4.0 Absolute Nucleated RBC 0.000 Total Counted Neutrophils % (Manual) Band Neutrophils % Lymphocytes % (Manual) Monocytes % (Manual) Eosinophils % (Manual) Nucleated RBC % 0.0 Abs Neuts (Manual) Abs Lymphs (Manual) Abs Monocytes (Manual) Absolute Eos (Manual) Sodium 141 Potassium 4.4 Chloride 102 Carbon Dioxide 29 Anion Gap 10 BUN 31 H Creatinine 2.31 H Estim Creat Clear Calc 17 Estimated GFR 20 L Glucose 101 Calcium 9.6 Magnesium 2.1 Total Bilirubin 0.4 AST 31 ALT 29 Alkaline Phosphatase 102 Total Creatine Kinase Total Protein 7.0 Albumin 4.0 Urine Eosinophils Ur Random Creatinine U Random Total Protein Ur Random Sodium Ur Random Urea Urine Creatinine Protein/Creatinin Ratio Protein/Creat Ratio 2 Quality VTE Prophylaxis VTE prophylaxis: pharmacologic ordered
[2024-12-04] MEDS: TAMSULOSIN HCL 0.4 MG CAPSULE PO (09:29)
[2024-12-04] MEDS: PANTOPRAZOLE 40 MG TABLET PO (09:29)
[2024-12-04] MEDS: METOPROLOL SUCCINATE EXT REL 12.5 MG TABCR PO (09:29)
[2024-12-04] MEDS: CHOLECALCIFEROL 5,000 UNITS TABLET 5000 UNITS BY MOUTH ×2 (09:29→17:07)
[2024-12-04] MEDS: APIXABAN 5 MG TABLET PO ×2 (09:29→20:08)
[2024-12-04] MEDS: busPIRone HCL 5 MG TABLET PO ×2 (09:29→17:07)
[2024-12-04] MEDS: DOCUSATE SODIUM 100 MG CAPSULE PO ×2 (09:29→20:08)
[2024-12-04] MEDS: BISACODYL 10 MG SUPPOSITORY RECTAL (09:29)
[2024-12-04] MEDS: guaiFENesin 12 HR 600 MG TABCR PO ×2 (09:29→20:08)
[2024-12-04] MEDS: polyethylene glycoL 3350 17 GM POWD.PACK PO (09:29)
[2024-12-04] MEDS: CITALOPRAM HYDROBROMIDE 5 MG TABLET PO (10:40)
[2024-12-04 12:08] LABS: Protein, Total 5.8 g/dL (6.1-8.1)
--- NOTE | 2024-12-04 12:35 | PM.PNNEP ---
Subjective Date/time seen: 12/04/24 12:35 Objective Data Vital Signs Vital Signs: Vital Signs Temp Pulse Resp BP Pulse Ox O2 Del Method O2 Flow Rate 12/04/24 12:00 97 12/04/24 09:30 96 Nasal Cannula 3 12/04/24 09:29 94 12/04/24 08:00 133 H 12/04/24 07:30 93 14 12/04/24 07:21 96 Nasal Cannula 3 12/04/24 07:20 90 16 12/04/24 04:26 97.4 F L 99 16 153/68 H 96 12/04/24 04:00 87 12/04/24 02:11 90 16 12/04/24 02:03 95 16 12/04/24 00:00 93 12/03/24 20:43 86 14 12/03/24 20:32 90 14 12/03/24 20:32 94 Nasal Cannula 3 12/03/24 20:00 96 12/03/24 20:00 Nasal Cannula 3 12/03/24 19:47 98.0 F 93 16 128/56 L 95 Intake/Output Intake/Output: Intake & Output 12/01/24 12/02/24 12/03/24 12/04/24 23:59 23:59 23:59 23:59 Intake Total 2750.0 1570.0 2040 2224 Output Total 2290 1800 1200 400 Balance 460.0 -230.0 840 1824 Meds/Results Medications: Active Medications Generic Name Dose Route Start Last Admin Trade Name Freq PRN Reason Stop Dose Admin Acetaminophen 650 mg 11/30/24 08:34 12/03/24 21:25 Acetaminophen 325 Mg Tablet PO 650 mg Q4H PRN Administration Headache Albuterol/Ipratropium 3 ml 12/03/24 08:00 12/04/24 14:05 Ipratropium 0.5 Mg/Albuterol Sulfate 2.5 Mg Ampul.Neb 3 Ml INHALATION 3 ml Q6HRT [place] Administration Allopurinol 100 mg 11/30/24 21:00 12/03/24 21:22 Allopurinol 100 Mg Tablet PO 100 mg HS [place] Administration Amoxicillin/Clavulanate Potassium 1 tablet 12/04/24 21:00 Amoxicillin/Clavulanate K 500-125 Mg Tab PO 12/06/24 09:01 Q12HR [place] Apixaban 5 mg 11/30/24 09:00 12/04/24 09:29 Apixaban 5 Mg Tablet PO 5 mg Q12HR [place] Administration Benzocaine 1 lozenge 12/04/24 15:54 12/04/24 17:07 Benzocaine/Menthol (*Bkc) 18 Ea Lozenge PO 1 lozenge PRN PRN Administration Sore Throat Bisacodyl 10 mg 12/03/24 13:53 12/04/24 09:29 Bisacodyl 10 Mg Suppository RECTAL 10 mg DAILY PRN Administration Constipation Buspirone HCl 5 mg 11/30/24 09:00 12/04/24 17:07 Buspirone Hcl 5 Mg Tablet PO 5 mg BID [place] Administration Citalopram Hydrobromide 5 mg 11/30/24 09:00 12/04/24 10:40 Citalopram Hydrobromide 5 Mg Tablet PO 5 mg QAM [facility] Administration Docusate Sodium 100 mg 12/01/24 13:00 12/04/24 09:29 Docusate Sodium 100 Mg Capsule PO 100 mg Q12HR [place] Administration Guaifenesin 600 mg 11/30/24 13:30 12/04/24 09:29 Guaifenesin 12 Hr 600 Mg Tabcr PO 12/07/24 13:29 600 mg Q12HR [place] Administration Metoprolol Succinate 12.5 mg 11/30/24 11:00 12/04/24 09:29 Metoprolol Succinate Ext Rel 12.5 Mg Tabcr PO 12.5 mg QAM [place] Administration Pantoprazole Sodium 40 mg 12/01/24 09:00 12/04/24 09:29 Pantoprazole 40 Mg Tablet PO 40 mg DAILY [place] Administration Polyethylene Glycol 17 gm 11/30/24 08:34 12/04/24 09:29 Polyethylene Glycol 3350 17 Gm Powd.Pack PO 17 gm QAM PRN Administration Constipation Prochlorperazine Edisylate 10 mg 11/30/24 08:34 Prochlorperazine Edisylate 10 Mg/2 Ml Vial IV PUSH Q6H PRN Nausea And Vomiting Tamsulosin HCl 0.4 mg 12/04/24 09:00 12/04/24 09:29 Tamsulosin Hcl 0.4 Mg Capsule PO 0.4 mg QAM [facility] Administration Vitamin D 5,000 units 11/30/24 09:00 12/04/24 17:07 Cholecalciferol 5,000 Units Tablet BY MOUTH 5,000 units BID [place] Administration Radiology Results: ITS Impressions Chest X-Ray 11/29/24 18:57 IMPRESSION: No focal infiltrate or effusion. Renal Ultrasound 12/03/24 08:48 IMPRESSION: 1. Mild atrophy of the kidneys. No hydronephrosis. Labs Labs: Laboratory Tests 12/04/24 05:43 12/04/24 05:43 Calcium 9.6 Magnesium 2.1 Total Bilirubin 0.4 AST 31 ALT 29 Alkaline Phosphatase 102 Total Protein 7.0 Albumin 4.0
--- NOTE | 2024-12-04 14:07 | HOMEO2EVAL ---
Evaluation was performed at [facility] Home Oxygen Evaluation RC: Home Oxygen (O2) Evaluation Start: 12/04/24 12:20 Freq: ONCE Status: Active Protocol: RPE Activity Type Activity Date Activity User E-sign Co-sign Detail Recorded Client Recorded Date Recorded By Document 12/04/24 13:30 [email or web address] [email or web address] 12/04/24 14:07 PKH Document 12/04/24 13:35 [email or web address] 12/04/24 14:07 PKH Document 12/04/24 13:40 [email or web address] [email or web address] 12/04/24 14:07 PKH Document 12/04/24 13:45 [email or web address] [email or web address] 12/04/24 14:07 PKH Document 12/04/24 13:50 PK [email or web address] 12/04/24 14:07 PK 12/04/24 12/04/24 12/04/24 13:30 13:35 13:40 Home O2 Evaluation [Oxygen] -Test Phase Resting Resting Resting -Oxygen Delivery Room Air Nasal Cannula Nasal Cannula -Oxygen Flow Rate (L/min) 1 2 [Pulse Oximetry] -Pulse Oximetry (90-100 %) 87 L 88 L 92 [Pulse Rate] -Pulse Rate (60-100 beats/min) 101 H 100 99 [Charges] -Evaluation Charges O2 Evaluation by Pulmonary 12/04/24 12/04/24 13:45 13:50 Home O2 Evaluation [Oxygen] -Test Phase Exercise Exercise -Oxygen Delivery Nasal Cannula Nasal Cannula -Oxygen Flow Rate (L/min) 2 3 [Pulse Oximetry] -Pulse Oximetry (90-100 %) 88 L 91 [Pulse Rate] -Pulse Rate (60-100 beats/min) 112 H 113 H [Charges] -Evaluation Charges
--- NOTE | 2024-12-04 14:19 | PCRCNOTE ---
HOME O2 eval complete. Patient requires 2lpm rest and 3lpm activity. Home O2 sset up with [facility] [phone] DELFIN notified
[2024-12-04 14:34] LABS: Kappa\\Lambda Light Chains 2.06 (0.26-1.65); Lambda Light Chain 35.6 mg/L (5.7-26.3)
[2024-12-04] MEDS: BENZOCAINE/MENTHOL (*BKC) 18 EA LOZENGE 1 LOZENGE PO (17:07)
[2024-12-04 19:04] LABS: Albumin 3.1 g/dL (3.8-4.8); Alpha 1 Globulin 0.4 g/dL (0.2-0.3); Alpha 2 Globulin 0.8 g/dL (0.5-0.9); Beta 1 Globulin 0.4 g/dL (0.4-0.6); Gamma Globulin 0.7 g/dL (0.8-1.7)
[2024-12-04] MEDS: AMOXICILLIN/CLAVULANATE K 500-125 MG TAB 1 TABLET PO (20:08)
[2024-12-04] MEDS: allopurinoL 100 MG TABLET PO (20:08)
[2024-12-04] MEDS: ACETAMINOPHEN 325 MG TABLET 650 MG PO (20:12)
[2024-12-05] VITALS (15 sets, daily range): BP systolic 128–131; BP diastolic 57–66; PULSE 89–104; RESP 16–18; TEMP 36.9–37.1; O2SAT 94–96
[2024-12-05] MEDS: IPRATROPIUM 0.5 MG/ALBUTEROL SULFATE 2.5 MG AMPUL.NEB 3 ML INHALATION ×3 (01:16→13:09)
[2024-12-05 06:26] LABS: Basophils Percent Auto 0.5 % (0.2-1.2); Eosinophils Absolute Auto 0.1 K/mm3 (0-0.3); Eosinophils Percent Auto 1.7 % (0-4.4); Hematocrit 31.7 % (37.0-47.0); Hemoglobin 9.6 g/dL (12.0-15.0); Immature Granulocyte Absolute 0.32 K/mm3 (0.00-0.031); Lymphocytes Absolute Auto 1.14 K/mm3 (0.9-3.2); Lymphocytes Percent Auto 17.6 % (18.3-44.2); Mean Corpuscular HGB Conc 30.3 g/dl (32-36); Mean Corpuscular Hemoglobin 30.8 pg (26-34); Mean Corpuscular Volume 101.6 fl (80-100); Mean Platelet Volume 11.6 fl (7.4-10.4); Monocytes Absolute Auto 0.9 K/mm3 (0.1-0.6); Monocytes Percent Auto 14.2 % (2.6-8.5); Neutrophils Absolute Auto 3.9 K/mm3 (1.3-6.7); Platelet Count Result 302 k/mm3 (150-375); Red Blood Count 3.12 M/mm3 (4.2-5.4); Red Cell Distribution Width 13.6 % (11.5-14.5); White Blood Count 6.5 K/mm3 (4.5-10.0)
[2024-12-05 06:41] LABS: Alanine Aminotransferase 32 U/L (6-35); Albumin Level 3.9 g/dL (3.5-5.1); Alkaline Phosphatase 105 U/L (38-126); Anion Gap 11 mmol/L (4-12); Aspartate Amino Transferase 29 U/L (14-36); Bilirubin,Total 0.5 mg/dL (0.2-1.3); Blood Urea Nitrogen 40 mg/dL (7-17); Calcium 9.9 mg/dL (8.4-10.2); Carbon Dioxide 29 mmol/L (22-30); Chloride 99 mmol/L (98-107); Estimated CRCL calculation 17 ml/min; Estimated Glomerular Filt Rate 20; Glucose 102 mg/dL (65-110); Magnesium 2.1 mg/dL (1.6-2.3); Potassium 4.6 mmol/L (3.4-5.0); Sodium 139 mmol/L (137-145)
--- NOTE | 2024-12-05 07:23 | P.PNIM_ITS ---
Progress Note: A&P Assessment and Plan (1) RSV infection: Code(s): B33.8 - Other specified viral diseases Status: Acute Assessment and Plan: * RSV positive * Supportive care. * Wean oxygen as able (2) Acute kidney injury superimposed on CKD: Code(s): N17.9 - Acute kidney failure, unspecified; N18.9 - Chronic kidney disease, unspecified Status: Acute Assessment and Plan: * Nephrology consulted, appreciate recommendations. * Renal ultrasound showed: FINDINGS: The right kidney measures 8.8 x 4.9 x 5.2 cm. The left kidney measures 8.5 x 5.2 x 4.7 cm. The kidneys demonstrate normal parenchymal echogenicity. There are cysts in the kidneys measuring up to 16 mm on the right. There is no hydronephrosis. The bladder is normal. Mild atrophy of the kidneys. No hydronephrosis. Creatinine increasing this morning Daily labs (3) Pneumonia due to respiratory syncytial virus (RSV): Code(s): J12.1 - Respiratory syncytial virus pneumonia Status: Acute Assessment and Plan: * Azithromycin 500 mg IVPB daily and Ceftriaxone 1 gram IVPB daily. * Albuterol 2.5 mg inhalation q 6 and Ipratropium 0.5 mg inhalation q 6. * 02@[address] [place], [place] [id number] 96%. * Incentive spirometer. * Blood cultures no growth to date. * Guaifenesin 600 mg PO q 12. (4) DVT (deep venous thrombosis): Qualifiers: Affected thrombotic vein of extremity: other lower extremity vein Chronicity: acute DVT location: lower extremity Laterality: left Qualified Code(s): I82.492 - Acute embolism and thrombosis of other specified deep vein of left lower extremity Code(s): I82.409 - Acute embolism and thrombosis of unspecified deep veins of unspecified lower extremity Status: Acute Assessment and Plan: * Eliquis 5 mg PO BID. (5) Urinary retention: Code(s): R33.9 - Retention of urine, unspecified Status: Acute Assessment and Plan: * Straight cath PRN * Nephrology consult. * Added Flomax (6) Hypomagnesemia: Code(s): E83.42 - Hypomagnesemia Status: Acute Assessment and Plan: improved. * Monitor labs. (7) Elevated brain natriuretic peptide (BNP) level: Code(s): R79.89 - Other specified abnormal findings of blood chemistry Status: Inactive Assessment and Plan: * BNP 3150 * Furosemide 40 mg PO x1 given 12/01/24. (8) HTN (hypertension), malignant: Code(s): I10 - Essential (primary) hypertension Status: Acute Assessment and Plan: * Current blood pressure 135/59. * Metoprolol Succinate 12.5 mg PO daily. (9) Back pain: Code(s): M54.9 - Dorsalgia, unspecified Status: Acute Assessment and Plan: * Acetaminophen 650 mg PO q 4 PRN. * Urine culture negative. (10) Chronic GERD: Code(s): K21.9 - Gastro-esophageal reflux disease without esophagitis Status: Acute Assessment and Plan: * Pantoprazole 40 mg PO daily. (11) Weakness: Code(s): R53.1 - Weakness Status: Acute Assessment and Plan: * PT/OT (12) Constipation: Code(s): K59.00 - Constipation, unspecified Status: Acute Assessment and Plan: * Docusate 100 mg PO q 12. * Continue Miralax 17 gram PO daily. * Add Bisacodyl 10 mg NV daily PRN. Subjective Date/time seen: 12/05/24 07:23 Interval history: 84 year old female that presented to the ER with weakness and flu like symptoms found RSV. DC home??? Review of Systems Review of Systems: All systems reviewed & are unremarkable except as noted in HPI and below Exam Narrative: General: well appearing, appears stated age. HEENT: normocephalic, atraumatic. Mucous membranes moist. EOMI, PERRLA, bilateral sclera anicteric, no conjunctival injection. Neck supple without JVD, lymphadenopathy, or bruit. Respiratory: clear to ascultation bilaterally. No rales/rhonic/wheezes. Cardiovascular: Regular rate and rhythm, normal S1-S2 upon ascultation. No murmurs, rubs, or clicks. PMI is nondisplaced, capillary refill less than 3 second. Abdomen: Soft, round, no pulsatile masses, nondistended and nontender. No rebound, no guarding. No CVA tenderness, no hepatosplenomegaly. Bowel sounds present to all four quadrants. No high pitch or tinkling sounds, resonant to percussion. Extremities: No cyanosis, clubbing, or edema present. Pulses are palpable 2/2. Active ROM to all four extremities. Neuro: Alert and orientated x 4. PERRLA. Cranial nerves 2-12 intact without focal deficit. Skin: Warm, dry, and intact, without rash, erythema, or lesion. Psych: pleasant, cooperative, normal speech, normal affect, no hallucinations, no dysarthia Objective Data Vital Signs Vital Signs: Vital Signs - 24 hr 12/04/24 07:30 12/04/24 08:00 12/04/24 09:29 Temperature Pulse Rate 93 133 H 94 Respiratory Rate 14 Blood Pressure Pulse Oximetry Oxygen Delivery Oxygen Flow Rate Fraction of Inspired Oxygen 12/04/24 09:30 12/04/24 12:00 12/04/24 13:30 Temperature Pulse Rate 97 101 H Respiratory Rate Blood Pressure Pulse Oximetry 96 87 L Oxygen Delivery Nasal Cannula Room Air Oxygen Flow Rate 3 Fraction of Inspired Oxygen 12/04/24 13:35 12/04/24 13:40 12/04/24 13:45 Temperature Pulse Rate 100 99 112 H Respiratory Rate Blood Pressure Pulse Oximetry 88 L 92 88 L Oxygen Delivery Nasal Cannula Nasal Cannula Nasal Cannula Oxygen Flow Rate 1 2 2 Fraction of Inspired Oxygen 12/04/24 13:50 12/04/24 14:00 12/04/24 14:05 Temperature 97.9 F Pulse Rate 113 H 99 106 H Respiratory Rate 18 18 Blood Pressure 136/62 Pulse Oximetry 91 92 Oxygen Delivery Nasal Cannula Oxygen Flow Rate 3 Fraction of Inspired Oxygen 12/04/24 14:17 12/04/24 16:00 12/04/24 20:00 Temperature Pulse Rate 102 H 100 Respiratory Rate 18 Blood Pressure Pulse Oximetry 96 Oxygen Delivery Nasal Cannula Oxygen Flow Rate 2 Fraction of Inspired Oxygen 12/04/24 20:00 12/04/24 20:25 12/04/24 20:55 Temperature 97.8 F Pulse Rate 98 100 99 Respiratory Rate 18 18 Blood Pressure 135/59 L Pulse Oximetry 96 Oxygen Delivery Oxygen Flow Rate Fraction of Inspired Oxygen 12/04/24 21:09 12/05/24 00:00 12/05/24 01:16 Temperature Pulse Rate 102 H 98 Respiratory Rate 20 Blood Pressure Pulse Oximetry 95 Oxygen Delivery Nasal Cannula Oxygen Flow Rate 2 Fraction of Inspired Oxygen 28 12/05/24 01:16 12/05/24 01:28 12/05/24 04:00 Temperature Pulse Rate 98 91 89 Respiratory Rate 18 18 Blood Pressure Pulse Oximetry Oxygen Delivery Oxygen Flow Rate Fraction of Inspired Oxygen 12/05/24 04:52 Temperature 98.7 F Pulse Rate 98 Respiratory Rate 17 Blood Pressure 131/66 Pulse Oximetry 96 Oxygen Delivery Oxygen Flow Rate Fraction of Inspired Oxygen Intake/Output Intake/Output: Intake & Output 12/02/24 12/03/24 12/04/24 12/05/24 23:59 23:59 23:59 23:59 Intake Total 1570.0 2040 2224 250 Output Total 1800 1200 400 Balance -230.0 840 1824 250 Meds/Results Medications: Active Medications Generic Name Dose Route Start Last Admin Trade Name Freq PRN Reason Stop Dose Admin Acetaminophen 650 mg 11/30/24 08:34 12/04/24 20:12 Acetaminophen 325 Mg Tablet PO 650 mg Q4H PRN Administration Headache Albuterol/Ipratropium 3 ml 12/03/24 08:00 12/05/24 01:16 Ipratropium 0.5 Mg/Albuterol Sulfate 2.5 Mg Ampul.Neb 3 Ml INHALATION 3 ml Q6HRT [place] Administration Allopurinol 100 mg 11/30/24 21:00 12/04/24 20:08 Allopurinol 100 Mg Tablet PO 100 mg HS [place] Administration Amoxicillin/Clavulanate Potassium 1 tablet 12/04/24 21:00 12/04/24 20:08 Amoxicillin/Clavulanate K 500-125 Mg Tab PO 12/06/24 09:01 1 tablet Q12HR [place] Administration Apixaban 5 mg 11/30/24 09:00 12/04/24 20:08 Apixaban 5 Mg Tablet PO 5 mg Q12HR [place] Administration Benzocaine 1 lozenge 12/04/24 15:54 12/04/24 17:07 Benzocaine/Menthol (*Bkc) 18 Ea Lozenge PO 1 lozenge PRN PRN Administration Sore Throat Bisacodyl 10 mg 12/03/24 13:53 12/04/24 09:29 Bisacodyl 10 Mg Suppository RECTAL 10 mg DAILY PRN Administration Constipation Buspirone HCl 5 mg 11/30/24 09:00 12/04/24 17:07 Buspirone Hcl 5 Mg Tablet PO 5 mg BID [place] Administration Citalopram Hydrobromide 5 mg 11/30/24 09:00 12/04/24 10:40 Citalopram Hydrobromide 5 Mg Tablet PO 5 mg QAM [place] Administration Docusate Sodium 100 mg 12/01/24 13:00 12/04/24 20:08 Docusate Sodium 100 Mg Capsule PO 100 mg Q12HR [place] Administration Guaifenesin 600 mg 11/30/24 13:30 12/04/24 20:08 Guaifenesin 12 Hr 600 Mg Tabcr PO 12/07/24 13:29 600 mg Q12HR [place] Administration Metoprolol Succinate 12.5 mg 11/30/24 11:00 12/04/24 09:29 Metoprolol Succinate Ext Rel 12.5 Mg Tabcr PO 12.5 mg QAM [place] Administration Pantoprazole Sodium 40 mg 12/01/24 09:00 12/04/24 09:29 Pantoprazole 40 Mg Tablet PO 40 mg DAILY [place] Administration Polyethylene Glycol 17 gm 11/30/24 08:34 12/04/24 09:29 Polyethylene Glycol 3350 17 Gm Powd.Pack PO 17 gm QAM PRN Administration Constipation Prochlorperazine Edisylate 10 mg 11/30/24 08:34 Prochlorperazine Edisylate 10 Mg/2 Ml Vial IV PUSH Q6H PRN Nausea And Vomiting Tamsulosin HCl 0.4 mg 12/04/24 09:00 12/04/24 09:29 Tamsulosin Hcl 0.4 Mg Capsule PO 0.4 mg QAM [place] Administration Vitamin D 5,000 units 11/30/24 09:00 12/04/24 17:07 Cholecalciferol 5,000 Units Tablet BY MOUTH 5,000 units BID [place] Administration Radiology Results: ITS Impressions Chest X-Ray 11/29/24 18:57 IMPRESSION: No focal infiltrate or effusion. Renal Ultrasound 12/03/24 08:48 IMPRESSION: 1. Mild atrophy of the kidneys. No hydronephrosis. Labs Labs: Laboratory Results - last 24 hr 12/03/24 12/03/24 12/05/24 05:21 07:52 05:45 WBC 6.5 RBC 3.12 L Hgb 9.6 L Hct 31.7 L MCV 101.6 H MCH 30.8 MCHC 30.3 L RDW 13.6 Plt Count 302 MPV 11.6 H Immature Gran % (Auto) 5.0 H Neut % (Auto) 61.0 Lymph % (Auto) 17.6 L [place] % (Auto) 14.2 H Eos % (Auto) 1.7 Baso % (Auto) 0.5 Lymph # (Auto) 1.14 [place] # (Auto) 0.9 H Eos # (Auto) 0.1 Baso # (Auto) 0.0 Abs Immat Gran (auto) 0.32 H Absolute Neuts (auto) 3.9 Absolute Nucleated RBC 0.000 Nucleated RBC % 0.0 Sodium 139 Potassium 4.6 Chloride 99 Carbon Dioxide 29 Anion Gap 11 BUN 40 H Creatinine 2.34 H Estim Creat Clear Calc 17 Estimated GFR 20 L Glucose 102 Calcium 9.9 Magnesium 2.1 Total Bilirubin 0.5 AST 29 ALT 32 Alkaline Phosphatase 105 Total Protein 5.8 L 7.0 Albumin 3.1 L 3.9 Rkfgm-8-Gnitiyhtt 0.4 H Hzfph-9-Peyszfmnt 0.8 Cffg-5-Vllhtmlo 0.4 Dkme-5-Tzxbjufn 0.4 Gamma Globulins 0.7 L PEP Interpretation See note Ur Random Creatinine 42 U Random Total Protein 141 H Protein/Creatinin Ratio 3357 H [place]/Lambda Ratio 2.06 H Free [place] Light Chains 73.3 H Free [place] Light Chain 35.6 H Quality VTE Prophylaxis VTE prophylaxis: pharmacologic ordered
[2024-12-05] MEDS: PANTOPRAZOLE 40 MG TABLET PO (08:43)
[2024-12-05] MEDS: TAMSULOSIN HCL 0.4 MG CAPSULE PO (08:43)
[2024-12-05] MEDS: METOPROLOL SUCCINATE EXT REL 12.5 MG TABCR PO (08:43)
[2024-12-05] MEDS: DOCUSATE SODIUM 100 MG CAPSULE PO (08:43)
[2024-12-05] MEDS: APIXABAN 5 MG TABLET PO (08:43)
[2024-12-05] MEDS: busPIRone HCL 5 MG TABLET PO ×2 (08:44→17:49)
[2024-12-05] MEDS: AMOXICILLIN/CLAVULANATE K 500-125 MG TAB 1 TABLET PO (08:44)
[2024-12-05] MEDS: CHOLECALCIFEROL 5,000 UNITS TABLET 5000 UNITS BY MOUTH ×2 (08:44→17:49)
[2024-12-05] MEDS: CITALOPRAM HYDROBROMIDE 5 MG TABLET PO (08:44)
[2024-12-05] MEDS: guaiFENesin 12 HR 600 MG TABCR PO (08:44)
--- NOTE | 2024-12-05 11:56 | PM.PNNEP ---
Subjective Date/time seen: 12/05/24 11:56 Objective Data Vital Signs Vital Signs: Vital Signs Temp Pulse Resp BP Pulse Ox O2 Del Method O2 Flow Rate 12/05/24 09:14 96 18 12/05/24 09:04 95 Nasal Cannula 2 12/05/24 09:00 101 H 18 12/05/24 08:45 95 Nasal Cannula 2 12/05/24 08:43 100 12/05/24 04:52 98.7 F 98 17 131/66 96 12/05/24 04:00 89 12/05/24 01:28 91 18 12/05/24 01:16 98 18 12/05/24 01:16 95 Nasal Cannula 2 12/05/24 00:00 98 12/04/24 21:09 102 H 20 12/04/24 20:55 99 18 12/04/24 20:25 97.8 F 100 18 135/59 L 96 12/04/24 20:00 98 12/04/24 20:00 96 Nasal Cannula 2 12/04/24 16:00 100 12/04/24 14:17 102 H 18 12/04/24 14:05 106 H 18 12/04/24 14:00 97.9 F 99 18 136/62 92 12/04/24 13:50 113 H 91 Nasal Cannula 3 12/04/24 13:45 112 H 88 L Nasal Cannula 2 12/04/24 13:40 99 92 Nasal Cannula 2 12/04/24 13:35 100 88 L Nasal Cannula 1 12/04/24 13:30 101 H 87 L Room Air 12/04/24 12:00 97 Intake/Output Intake/Output: Intake & Output 12/02/24 12/03/24 12/04/24 12/05/24 23:59 23:59 23:59 23:59 Intake Total 1570.0 2040 2224 487 Output Total 1800 1200 400 Balance -230.0 840 1824 487 Meds/Results Medications: Active Medications Generic Name Dose Route Start Last Admin Trade Name Freq PRN Reason Stop Dose Admin Acetaminophen 650 mg 11/30/24 08:34 12/04/24 20:12 Acetaminophen 325 Mg Tablet PO 650 mg Q4H PRN Administration Headache Albuterol/Ipratropium 3 ml 12/03/24 08:00 12/05/24 09:00 Ipratropium 0.5 Mg/Albuterol Sulfate 2.5 Mg Ampul.Neb 3 Ml INHALATION 3 ml Q6HRT [place] Administration Allopurinol 100 mg 11/30/24 21:00 12/04/24 20:08 Allopurinol 100 Mg Tablet PO 100 mg HS [place] Administration Amoxicillin/Clavulanate Potassium 1 tablet 12/04/24 21:00 12/05/24 08:44 Amoxicillin/Clavulanate K 500-125 Mg Tab PO 12/06/24 09:01 1 tablet Q12HR [place] Administration Apixaban 5 mg 11/30/24 09:00 12/05/24 08:43 Apixaban 5 Mg Tablet PO 5 mg Q12HR [place] Administration Benzocaine 1 lozenge 12/04/24 15:54 12/04/24 17:07 Benzocaine/Menthol (*Bkc) 18 Ea Lozenge PO 1 lozenge PRN PRN Administration Sore Throat Bisacodyl 10 mg 12/03/24 13:53 12/04/24 09:29 Bisacodyl 10 Mg Suppository RECTAL 10 mg DAILY PRN Administration Constipation Buspirone HCl 5 mg 11/30/24 09:00 12/05/24 08:44 Buspirone Hcl 5 Mg Tablet PO 5 mg BID [place] Administration Citalopram Hydrobromide 5 mg 11/30/24 09:00 12/05/24 08:44 Citalopram Hydrobromide 5 Mg Tablet PO 5 mg QAM [place] Administration Docusate Sodium 100 mg 12/01/24 13:00 12/05/24 08:43 Docusate Sodium 100 Mg Capsule PO 100 mg Q12HR [place] Administration Guaifenesin 600 mg 11/30/24 13:30 12/05/24 08:44 Guaifenesin 12 Hr 600 Mg Tabcr PO 12/07/24 13:29 600 mg Q12HR [place] Administration Metoprolol Succinate 12.5 mg 11/30/24 11:00 12/05/24 08:43 Metoprolol Succinate Ext Rel 12.5 Mg Tabcr PO 12.5 mg QAM [place] Administration Pantoprazole Sodium 40 mg 12/01/24 09:00 12/05/24 08:43 Pantoprazole 40 Mg Tablet PO 40 mg DAILY [place] Administration Polyethylene Glycol 17 gm 11/30/24 08:34 12/04/24 09:29 Polyethylene Glycol 3350 17 Gm Powd.Pack PO 17 gm QAM PRN Administration Constipation Prochlorperazine Edisylate 10 mg 11/30/24 08:34 Prochlorperazine Edisylate 10 Mg/2 Ml Vial IV PUSH Q6H PRN Nausea And Vomiting Tamsulosin HCl 0.4 mg 12/04/24 09:00 12/05/24 08:43 Tamsulosin Hcl 0.4 Mg Capsule PO 0.4 mg QAM [place] Administration Vitamin D 5,000 units 11/30/24 09:00 12/05/24 08:44 Cholecalciferol 5,000 Units Tablet BY MOUTH 5,000 units BID [place] Administration Radiology Results: ITS Impressions Chest X-Ray 11/29/24 18:57 IMPRESSION: No focal infiltrate or effusion. Renal Ultrasound 12/03/24 08:48 IMPRESSION: 1. Mild atrophy of the kidneys. No hydronephrosis. Labs Labs: Laboratory Tests 12/05/24 05:45 12/05/24 05:45 Calcium 9.9 Magnesium 2.1 Total Bilirubin 0.5 AST 29 ALT 32 Alkaline Phosphatase 105 Total Protein 7.0 Albumin 3.9
--- NOTE | 2024-12-05 13:01 | P.DS_ITS ---
DS: Admitting Diagnosis Discharge Date 12/05/2024 Admitting Diagnosis Pneumonia DS: Discharge Diagnosis Discharge Diagnosis (1) RSV infection: Code(s): B33.8 - Other specified viral diseases Status: Acute Assessment and Plan: Improving * RSV positive * Supportive care. * home 02 (2) Acute kidney injury superimposed on CKD: Code(s): N17.9 - Acute kidney failure, unspecified; N18.9 - Chronic kidney disease, unspecified Status: Acute Assessment and Plan: Improving * Nephrology consulted, appreciate recommendations. * Renal ultrasound showed: FINDINGS: The right kidney measures 8.8 x 4.9 x 5.2 cm. The left kidney measures 8.5 x 5.2 x 4.7 cm. The kidneys demonstrate normal parenchymal echogenicity. There are cysts in the kidneys measuring up to 16 mm on the right. There is no hydronephrosis. The bladder is normal. Mild atrophy of the kidneys. No hydronephrosis. Creatinine increasing this morning Daily labs (3) Pneumonia due to respiratory syncytial virus (RSV): Code(s): J12.1 - Respiratory syncytial virus pneumonia Status: Acute Assessment and Plan: Improving * Azithromycin 500 mg IVPB daily and Ceftriaxone 1 gram IVPB daily. * Albuterol 2.5 mg inhalation q 6 and Ipratropium 0.5 mg inhalation q 6. * 02@[facility] Sa02 96%. * Incentive spirometer. * Blood cultures no growth to date. * Guaifenesin 600 mg PO q 12. * Transition to oral medications * Patient had difficulties weaning from oxygen so issues on home O2 study with oxygen prescribed (4) DVT (deep venous thrombosis): Qualifiers: Affected thrombotic vein of extremity: other lower extremity vein Chronicity: acute DVT location: lower extremity Laterality: left Qualified Code(s): I82.492 - Acute embolism and thrombosis of other specified deep vein of left lower extremity Code(s): I82.409 - Acute embolism and thrombosis of unspecified deep veins of unspecified lower extremity Status: Acute Assessment and Plan: * Eliquis 5 mg PO BID. (5) Urinary retention: Code(s): R33.9 - Retention of urine, unspecified Status: Acute Assessment and Plan: * Straight cath PRN * Nephrology consult. * Added Flomax * Discharged on Flomax (6) Hypomagnesemia: Code(s): E83.42 - Hypomagnesemia Status: Acute Assessment and Plan: improved. * Monitor labs. (7) Elevated brain natriuretic peptide (BNP) level: Code(s): R79.89 - Other specified abnormal findings of blood chemistry Status: Inactive Assessment and Plan: * BNP 3150 * Furosemide 40 mg PO x1 given 12/01/24. (8) HTN (hypertension), malignant: Code(s): I10 - Essential (primary) hypertension Status: Acute Assessment and Plan: * Current blood pressure 135/59. * Metoprolol Succinate 12.5 mg PO daily. (9) Back pain: Code(s): M54.9 - Dorsalgia, unspecified Status: Acute Assessment and Plan: * Acetaminophen 650 mg PO q 4 PRN. * Urine culture negative. (10) Chronic GERD: Code(s): K21.9 - Gastro-esophageal reflux disease without esophagitis Status: Acute Assessment and Plan: * Pantoprazole 40 mg PO daily. (11) Weakness: Code(s): R53.1 - Weakness Status: Acute Assessment and Plan: * PT/OT (12) Constipation: Code(s): K59.00 - Constipation, unspecified Status: Acute Assessment and Plan: * Docusate 100 mg PO q 12. * Continue Miralax 17 gram PO daily. * Add Bisacodyl 10 mg IN daily PRN. DS: Summary Hospital Course Reason for hospitalization: Pneumonia and RSV Hospital Course: 84 year old female that presented to the ER with weakness and flu like symptoms. Patient reports not feeling well with a cough, congestion, and diarrhea. Patient has been having lower back pain for about a week that she rates a 4 , frequent, and aching. Respiratory panel showed patient was positive for RSV. Patient did have an O2 requirement and was saturating at 90% on room air in the emergency department. Patient was started on azithromycin and Rocephin for pneumonia due to RSV. She required high oxygen demands. She did receive Lasix for pulmonary edema, with good improvement. She had a home oxygen study and was prescribed oxygen. She will follow-up with her primary care provider. Patient was taken off HCTZ CT hypercalcemia and started on Lasix for blood pressure and diuresis. Will follow-up in 1 week with lab work. Patient complained of urinary retention and was started on Flomax will be discharged home with this. She was transitioned to oral antibiotics okay for discharge. Status at Discharge Functional status at discharge: independent ambulation Time Spent with Patient Time attestation: Total time spent providing and/or coordinating discharge services: Time spent: Greater than 30 minutes Exam Narrative: General: well appearing, appears stated age. HEENT: normocephalic, atraumatic. Mucous membranes moist. EOMI, PERRLA, bilateral sclera anicteric, no conjunctival injection. Neck supple without JVD, lymphadenopathy, or bruit. Respiratory: clear to ascultation bilaterally. No rales/rhonic/wheezes. Cardiovascular: Regular rate and rhythm, normal S1-S2 upon ascultation. No murmurs, rubs, or clicks. PMI is nondisplaced, capillary refill less than 3 second. Abdomen: Soft, round, no pulsatile masses, nondistended and nontender. No rebound, no guarding. No CVA tenderness, no hepatosplenomegaly. Bowel sounds present to all four quadrants. No high pitch or tinkling sounds, resonant to percussion. Extremities: No cyanosis, clubbing, or edema present. Pulses are palpable 2/2. Active ROM to all four extremities. Neuro: Alert and orientated x 4. PERRLA. Cranial nerves 2-12 intact without focal deficit. Skin: Warm, dry, and intact, without rash, erythema, or lesion. Psych: pleasant, cooperative, normal speech, normal affect, no hallucinations, no dysarthia DS: Data Data Completed and Pending Labs on day of discharge: Labs from last 24 hours 12/05/24 12/03/24 05:45 05:21 WBC 6.5 RBC 3.12 L Hgb 9.6 L Hct 31.7 L MCV 101.6 H MCH 30.8 MCHC 30.3 L RDW 13.6 Plt Count 302 MPV 11.6 H Immature Gran % (Auto) 5.0 H Neut % (Auto) 61.0 Lymph % (Auto) 17.6 L [place] % (Auto) 14.2 H Eos % (Auto) 1.7 Baso % (Auto) 0.5 Lymph # (Auto) 1.14 [place] # (Auto) 0.9 H Eos # (Auto) 0.1 Baso # (Auto) 0.0 Abs Immat Gran (auto) 0.32 H Absolute Neuts (auto) 3.9 Absolute Nucleated RBC 0.000 Nucleated RBC % 0.0 Sodium 139 Potassium 4.6 Chloride 99 Carbon Dioxide 29 Anion Gap 11 BUN 40 H Creatinine 2.34 H Estim Creat Clear Calc 17 Estimated GFR 20 L Glucose 102 Calcium 9.9 Magnesium 2.1 Total Bilirubin 0.5 AST 29 ALT 32 Alkaline Phosphatase 105 Total Protein 7.0 Albumin 3.9 3.1 L Yvwvk-0-Hwjziynve 0.4 H Ckkpr-8-Vagjbvnkn 0.8 Moxk-4-Itisbqlg 0.4 Leor-1-Qznbfesh 0.4 Gamma Globulins 0.7 L PEP Interpretation See note Sombrillo/Lambda Ratio 2.06 H Free Sombrillo Light Chains 73.3 H Free Lambda Light Chain 35.6 H Preliminary micro results at discharge 11/30/24 09:16 Blood Culture - Preliminary Blood 11/30/24 09:03 Blood Culture - Preliminary Blood Discharge Plan Discharge Consulting providers: Concepción Francis; Diaz Walsh; Sherri Grimaldo; Guerita Zuniga; Dima Echeverria V. Discharging Clinician: Farzaneh Hensley Anticipated Discharge Date/Time: 12/05/24 12:57 Patient Disposition: NH Longterm/Asst Living Activity: may shower Diet: regular Discharge Instructions: Discharge instructions: Take medications as prescribed New medications prescribed: Flomax will need to see your PCP for refills Lasix please follow-up with PCP for refills 3 more days of antibiotics YOU HAVE BEEN TAKEN OFF HCTZ DUE TO YOUR HYPERCALCEMIA You are activity as tolerated Monitor blood pressures Avoid social areas, you wear a mask when in social settings Encouraged to continue with yearly vaccinations Return to the emergency department if he developed sudden shortness of breath, chest pain, nausea, vomiting, upset stomach or intractable diarrhea Return to the emergency department if you develop fever greater than 101.5 Follow-up with: Your primary care physician within 1-2 weeks for post hospitalization check up Your delivery professional for post hospitalization check up Thank you for [facility] for your healthcare needs Patient Instructions: Antibiotic Form, Apixaban (By mouth), Safe Use of Anticoagulants (ED), RSV (Respiratory Syncytial Virus) Infection (DC) Patient Language: Zimbabwean Stand Alone Forms: General Discharge Information Follow-up/Referrals: Concepción Francis MD [Physician] - Discharge Medications: New tamsulosin 0.4 mg Capsule 0.4 mg PO QAM 30 Days Qty: 30 0RF amoxicillin-pot clavulanate [Augmentin] 500-125 mg Tablet 1 tablet PO Q12HR 3 Days Qty: 6 0RF furosemide [Lasix] 20 mg tablet 20 mg PO DAILY Qty: 30 0RF Continued buspirone 5 mg tablet 5 mg PO BID allopurinol 100 mg tablet 100 mg PO HS cholecalciferol (vitamin D3) [Vitamin D3] 125 mcg (5,000 unit) Tablet 125 mcg PO BID citalopram 10 mg tablet 5 mg PO QAM Patient Comments: takes 10 mg Eliquis 5 mg Tablet 5 mg PO Q12HR Qty: 180 1RF Rx Instructions: Do not combine with the 10 mg dose twice per day. Take the 10 mg dose twice per day for 7 days then switch to this 5 mg tablet twice per day indefinitely. Follow-up with heme oncology to determine further management. aspirin [Adult Low Dose Aspirin] 81 mg tablet,delayed release (DR/EC) 81 mg PO DAILY metoprolol succinate 25 mg tablet extended release 24 hr 12.5 mg PO DAILY pantoprazole 40 mg tablet,delayed release (DR/EC) 40 mg PO DAILY Date of admission: 11/30/24 08:04 Primary Care Provider: Jazzmine,Roopa Barros Admitting Provider: Magda Szymanski Attending physician on admission: Farzaneh Hensley Condition: Improved Quality VTE Prophylaxis VTE prophylaxis: mechanical ordered and pharmacologic ordered Hospitalist MIPS Heart Failure (Exclusion) Patient has history of Heart Transplant or Left Ventricular Assistive Device?: No IF YES, STOP HERE Heart Failure (Qualifier) Patient has current or prior documentation of LVEF less than or equal to 40%, or mod/servere depressed LVSF?: No IF NO, STOP HERE
== END 2024-12-05 18:01 | DRG 194 ==
LOC: ANHED 18:40 → ANH3MEDSUR 21:54 → ANH2MED 23:49
PROVIDERS: Internal Medicine Nephrology; Nurse Practitioner Family; Admitting Provider Internal Medicine; Emergency Provider Emergency Medicine; PCP Physician Assistant; Visit Provider Nurse Practitioner Gerontology
DX: J12.1 Respiratory syncytial virus pneumonia (principal); I82.492 Acute embolism and thrombosis of other specified deep vein of left lower extremity; N17.9 Acute kidney failure, unspecified; N18.4 Chronic kidney disease, stage 4 (severe); B33.8 Other specified viral diseases; D63.1 Anemia in chronic kidney disease; E83.42 Hypomagnesemia; I12.9 Hypertensive chronic kidney disease with stage 1 through stage 4 chronic kidney disease, or unspecified chronic kidney disease; K21.9 Gastro-esophageal reflux disease without esophagitis; K59.00 Constipation, unspecified; M54.9 Dorsalgia, unspecified; R33.9 Retention of urine, unspecified; Z20.822 Contact with and (suspected) exposure to COVID-19; Z79.01 Long term (current) use of anticoagulants; Z98.42 Cataract extraction status, left eye; Z98.41 Cataract extraction status, right eye; Z96.652 Presence of left artificial knee joint; Z96.642 Presence of left artificial hip joint; Z87.891 Personal history of nicotine dependence
CPT/HCPCS: 36415; 71045; 76775; 80053; 81001; 81050; 82550; 82570; 83605; 83735; 83880; 83883; 84155; 84156; 84165; 84166; 84300; 84540; 85025; 85610; 85730; 85999; 87040; 87086; 87637; 93005; 94618; 94640; 96361; 96365; 96367; 96375; 97110; 97161; 97165; 97530; 99285; A9270; G0378; J0456; J0696; J2405; J3475; J7030

== ENCOUNTER 2025-03-06 10:22 | Outpatient (CLI) | payer MEDICARE, OTHER, SELFPAY ==
--- NOTE | ~2025-03-06 | US_ITS ---
Procedure: Duplex Doppler examination of the bilateral carotids. Indication: Amaurosis fugax Technique: Real time, color-flow and pulse wave Doppler examination of the bilateral carotids was performed. Findings: Ramirez scale ultrasonography of the right neck demonstrated a very small plaques at the right carotid b ulb. There was demonstration of normal color-flow and Doppler waveforms within the right common, inte rnal and external carotid arteries. The peak systolic velocities in the right common, internal and ex ternal carotid arteries were demonstrated to be 76 cm/sec, 89 cm/sec and 79 cm/sec respectively. The right ICA/CCA ratio was 1.2.The proximal right internal carotid artery demonstrates 0% stenosis relat margo to the normal distal artery lumen diameter. Ramirez scale sonography of the left neck demonstrated small plaques the proximal left common carotid ar rodrigo. There is moderate plaque at the left carotid bulb and proximal left internal carotid artery. Th ere was demonstration of normal color-flow and wave forms within the left common, internal and strategic business development al carotid arteries. The peak systolic velocities in the left common, internal and external carotid a rteries were demonstrated to be 76cm/sec, 110 cm/sec and 111 cm/sec respectively. The left ICA/CCA ra sony was 1.4. The proximal left internal carotid artery demonstrates 0% stenosis relative to the iliana l distal artery lumen diameter. There was antegrade flow demonstrated in the bilateral vertebral arteries. Impression: No hemodynamically significant stenosis of the bilateral internal carotid arteries. Antegrade flow in the bilateral vertebral arteries. Note: The methodology used is an indirect measurement validated against a direct method (such as the NASCET criteria) that compares diameters at the stenosis to the distal ICA. Reviewed, dictated and finalized at location M. Impression: No hemodynamically significant stenosis of the bilateral internal carotid arter ies. Antegrade flow in the bilateral vertebral arteries. Note: The methodology used is an indirect measurement validated against a direct meth od (such as the NASCET criteria) that compares diameters at the stenosis to the distal ICA.
--- OUTSIDE RECORDS SUMMARY | 2025-03-06 10:29 | XMS_ITS | Clinical Summary ---
Author Organization [facility] [address] Address [address] [place] [address] Care Team Providers Care Instructor Technical Training Name Role Phone Linus Conn MD Unavailable [phone] Roopa Dover Primary Care Provider Мария Palmer MD Unavailable [phone] Connor Baxter MD Unavailable Allergies Active Allergy Reactions Criticality Noted Date [...] 09/04/2023 Assessment & Plan (09/05/2023 12:25 PM PSYCHOLOGIST CHIEF): Weaned to 2L NC since hypoxia during sedation for reduction. CXR w/ atelectasis and possible pulmonary edema. Appears euvolemic on exam. -pulmonary hygiene: OOBTC, IS -wean O2 as tolerated Dislocation of hip joint prosthesis, initial enc ounter 09/03/2023 Assessment & Plan (09/05/2023 12:23 PM PSYCHOLOGIST CHIEF): Hx of TANYA c/b periprosthetic fracture s/p [...] 09/03/2023 Assessment & Plan (09/05/2023 12:24 PM PSYCHOLOGIST CHIEF): Cr 2.38 on admit from [facility] ~1.3-1.8. F/b renal at [facility], attributed to chronic HTN/nsaid use Suspected [...] 09/03/2023 Assessment & Plan (09/04/2023 5:19 PM PSYCHOLOGIST CHIEF): RESOVLED Mildly elevated at 2.3 with mildly [...] 09/02/2023 Assessment & Plan (09/03/2023 3:42 AM PSYCHOLOGIST CHIEF): -Continue home buspar, celexa Periprosthetic hip fracture, sequela 01/16/2023 Critical polytrauma 12/11/2022 Agata-prosthetic subtrochanteric femur fracture 0 12/10/2022 Overview (12/11/2022): Added automatically from request for surgery [id number] Albuminuria 12/21/2021 CKD (chronic kidney disease) stage 4, GFR 15-29 ml/min 12/21/2021 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 Plan: Recommend ongoing risk factor modifications and follow-up in 1 year for re-evaluation with aortic duplex surveillance. 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 She also had exposure of her left axillary artery during the procedure in which her surgical wound has healed well. Elizabeth removed in office without any complications, patient tolerated well. Plan: Patient follow-up in 1 month for re-evaluation. She is to have baseline CTA abdomen pelvis performed in the interim and will discussed test results during her next visit. Deep vein thrombosis (DVT) w ith pulmonary embolism present on admission 12/09/2019 Gastroesophageal reflux disease with stricture 0 12/09/2019 Assessment & Plan (09/03/2023 3:40 AM PSYCHOLOGIST CHIEF): -PPI History of removal of joint prosthesis [...] recommendations. Assessment & Plan (09/05/2023 12:23 PM PSYCHOLOGIST CHIEF): -Hold lisinopril & metoprolol in setting of [...] Resolved Date Well child examination 12/09/201909/03 Immunizations Immunization Administration Dates Next Due Influenza, Trivalent, IM [...] Smoking Tobacco: Former Cigarettes 0.5 50 1 - 1989 Smokeless Tobacco: Never Tobacco Cessation:Counseling Given: [...] on file Legal Sex Female 2:56 AM PSYCHOLOGIST CHIEF Gender Identity Not on file Sexual Orientation Not on file Obstetrics History Last Filed Vital Signs Vital Sign Reading Time Taken Comments Blood Pressure 182/77 06/26/2024 9:35 AM CDT Pulse 98 06/26/2024 9:35 AM CDT Temperature 36.7 C (98.1 F) 09/05/2023 1:05 PM PSYCHOLOGIST CHIEF Respiratory Rate 18 09/05/2023 1:05 PM PSYCHOLOGIST CHIEF Oxygen Saturation 95% 09/05/2023 1:05 PM PSYCHOLOGIST CHIEF Inhaled Oxygen Concentration - - Weight 76.7 [...] Pneumococcal vaccine 65+ (2 of 2 - PPSV23) 08/13/2021 08/13/2020 Covid-19 Vaccine (3 - 2023-2 5 season) 2024 12/15/2020, 11/24/2020 Influenza Vaccine (#1) 2024 , 07/12/2021, 08/21/2020, Additional history exists Fall Risk Assessment 09/05/2024 09/05/2023 Medical Devices Implanted Type Area Gel Coat Sprayer Device Identifier Shelf Expiration Date Model / Serial / Lot Ball Socket-Joint Left: Hip [employer] Gmrs 50mm Knee Extension Femoral Cocr 6495-6-050 - [id number] Implanted:Qty: 1 on 01/21/2023 by Ramon Mcknight MD at [facility] Left: Hip [employer] [id number] 09/08/2026 6495-6-05 0 / / [id number] [employer]/Or tho Prep-Im Plug [place] Sponge Suction Hip Kit Thr Latex Free [id number] - [id number] Implanted:Qty: 1 on 01/21/2023 by Ramon Mcknight MD at [facility] Left: Hip [employer]/Or tho [id number] 07/18/2032 [id number] / / [id number] [employer] Simplex P Full Dose Radiopaque Preblend Cement Bone Tobramycin 6197-9-001 - [id number] Implanted:Qty: 2 on 01/21/2023 by Ramon Mcknight MD at [facility] Left: Hip [employer] [id number] 07/15/2024 6197-9-00 1 / / [id number] [employer] Uhr 50mm 28mm Hip Brandon Head Bipolar Cocr Uhmwpe Uh1-50-28 - [id number] Implanted:Qty: 1 on 01/21/2023 by Ramon Mcknight MD at [facility] Left: Hip [employer] [id number] 09/12/2026 UH1-50-28 / / [id number] [employer] Mrs 11mm 127mm Cemented Body Section Knee Standard Straight Stem 6485-3-011 - [id number] Implanted:Qty: 1 on 01/21/2023 by Ramon Mcknight MD at [facility] Left: Hip [employer] [id number] 11/07/2026 6485-3-01 1 [id number] [employer] V40 Lfit 28mm Hip +0mm Offset Head Femoral Cocr 6260-9-128 - [id number] Implanted:Qty: 1 on 01/21/2023 by Ramon Mcknight MD at [facility] Left: Hip [employer] [id number] 12/08/2026 6260-9-12 8 [id number] [employer] Gmrs Hip Standard Neutral Component Femoral Cocr 6495-1-001 - [id number] Implanted:Qty: 1 on 01/21/2023 by Ramon Mcknight MD at [facility] Left: Hip [employer] [id number] 08/12/2027 6495-1-00 1 / [id number] Explanted Type Area Gel Coat Sprayer Device Identifier Shelf Expiration Date Model / Serial / Lot [employer] D[employer]-[place] 2mm Set Hip Cable/Sleeve Orthopedic Vitallium 6704-0-510 - [id number] Explanted:Qty: 2 on 01/21/2023 by Ramon Mcknight MD at [facility] Left: Hip [employer] [id number] 07/30/2026 6704-0-51 0 [id number] [employer] Ring[place] Bio-[place] Ii 50mm 28mm 2 Articulate Surface Lock - [id number] Explanted:Qty: 1 on 01/21/2023 by Ramon Mcknight MD at [facility] Left: Hip [employer] [id number] 08/24/2027 / / [id number] [employer] G7 28mm Type 1 Hip Standard Offset Head Femoral Cocr [id number] - [id number] Explanted:Qty: 1 on 01/21/2023 by Ramon Mcknight MD at [facility] Left: Hip [employer] [id number] 09/22/2032 [id number] / / [id number] Insurance MEDICARE [facility] [place] MEDICARE [facility] HEALTH PLAN MEDICARE [facility] HEALTH PLAN [facility] HMO/PPO Address: [address] [place] [address] [facility] Advance Directives For more information, please contact: [phone] Documents on File Type Date Recorded Patient Butadiene Converter Helper Expl anation ADVANCE DIRECTIVE 12/11/2022 1:43 AM POWER OF CAFE OR RESTAURANT MANAGER-MEDICAL * Full Code (Latest Code Status on [...] 7:32 AM 12/11/2022 8:18 PM Care Teams Instructor Technical Training Relationship Specialty Start Date End Date Roopa Dover PA PCP - General Physician Promotional Marketing Agent 07/21/21 Linus Conn MD Consulting Physician Nephrology 06/30/21 Мария Palmer MD [address] [place] [address] Referring Physician Plastic Surgery 12/15/22 Connor Baxter MD [address] [place] [address] Surgeon Vascular Surgery 01/17/23
--- OUTSIDE RECORDS SUMMARY | 2025-03-06 10:29 | XMS_ITS | Encounter Summary ---
Author Organization [facility] Address [address] [place] [address] Care Team Providers Care Manager Tax Name Role Phone Unavailable Primary Care Provider Unavailabl e Encounter Details Date Type Department Care Team (Late st Contact Info) Description 03/04/2025 External Device Data [place] ABSTRACTION Provider, Abstract NO ADDRESS ON FILE Social History Tobacco Use Types Packs/Day Years Used Date Smoking Tobacco: Former Cigarettes Smokeless Tobacco: Never Alcohol Use Standard Drinks/Week Comments Not Currently 0 (1 standard drink = 0.6 oz pur e alcohol) Comments Unknown Sex and Gender Information Value Date Recorded Sex Assigned at Not on file Legal Sex Female 12:58 PM WORKERS' COMPENSATION HEARINGS OFFICER Gender Identity Not on file Sexual Orientation Not on file documented as of this encounter Plan of Treatment Upcoming Encounters Date Type Department Care Team (Late st Contact Info) Description 09/09/2025 1:15 PM WORKERS' COMPENSATION HEARINGS OFFICER Office Visit [facility] Oncology and Hematology - [place] [address] [place] [address] [facility] [address] [place] [address] Nilson Edmonds MD [address] [place] [address] documented as of this encounter Visit Diagnoses Not on filedocumented in this encounter
--- OUTSIDE RECORDS SUMMARY | 2025-03-06 10:29 | XMS_ITS | Data Portability ---
Author Organization [place] - [place] [employer], Main Office Address [address] [place] [address] Care Team Providers Care Chief Digital Officer Name Role Phone GROVER GOMEZ Primary Care Provider [phone] GROVER GOMEZ Referring Provider [phone] Assessment Encounter Date Assessment Date Assessment LastModified [...] and she has to using it normally. [email or web address] Not available 04/25/2023 15:00:46 Plan of Treatment Reminders Order Date Submit Date Provider Last Modified By Organization Details Last Modified Time Details Appointments None recorded. Lab None recorded. Referral None recorded. Procedures None recorded. Surgeries None recorded. Imaging XR, hip + pelvis, unilateral, 2 or 3 view 2022 023 [email or web address] 158 [facility] [place], [address], [place], [address], 3 15:51:04 XR, wrist 2022 023 [email or web address] [facility] [place], [address], [place], [address], 3 15:06:29 XR, hip, unilateral 2022 023 [email or web address] 158 [facility] [place], [address], [place], [address], 3 11:19:49 XR, wrist 2022 023 [email or web address] 158 [facility] [place], [address], [place], [address], 3 11:19:22 Medication Orders None recorded. Patient TargetsNo targets recorded. Patient InstructionsNo instructions recorded. Reason for Referral None Reported. Results Created Date Observation Date Name Description Value Unit Range Abnormal Flag Note LastModifiedBy Organization Detail LastModifiedTime 08/24/20 21 XR, shoul jessica No observ ation record ed. [id number] [facility] [place] [address], [place], [address], 12/14/2022 07:01:32 08/24/20 21 XR, knee, 3 view No observ ation record ed. [id number] [facility] [place] [address], [place], [address], 12/14/2022 07:01:32 08/24/20 21 XR, hip + pelvi s, unila teral , 2 or 3 view No observ ation record ed. [id number] [facility] [place] [address], [place], [address], 12/14/2022 07:01:32 03/09/20 23 XR, wrist No observ ation record ed. [facility] [place] [address], [place], [address], 03/09/2023 11:19:21 03/09/20 23 XR, hip, unila teral No observ ation record ed. [email or web address] [facility] [place] [address], [place], [address], 03/09/2023 11:19:48 04/25/20 23 XR, hip + pelvi s, unila teral , 2 or 3 view No observ ation record ed. [email or web address] [facility] [place] [address], [place], [address], 04/25/2023 15:51:04 04/25/20 23 XR, wrist No observ ation record ed. [email or web address] [facility] [place] [address], [place], [address], 04/25/2023 15:01:20 Result Notes None recorded. Problems Name Problem SNOMED Code Status Onset Date Resolution Date Notes Provider Name and Address Organization Details Recorded Time Disorder of shoulder 522492814 Active Not Available [facility] 3 06:56:57 Density outside reference range 444512229 Active Not Available [facility] 3 06:56:57 Acquired trigger finger 4558176 Active Not Available [facility] 3 06:56:57 Localized, primary osteoarthr itis of the shoulder region 891887626 Active Not Available [facility] 3 06:56:57 Pain of joint of hand 421404494 Active Not Available [facility] 3 06:56:57 Osteoarthr itis of joint of hand 47464244 Active Not Available [facility] 3 06:56:57 Shoulder joint pain 467132089 Active Not Available [facility] 3 06:56:57 Enthesopat hy of hip region 20481239 Active Not Available [facility] 3 06:56:57 Arthropath y of joint of hand 017674511 Active Not Available [facility] 3 06:56:57 Disorder of bursa of shoulder region 49743476 Active Not Available [facility] 3 06:56:57 Pain of left wrist 6277810995869 02 Active 2022 WOLF [place], [place] - [facility] [employer] [facility] 3 10:35:30 Pain of left hip joint 2886697994116 00 Active 2022 WOLF Hernandez, DianDian [facility] [employer] [facility] 3 10:35:41 Problem Notes None recorded. Procedures Surgical History Date Name Laterality Status Provider Name and Address Organization Details Recorded Time 3 Hip surgery completed Chayito Paiz CNA [place] - [place] [employer] [facility] 03/09/2023 10:34:58 wrist repair completed Chayito Paiz CNA [place] [employer] [facility] 03/09/2023 10:35:10 Imaging Results Imaging Date Name Status LastModified by Organiz [facility] Details LastModified Time 08/24/2021 XR, shoulder completed [id number] [facility] [place] [address], [place], [address], 12/14/2022 07:01:32 08/24/2021 XR, knee, 3 view completed [id number] [facility] [place] [address], [address], 12/14/2022 07:01:32 08/24/2021 XR, hip + pelvis, unilateral, 2 or 3 view completed [id number] [facility] [place] [address], [place], [address], 12/14/2022 07:01:32 03/09/2023 XR, wrist completed [email or web address] [facility] [place] [address], [place], [address], 03/09/2023 11:19:21 03/09/2023 XR, hip, unilateral completed [email or web address] [facility] [place] [address], [address], 03/09/2023 11:19:48 04/25/2023 XR, hip + pelvis, unilateral, 2 or 3 view completed [email or web address] [facility] [place] [address], [place], [address], 04/25/2023 15:51:04 04/25/2023 XR, wrist completed [email or web address] [facility] [place] [address], [address], 04/25/2023 15:01:20 Procedure Notes None recorded. Medical Equipment None Reported. Allergies Allergen ID Allergen Name Allergen Category Reaction Reaction Severity Criticality Documentation Date Start Date Code Code System Note Provider Name and Address Organization Details Recorded Time 07347 acetamino phen / hydrocodo ne medicatio n Not available Not available Not available 12/14/2022 50935 2 RxNorm Not Available [facility] 07:01:25 14797 Lopid medicatio n Not available Not available Not available 12/14/2022 92094 9 RxNorm Not Available [facility] 3 07:01:25 25360 Lipitor medicatio n Not available Not available Not available 12/14/2022 18724 5 RxNorm Not Available [facility] 3 07:01:25 92197 Flagyl medicatio n Not available Not available Not available 12/14/2022 04179 6 RxNorm Not Available [facility] 3 07:01:25 67467 Cipro medicatio n Not available Not available Not available 12/14/202207978 3 RxNorm Not Available [facility] 3 07:01:25 Medications Name Sig Start Date [...] administe red by the provider 03/09 completed [facility]: 0003- 0494- 20 Not Available Not Available [...] administe red by the provider 03/09 completed [facility]: 0409- 4276- 17 Not Available Not Available [...] and Address Organization Details Last Updated DateTime 08/24/2021 25.1 kg/m2 175.26 cm 83006.7 g Not Available [employer] 12/14/2022 06:55:35 Date Recorded Body height Body mass index (BMI) Body weight Provider Name and Address Organization Details Last Updated DateTime 03/09/2023 175.26 cm 25.1 kg/m2 01554.7 g Chayito Paiz CNA [place] [employer] [facility] [employer] 03/09/2023 10:27:05 Date Recorded Body height Provider Name an d Address Organization Details Last Updated DateTime 04/25/2023 175.26 cm DEO [employer] [facility] [employer] [facility] 04/25/2023 14:13:46 Social History None recorded. Functional Status Question Answer Note LastModified by Organization D etails LastModified Time What is your level of alcohol consumption? None [email or web address] Information not available 03/09/2023 Mental Status None recorded. Family History Relationship [...] DEPRESSION (INCLUDING POST ) N STROKE/TIA N ULCERS N KNEE PAIN N BENIGN PROSTATIC HYPERPLASIA N OBESITY N [...] HAVE YOU BEEN HOSPITALIZED OR SEEN IN [facility] ER IN THE PAST YEAR ? N BURSITIS [...] SNOMED-CT Code Diagnosis ICD10 Code Diagnosis Note [id number] Phillip Molina MD [facility] [place] [address] [facility] [address] [place] [address] 08/24/2021 00:00:00 08/24/2021 15:57:55 [id number] Phillip Molina MD [facility] [place] [address] [facility] [address] [place] [address] 03/09/2023 10:15:53 03/09/2023 11:13:26 Pain of left wrist 6366089812 13130 M25.532 Pain of le ft hip joint 4719334703 85774 M25.552 History of total replacement of left hip joint 3933597341 473254 Z96.642 [id number] Phillip Molina MD [facility] [place] [address] [facility] [place] [address] 04/25/2023 14:06:41 04/25/2023 15:06:29 History of total replacement of left hip joint 3061583516 546355 Z96.642 Pain of left wrist 04846 64448 36446 M25.532 Health Concerns Section Related Observation LastModified by Organization Detai ls LastModified Time None Recorded Concern Status LastModified by Organization Details LastModified Time None Recorded Advance Directives Directive None Recorded Payers Encounter Date Sequence Insurance Name Policy Number Policy Gracía Covered Member ID García Member ID Guarantor Name 03/09/2023 1 [place] Debra Bueno [id number] Debra Bueno 03/09/2023 2 [employer] HEALTH PLAN (MEDICARE SUPPLEMENT) [id number] Micheal Bueno [id number] Debra Bueno 04/25/2023 1 [place] Debra Bueno [id number] Debra Bueno 04/25/2023 2 [employer] HEALTH PLAN (MEDICARE SUPPLEMENT) [id number] Micheal Bueno [id number] Debra Bueno Notes Date Note Type Note [...] she does not wish to go to [place]. Phillip Molina MD [address], [place], [address], [place] 03/09/2023 11:21:03 04/25/2023 text/html Patient returns for [...] she does not wish to go to [place]. Phillip Molina MD [address], [place], [address], [place] 04/25/2023 15:51:15 OBGyn Episode No OBEpisode recorded.
--- OUTSIDE RECORDS SUMMARY | 2025-03-06 10:29 | XMS_ITS | Continuity of Care Document ---
Author Organization [facility] Address [address] [place] [address] Phone Care Team Providers Care Media Assistant Name Role Phone Gerard Holder Unavailable Unavailable Procedures Procedure Date Office/outpatient Visit, Est Post-op Follow-up Visit Post-op Follow-up Visit Post-op Follow-up Visit Post-op Follow-up Visit Refraction Vision Svcs Frames Purchases BF Polycarb Sphcyl [place] To +/-4d .12-2d Frames Deluxe Scratch Resistant [...] Copied on Encounter Office/outpat ient Visit, Est [facility], [address], [place], [place], [address], [place] tel:[phone] [facility] No Information 8-201 0 Doisy Edward. [address], [place], [place], [facility], [place]. tel:[phone] [facility], [address], [place], [place], [address], [place] tel:[phone] [facility] No Information May-0 2-201 0 Krishnasamy Stephen. [address], [place], [address], [place]. tel:[phone] [facility], [address], [place], [place], [address], [place] tel:[phone] [facility] No Information 4-201 0 Doisy Edward. [address] , [address], [place], [facility], [place]. tel:[phone] [facility], [address], [place], [place], [address], [place] tel:[phone] [facility] No Information 6-201 0 Li Palak. [address], [place], [facility], [place]. tel:[phone] [facility], [address], [place], [place], [address], [place] tel:[phone] [facility] No Information 6-201 0 Doisy Edward. [address], [place], [facility], [place]. tel:[phone] [facility], [address], [place], [place], [address], [place] tel:[phone] [facility] No Information 6-201 0 [employer]. [address] [facility], [address], [place], [place], [address], [place]. tel:[phone] Referring Provider: Gerard Balderas, [address], [place], [facility]. tel:[phone] [facility], [address], [place], [place], [address], [place] tel:[phone] [facility] No Information Guille-0 2-201 0 Doilouis Edmichael. [address], [place], [facility], [place]. tel:[phone] [facility], [address] [place] [address] [address], [place], [place], [address], [place] tel:[phone] [facility] No Information May-2 6-201 0 Gallo Gee. [address] [facility] , [address], [place], [facility], [place]. tel:[phone] [facility], [address], [place], [place], [address], [place] tel:[phone] [facility] No Information May-1 9-201 0 Gallo Gee. [address], [place], [facility], [place]. tel:[phone] [facility], [address], [place], [place], [address], [place] tel:[phone] [facility] No Information May-1 8-201 0 Doisy Edmichael. [address] , [address], [place], [address], [place]. tel:[phone] [facility], [address], [place], [place], [address], [place] tel:[phone] [facility] No Information Apr-2 8-201 0 Doilouis Edmichael. [address] , [address], [place], [facility], . tel:[phone] Referring Provider: Inderjit Benavidez [facility] [address], [place], [facility]. tel:[phone] [facility], [address] [facility] [address], [place], [place], [address], tel:[phone] [facility] No Information 4-201 0 Gallo Gee. [address] [place] [address] [address], [address], [place], [facility], . tel:[phone] [facility], [address] [place] [address] [address], [place], [place], [address], tel:[phone] [facility] No Information 3-201 0 Gallo Gee. [address] [place] [address] [address], [address], [place], [facility], . tel:[phone] [facility], [address] [place] [address] [address], [place], [place], [address], tel:[phone] [facility] No Information 5-201 0 Gallo Gee. [address] [place] [address] [address], [address], [place], [facility], . tel:[phone] Referring Provider: Gerard [facility]deras [facility] [address], [place], [facility]. tel:[phone] Family History Family Member Type Diagnosis Age At Onset No Information Payers Payer name Insurance type Covered green party ID Authoriza tion(s) [place] [id number] [facility] [id number] Social History Type Description Quantity Date Captured [...]
--- OUTSIDE RECORDS SUMMARY | 2025-03-06 10:29 | XMS_ITS | Clinical Summary ---
Author Organization [facility] Address [address] [place] [address] Phone Care Team Providers Care Meat Packager Name Role Phone Unavailable Primary Care Provider Unavailabl e Allergies Active Allergy Reactions Criticality Noted Date Comments Atorvastatin Rash,Unknown Low 10/03/2019 Doxycycline Syncope High 04/09/2020 Felodipine Unknown 10/03/2019 Gemfibrozil Unknown 12/12/2019 Hydrocodone Unknown 10/03/2019 Hydrocodone-Acetaminophen Unknown 12/12/2019 Metronidazole Unknown 10/03/2019 Quinolones Unknown 10/03/2019 Sulfa (Sulfonamide Antibiotics) Nausea and Vomiting Low 11/02/2022 Medications allopurinoL (ZYLOPRIM) 100 mg tablet Take 1 Tablet by mouth daily. 4 Active apixaban (ELIQUIS) 5 mg tablet Take 5 mg by mouth 2 times daily. 4 Active busPIRone (BUSPAR) 5 mg tablet Take 5 mg by mouth 2 times daily. 4 Active cholecalciferol , Vitamin D3, 125 mcg (5,000 unit) Capsule Take 1 Capsule by mouth daily. 4 Active citalopram (CeleXA) 10 mg tablet Take 10 mg by mouth daily. 3 Active metoprolol succinate (TOPROL XL) 25 mg Extended Release 24 hour tablet TAKE 1/2 TABLET(12.5 MG) BY MOUTH DAILY 3 Active pantoprazole (PROTONIX) 40 mg Tablet, Delayed Release (E.C.) Take 40 mg by mouth daily. 4 Active acetaminophen (TYLENOL) 500 mg Capsule Take 1,000 mg by mouth every 6 hours. 3 Active ferrous sulfate 325 mg (65 mg iron) tablet Take 325 mg by mouth daily. Active sennosides/docu sate sodium (SENNA PLUS ORAL) Take by mouth. Active METOPROLOL TARTRATE ORAL Take 12.5 mg by mouth daily. Active Fish Oil-[place]-3 Fatty Acids 300-500 mg Capsule Take 1,500 mg by mouth daily. Active tamsulosin (FLOMAX) 0.4 mg capsule Take 0.4 mg by mouth daily. 5 Active furosemide (LASIX) 20 mg tablet Take 20 mg by mouth every 24 hours. 5 Active apixaban (Eliquis) 5 mg tablet Take 5 mg by mouth every 12 hours. 4 Active aspirin (ECOTRIN EC) 81 mg Tablet, Delayed Release (E.C.) Take 81 mg by mouth daily. 03/04/20 Discontinue d(Alternate therapy prescribed) cyanocobalamin, vitamin B-12, 2,500 mcg Tablet, Chewable Take by mouth daily. 03/04/20 Discontinue d(Alternate therapy prescribed) Active Problems No known active problems Encounters Date Type Department Care Team Description 03/04/2025 1:15 PM CDT Office Visit [facility] Oncology and Hematology - [place] [address] [place] [address] Nilson Edmonds MD Chronic anemia (Primary Dx) 03/04/2025 External Device Data STL ABSTRACTION Provider, Abstract 03/03/[address] [facility]ology - [place] [address] [place] [address] Nilson Edmonds MD from Last 3 Months Family History Medical [...] Smoking Tobacco: Former Cigarettes Smokeless Tobacco: Never Tobacco Cessation:Counseling Given: Not Answered Alcohol Use Standard Drinks/Week Comments Not Currently 0 (1 standard drink = 0.6 oz pur e alcohol) Comments Unknown Sex and Gender Information Value Date Recorded Sex Assigned at Not on file Legal Sex Female 12:58 PM CONTINUING EDUCATION DEAN Gender Identity Not on file Sexual Orientation Not on file Last Filed Vital Signs Vital Sign Reading Time Taken Comments Blood Pressure 127/77 03/04/2025 1:17 PM CDT Pulse 91 03/04/2025 1:17 PM CDT Temperature 36.2 C (97.2 F) 03/04/2025 1:17 PM CDT Respiratory Rate 15 03/04/2025 1:17 PM CDT Oxygen Saturation 95% 03/04/2025 1:17 PM CDT Inhaled Oxygen Concentration - - Weight 84.4 kg (186 lb) 03/04/2025 1:17 PM CDT Height 175.3 cm (5' 9 ) 01/02/2024 1:23 PM CDT Body Mass Index 27.47 01/02/2024 1:23 PM CDT Plan of Treatment Upcoming Encounters Date Type Department Care Team (Late st Contact Info) Description 09/09/2025 1:15 PM CONTINUING EDUCATION DEAN Office Visit [facility]cology and Hematology - [place] [address] [facility] [address] [place] [address] Nilson Edmonds MD [address] [facility] [address] [place] [address] Health Maintenance Due Date Last Done Comments DTAP/TDAP/TD VACCINES (1 - Tdap) 1959 ZOSTER VACCINE (1 of 2) 1959 RSV VACCINE (60+ or ) (1 - 1-dose 75+ series) 2014 PNEUMOCOCCAL VACCINE 50+ YEA RS (2 of 2 - PPSV23) 10/08/2020 08/13/2020 COVID-19 Vaccine (3 - Pfizer risk series) 01/12/2021 12/15/2020, 11/24/2020 OSTEOPOROSIS SCREENING 11/01/2027 3, 11/01/2022, 11/01/2022, Additional history exists INFLUENZA VACCINE Completed 08/26/2024, , 07/30/2013 Procedures Procedure Name Priority Date/Time Associated Diagnosis Comments CBC WITH DIFFERENTIAL Routine 02/27/2025 11:41 AM CDT from Last 3 Months Results * CBC WITH DIFFERENTIAL (02/27/2025 11:41 AM CDT) Blood us Nilson Edmonds MD HEMATOLOGY ORDERABLES Final Res ult from Last 3 Months Insurance MEDICARE PART A AND B [employer] [facility] [id number]
--- OUTSIDE RECORDS SUMMARY | 2025-03-06 10:29 | XMS_ITS | Encounter Summary ---
Author Organization [facility] JERRI Stinson [facility] Address [address] [place] [address] Care Team Providers Care Vault Maker Name Role Phone Unavailable Primary Care Provider Unavailabl e Encounter Details Date Type Department Care Team ([facility] Contact Info) Description 03/03/2025 Orders Only [facility] Oncology and Hematology [facility] [address] [place] [address] Nilson Edmonds MD [address] [place] [address] Social History Tobacco Use Types Packs/Day Years Used Date Smoking Tobacco: Former Cigarettes Smokeless Tobacco: Never Alcohol Use Standard Drinks/Week Comments Not Currently 0 (1 standard drink = 0.6 oz pur e alcohol) Comments Unknown Sex and Gender Information Value Date Recorded Sex Assigned at Not on file Legal Sex Female 12:58 PM SURVEY COORDINATOR Gender Identity Not on file Sexual Orientation Not on file documented as of this encounter Plan of Treatment Upcoming Encounters Date Type Department Care Team ([facility] Contact Info) Description 09/09/2025 1:15 PM SURVEY COORDINATOR Office Visit [facility] Oncology and Hematology [place] [address] [place] [address] Nilson Edmonds MD [address] [place] [address] documented as of this encounter Procedures Procedure Name Priority Date/Time Associated Diagnosis Comments CBC WITH DIFFERENTIAL Routine 02/27/2025 11:41 AM CDT documented in this encounter Results * CBC WITH DIFFERENTIAL (02/27/2025 11:41 AM CDT) Blood us Nilson Edmonds MD HEMATOLOGY ORDERABLES Final Res ult documented in this encounter Visit Diagnoses Not on filedocumented in this encounter
--- OUTSIDE RECORDS SUMMARY | 2025-03-06 10:29 | XMS_ITS | Referral Summary ---
Author Organization [facility] [place] [address] Address [address] [place] [address] Care Team Providers Care Temple Marker Name Role Phone Linus Conn MD Unavailable [phone] Roopa Dover Primary Care Provider Мария Palmer MD Unavailable [phone] Connor Baxter MD Unavailable [phone] Allergies Active Allergy Reactions Criticality Noted Date [...] 09/04/2023 Assessment & Plan (09/05/2023 12:25 PM WASTE MINIMIZATION TECHNICIAN): Weaned to 2L NC since hypoxia during sedation for reduction. CXR w/ atelectasis and possible pulmonary edema. Appears euvolemic on exam. -pulmonary hygiene: OOBTC, IS -wean O2 as tolerated Dislocation of hip joint prosthesis, initial enc ounter 09/03/2023 Assessment & Plan (09/05/2023 12:23 PM WASTE MINIMIZATION TECHNICIAN): Hx of TANYA c/b periprosthetic fracture s/p [...] 09/03/2023 Assessment & Plan (09/05/2023 12:24 PM WASTE MINIMIZATION TECHNICIAN): Cr 2.38 on admit from [facility] ~1.3-1.8. F/b renal at [facility], attributed to chronic HTN/nsaid use [...] 09/03/2023 Assessment & Plan (09/04/2023 5:19 PM WASTE MINIMIZATION TECHNICIAN): RESOVLED Mildly elevated at 2.3 with mildly [...] 09/02/2023 Assessment & Plan (09/03/2023 3:42 AM WASTE MINIMIZATION TECHNICIAN): -Continue home buspar, celexa Periprosthetic hip fracture, sequela 01/16/2023 Critical polytrauma 12/11/2022 Agata-prosthetic subtrochanteric femur fracture 0 12/10/2022 Overview (12/11/2022): Added automatically from request for surgery [id number] Albuminuria 12/21/2021 CKD (chronic kidney disease) stage 4, GFR 15-29 ml/min 12/21/2021 [place]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 Plan: Recommend ongoing risk factor modifications and follow-up in 1 year for re-evaluation with aortic duplex surveillance. Assessment & Plan (12/17/2019 6:52 PM WASTE MINIMIZATION TECHNICIAN): Impression: Patient recovering well status post endovascular repair of her infrarenal AAA. She also had exposure of her left axillary artery during the procedure in which her surgical wound has healed well. Meadow removed in office without any complications, patient tolerated well. Plan: Patient follow-up in 1 month for re-evaluation. She is to have baseline CTA abdomen pelvis performed in the interim and will discussed test results during her next visit. Deep vein thrombosis (DVT) w ith pulmonary embolism present on admission 12/09/2019 Gastroesophageal reflux disease with stricture 0 12/09/2019 Assessment & Plan (09/03/2023 3:40 AM WASTE MINIMIZATION TECHNICIAN): -PPI History of removal of joint prosthesis [...] recommendations. Assessment & Plan (09/05/2023 12:23 PM WASTE MINIMIZATION TECHNICIAN): -Hold lisinopril & metoprolol in setting of [...] on file Legal Sex Female 2:56 AM WASTE MINIMIZATION TECHNICIAN Gender Identity Not on file Sexual Orientation Not on file Last Filed Vital Signs Vital Sign Reading Time Taken Comments Blood Pressure 182/77 06/26/2024 9:35 AM CDT Pulse 98 06/26/2024 9:35 AM CDT Temperature 36.7 C (98.1 F) 09/05/2023 1:05 PM WASTE MINIMIZATION TECHNICIAN Respiratory Rate 18 09/05/2023 1:05 PM WASTE MINIMIZATION TECHNICIAN Oxygen Saturation 95% 09/05/2023 1:05 PM WASTE MINIMIZATION TECHNICIAN Inhaled Oxygen Concentration - - Weight 76.7 kg (169 lb) 06/26/2024 9:35 AM CDT Height 175.3 cm (5' 9 ) 06/26/2024 9:35 AM CDT Body Mass Index 24.96 06/26/2024 9:35 AM CDT Plan of Treatment Not on file Medical Devices Implanted Type Area Teacher Adult Education Device Identifier Shelf Expiration Date Model / Serial / Lot Ball Socket-Joint Left: Hip [employer] Gmrs 50mm Knee Extension Femoral Cocr 6495-6-050 - [id number] Implanted:Qty: 1 on 01/21/2023 by Ramon Mcknight MD at [facility] Left: Hip [employer] [id number] 09/08/2026 6495-6-05 0 / / [id number] [employer]m [employer] Nephew/[employer]/Or tho Prep-Im Plug [place] Sponge Suction Hip Kit Thr Latex Free [id number] - [id number] Implanted:Qty: 1 on 01/21/2023 by Ramon Mcknight MD at [facility] Left: Hip [employer]/Or tho [id number] 07/18/2032 [id number] / / [id number] [employer] Simplex P Full Dose Radiopaque Preblend Cement Bone Tobramycin 6197-9-001 - [id number] Implanted:Qty: 2 on 01/21/2023 by Ramon Mcknight MD at [facility] Left: Hip [employer] [id number] 07/15/2024 6197-9-00 1 / / [id number] [employer] Uhr 50mm 28mm Hip [place] Head Bipolar Cocr Uhmwpe Uh1-50-28 - [id number] Implanted:Qty: 1 on 01/21/2023 by Ramon Mcknight MD at [facility] Left: Hip [employer] [id number] 09/12/2026 UH1-50-28 / / [id number] [employer] Mrs 11mm 127mm Cemented Body Section Knee Standard Straight Stem 6485-3-011 - [id number] Implanted:Qty: 1 on 01/21/2023 by Ramon Mcknight MD at [facility] Left: Hip [employer] [id number] 11/07/2026 6485-3-01 1 / / [id number] [employer] V40 Lfit 28mm Hip +0mm Offset Head Femoral Cocr 6260-9-128 - [id number] Implanted:Qty: 1 on 01/21/2023 by Ramon Mcknight MD at [facility] Left: Hip [employer] [id number] 12/08/2026 6260-9-12 8 / [id number] [employer] Gmrs Hip Standard Neutral Component Femoral Cocr 6495-1-001 - [id number] Implanted:Qty: 1 on 01/21/2023 by Ramon Mcknight MD at [facility] Left: Hip [employer] [id number] 08/12/2027 6495-1-00 1 / / [id number] Explanted Type Area Teacher Adult Education Device Identifier Shelf Expiration Date Model / Serial / Lot [employer] Freda-[place] 2mm Set Hip Cable/Sleeve Orthopedic Vitallium 6704-0-510 - [id number] Explanted:Qty: 2 on 01/21/2023 by Ramon Mcknight MD at [facility] Left: Hip [employer] [id number] 07/30/2026 6704-0-51 0 / [id number] [employer] Ring[place] Bio-[place] Ii 50mm 28mm 2 Articulate Surface Lock [id number] - [id number] Explanted:Qty: 1 on 01/21/2023 by Ramon Mcknight MD at [facility] Left: Hip [employer] [id number] 08/24/2027 -[id number] / / [id number] [employer] G7 28mm Type 1 Hip Standard Offset Head Femoral Cocr 190453 - [id number] Explanted:Qty: 1 on 01/21/2023 by Ramon Mcknight MD at [facility] Left: Hip [employer] [id number] 09/22/2032 [id number] / / [id number] Insurance MEDICARE [facility] [place] [address] MEDICARE [facility]AN [facility] Advance Directives For more information, please contact: [phone] Documents on File Type Date Recorded Patient Surgical Services Asst Expl anation ADVANCE DIRECTIVE 12/11/2022 1:43 AM POWER OF SENIOR ANALYST PROGRAMMER-MEDICAL * Full Code (Latest Code Status on [...] 7:32 AM 12/11/2022 8:18 PM Care Teams Temple Marker Relationship Specialty Start Date End Date Roopa Dover PA PCP - General Physician Egg Tester 07/21/21 Linus Conn MD Consulting Physician Nephrology 06/30/21 Мария Palmer MD [address] [place] [address] Referring Physician Plastic Surgery 12/15/22 Connor Baxter MD [address] [place] [address] Surgeon Vascular Surgery 01/17/23
== END 2025-03-06 10:23 | disposition home or self-care (01) ==
PROVIDERS: PCP Physician Assistant; Visit Provider Specialist
DX: G45.3 Amaurosis fugax (principal)
CPT/HCPCS: 93880

== ENCOUNTER 2025-09-04 09:20 | Outpatient (CLI) | payer MEDICARE, OTHER, SELFPAY ==
[2025-09-04 09:42] LABS: Hematocrit 33.0 % (37.0-47.0); Hemoglobin 10.4 g/dL (12.0-15.0); Mean Corpuscular HGB Conc 31.5 g/dl (32-36); Mean Corpuscular Hemoglobin 31.5 pg (26-34); Mean Corpuscular Volume 100.0 fl (80-100); Platelet Count Result 299 k/mm3 (150-375); Red Blood Count 3.30 M/mm3 (4.2-5.4); White Blood Count 7.3 K/mm3 (4.5-10.0)
--- OUTSIDE RECORDS SUMMARY | 2025-09-04 10:33 | XMS_ITS | Clinical Summary ---
Author Organization [facility] Address [address] [place] [address] Phone Care Team Providers Care Bonus Clerk Name Role Phone Unavailable Primary Care Provider [...] by mouth 2 times daily. 11/09/2023 Active busPIRone (BUSPAR) 5 mg tablet Take 5 mg by mouth 2 times daily. 10/20/2023 Active cholecalciferol , Vitamin D3, 125 mcg (5,000 unit) Capsule Take 1 Capsule by mouth daily. 11/21/2023 Active citalopram (CeleXA) 10 mg tablet Take 10 mg by mouth daily. 11/16/2022 Active metoprolol succinate (TOPROL XL) 25 mg [...] 12.5 mg by mouth daily. Active Fish Oil-Gladstone-3 Fatty Acids 300-500 mg Capsule Take 1,500 mg by mouth daily. Active tamsulosin (FLOMAX) 0.4 mg capsule Take 0.4 mg by mouth daily. 01/01/2025 Active furosemide (LASIX) 20 mg tablet Take 20 mg by mouth every 24 hours. 01/01/2025 Active apixaban (Eliquis) 5 mg tablet Take 5 mg by mouth every 12 hours. 06/13/2024 Active Active Problems No known active problems Encounters Date Type Department Care Team Description 08/05/2025 External Device Data [facility] ABSTRACTION Provider, Abstract 06/17/2025 External Device Data [facility] ABSTRACTION Provider, Abstract from Last 3 Months Family History Medical [...] on file Legal Sex Female 12:58 PM ENGINEERING SURVEYOR Gender Identity Not on file Sexual [...] 1:17 PM CDT Height 175.3 cm (5' 9) 01/02/2024 1:23 PM CDT Body Mass Index 27.47 01/02/2024 1:23 PM CDT Plan of Treatment Upcoming Encounters Date Type Department Care Team (Late st Contact Info) Description 09/09/2025 1:15 PM ENGINEERING SURVEYOR Office Visit [facility] Oncology and Hematology - [place] [address] [facility] [address] [place] [address] Nilson Edmonds MD [address] [facility] [address] [address] [place] [address] Health Maintenance Due Date Last Done Comments DTAP/TDAP/TD VACCINES (1 - Tdap) 1959 Traditional Medicare (ACO) A nnual Wellness Visit 1959 ZOSTER VACCINE (1 of 2) 1959 RSV VACCINE (60+ or ) (1 - 1-dose 75+ series) 2014 PNEUMOCOCCAL VACCINE 50+ YEA RS (2 of 2 - PPSV23, PCV20, or PCV21) 10/08/2020 08/13/2020 COVID-19 Vaccine (3 - Pfizer risk series) 01/12/2021 12/15/2020, 11/24/2020 INFLUENZA VACCINE (#1) 2025 4, 07/12/2021, 07/30/2013 OSTEOPOROSIS SCREENING 11/01/2027 3, 11/01/2022, 11/01/2022, Additional history exists Insurance MEDICARE PART A AND B [employer] [id number] Member Subscriber Plan / Payer (Ef fective 2023-Present) Name:Debra Bueno Relation to Subscriber:Self Name:MylesDebra Payer ID:[id number] (NAIC) Type:O Address: [facility] [id number] [place] [id number]
[2025-09-04 14:44] LABS: Anion Gap 10 mmol/L (4-12); Blood Urea Nitrogen 38 mg/dL (7-17); Calcium 9.8 mg/dL (8.4-10.2); Carbon Dioxide 24 mmol/L (22-30); Chloride 100 mmol/L (98-107); Estimated Glomerular Filt Rate 17; Glucose 95 mg/dL (65-110); Potassium 4.3 mmol/L (3.4-5.0); Sodium 134 mmol/L (137-145)
[2025-09-04 14:48] LABS: Iron 67 ug/dL (37-170)
[2025-09-04 15:00] LABS: Percent Iron Saturation 22 % (20-50)
[2025-09-04 15:32] LABS: Ferritin 98.10 ng/mL (11.1-264)
[2025-09-04 15:55] LABS: Vitamin B12 804.0 pg/mL (239-931)
== END 2025-09-04 09:21 | disposition home or self-care (01) ==
LOC: ANHLAB 09:21
PROVIDERS: PCP Physician Assistant; Visit Provider Internal Medicine Hematology & Oncology
DX: D64.9 Anemia, unspecified (principal)
CPT/HCPCS: 36415; 80048; 82607; 82728; 82746; 83540; 83550; 85027